=== PATIENT | female | born 1970 | race Caucasian/White ===

== ENCOUNTER 2016-10-11 11:00 | Inpatient (IN) | payer BC ==
[2016-10-11] MEDS ORDERED: PROTONIX 40 MG IV IV ONE ×2 (11:28→11:44)
[2016-10-11] MEDS ORDERED: Sodium Chloride 0.9% 1000 ML 1,000 ML IV STA (11:28)
--- NOTE | 2016-10-11 11:35 | ERPHSYRPT ---
- History of Present Illness Time Seen by Provider: 10/11/16 11:19 Historian: patient Exam Limitations: no limitations Patient Subjective Stated Complaint: HEARTBURN/BURNING IN THE ESOPHAGUS. WAS SEEN IN HOSPITAL LAST MONTH HAD AN EGD PERFORMED AND THEY SEEN SOMETHING ON THE ESOPHAGUS. ON October FOR FOLLOW UP. Triage Nursing Assessment: PT ALERT X 3. WALKED INTO ER. RESPIRATIONS EVEN AND UNLBAORED. SKIN PINK WARM AND DRY. MUSCOUS MEMEBRANES MOIST AND PINK NO REDNESS IN THROAT NOTED AT THIS TIME. ABDOMEN TENDER TO TOUCH, BOWEL SOUNDS PRESENT. Physician History: This is a 46-year-old white female with history of ulcers, anxiety, bipolar disorder, anemia She states she had an EGD approximately one half months ago which she states showed some significant changes she states that she is supposed to be seeing Dr. Kennedy but hasn't done so she states she has no physician [place] she states she is having burning pain in her esophagus and down into her epigastric region which has been going on for several weeks she is not vomiting she is requesting pain medications She states she is not taking any medications She has no fevers no melena no hematochezia Past medical history includes ulcers, anxiety, bipolar, anemia, left wrist fracture Past surgical history includes cholecystectomy, , hysterectomy, left knee surgery, tonsils, gastric bypass Timing/Duration: week(s) (ssymptoms for several weeks) Activities at Onset: none Quality: burning Abdominal Pain Onset Location: epigastric, other (epigastric and up into the substernal region) Pain Radiation: epigastric Severity of Pain-Max: moderate Severity of Pain-Current: moderate Modifying Factors: Improves With: nothing Associated Symptoms: nausea, vomiting, No back, No chest pain, No diaphoresis, No diarrhea, No fever/chills, No fatigue, No headache, No heartburn, No loss of appetite, No neck pain, No rash, No shortness of breath, No syncope Previous symptoms: same symptoms as today, other (patient with recent EGD 6 weeks ago) Allergies/Adverse Reactions: No Known Drug Allergies Allergy (Verified 03/31/16 12:13) Home Medications: Trazodone HCl 200 mg PO QHS 09/09/15 [History] Sertraline HCl [Zoloft] 100 mg PO DAILY 10/11/16 [History] Hx Tetanus, Diphtheria Vaccination/Date Given: Yes (2015) Hx Influenza Vaccination/Date Given: No Hx Pneumococcal Vaccination/Date Given: No Immunizations Up to Date: Yes - Review of Systems Constitutional: No Fever, No Chills Eyes: No Symptoms Ears, Nose, & Throat: No Symptoms Respiratory: No Cough, No Dyspnea Cardiac: No Chest Pain, No Edema, No Syncope Abdominal/Gastrointestinal: Abdominal Pain, Nausea, Vomiting, No Diarrhea, No Constipation, No Hematemesis, No Hematochezia, No Melena, No Dysphagia, No Appetite Changes Genitourinary Symptoms: No Dysuria Musculoskeletal: No Back Pain, No Neck Pain Skin: No Rash Neurological: No Dizziness, No Focal Weakness, No Sensory Changes Psychological: No Symptoms Endocrine: No Symptoms All Other Systems: Reviewed and Negative - Past Medical History Pertinent Past Medical History: Yes Neurological History: No Pertinent History ENT History: No Pertinent History Cardiac History: No Pertinent History Respiratory History: No Pertinent History Endocrine Medical History: No Pertinent History Musculoskeletal History: No Pertinent History GI Medical History: Ulcer History: No Pertinent History Psycho-Social History: Anxiety, Bipolar, Depression Female Reproductive Disorders: No Pertinent History Other Medical History: anemia,may left wrist fx - Past Surgical History Past Surgical History: Yes Neuro Surgical History: No Pertinent History Cardiac: No Pertinent History Respiratory: No Pertinent History Gastrointestinal: Cholecystectomy Genitourinary: No Pertinent History Musculoskeletal: Orthopedic Surgery Female Surgical History: Section, Hysterectomy Other Surgical History: left knee,tonsil,gastric bypass - Social History Smoking Status: Never smoker Exposure to second hand smoke: No Drug Use: none Patient Lives Alone: No - Nursing Vital Signs Nursing Vital Signs: Initial Vital Signs Temperature 98.2 F Temperature Source Oral Pulse Rate 56 Respiratory Rate 20 Blood Pressure [] 113/67 Pain Intensity 8 - Physical Exam General Appearance: no apparent distress, alert Eye Exam: PERRL/EOMI, eyes nml inspection Ears, Nose, Throat Exam: normal ENT inspection, pharynx normal, moist mucous membranes Neck Exam: normal inspection, non-tender, supple, full range of motion Respiratory Exam: normal breath sounds, lungs clear, No respiratory distress Cardiovascular Exam: regular rate/rhythm, normal heart sounds Gastrointestinal/Abdomen Exam: soft, tenderness (epigastric tenderness), No mass Back Exam: normal inspection, normal range of motion, No CVA tenderness, No vertebral tenderness Extremity Exam: normal inspection, normal range of motion, pelvis stable Neurologic Exam: alert, oriented x 3, cooperative, normal mood/affect, nml cerebellar function, sensation nml, No motor deficits Skin Exam: normal color, warm, dry SpO2 Interpretation: normal (98%) SpO2: 98 Oxygen Delivery: Room Air - Course Nursing assessment & vital signs reviewed: Yes EKG Interpreted by Me: RATE (EKG: Sinus bradycardia 49 bpm normal axis, no acute ST or T wave changes, normal EKG) - Radiology Exams Chest X-ray Interpretation: Discussed w/ radiologist, Other (chest x-ray: 1. Low lung volumes unchanged 2. No acute cardiopulmonary disease process. 3. Port- A-Cath on the left unchanged) - CT Exams Abdomen/Pelvis CT Interpretation: Discussed w/radiologist (CT abdomen and pelvis with contrast ; 1. There is a mild amount of scattered fluid within the small bowel and colon which may relate to entero-colitis or diarrrheal state. This is nonspecific. No definite bowel wall thickening or bowel obstruction is seen. 2. Minimal sigmoid colon diverticulosis without evidence of diverticulitis seen. 3. Suggestion of tiny amount of perihepatic ascites within the right upper quadrant laterally. Minimal amount of nonspecific free fluid within the lower pelvis reason for this is unclear no free air is seen. 4. Status post gastric bypass surgery, cholecystectomy, and hysterectomy. 5. No other acute process is seen within the abdomen or pelvis) Ordered Tests: Active Orders 24 hr Category Date Time Status EKG-ER Only STAT Care 10/11/16 11:28 Active IV Insertion STAT Care 10/11/16 11:28 Active ABDOMEN AND PELVIS W CONTRAST [CT] Stat Exams 10/11/16 12:37 Completed CHEST 1 VIEW (PORTABLE) Stat Exams 10/11/16 14:00 Completed AMYLASE Stat Lab 10/11/16 11:40 Completed CBC W DIFF Stat Lab 10/11/16 11:40 Completed CMP Stat Lab 10/11/16 11:40 Completed CULTURE,URINE Stat Lab 10/11/16 12:00 Received LIPASE Stat Lab 10/11/16 11:40 Completed TROPONIN Stat Lab 10/11/16 11:40 Completed UA W/ MICROSCOPIC Stat Lab 10/11/16 12:00 Completed Urine Triage Profile Stat Lab 10/11/16 11:28 Completed Transfer Order Routine Transfer 10/11/16 15:57 Ordered Medication Summary Discontinued Medications Generic Name Dose Route Start Last Admin Trade Name Freq PRN Reason Stop Dose Admin Sodium Chloride 1,000 mls @ 999 mls/hr 10/11/16 11:28 10/11/16 12:06 Sodium Chloride 0.9% 1000 Ml IV 10/11/16 12:28 999 mls/hr .Q1H1M STA Administration Sodium Chloride Confirm 10/11/16 11:44 Sodium Chloride 0.9% 1000 Ml Administered 10/11/16 11:45 Dose 1,000 mls @ ud .ROUTE .STK-MED ONE Morphine Sulfate 4 mg 10/11/16 12:31 10/11/16 13:17 Morphine Sulfate 4 Mg Inj IV 10/11/16 12:32 4 mg STAT ONE Administration Morphine Sulfate Confirm 10/11/16 13:01 Morphine Sulfate 4 Mg Inj Administered 10/11/16 13:02 Dose 4 mg .ROUTE .STK-MED ONE Morphine Sulfate 4 mg 10/11/16 14:24 10/11/16 14:43 Morphine Sulfate 4 Mg Inj IV 10/11/16 14:25 4 mg STAT ONE Administration Morphine Sulfate Confirm 10/11/16 14:41 Morphine Sulfate 4 Mg Inj Administered 10/11/16 14:42 Dose 4 mg .ROUTE .STK-MED ONE Ondansetron HCl 4 mg 10/11/16 12:31 10/11/16 13:18 Zofran 4 Mg/2 Ml Vial IV 10/11/16 12:32 4 mg STAT ONE Administration Ondansetron HCl Confirm 10/11/16 13:01 Zofran 4 Mg/2 Ml Vial Administered 10/11/16 13:02 Dose 4 mg .ROUTE .STK-MED ONE Pantoprazole Sodium 40 mg 10/11/16 11:28 10/11/16 12:06 Protonix 40 Mg Iv IV 10/11/16 11:29 40 mg STAT ONE Administration Pantoprazole Sodium Confirm 10/11/16 11:44 Protonix 40 Mg Iv Administered 10/11/16 11:45 Dose 40 mg IV .STK-MED ONE Lab/Rad Data: Laboratory Result Diagrams 10/11/16 11:40 10/11/16 11:40 Laboratory Results 10/11/16 10/11/16 10/11/16 Range/Units 12:00 11:40 11:40 WBC (4.0-10.5) K/mm3 RBC (4.1-5.4) M/mm3 Hgb (12.0-16.0) gm/dl Hct (35-47) % MCV (78-100) fl MCH (26-32) pg MCHC (32-36) g/dl RDW (11.5-14.0) % Plt Count (150-450) K/mm3 MPV (6-9.5) fl Gran % (36.0-66.0) % Lymphocytes % (24.0-44.0) % Monocytes % (0.0-12.0) % Eosinophils % (0.00-5.0) % Basophils % (0.0-0.4) % Basophils # (0-0.4) Sodium 145 (136-145) mEq/L Potassium 3.8 (3.5-5.1) mEq/L Chloride 111 H (98-107) mEq/L Carbon Dioxide 24.4 (21-32) mEq/L Anion Gap 13.5 (5-15) MEQ/L BUN 14 (9-20) mg/dL Creatinine 0.83 (0.55-1.30) mg/dl Estimated GFR > 60 ML/MIN Glucose 101 (70-110) MG/DL Calcium 9.4 (8.5-10.1) mg/dL Total Bilirubin 0.20 (0.2-1.0) mg/dL AST 28 (15-37) U/L ALT 25 (12-78) U/L Alkaline Phosphatase 70 (46-116) U/L Troponin I < 0.017 (0.000-0.056) ng/ml Serum Total Protein 6.4 (6.4-8.2) gm/dL Albumin 3.7 (3.4-5.0) g/dL Amylase 81 (25-115) U/L Lipase 603 H (73-393) U/L Ur Collection Type VOID Urine Color YELLOW (YELLOW) Urine Appearance CLEAR (CLEAR) Urine pH 7.0 (5-6) Ur Specific [place] 1.010 (1.005-1.025) Urine Protein NEGATIVE (Negative) Urine Ketones NEGATIVE (NEGATIVE) Urine Blood 5-10 (0-5) Micah/ul Urine Nitrite NEGATIVE (NEGATIVE) Urine Bilirubin NEGATIVE (NEGATIVE) Urine Urobilinogen NORMAL (0-1) mg/dL Ur Leukocyte Esterase TRACE (NEGATIVE) Urine Microscopic RBC 0-2 (0-2) /HPF Urine Microscopic WBC 2-5 (0-5) /HPF Ur Epithelial Cells FEW (FEW) /HPF Urine Bacteria FEW (NEGATIVE) /HPF Urine Glucose NEGATIVE (NEGATIVE) mg/dL Urine Opiates Level (NEGATIVE) Ur Methadone (NEGATIVE) Urine Barbiturates (NEGATIVE) Ur Phencyclidine (PCP) (NEGATIVE) Urine Amphetamine (NEGATIVE) U Benzodiazepine Level (NEGATIVE) Urine Cocaine (NEGATIVE) Urine Marijuana (THC) (NEGATIVE) Specimen Received 10/11/16 1200 10/11/16 10/11/16 Range/Units 11:40 11:28 WBC 5.2 (4.0-10.5) K/mm3 RBC 4.42 (4.1-5.4) M/mm3 Hgb 12.4 (12.0-16.0) gm/dl Hct 37.6 (35-47) % MCV 85.1 (78-100) fl MCH 28.1 (26-32) pg MCHC 33.0 (32-36) g/dl RDW 17.8 H (11.5-14.0) % Plt Count 298 (150-450) K/mm3 MPV 8.9 (6-9.5) fl Gran % 63.5 (36.0-66.0) % Lymphocytes % 20.8 L (24.0-44.0) % Monocytes % 8.3 (0.0-12.0) % Eosinophils % 6.0 H (0.00-5.0) % Basophils % 1.4 (0.0-0.4) % Basophils # 0.07 (0-0.4) Sodium (136-145) mEq/L Potassium (3.5-5.1) mEq/L Chloride (98-107) mEq/L Carbon Dioxide (21-32) mEq/L Anion Gap (5-15) MEQ/L BUN (9-20) mg/dL Creatinine (0.55-1.30) mg/dl Estimated GFR ML/MIN Glucose (70-110) MG/DL Calcium (8.5-10.1) mg/dL Total Bilirubin (0.2-1.0) mg/dL AST (15-37) U/L ALT (12-78) U/L Alkaline Phosphatase (46-116) U/L Troponin I (0.000-0.056) ng/ml Serum Total Protein (6.4-8.2) gm/dL Albumin (3.4-5.0) g/dL Amylase (25-115) U/L Lipase (73-393) U/L Ur Collection Type Urine Color (YELLOW) Urine Appearance (CLEAR) Urine pH (5-6) Ur Specific [place] (1.005-1.025) Urine Protein (Negative) Urine Ketones (NEGATIVE) Urine Blood (0-5) Micah/ul Urine Nitrite (NEGATIVE) Urine Bilirubin (NEGATIVE) Urine Urobilinogen (0-1) mg/dL Ur Leukocyte Esterase (NEGATIVE) Urine Microscopic RBC (0-2) /HPF Urine Microscopic WBC (0-5) /HPF Ur Epithelial Cells (FEW) /HPF Urine Bacteria (NEGATIVE) /HPF Urine Glucose (NEGATIVE) mg/dL Urine Opiates Level NEG. (NEGATIVE) Ur Methadone NEG. (NEGATIVE) Urine Barbiturates NEG. (NEGATIVE) Ur Phencyclidine (PCP) NEG. (NEGATIVE) Urine Amphetamine NEG. (NEGATIVE) U Benzodiazepine Level NEG. (NEGATIVE) Urine Cocaine NEG. (NEGATIVE) Urine Marijuana (THC) NEG. (NEGATIVE) Specimen Received - Progress Progress: improved Progress Note: 10/11/16 11:42 46-year-old white female who has a history of ulcers anxiety bipolar anemia, cholecystectomy who states she's had a gastric bypass She arrives with complaint of burning pain in the substernal up through the epigastric region symptoms going on for several weeks she apparently had any CT done approximately 6 weeks ago and Zahira Norris she states she was supposed to follow-up with Dr. Wang cannot see him for several weeks. She states that being out in the heat makes her more uncomfortable she states that she has had some vomiting and some nausea She is asking for some type of pain medication Night have a told her that I would go ahead and obtain labs and start with Protonix for this patient I've reviewed her inspect report which shows a rather long history of receiving narcotic analgesia from various prescribers the last most recent includes hydrocodone 325/5 #30 tablets on August 29, 2016 hydrocodone 5/325 #10 tablets on August 27, 2016 Hydrocodone 7.5 mg 325 #10 tablets on August 22, 2016 written by 3 different physicians. Patient is agreeable to releasing records from her scope at [facility] . 10/11/16 11:42 10/11/16 14:00 Patient did have a mild elevation of lipase at 603 (normal 73-393) amylase is within normal limits at 81 remainder patient's other labs are essentially normal troponin was normal CT of the abdomen is remarkable for a mild amount of scattered fluid within the small bowel and colon which may relate to entero-colitis or diarrheal state nonspecific there was no definite bowel wall thickening or bowel obstruction seen, there was a minimal sigmoid colon diverticulosis without diverticulitis, there was a suggestion of tiny amount of. Panic ascites within the right upper quadrant laterally also a minimal amount of nonspecific free fluid within the lower pelvis reason for this was unclear there was no free air seen patient was status post gastric bypass surgery cholecystectomy and hysterectomy no other acute processes were seen within the abdomen or pelvis. Patient was given IV normal saline given morphine 4 mg IV Zofran 4 mg IV normal saline 1 L I've talked to the patient she [facility] I have placed a call out to Dr. Kennedy through [place] [facility] call. Patient does state that she is feeling somewhat short of breath and has felt that way she has had normal saturations EKG is normal will go ahead and check a chest x-ray lungs are clear. 10/11/16 15:36 Still waiting for a call back through [facility]. 10/11/16 15:55 I went back to recheck patient she is requesting to be admitted to this hospital. I've discussed the case with Dr. Clark who is signal constructor for admissions. Will place patient on observation provide IV fluids, provide IV morphine for pain Zofran. Will plan to repeat CBC CMP amylase and lipase in the morning. 10/11/16 16:10 - Departure Time of Disposition: 15:56 Departure Disposition: Observation Clinical Impression: Epigastric pain, Elevated lipase Condition: Fair Critical Care Time: No Referrals: MARIMAR LEA, POLL CLERK [Primary Care Provider] -
[2016-10-11] MEDS ORDERED: Sodium Chloride 0.9% 1000 ML 1,000 ML ONE (11:44)
[2016-10-11 11:54] LABS: BASOPHIL % 1.4 % (0.0-0.4); Granulocytes % 63.5 % (36.0-66.0); Lymphocytes % 20.8 % (24.0-44.0); Mean Cell Volume 85.1 fl (78-100); Mean Corpuscular Hemoglobin 28.1 pg (26-32); Mean Platelet Volume 8.9 fl (6-9.5); Monocytes % 8.3 % (0.0-12.0); Platelet Count 298 K/mm3 (150-450); Red Blood Count 4.42 M/mm3 (4.1-5.4); Red Cell Distribution Width 17.8 % (11.5-14.0); White Blood Count 5.2 K/mm3 (4.0-10.5)
[2016-10-11 12:08] LABS: ALBUMIN 3.7 g/dL (3.4-5.0); ALKALINE PHOSPHATASE 70 U/L (46-116); ANION GAP 13.5 MEQ/L (5-15); BLOOD UREA NITROGEN 14 mg/dL (9-20); CHLORIDE 111 mEq/L (98-107); Carbon Dioxide 24.4 mEq/L (21-32); Glucose 101 MG/DL (70-110); LIPASE 603 U/L (73-393); Potassium 3.8 mEq/L (3.5-5.1); SGOT/AST 28 U/L (15-37); SGPT/ALT 25 U/L (12-78); SODIUM 145 mEq/L (136-145); Total Protein 6.4 gm/dL (6.4-8.2)
[2016-10-11 12:15] LABS: Bilirubin NEGATIVE (NEGATIVE); COMPLETE URINE MICROSCOPIC? YES; Collection Type VOID; Glucose NEGATIVE (NEGATIVE); Leukocyte Esterase TRACE (NEGATIVE)
[2016-10-11 12:22] LABS: Bacteria FEW /HPF (NEGATIVE); Epithelial Cells FEW /HPF (FEW)
[2016-10-11 12:26] LABS: ADD URINE CULTURE? YES (NO)
[2016-10-11] MEDS ORDERED: Zofran 4 MG/2 ML VIAL IV ONE (12:31)
[2016-10-11] MEDS ORDERED: MORPHINE SULFATE 4 MG INJ IV ONE ×2 (12:31→14:24)
[2016-10-11] MEDS ORDERED: MORPHINE SULFATE 4 MG INJ ONE ×2 (13:01→14:41)
[2016-10-11] MEDS ORDERED: Zofran 4 MG/2 ML VIAL ONE (13:01)
--- NOTE | 2016-10-11 13:56 | XRAY ---
Exam: CT of the abdomen and pelvis with IV contrast from 10/11/2016. CTDI: 23.57 Comparison: CT of the abdomen and pelvis with IV contrast from 03/27/2012. Indication: Epigastric abdominal pain, nausea, vomiting, diarrhea. Technique: Post-IV contrast axial images were obtained through the abdomen and pelvis during automated injection of 80 cc of Isovue-370 contrast material. Delayed axial images were obtained as well. Reconstructed coronal and sagittal images were created and reviewed. Findings: The lung bases appear clear. Minimal posterior dependent atelectatic changes are seen within the posterior lung sulci. Surgical suture material is seen overlying the medial aspect of the left upper quadrant, apparently due to prior gastric bypass surgery. I also see surgical clips consistent with prior cholecystectomy. Faint surgical suture material is seen within bowel in the left midabdomen as well, probably related to the patient's gastric bypass surgery. The liver is of unremarkable size. No suspicious mass or biliary duct distention is seen. There is a question of trace perihepatic ascites lateral to the liver on axial image #37 of series #2. No biliary duct distention is seen. The spleen is of normal size and reveals no focal mass. No abnormality of the pancreas or adrenal glands is seen. The kidneys appear of unremarkable size and contour. No definite renal calculi, hydronephrosis, or solid renal mass is seen. A moderate sized extrarenal pelvis is seen on the right representing no change. Both kidneys function. No ureteral distention or stone is seen. No urinary bladder stone is seen. The abdominal aorta appears of normal diameter, i.e. no aneurysm. No abnormal retroperitoneal lymphadenopathy is seen. Anterior abdominal wall appears intact. No free intraperitoneal air is seen. Scattered stool is seen within the colon. I also note some fluid within the small bowel and colon lumen which may relate to enterocolitis or a diarrheal state. No definite bowel wall thickening is seen. The appendix is not seen at the inferior margin of the cecum, but no pericecal inflammatory changes are seen to suggest appendicitis. The uterus is surgically absent. No worrisome pelvic mass or enlarged pelvic lymph nodes are seen. I believe there is some minimal free fluid within the lower posterior pelvis, a bit more prominent to the right than left. This is nonspecific. Some small calcified phleboliths are seen within the lower pelvis on each side of midline. Minimal sigmoid colon diverticulosis without evidence of diverticulitis is seen. The skeletal structures reveal no acute fracture or aggressive bone lesion. Mild diffuse degenerative changes are seen within the lower thoracic spine. Impression: 1. There is a mild amount of scattered fluid within the small bowel and colon which may relate to enterocolitis or diarrheal state. This is nonspecific. No definite bowel wall thickening or bowel obstruction is seen. 2. Minimal sigmoid colon diverticulosis without evidence of diverticulitis is seen. 3. There is a suggestion of a tiny amount of perihepatic ascites within the right upper quadrant laterally. I also believe there is a minimal amount of nonspecific free fluid within the lower pelvis. The reason for this is unclear. No free air is seen. 4. Status post gastric bypass surgery, cholecystectomy, and hysterectomy. 5. No other acute process is seen within the abdomen or pelvis.
--- NOTE | 2016-10-11 14:41 | XRAY ---
Exam: AP upright portable chest film from 1405 hrs. on 10/11/2016. Comparison: AP upright portable chest film from 02/18/2016. Indication: Shortness of breath. Findings: The lungs are mildly hypo-inflated, but unchanged. Left-sided ruth catheter is seen with the tip pointing inferiorly at the caval-atrial junction representing no change. The transverse heart size appears within normal limits for this AP portable technique. No pulmonary vascular congestion is seen. The remainder of the lindsay and mediastinal structures appears normal. The lungs reveal no air space infiltrates, pneumothorax, or pleural fluid. The visualized bones appear unremarkable. Impression: 1. Low lung volumes representing no change. 2. No acute cardiopulmonary disease is seen. 3. A left-sided ruth catheter is seen in unchanged position as compared to 02/18/2016.
[2016-10-11] MEDS: Sodium Chloride 0.9% 1000 ML 1,000 ML IV SCH (16:42)
[2016-10-11] MEDS ORDERED: GI COCKTAIL 60ML (Belladonn/Phenobarb/Lidoc PO ONE (16:59)
[2016-10-11] MEDS ORDERED: Donnatol Liquid PO ONE (17:22)
[2016-10-11] MEDS ORDERED: MAALOX ES 30 ML UNIT DOSE PO ONE (17:23)
[2016-10-11] MEDS ORDERED: XYLOCAINE HCl Viscous MM ONE (17:24)
[2016-10-11] MEDS: MORPHINE SULFATE 4 MG INJ IV PRN (18:55)
[2016-10-11] MEDS: TYLENOL 325 MG PO PRN (19:49)
[2016-10-11] MEDS ORDERED: DESYREL 50 MG ONE (19:57)
[2016-10-11] MEDS: DESYREL 50 MG PO SCH (21:57)
[2016-10-12] MEDS: Sodium Chloride 0.9% 1000 ML 1,000 ML IV SCH ×3 (02:22→23:12)
[2016-10-12] MEDS: MORPHINE SULFATE 4 MG INJ IV PRN ×2 (02:22→07:15)
[2016-10-12 05:44] LABS: BASOPHIL % 1.7 % (0.0-0.4); Eosinophil % 7.1 % (0.00-5.0); Granulocytes % 47.3 % (36.0-66.0); Lymphocytes % 34.6 % (24.0-44.0); Mean Cell Volume 87.8 fl (78-100); Mean Platelet Volume 8.7 fl (6-9.5); Monocytes % 9.3 % (0.0-12.0); Platelet Count 248 K/mm3 (150-450); Red Blood Count 3.95 M/mm3 (4.1-5.4); Red Cell Distribution Width 18.3 % (11.5-14.0); White Blood Count 3.5 K/mm3 (4.0-10.5)
[2016-10-12 05:53] LABS: Mean Corpuscular Hemoglobin 27.5 pg (26-32)
[2016-10-12] MEDS: TYLENOL 325 MG PO PRN ×3 (06:00→18:16)
[2016-10-12 06:15] LABS: ALBUMIN 3.1 g/dL (3.4-5.0); ALKALINE PHOSPHATASE 52 U/L (46-116); ANION GAP 10.7 MEQ/L (5-15); BLOOD UREA NITROGEN 12 mg/dL (9-20); CHLORIDE 115 mEq/L (98-107); Carbon Dioxide 25.8 mEq/L (21-32); Glucose 87 MG/DL (70-110); LIPASE 579 U/L (73-393); Potassium 4.1 mEq/L (3.5-5.1); SGOT/AST 38 U/L (15-37); SGPT/ALT 30 U/L (12-78); SODIUM 147 mEq/L (136-145); Total Protein 5.6 gm/dL (6.4-8.2)
[2016-10-12] MEDS: Zofran 4 MG/2 ML VIAL IV PRN ×2 (07:18→17:33)
[2016-10-12] MEDS: ZOLOFT 50 MG TABLET PO SCH (08:54)
--- NOTE | 2016-10-12 09:00 | PCM.HP ---
History of Present Illness - Chief Complaint Chief Complaint: epigastric pain, elevated lipase History of Present Illness: is a 46 year old female with no local MD who came to ER complaining of epigastric burning pain radiating up through the throat. She has a history of this over the past few months but it's been worse in the past 2-3 days. Also c/o vomiting for the past several days, no hematemesis, and diarrhea once daily for the past 5 days. She had an EGD at [facility] recently and she notes they saw "something" but we haven't received those records yet. She sees Dr. Kennedy regularly and has an appointemnt with him on October 24. She received a GI cocktail last night with great relief but would like another. She's been on morphine 4mg IV q4h and she notes it only lasts 2h and gives her a headache. She reports a hx bleeding ulcers with blood transfusions; last transfusion [address] abd/pelvis done in ER showed some mild free fluid and ascites, diverticulosis without diverticulitis, and no acute findings. Some fluid in small bowel and colon lumen which could be enterocolitis or diarrhea. Pt sees Dr. Sadler for aplastic anemia. She does have a port. 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 notes she does not hydrate enough. - Review of Systems Constitutional: Weakness Ears, Nose, & Throat: Throat Pain Respiratory: Cough (nonproductive x 5d), Short Of Breath Cardiac: Chest Pain, Syncope (2d ago) Abdominal/Gastrointestinal: Abdominal Pain, Nausea, Vomiting, Diarrhea Neurological: Headache Psychological: No Depression, No Suicidal Ideations Hematologic/Lymphatic: Anemia All Other Systems: Reviewed and Negative Medications & Allergies Home Medications: Home Medication List Trazodone HCl 200 mg PO QHS 09/09/15 [History Confirmed 10/11/16] Sertraline HCl [Zoloft] 100 mg PO DAILY 10/11/16 [History Confirmed 10/11/16] Allergies/Adverse Reactions: Allergies Allergy/AdvReac Type Severity Reaction Status Date / Time No Known Drug Allergies Allergy Verified 10/11/16 16:19 - Past Medical History Past Medical History: Yes Neurological History: Migraines ENT History: No Pertinent History Cardiac History: No Pertinent History Respiratory History: No Pertinent History Endocrine Medical History: No Pertinent History Musculoskelatal History: Fractures GI Medical History: Diverticulitis, GERD, Pancreatitis, Ulcer, Other History: No Pertinent History Pyscho-Social History: Anxiety, Bipolar, Depression Reproductive Disorders: No Pertinent History Comment: anemia ,area noted on esophagus (patient states she does not have diagnosis yet) - Female History Are you now?: No - Past Surgical History Past Surgical History: Yes Neuro Surgical History: No Pertinent History Cardiac History: No Pertinent History Respiratory Surgery: No Pertinent History GI Surgical History: Cholecystectomy, Other (Gastric bypass) Genitourinary Surgical Hx: No Pertinent History Musculskeletal Surgical Hx: Orthopedic Surgery Female Surgical History: Section, Hysterectomy Other Surgical History: left knee surgery, gastric bypass - Social History Smoking Status: Never smoker Exposure to second hand smoke: No Alcohol: None Drug Use: none - Physical Exam Vital Signs: Vital Signs - 24 hr Temp Pulse Resp BP Pulse Ox 10/12/16 07:47 97.6 F 47 L 20 95/56 96 10/12/16 07:45 94 L 10/12/16 04:00 97.6 F 61 17 111/56 98 10/12/16 00:00 97.6 F 48 L 17 99/56 95 10/11/16 20:00 98.2 F 65 19 104/57 96 10/11/16 19:20 95 10/11/16 16:25 98.0 F 60 16 124/58 100 10/11/16 16:11 98 10/11/16 15:04 20 113/67 97 10/11/16 14:00 56 L 16 112/78 99 10/11/16 13:25 64 18 119/85 100 10/11/16 11:50 54 L 20 129/78 97 10/11/16 11:00 98.2 F 75 20 111/84 98 Oxygen-Last 24 hours O2 Percentage 3 Liters = 32% O2 Percentage 3 Liters = 32% O2 Percentage 3 Liters = 32% O2 Percentage 3 Liters = 32% General Appearance: no apparent distress Neurologic Exam: alert, oriented x 3, cooperative Eye Exam: eyes nml inspection Results - Labs Lab/Micro Results: Lab Results-Last 24 Hours 10/12/16 10/12/16 Range/Units 05:35 05:35 WBC 3.5 L (4.0-10.5) K/mm3 RBC 3.95 L (4.1-5.4) M/mm3 Hgb 10.9 L (12.0-16.0) gm/dl Hct 34.7 L (35-47) % MCV 87.8 (78-100) fl MCH 27.5 (26-32) pg MCHC 31.4 L (32-36) g/dl RDW 18.3 H (11.5-14.0) % Plt Count 248 (150-450) K/mm3 MPV 8.7 (6-9.5) fl Gran % 47.3 (36.0-66.0) % Lymphocytes % 34.6 (24.0-44.0) % Monocytes % 9.3 (0.0-12.0) % Eosinophils % 7.1 H (0.00-5.0) % Basophils % 1.7 (0.0-0.4) % Basophils # 0.06 (0-0.4) Sodium 147 H (136-145) mEq/L Potassium 4.1 (3.5-5.1) mEq/L Chloride 115 H (98-107) mEq/L Carbon Dioxide 25.8 (21-32) mEq/L Anion Gap 10.7 (5-15) MEQ/L BUN 12 (9-20) mg/dL Creatinine 0.75 (0.55-1.30) mg/dl Estimated GFR > 60 ML/MIN Glucose 87 (70-110) MG/DL Calcium 8.4 L (8.5-10.1) mg/dL Total Bilirubin 0.10 L (0.2-1.0) mg/dL AST 38 H (15-37) U/L ALT 30 (12-78) U/L Alkaline Phosphatase 52 (46-116) U/L Serum Total Protein 5.6 L (6.4-8.2) gm/dL Albumin 3.1 L (3.4-5.0) g/dL Amylase 73 (25-115) U/L Lipase 579 H (73-393) U/L - Other Procedures and Tests Respiratory Therapy 10/11/16 19:20 Oxygen NASAL CANNULA 2 lpm Assessment/Plan (1) Pancreatitis Current Visit: Yes Status: Acute Qualifiers: Chronicity: chronic Pancreatitis type: unspecified pancreatitis type Qualified Code(s): K86.1 - Other chronic pancreatitis Assessment & Plan: Acute on chronic - she notes no specific workup or ERCP done for pancreatitis. Continue IV fluids, recheck labs in a.m., and plan to [facility] Dr. Kennedy outpatient. Code(s): K85.90 - ACUTE PANCREATITIS WITHOUT NECROSIS OR INFECTION, UNSP (2) Thrush Current Visit: Yes Status: Acute Assessment & Plan: Start nystatin po Code(s): B37.0 - CANDIDAL STOMATITIS (3) Epigastric pain Current Visit: Yes Status: Acute Assessment & Plan: likely due to the pancreatitis, but would consider if pt not improving that she could have colitis as suspected on CT. Code(s): R10.13 - EPIGASTRIC PAIN (4) Chronic pain syndrome Current Visit: No Status: Acute Assessment & Plan: Has gotten opiates from 3 different providers in the last 2 mo. Would keep this in mind when discharging the patient, however since in hospital now need to attempt to treat pain adequately. Code(s): G89.4 - CHRONIC PAIN SYNDROME (5) History of aplastic anemia Current Visit: No Status: Acute Assessment & Plan: WBC decreased. recheck tomorrow. Code(s): Z86.2 - PRSNL HISTORY OF DIS OF THE BLD/BLD-FORM ORG/IMMUN MECHNSM (6) Syncope Current Visit: No Status: Acute Qualifiers: Encounter type: initial encounter Assessment & Plan: Will place pt on telemetry, would do echo and carotid doppler if not done in the past 6 mo. Code(s): R55 - SYNCOPE AND COLLAPSE (7) History of Campbell-en-Y gastric bypass Current Visit: No Status: Chronic Code(s): Z98.84 - BARIATRIC SURGERY STATUS
[2016-10-12] MEDS ORDERED: DILAUDID 2 MG INJECTION IV PRN (09:07)
[2016-10-12] MEDS: Nystatin SUSPENSION 60 ML PO SCH ×4 (09:49→20:59)
[2016-10-12] MEDS: SUBLIMAZE 100 MCG/2 ML IV PRN ×3 (13:23→21:00)
--- NOTE | 2016-10-12 18:46 | XRAY ---
Exam: Duplex Doppler carotid ultrasound examination from 10/12/2016. Comparison: None. Indication: Syncope. Findings: On the right side, there is minimal fibrous plaque at the proximal right internal carotid artery. Color flow and Doppler images were obtained. Peak systolic flow velocities in centimeters per second measure 66.4 within the common carotid artery, 56.0 within the external carotid artery, and 57.3 and 58.6 within the proximal and distal internal carotid artery. The peak ICA to CCA systolic flow velocity ratio measures 0.9 which is not elevated. The right vertebral artery reveals antegrade flow and demonstrates a peak systolic flow velocity of 29.6 cm/s. On the left side, I see only minimal fibrous plaque at the posterior aspect of the left carotid bulb. Color flow images and Doppler images were obtained. Peak systolic flow velocities in centimeters per second measure 65.8 within the common carotid artery, 55.9 within the external carotid artery, and 65.8 and 57.0 within the proximal and distal internal carotid artery. The peak ICA to CCA flow velocity ratio on this side measures 1.0 which is not elevated. The left vertebral artery revealed antegrade flow with a peak systolic flow velocity of 44.2 cm/s. Impression: 1. No hemodynamically significant stenosis is seen within either carotid artery in the neck. 2. Both vertebral arteries reveal antegrade flow.
[2016-10-12] MEDS: DESYREL 50 MG PO SCH (21:00)
[2016-10-13] MEDS: SUBLIMAZE 100 MCG/2 ML IV PRN ×7 (02:22→21:20)
[2016-10-13] MEDS: Zofran 4 MG/2 ML VIAL IV PRN ×3 (02:32→16:20)
[2016-10-13 05:32] LABS: Eosinophil % 8.1 % (0.00-5.0); Granulocytes % 49.8 % (36.0-66.0); Lymphocytes % 30.1 % (24.0-44.0); Mean Cell Volume 88.2 fl (78-100); Mean Corpuscular Hemoglobin 27.9 pg (26-32); Mean Platelet Volume 8.8 fl (6-9.5); Platelet Count 249 K/mm3 (150-450); Red Cell Distribution Width 17.8 % (11.5-14.0); White Blood Count 4.1 K/mm3 (4.0-10.5)
[2016-10-13 05:56] LABS: ALKALINE PHOSPHATASE 58 U/L (46-116); ANION GAP 11.6 MEQ/L (5-15); BLOOD UREA NITROGEN 9 mg/dL (9-20); CHLORIDE 115 mEq/L (98-107); Carbon Dioxide 23.1 mEq/L (21-32); Glucose 93 MG/DL (70-110); LIPASE 370 U/L (73-393); Potassium 3.9 mEq/L (3.5-5.1); SGOT/AST 42 U/L (15-37); SGPT/ALT 36 U/L (12-78); SODIUM 146 mEq/L (136-145); Total Protein 5.5 gm/dL (6.4-8.2)
[2016-10-13] MEDS: TYLENOL 325 MG PO PRN ×3 (07:13→21:12)
[2016-10-13] MEDS: ZOLOFT 50 MG TABLET PO SCH (08:44)
[2016-10-13] MEDS: Nystatin SUSPENSION 60 ML PO SCH ×4 (08:44→21:14)
[2016-10-13] MEDS: Sodium Chloride 0.9% 1000 ML 1,000 ML IV SCH ×2 (08:53→19:32)
[2016-10-13] MEDS: IMODIUM 2 MG PO PRN ×2 (14:27→18:17)
[2016-10-13] MEDS: DESYREL 50 MG PO SCH (21:13)
[2016-10-14] MEDS: Zofran 4 MG/2 ML VIAL IV PRN (02:16)
[2016-10-14] MEDS: Sodium Chloride 0.9% 1000 ML 1,000 ML IV SCH (05:21)
[2016-10-14] MEDS: SUBLIMAZE 100 MCG/2 ML IV PRN (05:37)
[2016-10-14] MEDS: TYLENOL 325 MG PO PRN (05:40)
[2016-10-14 06:00] LABS: BASOPHIL % 1.2 % (0.0-0.4); Eosinophil % 6.2 % (0.00-5.0); Granulocytes % 58.2 % (36.0-66.0); Lymphocytes % 25.1 % (24.0-44.0); Mean Cell Volume 86.4 fl (78-100); Mean Platelet Volume 9.2 fl (6-9.5); Monocytes % 9.3 % (0.0-12.0); Platelet Count 234 K/mm3 (150-450); Red Blood Count 4.03 M/mm3 (4.1-5.4); Red Cell Distribution Width 16.8 % (11.5-14.0); White Blood Count 4.8 K/mm3 (4.0-10.5)
[2016-10-14 06:07] LABS: Mean Corpuscular Hemoglobin 27.7 pg (26-32)
[2016-10-14 06:22] LABS: ALKALINE PHOSPHATASE 63 U/L (46-116); ANION GAP 11.3 MEQ/L (5-15); BLOOD UREA NITROGEN 10 mg/dL (9-20); CHLORIDE 114 mEq/L (98-107); Carbon Dioxide 25.4 mEq/L (21-32); Glucose 87 MG/DL (70-110); LIPASE 334 U/L (73-393); Potassium 3.8 mEq/L (3.5-5.1); SGOT/AST 28 U/L (15-37); SGPT/ALT 34 U/L (12-78); SODIUM 147 mEq/L (136-145); Total Protein 5.7 gm/dL (6.4-8.2)
[2016-10-14 07:08] VITALS: BP 118/78; PULSE 58; O2SAT 98
--- NOTE | 2016-10-14 08:25 | PCM.DS ---
Discharge Summary Date of Admission: 10/12/16 16:00 Admitting Physician: FELIX WHITLEY Primary Care Provider: MARIMAR LEA NP Allergies Allergies No Known Drug Allergies Allergy (Verified 10/11/16 16:19) Hospital Summary - Hospital Course Hospital Course: patient doing well after starting regular diet yesterday. tolerating po, no pain , no vomiting. enzymes are normal today - Vitals & Intake/Output Vital Signs: Vital Signs Temperature 98.2 F 10/14/16 07:07 Pulse Rate 58 L 10/14/16 07:07 Respiratory Rate 20 10/14/16 07:07 Blood Pressure 118/78 10/14/16 07:07 O2 Sat by Pulse Oximetry 98 10/14/16 07:07 Oxygen-Last Documented O2 Percentage 3 Liters = 32% Intake & Output: Intake & Output 10/11/16 10/12/16 10/13/16 10/14/16 11:59 11:59 11:59 11:59 Intake Total 4076 3794 Output Total 2700 1250 Balance 1376 2544 - Lab Result Diagrams: 10/14/16 05:40 10/14/16 05:40 Lab Results-Last 24 Hrs: Lab Results-Last 24 Hours 10/13/16 10/14/16 10/14/16 Range/Units 10:00 05:40 05:40 WBC 4.8 (4.0-10.5) K/mm3 RBC 4.03 L (4.1-5.4) M/mm3 Hgb 11.2 L (12.0-16.0) gm/dl Hct 34.8 L (35-47) % MCV 86.4 (78-100) fl MCH 27.7 (26-32) pg MCHC 32.2 (32-36) g/dl RDW 16.8 H (11.5-14.0) % Plt Count 234 (150-450) K/mm3 MPV 9.2 (6-9.5) fl Gran % 58.2 (36.0-66.0) % Lymphocytes % 25.1 (24.0-44.0) % Monocytes % 9.3 (0.0-12.0) % Eosinophils % 6.2 H (0.00-5.0) % Basophils % 1.2 (0.0-0.4) % Basophils # 0.06 (0-0.4) Sodium 147 H (136-145) mEq/L Potassium 3.8 (3.5-5.1) mEq/L Chloride 114 H (98-107) mEq/L Carbon Dioxide 25.4 (21-32) mEq/L Anion Gap 11.3 (5-15) MEQ/L BUN 10 (9-20) mg/dL Creatinine 0.72 (0.55-1.30) mg/dl Estimated GFR > 60 ML/MIN Glucose 87 (70-110) MG/DL Calcium 8.5 (8.5-10.1) mg/dL Total Bilirubin 0.20 (0.2-1.0) mg/dL AST 28 (15-37) U/L ALT 34 (12-78) U/L Alkaline Phosphatase 63 (46-116) U/L Serum Total Protein 5.7 L (6.4-8.2) gm/dL Albumin 3.0 L (3.4-5.0) g/dL Amylase 56 (25-115) U/L Lipase 334 (73-393) U/L Stl C. diff Tox B Gene NEGATIVE (NEGATIVE) C.difficile [id number] PRESUMPTIVE NEGATIVE (NEGATIVE) Discharge Exam General Appearance: no apparent distress, alert Respiratory Exam: normal breath sounds, lungs clear, No respiratory distress Cardiovascular Exam: regular rate/rhythm, normal heart sounds Gastrointestinal/Abdomen Exam: soft, No tenderness, No mass Extremity Exam: normal inspection, normal range of motion Final Diagnosis/Problem List - Final Discharge Diagnosis/Problem (1) Acute pancreatitis Current Visit: Yes Status: Acute Assessment & Plan: resolved, d/c to home - Discharge Disposition: Home, Self-Care Condition: Good Prescriptions: Continue Trazodone HCl 200 mg PO QHS Sertraline HCl [Zoloft] 100 mg PO DAILY Follow up with: MARIMAR LEA NP [Primary Care Provider] -
--- NOTE | 2016-10-15 09:31 | ECHO ---
DATE OF TEST: 10/12/2016 INDICATION: Syncope. FINDINGS: 1) Normal left ventricle cavity size with upper limits of normal left ventricular wall thickness and normal left ventricular systolic function. Overall left ventricular ejection fraction is 60-65%. Left ventricle inflow Doppler examination is normal for patient's age. Right ventricle is mild to moderately dilated. Right ventricle systolic function appears to be normal. 2) Borderline left atrial enlargement and mild to moderately dilated right atrium. 3) Mitral valve structurally normal with trace mitral regurgitation. Tricuspid valve is grossly normal with mild 1+ tricuspid regurgitation and estimated PA systolic pressure of 41 mm of Mercury. Aortic valve not well visualized but valve excursion is normal. No aortic insufficiency was noted. Pulmonic valve is grossly normal with trace pulmonic insufficiency. 4) No pericardial effusion. IMPRESSION: 1) NORMAL LEFT VENTRICLE SIZE AND SYSTOLIC FUNCTION. OVERALL LEFT VENTRICULAR EJECTION FRACTION IS 60-65%. 2) MILD TO MODERATELY DILATED RIGHT VENTRICLE WITH MILD PULMONARY HYPERTENSION. 3) NO SIGNIFICANT VALVULAR DISEASE.
== END 2016-10-14 09:25 | disposition home or self-care (01) | DRG 440 ==
LOC: ED 11:00 → MED SURG 16:10 → OBSVTOIN 10-12 16:00
PROVIDERS: ADMIT Family Medicine; ATTEND Family Medicine
DX: K85.90 Acute pancreatitis without necrosis or infection, unspecified (principal); K21.9 Gastro-esophageal reflux disease without esophagitis; Z98.84 Bariatric surgery status
CPT/HCPCS: 36000; 36415; 71010; 74177; 80053; 80307; 81000; 82150; 83690; 84484; 85025; 87086; 87493; 93005; 93306; 93880; 94760; 96360; 96374; 96375; 99285; G0378; J1170; J1642; J2270; J2405; J3010; A9270-GY

== ENCOUNTER 2019-06-05 09:23 | Emergency (ER) | payer BC ==
--- NOTE | 2019-06-05 10:53 | ERPHSYRPT ---
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 Patient Subjective Stated Complaint: Nose began bleeding approx 3 hours ago after blowing her nose due to stuffiness Triage Nursing Assessment: Pt brought in by her , nose actively bleeding through both nares, pt admits to picking at her nose prior to bleeding, has had nasal sinus drainage all week, hypertensive, pt rates pain as a 9 in her nose and head, doesn't appear to be having any other issues Physician History: Patient began having a nosebleed 3 hours prior to coming into the emergency department after she stuck her finger into a congested nose bilaterally and began having bleeding shortly thereafter. Patient gets occasional nosebleeds. He denies any other trauma history, being on any anticoagulants, or have any history of nasal procedures. Timing/Duration: abrupt onset Severity: moderate ENT Location: ear (R), ear (L) Prearrival Treatment: no prearrival treatment Modifying Factors: Worsens With: other (Placing her fingers in her nose) Associated Symptoms: nasal congestion/drainage, epistaxis, sinus infection, No ear pain (R), No ear pain (L), No cough, No fever, No chills, No change in hearing, No dizziness, No drooling, No ear drainage, No facial pain/swelling, No headache, No hearing loss, No jaw pain, No malaise, No motion sickness, No nasal foreign body, No neck pain, No poor fluid intake, No poor solids intake, No ringing of ears, No swollen glands, No sore throat, No tooth pain, No difficulty swallowing, No voice change Allergies/Adverse Reactions: No Known Drug Allergies Allergy (Verified 06/05/19 09:39) Home Medications: Buspirone HCl [Buspar] 15 mg PO DAILY 06/05/19 [History] Cyanocobalamin 1000 Mcg/ml [Cyanocobalamin B-12 1000 MCG/ML] 1,000 mcg IJ UD 06/05/19 [History] Doxycycline Hyclate 50 mg PO BID 06/05/19 [History] Escitalopram Oxalate [Lexapro] 20 mg PO BID 06/05/19 [History] Methylphenidate HCl [Methylphenidate ER] 20 mg PO TID 06/05/19 [History] Ropinirole HCl 2 mg PO HS 06/05/19 [History] Trazodone HCl 100 mg PO TID 06/05/19 [History] Hx Tetanus, Diphtheria Vaccination/Date Given: Yes (2015) Hx Influenza Vaccination/Date Given: No Hx Pneumococcal Vaccination/Date Given: No - Review of Systems Constitutional: No Fever, No Chills Eyes: No Eye Pain, No Eye Redness, No Tearing Ears, Nose, & Throat: Nose Congestion, Nose Discharge, Sinus Drainage, Epistaxis , No Ear Pain, No Ear Discharge, No Mouth Swelling, No Throat Pain, No Throat Swelling, No Hoarse, No Painful Swallowing Respiratory: No Cough, No Dyspnea Cardiac: No Chest Pain, No Edema, No Syncope Abdominal/Gastrointestinal: No Abdominal Pain, No Nausea, No Vomiting, No Diarrhea Genitourinary Symptoms: No Dysuria, No Hematuria, No Flank Pain Musculoskeletal: No Back Pain, No Neck Pain Skin: No Rash Neurological: No Dizziness, No Focal Weakness, No Sensory Changes Psychological: No Symptoms, No Anxiety Endocrine: No Symptoms, No Excessive Sweating Hematologic/Lymphatic: No Easy Bleeding, No Easy Bruising All Other Systems: Reviewed and Negative - Past Medical History Pertinent Past Medical History: Yes Neurological History: Migraines ENT History: No Pertinent History Cardiac History: No Pertinent History Respiratory History: No Pertinent History Endocrine Medical History: No Pertinent History Musculoskeletal History: Fractures GI Medical History: Diverticulitis, GERD, Pancreatitis, Ulcer, Other History: No Pertinent History Psycho-Social History: Anxiety, Bipolar, Depression Female Reproductive Disorders: No Pertinent History Other Medical History: aplastic anemia ,area noted on esophagus, hep c carrier - Past Surgical History Past Surgical History: Yes Neuro Surgical History: No Pertinent History Cardiac: No Pertinent History Respiratory: No Pertinent History Gastrointestinal: Cholecystectomy, Other Genitourinary: No Pertinent History Musculoskeletal: Orthopedic Surgery Female Surgical History: Hysterectomy, Section, Tubal Ligation Other Surgical History: left knee surgery, gastric bypass - Social History Smoking Status: Never smoker Exposure to second hand smoke: No Drug Use: none Patient Lives Alone: No - Female History Hx Now: No (hysterectomy) - Nursing Vital Signs Nursing Vital Signs: Initial Vital Signs Temperature 97.8 F 06/05/19 09:30 Pulse Rate 105 H 06/05/19 09:30 Blood Pressure 150/103 06/05/19 09:30 O2 Sat by Pulse Oximetry 98 06/05/19 09:30 Pain Scale Pain Intensity 9 - Physical Exam General Appearance: no apparent distress, alert Eye Exam: bilateral eye: normal inspection, PERRL, EOMI Ear Exam: bilateral ear: auricle normal, canal normal, TM normal Nasal Exam: active bleeding (Bilateral nares), dried blood (Lateral), No discharge, No foreign body, No sinus tenderness Throat Exam: pharynx normal, moist mucus membranes, No mandibular swelling, No maxillary swelling, No pharynx swelling, No pharynx tenderness, No tongue swollen, No tonsillar exudate, No tonsillar swelling, No uvula swelling Neck Exam: normal inspection, non-tender, supple, full range of motion, trachea midline, No lymphadenopathy (R), No lymphadenopathy (L), No stiff neck Cardiovascular/Respiratory Exam: chest non-tender, normal breath sounds, regular rate/rhythm, heart sounds normal, no JVD, no respiratory distress Abdominal Exam: non-tender, soft, No tenderness Neurologic Exam: alert, oriented x 3, cooperative, make up worker II-XII nml as tested, normal mood/affect Skin Exam: normal color, warm, dry, No petechiae, No jaundice, No cyanosis SpO2 Interpretation: normal SpO2: 98 O2 Delivery: Room Air Procedures - Additional Procedures Progress: Epistaxis Treatment: Informed consent obtained, a Merocel sponge was lubricated and bacitracin ointment was placed into both nares. Bleeding stopped. Patient tolerated well with no complications. No posterior pharyngeal bleeding noted after Merocel sponges placed. - Course Nursing assessment & vital signs reviewed: Yes - Progress Progress: improved Progress Note: 06/05/19 10:50 Patient had no further bleeding after placing Merocel sponges and was tolerating them very well. Patient will follow-up in 3 days to remove the sponges with either a primary care provider or her ENT surgeon as she has an ENT in [place], [place]. I will place patient on an antibiotic for prophylaxis over the next 3 days, Augmentin, as ciprofloxacin has a potential interaction with her trazodone that can cause QTC prolongation. Counseled pt/family regarding: diagnosis, need for follow-up - Departure Departure Disposition: Home Clinical Impression: Epistaxis, Elevated blood pressure reading without diagnosis of hypertension Condition: Good Critical Care Time: No Referrals: MARIMAR LEA NP [Primary Care Provider] - Follow Up with PCP/3 days (To remove both Merocel sponges) Instructions: Nosebleeds (DC) Additional Instructions: Follow-up with your primary care provider in 3 days or call the office today to have referral to ENT in [place], [place] for follow-up in 3 days to remove the 2 Merocel sponges placed today. Finish the antibiotic given to you. Return immediately back to the emergency room if any worsening pain, fever, bleeding, drainage, or any other concerning signs or symptoms that were not present today's management visit for immediate reevaluation in the emergency department. Prescriptions: Amoxicillin/Potassium Clav [Augmentin 875-125 Tablet] 1 each PO BID 3 Days #6 tablet
[2019-06-05 11:08] VITALS: BP 126/74; PULSE 88; O2SAT 97
== END 2019-06-05 11:15 | disposition home or self-care (01) ==
LOC: ED 09:23
DX: R04.0 Epistaxis (principal); R03.0 Elevated blood-pressure reading, without diagnosis of hypertension; Z79.899 Other long term (current) drug therapy
CPT/HCPCS: 30901; 99283

== ENCOUNTER 2019-10-23 12:15 | Emergency (ER) | payer BC ==
[2019-10-23] MEDS ORDERED: Hydromorphone 1 mg/ml Ampule IM ONE (14:58)
--- NOTE | 2019-10-23 15:15 | XRAY ---
Indication: Right lower leg/calf pain. Two-dimensional targeted soft tissue ultrasound of the right calf is negative for focal solid/cystic mass or abnormal fluid collection. Impression: Negative targeted soft tissue ultrasound.
[2019-10-23] MEDS ORDERED: TORAdol 30 mg Injection IM ONE (15:25)
[2019-10-23 15:26] LABS: Hematocrit 38.7 % (35-47); Hemoglobin 12.7 gm/dl (12.0-16.0); Mean Cell Volume 87.2 fl (78-100); Mean Corpuscular Hemoglobin 28.6 pg (26-32); Mean Corpuscular Hgb Concent. 32.8 g/dl (32-36); Platelet Count 230 K/mm3 (150-450); Red Blood Count 4.44 M/mm3 (4.1-5.4); Red Cell Distribution Width 14.2 % (11.5-14.0); White Blood Count 5.9 K/mm3 (4.0-10.5)
[2019-10-23] MEDS ORDERED: TORAdol 30 mg Injection ONE (15:27)
[2019-10-23 15:41] LABS: ALBUMIN 3.7 g/dL (3.5-5.0); ALKALINE PHOSPHATASE 110 U/L (38-126); ANION GAP 6.9 MEQ/L (5-15); BLOOD UREA NITROGEN 18 mg/dL (7-17); CHLORIDE 116 mmol/L (98-107); Carbon Dioxide 24 mmol/L (22-30); Creatinine 1 0.57 mg/dL (0.52-1.04); Glucose 102 mg/dL (74-106); Potassium 3.3 mmol/L (3.5-5.1); SGOT/AST 58 U/L (14-36); SGPT/ALT 56 U/L (0-35); SODIUM 143 mmol/L (137-145); Total Protein 6.6 g/dL (6.3-8.2)
--- NOTE | 2019-10-23 15:49 | ERPHSYRPT ---
- History of Present Illness Time Seen by Provider: 10/23/19 14:00 Patient Subjective Stated Complaint: R leg pain Triage Nursing Assessment: pt to ED c/o R lower leg pain rates 10/10 that worsens with ambulation since Saturday. has been taking ibuprofen and laura wraps since injury with some relief. pt states she was getting out of a dump truck and heard a pop. pain is in R calf that occasionally radiates to R hip. Physician History: Sai is a 49-year-old female who twisted her right leg and felt a pop in the calf and since that time she has had pain and swelling. Method of Injury: twisted Occurred: yesterday Quality: sharpness Severity of Pain-Max: moderate Severity of Pain-Current: moderate Lower Extremities Pain: leg: right (Tenderness over the calf and the Achilles tendon.) Modifying Factors: Improves With: nothing Associated Symptoms: none Allergies/Adverse Reactions: No Known Drug Allergies Allergy (Verified 10/23/19 14:03) Home Medications: Buspirone HCl [Buspar] 15 mg PO DAILY 06/05/19 [History] Cyanocobalamin 1000 Mcg/ml [Cyanocobalamin B-12 1000 MCG/ML] 1,000 mcg IJ UD 06/05/19 [History] Doxycycline Hyclate 50 mg PO BID 06/05/19 [History] Escitalopram Oxalate [Lexapro] 20 mg PO BID 06/05/19 [History] Methylphenidate HCl [Methylphenidate ER] 20 mg PO TID 06/05/19 [History] Ropinirole HCl 2 mg PO HS 06/05/19 [History] Trazodone HCl 100 mg PO TID 06/05/19 [History] Hx Tetanus, Diphtheria Vaccination/Date Given: Yes (2015) Hx Influenza Vaccination/Date Given: Yes Hx Pneumococcal Vaccination/Date Given: No Travel Risk - International Travel Have you traveled outside of the country in past 3 weeks: No - Coronavirus Screening Are you exhibiting any of the following symptoms?: No Close contact with a COVID-19 positive Pt in past 14-21 Days: No - Review of Systems Constitutional: No Fever, No Chills Eyes: No Symptoms Ears, Nose, & Throat: No Symptoms Respiratory: No Cough, No Dyspnea Cardiac: No Chest Pain, No Edema, No Syncope Abdominal/Gastrointestinal: No Abdominal Pain, No Nausea, No Vomiting, No Diarrhea Genitourinary Symptoms: No Dysuria Musculoskeletal: Myalgias, No Back Pain, No Neck Pain Skin: No Rash Neurological: No Dizziness, No Focal Weakness, No Sensory Changes Psychological: No Symptoms Endocrine: No Symptoms All Other Systems: Reviewed and Negative - Past Medical History Pertinent Past Medical History: Yes Neurological History: Migraines ENT History: No Pertinent History Cardiac History: No Pertinent History Respiratory History: No Pertinent History Endocrine Medical History: No Pertinent History Musculoskeletal History: Fractures GI Medical History: Diverticulitis, GERD, Pancreatitis, Ulcer, Other History: No Pertinent History Psycho-Social History: Anxiety, Bipolar, Depression Female Reproductive Disorders: No Pertinent History Other Medical History: aplastic anemia ,area noted on esophagus, hep c carrier - Past Surgical History Past Surgical History: Yes Neuro Surgical History: No Pertinent History Cardiac: No Pertinent History Respiratory: No Pertinent History Gastrointestinal: Cholecystectomy, Other Genitourinary: No Pertinent History Musculoskeletal: Orthopedic Surgery Female Surgical History: Hysterectomy, Section, Tubal Ligation Other Surgical History: left knee surgery, gastric bypass - Social History Smoking Status: Never smoker Exposure to second hand smoke: No Drug Use: none Patient Lives Alone: No - Female History Hx Now: No - Nursing Vital Signs Nursing Vital Signs: Initial Vital Signs Temperature 98.5 F 10/23/19 13:56 Pulse Rate 76 10/23/19 13:56 Respiratory Rate 18 10/23/19 13:56 Blood Pressure 122/78 10/23/19 13:56 O2 Sat by Pulse Oximetry 100 10/23/19 13:56 Pain Scale Pain Intensity 10 - Physical Exam General Appearance: alert Eyes, Ears, Nose, Throat Exam: moist mucous membranes Neck Exam: non-tender, supple Cardiovascular/Respiratory Exam: chest non-tender, normal breath sounds, regular rate/rhythm, no respiratory distress Gastrointestinal/Abdominal Exam: non-tender, guarding Back Exam: normal inspection, No vertebral tenderness Hips Exam: bilateral: non-tender, normal inspection Legs Exam: right leg: limited range of motion, pain, soft tissue tenderness, swelling Neuro/Tendon Exam: normal sensation, normal motor functions Mental Status Exam: alert, oriented x 3, cooperative Skin Exam: normal color, warm, dry SpO2 Interpretation: normal SpO2: 99 O2 Delivery: Room Air - Course Nursing assessment & vital signs reviewed: Yes - Radiology Ultrasound Exam Other Ultrasound: negative Ordered Tests: Active Orders 24 hr Category Date Time Status EXTREMITY NON VASCULAR [US] Stat Exams 10/23/19 15:01 Completed CBC Stat Lab 10/23/19 15:15 Completed CMP Stat Lab 10/23/19 15:15 Completed D-DIMER QUANTITATIVE Stat Lab 10/23/19 15:15 Completed Medication Summary Discontinued Medications Generic Name Dose Route Start Last Admin Trade Name Vishnu PRN Reason Stop Dose Admin Hydromorphone HCl 1 mg 10/23/19 14:58 10/23/19 15:25 Hydromorphone 1 Mg/Ml Ampule IM 10/23/19 14:59 Not Given STAT ONE Ketorolac Tromethamine 30 mg 10/23/19 15:25 10/23/19 15:29 Toradol 30 Mg Injection IM 10/23/19 15:26 30 mg STAT ONE Administration Ketorolac Tromethamine Confirm 10/23/19 15:27 Toradol 30 Mg Injection Administered 10/23/19 15:28 Dose 30 mg .ROUTE .[facility] ONE Lab/Rad Data: Laboratory Result Diagrams 10/23/19 15:15 10/23/19 15:15 Laboratory Results 10/23/19 10/23/19 10/23/19 Range/Units 15:15 15:15 15:15 WBC 5.9 (4.0-10.5) K/mm3 RBC 4.44 (4.1-5.4) M/mm3 Hgb 12.7 (12.0-16.0) gm/dl Hct 38.7 (35-47) % MCV 87.2 (78-100) fl MCH 28.6 (26-32) pg MCHC 32.8 (32-36) g/dl RDW 14.2 H (11.5-14.0) % Plt Count 230 (150-450) K/mm3 MPV 9.0 (7.5-11.0) fl D-Dimer 366 (215-500) ng/mL Sodium 143 (137-145) mmol/L Potassium 3.3 L (3.5-5.1) mmol/L Chloride 116 H (98-107) mmol/L Carbon Dioxide 24 (22-30) mmol/L Anion Gap 6.9 (5-15) MEQ/L BUN 18 H (7-17) mg/dL Creatinine 0.57 (0.52-1.04) mg/dL Estimated GFR > 60.0 ML/MIN Glucose 102 (74-106) mg/dL Calcium 9.0 (8.4-10.2) mg/dL Total Bilirubin 0.30 (0.2-1.3) mg/dL AST 58 H (14-36) U/L ALT 56 H (0-35) U/L Alkaline Phosphatase 110 (38-126) U/L Serum Total Protein 6.6 (6.3-8.2) g/dL Albumin 3.7 (3.5-5.0) g/dL - Progress Progress: unchanged - Departure Departure Disposition: Home Clinical Impression: Achilles tendinitis of right lower extremity Condition: Stable Critical Care Time: No Referrals: MARIMAR LEA NP [Primary Care Provider] - Prescriptions: Hydrocodone/APAP 5-325 Tab^^^ [[place] 5-325 Tablet^^^] 1 tab PO Q6HPRN PRN #10 tablet MDD 6 PRN Reason: Pain Diclofenac Sodium 50 mg [Voltaren 50 mg] 50 mg PO TID 10 Days #30 tablet.ec
[2019-10-23 16:30] VITALS: BP 105/74; PULSE 74; O2SAT 98
== END 2019-10-23 16:28 | disposition home or self-care (01) ==
LOC: ED 12:15
DX: M76.61 Achilles tendinitis, right leg (principal)
CPT/HCPCS: 36415; 76881; 80053; 85027; 85379; 96372; 99284; J1885; L4386

== ENCOUNTER 2020-08-16 19:56 | Emergency (ER) | payer BC ==
[2020-08-16] MEDS ORDERED: Zofran 4 MG/2 ML VIAL ONE (21:30)
[2020-08-16] MEDS ORDERED: BENADRYL 50 MG/ML ONE (21:30)
[2020-08-16] MEDS ORDERED: BENADRYL 50 MG/ML IV ONE (21:33)
[2020-08-16] MEDS ORDERED: Zofran 4 MG/2 ML VIAL IV ONE (21:34)
[2020-08-16 21:58] LABS: Appearance CLEAR (CLEAR); Bilirubin NEGATIVE (NEGATIVE); Blood NEGATIVE Ery/ul (0-5); Glucose NEGATIVE (NEGATIVE); Ketones TRACE (NEGATIVE); Leukocyte Esterase LARGE (NEGATIVE); Mucus SLIGHT /HPF (NEGATIVE); Nitrite NEGATIVE (NEGATIVE); Protein,Urine Dip NEGATIVE (Negative); Specific Gravity 1.013 (1.005-1.025); Urobilinogen NEGATIVE mg/dL (0-1)
[2020-08-16 22:00] LABS: Bacteria RARE /HPF (NEGATIVE)
[2020-08-16 22:11] LABS: ALBUMIN 3.3 g/dL (3.5-5.0); ALKALINE PHOSPHATASE 89 U/L (38-126); ANION GAP 11.8 MEQ/L (5-15); BLOOD UREA NITROGEN 16 mg/dL (7-17); CHLORIDE 106 mmol/L (98-107); Calcium 8.5 mg/dL (8.4-10.2); Carbon Dioxide 21 mmol/L (22-30); Creatinine 1 0.85 mg/dL (0.52-1.04); EST GLOMERULAR FILTRATION RATE > 60.0 ML/MIN; Glucose 89 mg/dL (74-106); LIPASE 561 U/L (23-300); Potassium 3.6 mmol/L (3.5-5.1); SGOT/AST 47 U/L (14-36); SGPT/ALT 30 U/L (0-35); SODIUM 136 mmol/L (137-145); Total Protein 5.6 g/dL (6.3-8.2)
[2020-08-16] MEDS ORDERED: Inapsine 5 MG/2 ML IV ONE (22:19)
[2020-08-16 22:27] LABS: Absolute Neutrophil Ct (ANC) 4.08 (1.4-6.9); BASOPHIL % 0.8 % (0.0-0.4); Basophil (Absolute #) 0.05 (0-0.4); Eosinophil (Absolute #) 0.06 (0-0.5); Hematocrit 14.3 % (35-47); Lymphocyte (Absolute #) 1.59 (1.0-4.6); Lymphocytes % 25.5 % (24.0-44.0); Mean Cell Volume 89.9 fl (78-100); Mean Corpuscular Hgb Concent. 30.1 g/dl (32-36); Mean Platelet Volume 8.5 fl (7.5-11.0); Monocyte (Absolute #) 0.45 (0.0-1.3); Monocytes % 7.2 % (0.0-12.0); Neutrophil % 65.5 % (36.0-66.0); Platelet Count 365 K/mm3 (150-450); Red Cell Distribution Width 14.4 % (11.5-14.0); White Blood Count 6.2 K/mm3 (4.0-10.5)
[2020-08-16 22:29] LABS: Hemoglobin 4.3 gm/dl (12.0-16.0); Red Blood Count 1.59 M/mm3 (4.1-5.4)
[2020-08-16] MEDS ORDERED: Inapsine 5 MG/2 ML ONE (22:33)
[2020-08-16 23:13] VITALS: O2SAT 99
--- NOTE | 2020-08-16 23:40 | ERPHSYRPT ---
- History of Present Illness Time Seen by Provider: 08/16/20 20:20 Historian: patient Patient Subjective Stated Complaint: Patient states " I have been nauseated for several days and I have passed out times 2 and I started having severe pain down the middle of my chest down to my ABD and the pain has became unbearable". Triage Nursing Assessment: . Physician History: Patient is a 50-year-old female presents to our emergency department with com plaints of syncope x2. Patient states that she then developed severe chest pain that radiated down to her abdomen. Symptoms are mild to moderate in intensity. No specific worsening or improving factors. No head trauma. Patient denies neck pain. Cervical spine cleared clinically. Patient states she is normally active. 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 Timing/Duration: today Activities at Onset: none Quality: aching Location: substernal Chest Pain Radiation: abdomen Severity of Pain-Max: moderate Severity of Pain-Current: mild Modifying Factors: Improves With: nothing Associated Symptoms: nausea Prior Chest Pain/Cardiac Workup: no prior chest pain Nitro Today/Relief: no nitro taken today Aspirin Treatment Today: no aspirin today Allergies/Adverse Reactions: No Known Drug Allergies Allergy (Verified 08/17/20 00:25) Home Medications: Buspirone HCl [Buspar] 15 mg PO DAILY 06/05/19 [History] Cyanocobalamin 1000 Mcg/ml [Cyanocobalamin B-12 1000 MCG/ML] 1,000 mcg IJ UD 06/05/19 [History] Doxycycline Hyclate 50 mg PO BID 06/05/19 [History] Escitalopram Oxalate [Lexapro] 20 mg PO BID 06/05/19 [History] Methylphenidate HCl [Methylphenidate ER] 20 mg PO TID 06/05/19 [History] Ropinirole HCl 2 mg PO HS 06/05/19 [History] Trazodone HCl 100 mg PO TID 06/05/19 [History] Hx Tetanus, Diphtheria Vaccination/Date Given: Yes Hx Influenza Vaccination/Date Given: No Hx Pneumococcal Vaccination/Date Given: No Immunizations Up to Date: Yes Travel Risk - International Travel Have you traveled outside of the country in past 3 weeks: No - Coronavirus Screening Are you exhibiting any of the following symptoms?: No Close contact with a COVID-19 positive Pt in past 14-21 Days: No - Vaccine Status Have you recieved a Covid-19 vaccination: No - Review of Systems Constitutional: No Symptoms, No Fever, No Chills Eyes: No Symptoms Ears, Nose, & Throat: No Symptoms Respiratory: No Symptoms, No Cough, No Dyspnea Cardiac: No Symptoms, No Chest Pain, No Edema, No Syncope Abdominal/Gastrointestinal: No Symptoms, No Abdominal Pain, No Nausea, No Vomiting, No Diarrhea Genitourinary Symptoms: No Symptoms, No Dysuria Musculoskeletal: No Symptoms, No Back Pain, No Neck Pain Skin: No Symptoms, No Rash Neurological: No Symptoms, No Dizziness, No Focal Weakness, No Sensory Changes Psychological: No Symptoms Endocrine: No Symptoms Hematologic/Lymphatic: No Symptoms Immunological/Allergic: No Symptoms All Other Systems: Reviewed and Negative - Past Medical History Pertinent Past Medical History: Yes Neurological History: Migraines ENT History: No Pertinent History Cardiac History: No Pertinent History Respiratory History: No Pertinent History Endocrine Medical History: No Pertinent History Musculoskeletal History: Fractures GI Medical History: Diverticulitis, GERD, Pancreatitis, Ulcer, Other History: No Pertinent History Psycho-Social History: Anxiety, Bipolar, Depression Female Reproductive Disorders: No Pertinent History Other Medical History: aplastic anemia ,area noted on esophagus, hep c carrier - Past Surgical History Past Surgical History: Yes Neuro Surgical History: No Pertinent History Cardiac: No Pertinent History Respiratory: No Pertinent History Gastrointestinal: Cholecystectomy, Other Genitourinary: No Pertinent History Musculoskeletal: Orthopedic Surgery Female Surgical History: Hysterectomy, Section, Tubal Ligation Other Surgical History: left knee surgery, gastric bypass - Social History Smoking Status: Never smoker Exposure to second hand smoke: No Drug Use: none Patient Lives Alone: No - Female History Hx Last Menstrual Period: Hysterectomy Hx Now: No - Nursing Vital Signs Nursing Vital Signs: Initial Vital Signs Temperature 98.5 F 08/16/20 20:14 Pulse Rate 101 H 08/16/20 20:14 Respiratory Rate 24 08/16/20 20:14 Blood Pressure 120/78 08/16/20 20:14 O2 Sat by Pulse Oximetry 100 08/16/20 20:14 Pain Scale Pain Intensity 2 - Physical Exam General Appearance: no apparent distress, alert Eye Exam: PERRL/EOMI, eyes nml inspection Ears, Nose, Throat Exam: normal ENT inspection, moist mucous membranes Neck Exam: normal inspection, non-tender, supple, full range of motion Respiratory Exam: normal breath sounds, lungs clear, No respiratory distress Cardiovascular Exam: regular rate/rhythm, normal heart sounds Gastrointestinal/Abdomen Exam: soft, No tenderness, No mass Back Exam: normal inspection, No CVA tenderness, No vertebral tenderness Extremity Exam: normal inspection, normal range of motion Neurologic Exam: alert, oriented x 3, cooperative, normal mood/affect, sensation nml, No motor deficits Skin Exam: normal color, warm, dry SpO2 Interpretation: normal SpO2: 99 O2 Delivery: Room Air - Course Nursing assessment & vital signs reviewed: Yes EKG Interpreted by Me: RATE (103), Sinus Rhythm, NORMAL AXIS, NORMAL INTERVALS - CT Exams Chest CT Interpretation: Tele-radiologist Report (Thoracic aorta intact, negative for pulmonary embolism or airspace infiltrate.) Abdomen/Pelvis CT Interpretation: Tele-radiologist Report (Abdominal aorta intact, negative for acute inflammatory process in the abdomen or pelvis. Cholecystectomy. Gastric surgical sutures) Ordered Tests: Active Orders 24 hr Category Date Time Status Natural Resource Specialist STAT Care 08/16/20 20:48 Active EKG-ER Only STAT Care 08/16/20 20:46 Active IV Insertion STAT Care 08/16/20 20:46 Active Pulse Oximetry (ED) STAT Care 08/16/20 20:46 Active CTA ABD/PEL W AND/OR W/O CONTR [CT] Stat Exams 08/16/20 22:53 Taken CTA CHEST W AND/OR WO [CT] Stat Exams 08/16/20 20:49 Taken CBC W DIFF Stat Lab 08/16/20 20:46 Completed CMP Stat Lab 08/16/20 20:46 Completed CULTURE,URINE Stat Lab 08/16/20 21:29 Received LIPASE Stat Lab 08/16/20 20:46 Completed MAGNESIUM Stat Lab 08/16/20 20:46 Completed TROPONIN Q3H Lab 08/16/20 21:00 Completed TROPONIN Q3H Lab 08/17/20 00:26 Completed UA W/RFX UR CULTURE Stat Lab 08/16/20 21:29 Completed Transfer Order Routine Transfer 08/17/20 Ordered Medication Summary Discontinued Medications Generic Name Dose Route Start Last Admin Trade Name Freq PRN Reason Stop Dose Admin Diphenhydramine HCl Confirm 08/16/20 21:30 Benadryl 50 Mg/Ml Administered 08/16/20 21:31 Dose 50 mg .ROUTE .STK-MED ONE Diphenhydramine HCl 25 mg 08/16/20 21:33 08/16/20 21:37 Benadryl 50 Mg/Ml IV 08/16/20 21:34 25 mg STAT ONE Administration Droperidol 1.25 mg 08/16/20 22:19 08/16/20 22:35 Inapsine 5 Mg/2 Ml IV 08/16/20 22:20 1.25 mg STAT ONE Administration Droperidol Confirm 08/16/20 22:33 Inapsine 5 Mg/2 Ml Administered 08/16/20 22:34 Dose 5 mg .ROUTE .STK-MED ONE Ceftriaxone Sodium/Dextrose 1 g in 50 mls @ 100 mls/hr 08/17/20 00:40 08/17/20 03:26 Rocephin 1 Gm-D5w 50 Ml Bag IV 08/17/20 01:09 Infused STAT STA Infusion Ceftriaxone Sodium/Dextrose Confirm 08/17/20 00:53 Rocephin 1 Gm-D5w 50 Ml Bag Administered 08/17/20 00:54 Dose 1 g in 50 mls @ ud IV .STK-MED ONE Ondansetron HCl Confirm 08/16/20 21:30 Zofran 4 Mg/2 Ml Vial Administered 08/16/20 21:31 Dose 4 mg .ROUTE .STK-MED ONE Ondansetron HCl 4 mg 08/16/20 21:34 08/16/20 21:37 Zofran 4 Mg/2 Ml Vial IV 08/16/20 21:35 4 mg STAT ONE Administration Lab/Rad Data: Laboratory Result Diagrams 08/16/20 20:46 08/16/20 20:46 Laboratory Results 08/17/20 08/17/20 08/16/20 Range/Units 00:26 00:20 21:29 WBC (4.0-10.5) K/mm3 RBC (4.1-5.4) M/mm3 Hgb (12.0-16.0) gm/dl Hct (35-47) % MCV (78-100) fl MCH (26-32) pg MCHC (32-36) g/dl RDW (11.5-14.0) % Plt Count (150-450) K/mm3 MPV (7.5-11.0) fl Gran % (36.0-66.0) % Eos # (Auto) (0-0.5) Absolute Lymphs (auto) (1.0-4.6) Absolute Monos (auto) (0.0-1.3) Lymphocytes % (24.0-44.0) % Monocytes % (0.0-12.0) % Eosinophils % (0.00-5.0) % Basophils % (0.0-0.4) % Absolute Granulocytes (1.4-6.9) Basophils # (0-0.4) Sodium (137-145) mmol/L Potassium (3.5-5.1) mmol/L Chloride (98-107) mmol/L Carbon Dioxide (22-30) mmol/L Anion Gap (5-15) MEQ/L BUN (7-17) mg/dL Creatinine (0.52-1.04) mg/dL Estimated GFR ML/MIN Glucose (74-106) mg/dL Calcium (8.4-10.2) mg/dL Magnesium (1.6-2.3) mg/dL Total Bilirubin (0.2-1.3) mg/dL AST (14-36) U/L ALT (0-35) U/L Alkaline Phosphatase (38-126) U/L Troponin I 0.014 (0.000-0.034) ng/mL Serum Total Protein (6.3-8.2) g/dL Albumin (3.5-5.0) g/dL Lipase (23-300) U/L Urine Color STRAW (YELLOW) Urine Appearance CLEAR (CLEAR) Urine pH 8.0 (5-6) Ur Specific [place] 1.013 (1.005-1.025) Urine Protein NEGATIVE (Negative) Urine Ketones TRACE (NEGATIVE) Urine Blood NEGATIVE (0-5) Micah/ul Urine Nitrite NEGATIVE (NEGATIVE) Urine Bilirubin NEGATIVE (NEGATIVE) Urine Urobilinogen NEGATIVE (0-1) mg/dL Ur Leukocyte Esterase LARGE (NEGATIVE) Urine WBC (Auto) 6-10 (0-5) /HPF Urine RBC (Auto) NONE (0-2) /HPF U Epithel Cells (Auto) NONE (FEW) /HPF Urine Bacteria (Auto) RARE (NEGATIVE) /HPF Urine Mucus (Auto) SLIGHT (NEGATIVE) /HPF Urine Culture Reflexed YES (NO) Urine Glucose NEGATIVE (NEGATIVE) mg/dL ABO Group B Rh Factor POSITIVE Antibody Screen NEGATIVE (NEGATIVE) 08/16/20 08/16/20 08/16/20 Range/Units 21:00 20:46 20:46 WBC 6.2 (4.0-10.5) K/mm3 RBC 1.59 L* (4.1-5.4) M/mm3 Hgb 4.3 L* (12.0-16.0) gm/dl Hct 14.3 L (35-47) % MCV 89.9 (78-100) fl MCH 27.0 (26-32) pg MCHC 30.1 L (32-36) g/dl RDW 14.4 H (11.5-14.0) % Plt Count 365 (150-450) K/mm3 MPV 8.5 (7.5-11.0) fl Gran % 65.5 (36.0-66.0) % Eos # (Auto) 0.06 (0-0.5) Absolute Lymphs (auto) 1.59 (1.0-4.6) Absolute Monos (auto) 0.45 (0.0-1.3) Lymphocytes % 25.5 (24.0-44.0) % Monocytes % 7.2 (0.0-12.0) % Eosinophils % 1.0 (0.00-5.0) % Basophils % 0.8 (0.0-0.4) % Absolute Granulocytes 4.08 (1.4-6.9) Basophils # 0.05 (0-0.4) Sodium 136 L (137-145) mmol/L Potassium 3.6 (3.5-5.1) mmol/L Chloride 106 (98-107) mmol/L Carbon Dioxide 21 L (22-30) mmol/L Anion Gap 11.8 (5-15) MEQ/L BUN 16 (7-17) mg/dL Creatinine 0.85 (0.52-1.04) mg/dL Estimated GFR > 60.0 ML/MIN Glucose 89 (74-106) mg/dL Calcium 8.5 (8.4-10.2) mg/dL Magnesium 2.0 (1.6-2.3) mg/dL Total Bilirubin 0.20 (0.2-1.3) mg/dL AST 47 H (14-36) U/L ALT 30 (0-35) U/L Alkaline Phosphatase 89 (38-126) U/L Troponin I 0.021 (0.000-0.034) ng/mL Serum Total Protein 5.6 L (6.3-8.2) g/dL Albumin 3.3 L (3.5-5.0) g/dL Lipase 561 H (23-300) U/L Urine Color (YELLOW) Urine Appearance (CLEAR) Urine pH (5-6) Ur Specific [place] (1.005-1.025) Urine Protein (Negative) Urine Ketones (NEGATIVE) Urine Blood (0-5) Micah/ul Urine Nitrite (NEGATIVE) Urine Bilirubin (NEGATIVE) Urine Urobilinogen (0-1) mg/dL Ur Leukocyte Esterase (NEGATIVE) Urine WBC (Auto) (0-5) /HPF Urine RBC (Auto) (0-2) /HPF U Epithel Cells (Auto) (FEW) /HPF Urine Bacteria (Auto) (NEGATIVE) /HPF Urine Mucus (Auto) (NEGATIVE) /HPF Urine Culture Reflexed (NO) Urine Glucose (NEGATIVE) mg/dL ABO Group Rh Factor Antibody Screen (NEGATIVE) - Progress Progress: improved Air Movement: good Progress Note: Patient reassessed. Pain improved. Vitals stable. CTA negative for acute pathology. No dissection observed. In light of patient's syncope profound symptomatic anemia, patient will require admission. Troponin negative and downward trending. Patient has a urinary tract infection. IV antibiotics administered. Elevated lipase observed on work-up. No obvious pancreatitis on imaging study. We do not have beds immediately available to accommodate our patient. Patient will be transferred. Case discussed with Dr. MEDINA of [facility] who accepts transport. Plan of care discussed with patient. She agrees to transport to [facility] for further evaluation and treatment. 08/17/20 03:48 08/17/20 03:50 Blood Culture(s) Obtained: No Antibiotics given: No Counseled pt/family regarding: lab results, diagnosis, rad results - Departure Departure Disposition: Transfer Clinical Impression: Syncope, Chest pain, Pancreatitis, Normocytic anemia, UTI (urinary tract infection) Condition: Stable Critical Care Time: No Referrals: MARIMAR LEA NP [Primary Care Provider] -
[2020-08-17] MEDS ORDERED: ROCEPHIN 1 Gm-D5w 50 ml Bag** 1 G/50 ML IVPB IV STA (00:40)
[2020-08-17] MEDS ORDERED: ROCEPHIN 1 Gm-D5w 50 ml Bag** 1 G/50 ML IVPB IV ONE (00:53)
[2020-08-17 01:11] LABS: ABO TYPING B; RH TYPING POSITIVE
[2020-08-17 01:12] LABS: Antibody Screen NEGATIVE (NEGATIVE)
[2020-08-17 04:15] VITALS: BP 118/68; PULSE 78
--- NOTE | 2020-08-18 02:24 | XRAY ---
Exam: CTA of the chest with IV contrast from 08/16/2020. Total DLP: 428.72 mGy-cm Comparison: AP portable chest film from 10/11/2016. Indication: 50-year-old female with upper abdominal pain, clinical concern for aortic dissection; the patient has a history of prior cholecystectomy and gastric bypass surgery. She also has a past history of pancreatitis. Technique: Post-IV contrast axial images were obtained through the chest during automated injection of 80 cc of Isovue-370 contrast material. Axial MIP images were obtained as well. In addition, reconstructed coronal and sagittal images were created and reviewed. Findings: The CT wet process technician image reveals a left-sided ruth catheter with tip pointing distally near the caval-atrial junction. This is unchanged. There is slight convexity of the lumbar spine toward the right centered at L2-L3. The thoracic aorta and great arteries arising from the aortic arch are well opacified. I see no aneurysm or evidence of dissection. Furthermore, the pulmonary arteries are well seen and reveal no evidence of pulmonary emboli. The heart size is normal without pericardial effusion. No abnormal mediastinal or perihilar lymphadenopathy is seen. The axilla appear unremarkable. The thyroid gland appears grossly unremarkable. The lung chambers reveal no infiltrates, pleural fluid, or pneumothorax. No suspicious soft tissue lung nodules are seen. There is moderate degenerative disc disease at C5-C6. Mild generalized thoracic spondylosis is seen. Impression: 1. The thoracic aorta reveals no evidence of aneurysm or aortic dissection. 2. There is no evidence of pulmonary embolus. 3. No air space infiltrate or other acute lung disease is seen.
--- NOTE | 2020-08-18 02:41 | XRAY ---
Exam: CTA of the abdomen and pelvis with IV contrast from 08/16/2020. Total DLP: 428.72 mGy-cm Comparison: CT of the abdomen and pelvis with IV contrast from 10/11/2016. Indication: 50-year-old female with upper abdominal pain, clinical concern for aortic dissection; the patient has a history of prior gastric bypass surgery and cholecystectomy. She also has a past history of pancreatitis. Technique: Post-IV contrast axial images were obtained through the abdomen and pelvis during automated injection of 80 cc of Isovue-370 contrast material. 3-D reconstructed axial MIP images were obtained through the abdomen and pelvis. In addition, reconstructed coronal and sagittal images were created and reviewed. Findings: The abdominal aorta reveals no evidence of aortic aneurysm or aortic dissection. The celiac trunk, SMA, and KAELYN reveal no occlusion or significant stenosis. The renal arteries reveal no occlusion or significant stenosis. Both the right iliac arteries and left iliac arteries reveal no occlusion or significant stenosis. The visualized common femoral arteries are patent without occlusion or stenosis. The liver appears unremarkable. Surgical clips consistent with prior cholecystectomy are seen. The spleen parenchymal reveals a mottled appearance due to the timing of the intravenous injection. The spleen is not enlarged. The pancreas and adrenal glands appear unremarkable. There is excellent corticomedullary differentiation of the kidneys on this arterial study. No definite renal mass, renal calculi, or hydronephrosis is seen. There is a mild extrarenal pelvis bilaterally. Again, I see no evidence of abdominal aortic aneurysm or dissection. No abnormal retroperitoneal lymphadenopathy is seen. There is no free air or ventral abdominal wall hernia. The bowel is not distended. No bowel obstruction is seen. Scattered fecal residue is seen throughout the colon. There is no evidence of appendicitis within the right lower quadrant. The uterus is surgically absent. The urinary bladder is only minimally distended. No other pelvic mass, pathological pelvic lymphadenopathy, or free intraperitoneal fluid is seen. The skeleton reveals no fracture or other aggressive bone lesion. Spondylosis changes are again seen throughout the thoracic spine. Impression: 1. The abdominal aorta reveals no evidence of aneurysm or aortic dissection. 2. No acute inflammatory process or other significant abnormality is seen within the abdomen or pelvis. Specifically, the pancreas appears unremarkable. 3. Status post cholecystectomy, gastric bypass surgery, and hysterectomy.
== END 2020-08-17 04:10 ==
LOC: ED 19:56
DX: R55 Syncope and collapse (principal); R07.9 Chest pain, unspecified; K85.90 Acute pancreatitis without necrosis or infection, unspecified; D64.9 Anemia, unspecified; N39.0 Urinary tract infection, site not specified
CPT/HCPCS: 36000; 36415; 71275; 74174; 80053; 81001; 83690; 83735; 84484; 85025; 86850; 86900; 86901; 87086; 93005; 93041; 94760; 96365; 96374; 96375; 99285; J0696; J1200; J2405

== ENCOUNTER 2020-11-29 10:10 | Observation (INO) | payer BC ==
[2020-11-29] MEDS ORDERED: MORPHINE SULFATE 4 MG INJ IV ONE ×2 (10:21→12:16)
[2020-11-29] MEDS ORDERED: BABY ASPIRIN 81 MG CHEW PO ONE (10:21)
[2020-11-29] MEDS ORDERED: Zofran 4 MG/2 ML VIAL IV ONE (10:21)
[2020-11-29] MEDS ORDERED: Zofran 4 MG/2 ML VIAL ONE ×2 (10:28→17:16)
[2020-11-29] MEDS ORDERED: GI COCKTAIL 45 ML (Maalox/Lidocaine) PO ONE (10:28)
[2020-11-29] MEDS ORDERED: BABY ASPIRIN 81 MG CHEW ONE (10:28)
[2020-11-29] MEDS ORDERED: MORPHINE SULFATE 4 MG INJ ONE ×2 (10:28→12:20)
[2020-11-29] MEDS ORDERED: Pepcid 20 MG VIAL IV ONE ×2 (10:28→10:31)
[2020-11-29 10:29] LABS: Hematocrit 21.4 % (35-47); Mean Cell Volume 62.8 fl (78-100); Mean Corpuscular Hemoglobin 16.4 pg (26-32); Mean Corpuscular Hgb Concent. 26.2 g/dl (32-36); Mean Platelet Volume 8.7 fl (7.5-11.0); Platelet Count 462 K/mm3 (150-450); Red Blood Count 3.41 M/mm3 (4.1-5.4); Red Cell Distribution Width 19.3 % (11.5-14.0); White Blood Count 9.2 K/mm3 (4.0-10.5)
[2020-11-29] MEDS ORDERED: MAALOX ES 30 ML UNIT DOSE ONE (10:32)
[2020-11-29] MEDS ORDERED: XYLOCAINE HCl Viscous ONE (10:32)
--- NOTE | 2020-11-29 10:32 | ERPHSYRPT ---
- History of Present Illness Time Seen by Provider: 11/29/20 10:21 Historian: patient Exam Limitations: no limitations Patient Subjective Stated Complaint: Pt states that she has been having medial chest pain and got severe today, pain in neck Triage Nursing Assessment: Pt was brought to the ER by her aunt, pt was trying to locate the ER when she was found in the admin hallway having chest pain and dry heaving, hypertensive, tachycardic, rates chest head and neck pain as 10/10, sinus tach with pvc, no edema, pt states that her face is swollen since this AM Physician History: 50 years old female with multiple medical problems including aplastic anemia with recent transfusions, chronic pancreatitis, chronic pain syndrome presented to the ER with 3 days history of substernal/left-sided chest pain moderate to severe intensity, nonradiating without any significant aggravating or relieving factors. Denies any associated palpitations or shortness of breath. Patient reports having multiple episodes of nonprojectile, nonbilious vomiting with some epigastric pain. Denies hematemesis. Patient was in the hallway dry heaving with chest pain. Patient EKG on presentation is sinus tach with no acute ST elevations. Abdominal/epigastric pain is chronic and not any worse than usual. She reports some burning sensation retrosternal and in the throat after vomiting. Timing/Duration: day(s) (3), constant, gradual onset, worse Activities at Onset: rest Quality: sharpness Location: substernal, central Chest Pain Radiation: no radiation Severity of Pain-Max: moderate Severity of Pain-Current: severe Associated Symptoms: nausea, vomiting, heartburn, abdominal pain Prior Chest Pain/Cardiac Workup: no prior cardiac workup Nitro Today/Relief: no nitro taken today Aspirin Treatment Today: no aspirin today Allergies/Adverse Reactions: No Known Drug Allergies Allergy (Verified 11/29/20 10:22) Home Medications: No Reportable Medications [No Reported Medications] 11/29/20 [History] Hx Tetanus, Diphtheria Vaccination/Date Given: Yes Hx Influenza Vaccination/Date Given: No Hx Pneumococcal Vaccination/Date Given: No Travel Risk - International Travel Have you traveled outside of the country in past 3 weeks: No - Coronavirus Screening Are you exhibiting any of the following symptoms?: No Close contact with a COVID-19 positive Pt in past 14-21 Days: No - Vaccine Status Have you recieved a Covid-19 vaccination: No - Review of Systems Constitutional: No Symptoms Eyes: No Symptoms Ears, Nose, & Throat: Throat Pain Respiratory: No Symptoms Cardiac: Chest Pain Abdominal/Gastrointestinal: Abdominal Pain, Nausea, Vomiting Genitourinary Symptoms: No Symptoms Musculoskeletal: Back Pain Skin: No Symptoms Neurological: No Symptoms Psychological: Anxiety Endocrine: No Symptoms Hematologic/Lymphatic: No Symptoms Immunological/Allergic: No Symptoms - Past Medical History Pertinent Past Medical History: Yes Neurological History: Migraines ENT History: No Pertinent History Cardiac History: No Pertinent History Respiratory History: No Pertinent History Endocrine Medical History: No Pertinent History Musculoskeletal History: Fractures GI Medical History: Diverticulitis, GERD, Pancreatitis, Ulcer, Other History: No Pertinent History Psycho-Social History: Anxiety, Bipolar, Depression Female Reproductive Disorders: No Pertinent History Other Medical History: aplastic anemia ,area noted on esophagus, hep c carrier - Past Surgical History Past Surgical History: Yes Neuro Surgical History: No Pertinent History Cardiac: No Pertinent History Respiratory: No Pertinent History Gastrointestinal: Cholecystectomy, Other Genitourinary: No Pertinent History Musculoskeletal: Orthopedic Surgery Female Surgical History: Hysterectomy, Section, Tubal Ligation Other Surgical History: left knee surgery, gastric bypass - Social History Smoking Status: Never smoker Exposure to second hand smoke: No Drug Use: none Patient Lives Alone: Yes - Female History Hx Now: (UNKN) - Nursing Vital Signs Nursing Vital Signs: Initial Vital Signs Temperature 98.3 F 11/29/20 10:12 Pulse Rate 107 H 11/29/20 10:12 Blood Pressure 144/74 11/29/20 10:12 O2 Sat by Pulse Oximetry 100 11/29/20 10:12 Pain Scale Pain Intensity 8 - Physical Exam General Appearance: no apparent distress, alert, anxiety Eye Exam: PERRL/EOMI, eyes nml inspection Ears, Nose, Throat Exam: normal ENT inspection, TMs normal, pharynx normal, moist mucous membranes Neck Exam: normal inspection, non-tender, supple, full range of motion Respiratory Exam: normal breath sounds, lungs clear Cardiovascular Exam: normal heart sounds, tachycardia Gastrointestinal/Abdomen Exam: soft, normal bowel sounds, tenderness (Mild tenderness epigastrium) Extremity Exam: normal inspection, pelvis stable Neurologic Exam: alert, oriented x 3, cooperative, vacuum kettle cook II-XII nml as tested, nml cerebellar function, sensation nml, No normal mood/affect (Anxious) Skin Exam: normal color SpO2 Interpretation: normal SpO2: 100 O2 Delivery: Room Air - Course EKG Interpreted by Me: RATE (104), Sinus Tach, NORMAL AXIS, NORMAL INTERVALS, NORMAL QRS, Other (PACs) Ordered Tests: Active Orders 24 hr Category Date Time Status Watch Caser STAT Care 11/29/20 10:21 Active EKG-ER Only STAT Care 11/29/20 10:21 Active Oxygen-ED Only Nasal Cannula 2 lpm Care 11/29/20 10:21 Active CHEST 1 VIEW (PORTABLE) Stat Exams 11/29/20 10:21 Completed CBC W DIFF Stat Lab 11/29/20 10:27 Completed CMP Stat Lab 11/29/20 10:27 Completed FECAL OCCULT BLOOD -DIAGNOSTIC Stat Lab 11/29/20 11:59 Ordered LIPASE Stat Lab 11/29/20 10:27 Completed Manual Differential NC Stat Lab 11/29/20 10:27 Completed NT PRO BNP Stat Lab 11/29/20 10:27 Completed TROPONIN Q3H Lab 11/29/20 10:27 Completed TROPONIN Q3H Lab 11/29/20 13:30 Ordered TROPONIN Q3H Lab 11/29/20 16:30 Ordered TROPONIN Q3H Lab 11/29/20 19:30 Ordered TROPONIN Q3H Lab 11/29/20 22:30 Ordered Urine Triage Profile Stat Lab 11/29/20 11:30 Completed Transfer Order Routine Transfer 11/29/20 Ordered Medication Summary Generic Name Dose Route Start Last Admin Trade Name Freq PRN Reason Stop Dose Admin Pantoprazole Sodium 80 mg/ 500 mls @ 50 mls/hr 11/29/20 12:00 Sodium Chloride IV 12/29/20 11:59 .Q10H NEELIMA Discontinued Medications Generic Name Dose Route Start Last Admin Trade Name Freq PRN Reason Stop Dose Admin Al Hydrox/Mg Hydrox/Simethicone Confirm 11/29/20 10:32 Maalox Es 30 Ml Unit Dose Administered 11/29/20 10:33 Dose 30 ml .ROUTE .STK-MED ONE Aspirin 324 mg 11/29/20 10:21 11/29/20 10:29 Baby Aspirin 81 Mg Chew PO 11/29/20 10:22 324 mg STAT ONE Administration Aspirin Confirm 11/29/20 10:28 Baby Aspirin 81 Mg Chew Administered 11/29/20 10:29 Dose 324 mg .ROUTE .STK-MED ONE Famotidine 20 mg 11/29/20 10:28 11/29/20 10:33 Pepcid 20 Mg Vial IV 11/29/20 10:29 20 mg STAT ONE Administration Famotidine Confirm 11/29/20 10:31 Pepcid 20 Mg Vial Administered 11/29/20 10:32 Dose 20 mg IV .STK-MED ONE Sodium Chloride 1,000 mls @ 999 mls/hr 11/29/20 11:10 11/29/20 12:39 Sodium Chloride 0.9% 1000 Ml IV 11/29/20 12:10 Infused .Q1H1M STA Infusion Sodium Chloride Confirm 11/29/20 11:15 Sodium Chloride 0.9% 1000 Ml Administered 11/29/20 11:16 Dose 1,000 mls @ ud .ROUTE .STK-MED ONE Lidocaine HCl Confirm 11/29/20 10:32 Xylocaine Hcl Viscous * Administered 11/29/20 10:33 Dose 15 ml .ROUTE .STK-MED ONE Magnesium Hydroxide 45 ml 11/29/20 10:28 11/29/20 10:33 Gi Cocktail 45 Ml (Maalox/Lidocaine) PO 11/29/20 10:29 45 ml STAT ONE Administration Morphine Sulfate 4 mg 11/29/20 10:21 11/29/20 10:29 Morphine Sulfate 4 Mg Inj IV 11/29/20 10:22 4 mg STAT ONE Administration Morphine Sulfate Confirm 11/29/20 10:28 Morphine Sulfate 4 Mg Inj Administered 11/29/20 10:29 Dose 4 mg .ROUTE .STK-MED ONE Morphine Sulfate 4 mg 11/29/20 12:16 11/29/20 12:22 Morphine Sulfate 4 Mg Inj IV 11/29/20 12:17 4 mg STAT ONE Administration Morphine Sulfate Confirm 11/29/20 12:20 Morphine Sulfate 4 Mg Inj Administered 11/29/20 12:21 Dose 4 mg .ROUTE .STK-MED ONE Ondansetron HCl 4 mg 11/29/20 10:21 11/29/20 10:29 Zofran 4 Mg/2 Ml Vial IV 11/29/20 10:22 4 mg STAT ONE Administration Ondansetron HCl Confirm 11/29/20 10:28 Zofran 4 Mg/2 Ml Vial Administered 11/29/20 10:29 Dose 4 mg .ROUTE .STK-MED ONE Pantoprazole Sodium 40 mg 11/29/20 12:18 Protonix 40 Mg Iv IV 11/29/20 12:19 STAT ONE Lab/Rad Data: Laboratory Result Diagrams 11/29/20 10:27 11/29/20 10:27 Laboratory Results 11/29/20 11/29/20 11/29/20 Range/Units 11:33 11:30 10:27 WBC (4.0-10.5) K/mm3 RBC (4.1-5.4) M/mm3 Hgb (12.0-16.0) gm/dl Hct (35-47) % MCV (78-100) fl MCH (26-32) pg MCHC (32-36) g/dl RDW (11.5-14.0) % Plt Count (150-450) K/mm3 MPV (7.5-11.0) fl Sodium (137-145) mmol/L Potassium (3.5-5.1) mmol/L Chloride (98-107) mmol/L Carbon Dioxide (22-30) mmol/L Anion Gap (5-15) MEQ/L BUN (7-17) mg/dL Creatinine (0.52-1.04) mg/dL Estimated GFR ML/MIN Glucose (74-106) mg/dL Calcium (8.4-10.2) mg/dL Total Bilirubin (0.2-1.3) mg/dL AST (14-36) U/L ALT (0-35) U/L Alkaline Phosphatase (38-126) U/L Troponin I < 0.012 (0.000-0.034) ng/mL NT-Pro-B Natriuret Pep (0-450) pg/mL Serum Total Protein (6.3-8.2) g/dL Albumin (3.5-5.0) g/dL Lipase (23-300) U/L Urine Opiates Level NEGATIVE (NEGATIVE) Ur Methadone NEGATIVE (NEGATIVE) Urine Barbiturates NEGATIVE (NEGATIVE) Ur Phencyclidine (PCP) NEGATIVE (NEGATIVE) Urine Amphetamine NEGATIVE (NEGATIVE) U Benzodiazepine Level NEGATIVE (NEGATIVE) Urine Cocaine NEGATIVE (NEGATIVE) Urine Marijuana (THC) NEGATIVE (NEGATIVE) ABO Group B Rh Factor POSITIVE Antibody Screen NEGATIVE (NEGATIVE) Crossmatch COMPATIBLE (COMPATIBLE) 11/29/20 11/29/20 Range/Units 10:27 10:27 WBC 9.2 (4.0-10.5) K/mm3 RBC 3.41 L (4.1-5.4) M/mm3 Hgb 5.6 L* (12.0-16.0) gm/dl Hct 21.4 L (35-47) % MCV 62.8 L (78-100) fl MCH 16.4 L (26-32) pg MCHC 26.2 L (32-36) g/dl RDW 19.3 H (11.5-14.0) % Plt Count 462 H (150-450) K/mm3 MPV 8.7 (7.5-11.0) fl Sodium 136 L (137-145) mmol/L Potassium 3.7 (3.5-5.1) mmol/L Chloride 108 H (98-107) mmol/L Carbon Dioxide 16 L* (22-30) mmol/L Anion Gap 16.0 H (5-15) MEQ/L BUN 19 H (7-17) mg/dL Creatinine 0.63 (0.52-1.04) mg/dL Estimated GFR > 60.0 ML/MIN Glucose 244 H (74-106) mg/dL Calcium 8.3 L (8.4-10.2) mg/dL Total Bilirubin < 0.10 L (0.2-1.3) mg/dL AST 66 H (14-36) U/L ALT 58 H (0-35) U/L Alkaline Phosphatase 80 (38-126) U/L Troponin I (0.000-0.034) ng/mL NT-Pro-B Natriuret Pep 229 (0-450) pg/mL Serum Total Protein 6.0 L (6.3-8.2) g/dL Albumin 3.5 (3.5-5.0) g/dL Lipase 619 H (23-300) U/L Urine Opiates Level (NEGATIVE) Ur Methadone (NEGATIVE) Urine Barbiturates (NEGATIVE) Ur Phencyclidine (PCP) (NEGATIVE) Urine Amphetamine (NEGATIVE) U Benzodiazepine Level (NEGATIVE) Urine Cocaine (NEGATIVE) Urine Marijuana (THC) (NEGATIVE) ABO Group Rh Factor Antibody Screen (NEGATIVE) Crossmatch (COMPATIBLE) - Progress Progress: improved Air Movement: good Progress Note: 11/29/20 12:00 50 years old is evaluated for chest pain and vomiting. Patient was very anxious on presentation. EKG showed sinus tach with no acute ST elevation and negative initial troponins. Chest x-ray negative for any acute cardiopulmonary findings. She is given symptomatic treatment along with Protonix and feeling better on reevaluation and no episode of vomiting while in the ER. Her chest pain is also resolved. Work-up showed hemoglobin of 5.6, white count 9.2 and platelets 462 with RBC indicis consistent with iron deficiency anemia. I have also started her on Protonix drip as patient is complaining of some epigastric pain until stool occult is done and is negative. Type and crossmatch 2 units of blood after informed consent with detailed discussion of risks and benefits of transfusion and patient wants to go ahead with transfusions. Chemistries profile showed elevated gap of 19, low bicarb but patient was hyperventilating and lipase in 600. Review of records showed patient has always elevated lipase with chronic pancreatitis. She is given fluid bolus in here. Her low bicarb is probably secondary to hyperventilating and some element of dehydration. Discussed with , recommended transfer to facility with her primary hematology oncology is. Called [facility] but there is a wait list for transfer and possible tomorrow. Discussed with Dr. Urszula Hernandez, reviewed history, work-up and current plan. He has reviewed the chart and reported that patient has a recent upper GI scope done and does have history of bariatric elvia catalina and probably not aplastic anemia but anemia secondary to decreased iron absorption. Recommended transfusing 2 units of blood if we can keep patient in here and patient would be evaluated in the office in 2 days upon discharge. I have called back , discussed oncology recommendations, agreed with admission and here. Antibiotics given: No Discussed with : Danish Will see patient in: hospital (observation) Counseled pt/family regarding: lab results, diagnosis, rad results - Departure Departure Disposition: Observation Clinical Impression: Symptomatic anemia, Anxiety Chronic pancreatitis Qualifiers: Pancreatitis type: unspecified pancreatitis type Qualified Code(s): K86.1 - Other chronic pancreatitis Condition: Stable Critical Care Time: Yes Critical Care Time(excluding separately billable procedures): Critical 30-74 mins Referrals: MARIMAR LEA NP [Primary Care Provider] -
--- NOTE | 2020-11-29 10:45 | XRAY ---
Indication: Chest pain. Comparison: October 11, 2016. Portable chest again demonstrates normal heart and lungs with left Port-A-Cath. Bony thorax intact. No new/acute findings.
[2020-11-29 10:56] LABS: ALBUMIN 3.5 g/dL (3.5-5.0); ALKALINE PHOSPHATASE 80 U/L (38-126); BILIRUBIN,TOTAL < 0.10 mg/dL (0.2-1.3); BLOOD UREA NITROGEN 19 mg/dL (7-17); CHLORIDE 108 mmol/L (98-107); Calcium 8.3 mg/dL (8.4-10.2); Creatinine 1 0.63 mg/dL (0.52-1.04); EST GLOMERULAR FILTRATION RATE > 60.0 ML/MIN; Glucose 244 mg/dL (74-106); LIPASE 619 U/L (23-300); NT PRO BNP 229 pg/mL (0-450); Potassium 3.7 mmol/L (3.5-5.1); SGOT/AST 66 U/L (14-36); SGPT/ALT 58 U/L (0-35); SODIUM 136 mmol/L (137-145)
[2020-11-29 10:58] LABS: Carbon Dioxide 16 mmol/L (22-30); Hemoglobin 5.6 gm/dl (12.0-16.0)
[2020-11-29] MEDS ORDERED: Sodium Chloride 0.9% 1000 ML 1,000 ML IV STA (11:10)
[2020-11-29] MEDS ORDERED: Sodium Chloride 0.9% 1000 ML 0 ML ONE (11:15)
[2020-11-29] MEDS ORDERED: PROTONIX 40 MG IV*** 80 MG in Sodium Chloride 0.9% 500 ML 500 ML IV SCH (12:00)
[2020-11-29 12:02] LABS: Amphetamine,Urine NEGATIVE (NEGATIVE); Barbiturate,Urine NEGATIVE (NEGATIVE); Benzodiazepine,Urine NEGATIVE (NEGATIVE); Cocaine,Urine NEGATIVE (NEGATIVE); Methadone,Urine NEGATIVE (NEGATIVE); Opiate,Urine NEGATIVE (NEGATIVE); PCP,Urine NEGATIVE (NEGATIVE); THC,Urine NEGATIVE (NEGATIVE)
[2020-11-29] MEDS ORDERED: PROTONIX 40 MG IV IV ONE ×2 (12:18→13:35)
[2020-11-29 12:47] LABS: ABO TYPING B; Antibody Screen NEGATIVE (NEGATIVE); RH TYPING POSITIVE
[2020-11-29 12:48] LABS: CROSS MATCH (PRBC) COMPATIBLE (COMPATIBLE)
[2020-11-29] MEDS ORDERED: TYLENOL 325 MG PO PRN (13:55)
[2020-11-29] MEDS ORDERED: MORPHINE SULFATE 2 MG INJ IV PRN ×2 (13:55→14:15)
[2020-11-29] MEDS ORDERED: DUONEB 0.5-3 MG/3 ml Neb IH PRN (13:55)
[2020-11-29] MEDS: Sodium Chloride 0.9% W/ 20 mEq KCl/LITER 1,000 ML IV SCH ×2 (14:57→21:29)
[2020-11-29] MEDS ORDERED: Sodium Chloride 0.9% 500 ML 500 ML IV SCH (15:00)
[2020-11-29] MEDS: MORPHINE SULFATE 4 MG INJ IV PRN ×3 (16:08→21:52)
[2020-11-29 16:30] LABS: ANISOCYTOSIS 2+; Eosinophil 5 % (0.00-3.0); Hypochromia 2+; Lymphocytes 14 % (24-44); Monocyte 1 % (0.0-12.0); Neutrophils 80 % (36.0-66.0); Nucleated Red Blood Cell 1 %; Platelet Estimate NORMAL (NORMAL); Poikilocytosis 1+; Polychromasia 1+; Total Cells Counted 100
[2020-11-29] MEDS ORDERED: Sodium Chloride 0.9% 1000 ML 1,000 ML ONE (16:54)
[2020-11-29] MEDS ORDERED: DIPRIVAN 200 MG/20 ML IV ONE (16:58)
[2020-11-29] MEDS ORDERED: Ketamine HCl 50 MG/ML ONE (16:58)
[2020-11-29] MEDS ORDERED: Versed 2 MG/2 ML Injection ONE (16:58)
[2020-11-29] MEDS ORDERED: Xylocaine-Mpf 2% 5 Ml Vial ONE (17:10)
[2020-11-29] MEDS ORDERED: Sodium Chloride 0.9% 1000 ML 1,000 ML IV SCH (18:00)
--- NOTE | 2020-11-29 18:54 | PCM.HP ---
History of Present Illness - Chief Complaint Chief Complaint: chest pain for 1-2 days History of Present Illness: is a 50 year old female.with multiple medical problems including aplastic anemia with recent transfusions, chronic pancreatitis, chronic pain syndrome presented to the ER with 3 days history of substernal/left-sided chest pain moderate to severe intensity, nonradiating without any significant aggravating or relieving factors. Denies any associated palpitations or shor tness of breath. Patient reports having multiple episodes of nonprojectile, nonbilious vomiting with some epigastric pain. Denies hematemesis. Patient was in the hallway dry heaving with chest pain. Patient EKG on presentation is sinus tach with no acute ST elevations. Abdominal/epigastric pain is chronic and not any worse than usual. She reports some burning sensation retrosternal and in the throat after vomiting. Timing/Duration: day(s) (3), constant, gradual onset, worse Activities at Onset: rest Quality: sharpness Location: substernal, central Chest Pain Radiation: no radiation Severity of Pain-Max: moderate Severity of Pain-Current: severe Associated Symptoms: nausea, vomiting, heartburn, abdominal pain Prior Chest Pain/Cardiac Workup: no prior cardiac workup Nitro Today/Relief: no nitro taken today Aspirin Treatment Today: no aspirin today - Review of Systems Constitutional: No Fever, No Chills Eyes: No Symptoms Ears, Nose, & Throat: No Symptoms Respiratory: Short Of Breath, No Cough Cardiac: Chest Pain, No Edema, No Syncope Abdominal/Gastrointestinal: Abdominal Pain, No Nausea, No Vomiting, No Diarrhea Genitourinary Symptoms: No Dysuria Musculoskeletal: No Back Pain, No Neck Pain Skin: No Rash Neurological: No Dizziness, No Focal Weakness, No Sensory Changes Psychological: No Symptoms Endocrine: No Symptoms Hematologic/Lymphatic: No Symptoms Immunological/Allergic: No Symptoms Medications & Allergies Home Medications: Home Medication List No Reportable Medications [No Reported Medications] 11/29/20 [History Confirmed 11/29/20] Allergies/Adverse Reactions: Allergies Allergy/AdvReac Type Severity Reaction Status Date / Time No Known Drug Allergies Allergy Verified 11/29/20 10:22 - Past Medical History Past Medical History: Yes Neurological History: Migraines ENT History: No Pertinent History Cardiac History: No Pertinent History Respiratory History: No Pertinent History Endocrine Medical History: No Pertinent History Musculoskelatal History: Fractures GI Medical History: Diverticulitis, GERD, Pancreatitis, Ulcer, Other History: No Pertinent History Pyscho-Social History: Anxiety, Bipolar, Depression Reproductive Disorders: No Pertinent History Comment: aplastic anemia ,area noted on esophagus, hep c carrier - Female History Are you now?: No - Past Surgical History Past Surgical History: Yes Neuro Surgical History: No Pertinent History Cardiac History: No Pertinent History Respiratory Surgery: No Pertinent History GI Surgical History: Cholecystectomy, Other Genitourinary Surgical Hx: No Pertinent History Musculskeletal Surgical Hx: Orthopedic Surgery Female Surgical History: Hysterectomy, Section, Tubal Ligation Other Surgical History: left knee surgery, gastric bypass - Social History Smoking Status: Former smoker Exposure to second hand smoke: No Alcohol: None Drug Use: none - Physical Exam Vital Signs: Vital Signs - 24 hr Temp Pulse Pulse Resp BP Pulse Ox 11/29/20 16:29 99 F 71 18 101/56 98 11/29/20 15:43 99 F 71 18 101/56 98 11/29/20 14:00 98.3 F 77 16 138/78 100 11/29/20 13:55 98.3 F 77 16 138/78 100 11/29/20 13:54 98.3 F 77 16 138/78 100 11/29/20 13:37 98.3 F 74 20 118/75 98 11/29/20 12:49 100 11/29/20 12:18 87 20 136/86 100 11/29/20 11:12 77 111/75 99 11/29/20 10:12 98.3 F 104 H 107 H 144/74 100 General Appearance: no apparent distress, alert Neurologic Exam: alert, oriented x 3, cooperative, normal mood/affect, nml cerebellar function, nml station & gait, sensation nml, No motor deficits Eye Exam: PERRL/EOMI, eyes nml inspection Ears, Nose, Throat Exam: normal ENT inspection, TMs normal, pharynx normal, moist mucous membranes Neck Exam: normal inspection, non-tender, supple, full range of motion Respiratory Exam: diminished breath sounds, No respiratory distress Cardiovascular Exam: regular rate/rhythm, normal heart sounds, normal peripheral pulses Gastrointestinal/Abdomen Exam: soft, normal bowel sounds, No tenderness, No mass Back Exam: normal inspection, normal range of motion, No CVA tenderness, No vertebral tenderness Extremity Exam: normal inspection, normal range of motion, pelvis stable Skin Exam: normal color, warm, dry, No rash Lymphatic Exam: No adenopathy Results - Labs Lab/Micro Results: Lab Results-Last 24 Hours 11/29/20 11/29/20 11/29/20 Range/Units 10:27 10:27 10:27 WBC 9.2 (4.0-10.5) K/mm3 RBC 3.41 L (4.1-5.4) M/mm3 Hgb 5.6 L* (12.0-16.0) gm/dl Hct 21.4 L (35-47) % MCV 62.8 L (78-100) fl MCH 16.4 L (26-32) pg MCHC 26.2 L (32-36) g/dl RDW 19.3 H (11.5-14.0) % Plt Count 462 H (150-450) K/mm3 MPV 8.7 (7.5-11.0) fl Segmented Neutrophils 80 H (36.0-66.0) % Lymphocytes (Manual) 14 L (24-44) % Monocytes (Manual) 1 (0.0-12.0) % Eosinophils (Manual) 5 H (0.00-3.0) % Nucleated RBCs 1 % Hypochromia 2+ Platelet Estimate NORMAL (NORMAL) RBC Morphology ABNORMAL Polychromasia 1+ Poikilocytosis 1+ Anisocytosis 2+ Sodium 136 L (137-145) mmol/L Potassium 3.7 (3.5-5.1) mmol/L Chloride 108 H (98-107) mmol/L Carbon Dioxide 16 L* (22-30) mmol/L Anion Gap 16.0 H (5-15) MEQ/L BUN 19 H (7-17) mg/dL Creatinine 0.63 (0.52-1.04) mg/dL Estimated GFR > 60.0 ML/MIN Glucose 244 H (74-106) mg/dL Calcium 8.3 L (8.4-10.2) mg/dL Total Bilirubin < 0.10 L (0.2-1.3) mg/dL AST 66 H (14-36) U/L ALT 58 H (0-35) U/L Alkaline Phosphatase 80 (38-126) U/L Troponin I < 0.012 (0.000-0.034) ng/mL NT-Pro-B Natriuret Pep 229 (0-450) pg/mL Serum Total Protein 6.0 L (6.3-8.2) g/dL Albumin 3.5 (3.5-5.0) g/dL Lipase 619 H (23-300) U/L Urine Opiates Level (NEGATIVE) Ur Methadone (NEGATIVE) Urine Barbiturates (NEGATIVE) Ur Phencyclidine (PCP) (NEGATIVE) Urine Amphetamine (NEGATIVE) U Benzodiazepine Level (NEGATIVE) Urine Cocaine (NEGATIVE) Urine Marijuana (THC) (NEGATIVE) SARS-CoV-2 (PCR) (NEGATIVE) ABO Group Rh Factor Antibody Screen (NEGATIVE) Crossmatch (COMPATIBLE) 11/29/20 11/29/20 11/29/20 Range/Units 11:30 11:33 11:33 WBC (4.0-10.5) K/mm3 RBC (4.1-5.4) M/mm3 Hgb (12.0-16.0) gm/dl Hct (35-47) % MCV (78-100) fl MCH (26-32) pg MCHC (32-36) g/dl RDW (11.5-14.0) % Plt Count (150-450) K/mm3 MPV (7.5-11.0) fl Segmented Neutrophils (36.0-66.0) % Lymphocytes (Manual) (24-44) % Monocytes (Manual) (0.0-12.0) % Eosinophils (Manual) (0.00-3.0) % Nucleated RBCs % Hypochromia Platelet Estimate (NORMAL) RBC Morphology Polychromasia Poikilocytosis Anisocytosis Sodium (137-145) mmol/L Potassium (3.5-5.1) mmol/L Chloride (98-107) mmol/L Carbon Dioxide (22-30) mmol/L Anion Gap (5-15) MEQ/L BUN (7-17) mg/dL Creatinine (0.52-1.04) mg/dL Estimated GFR ML/MIN Glucose (74-106) mg/dL Calcium (8.4-10.2) mg/dL Total Bilirubin (0.2-1.3) mg/dL AST (14-36) U/L ALT (0-35) U/L Alkaline Phosphatase (38-126) U/L Troponin I (0.000-0.034) ng/mL NT-Pro-B Natriuret Pep (0-450) pg/mL Serum Total Protein (6.3-8.2) g/dL Albumin (3.5-5.0) g/dL Lipase (23-300) U/L Urine Opiates Level NEGATIVE (NEGATIVE) Ur Methadone NEGATIVE (NEGATIVE) Urine Barbiturates NEGATIVE (NEGATIVE) Ur Phencyclidine (PCP) NEGATIVE (NEGATIVE) Urine Amphetamine NEGATIVE (NEGATIVE) U Benzodiazepine Level NEGATIVE (NEGATIVE) Urine Cocaine NEGATIVE (NEGATIVE) Urine Marijuana (THC) NEGATIVE (NEGATIVE) SARS-CoV-2 (PCR) (NEGATIVE) ABO Group B Rh Factor POSITIVE Antibody Screen NEGATIVE (NEGATIVE) Crossmatch COMPATIBLE COMPATIBLE (COMPATIBLE) 11/29/20 11/29/20 Range/Units 12:05 13:05 WBC (4.0-10.5) K/mm3 RBC (4.1-5.4) M/mm3 Hgb (12.0-16.0) gm/dl Hct (35-47) % MCV (78-100) fl MCH (26-32) pg MCHC (32-36) g/dl RDW (11.5-14.0) % Plt Count (150-450) K/mm3 MPV (7.5-11.0) fl Segmented Neutrophils (36.0-66.0) % Lymphocytes (Manual) (24-44) % Monocytes (Manual) (0.0-12.0) % Eosinophils (Manual) (0.00-3.0) % Nucleated RBCs % Hypochromia Platelet Estimate (NORMAL) RBC Morphology Polychromasia Poikilocytosis Anisocytosis Sodium (137-145) mmol/L Potassium (3.5-5.1) mmol/L Chloride (98-107) mmol/L Carbon Dioxide (22-30) mmol/L Anion Gap (5-15) MEQ/L BUN (7-17) mg/dL Creatinine (0.52-1.04) mg/dL Estimated GFR ML/MIN Glucose (74-106) mg/dL Calcium (8.4-10.2) mg/dL Total Bilirubin (0.2-1.3) mg/dL AST (14-36) U/L ALT (0-35) U/L Alkaline Phosphatase (38-126) U/L Troponin I < 0.012 (0.000-0.034) ng/mL NT-Pro-B Natriuret Pep (0-450) pg/mL Serum Total Protein (6.3-8.2) g/dL Albumin (3.5-5.0) g/dL Lipase (23-300) U/L Urine Opiates Level (NEGATIVE) Ur Methadone (NEGATIVE) Urine Barbiturates (NEGATIVE) Ur Phencyclidine (PCP) (NEGATIVE) Urine Amphetamine (NEGATIVE) U Benzodiazepine Level (NEGATIVE) Urine Cocaine (NEGATIVE) Urine Marijuana (THC) (NEGATIVE) SARS-CoV-2 (PCR) NEGATIVE (NEGATIVE) ABO Group Rh Factor Antibody Screen (NEGATIVE) Crossmatch (COMPATIBLE) - Radiology Impressions Radiology Exams & Impressions: Radiology Procedures Category Date Time Status CHEST 1 VIEW (PORTABLE) Stat Exams 11/29/20 10:21 Completed Assessment/Plan (1) Chest pain Current Visit: Yes Status: Acute Qualifiers: Chest pain type: other chest pain Qualified Code(s): R07.89 - Other chest pain; R07.8 - Other chest pain Code(s): R07.9 - CHEST PAIN, UNSPECIFIED (2) Symptomatic anemia Current Visit: Yes Status: Acute Assessment & Plan: Chief Complaint Diagnosis CP R/O Allergies Allergy/AdvReac Type Severity Reaction Status Date / Time No Known Drug Allergies Allergy Verified 11/29/20 10:22 Vital Signs (Last 24 hours) Temp Pulse Pulse Resp BP Pulse Ox 11/29/20 16:29 99 F 71 18 101/56 98 11/29/20 15:43 99 F 71 18 101/56 98 11/29/20 14:00 98.3 F 77 16 138/78 100 11/29/20 13:55 98.3 F 77 16 138/78 100 11/29/20 13:54 98.3 F 77 16 138/78 100 11/29/20 13:37 98.3 F 74 20 118/75 98 11/29/20 12:49 100 11/29/20 12:18 87 20 136/86 100 11/29/20 11:12 77 111/75 99 11/29/20 10:12 98.3 F 104 H 107 H 144/74 100 Home Medications Medication Instructions Recorded Confirmed Last Taken Type No Reportable Medications [No 11/29/20 11/29/20 Unknown History Reported Medications] Current Medications Generic Name Dose Route Start Last Admin Trade Name Freq PRN Reason Stop Dose Admin Acetaminophen 650 mg 11/29/20 13:55 Tylenol 325 Mg PO 12/29/20 13:54 Q4H PRN PRN PAIN AND/OR FEVER Potassium Chloride/Sodium Chloride 1,000 mls @ 100 mls/hr 11/29/20 13:55 11/29/20 14:57 Sodium Chloride 0.9% W/ 20 Meq Kcl/Liter IV 12/29/20 13:54 Not Given .Q10H NEELIMA Pantoprazole Sodium 80 mg/ 500 mls @ 50 mls/hr 11/29/20 18:00 Sodium Chloride IV 12/29/20 17:59 .Q10H NEELIMA Morphine Sulfate 4 mg 11/29/20 14:17 11/29/20 18:10 Morphine Sulfate 4 Mg Inj IV 12/04/20 14:16 4 mg Q2H PRN PRN Administration PAIN Ondansetron HCl 4 mg 11/29/20 13:55 Zofran 4 Mg/2 Ml Vial IV 12/29/20 13:54 Q6H PRN PRN NAUSEA/VOMITING Discontinued Medications Generic Name Dose Route Start Last Admin Trade Name Martq PRN Reason Stop Dose Admin Al Hydrox/Mg Hydrox/Simethicone Confirm 11/29/20 10:32 Maalox Es 30 Ml Unit Dose Administered 11/29/20 10:33 Dose 30 ml .ROUTE .STK-MED ONE Albuterol/Ipratropium 3 ml 11/29/20 13:55 Duoneb 0.5-3 Mg/3 Ml Neb IH 12/29/20 13:54 Q4HPRN PRN SHORTNESS OF BREATH/WHEEZING Aspirin 324 mg 11/29/20 10:21 11/29/20 10:29 Baby Aspirin 81 Mg Chew PO 11/29/20 10:22 324 mg STAT ONE Administration Aspirin Confirm 11/29/20 10:28 Baby Aspirin 81 Mg Chew Administered 11/29/20 10:29 Dose 324 mg .ROUTE .STK-MED ONE Famotidine 20 mg 11/29/20 10:28 11/29/20 10:33 Pepcid 20 Mg Vial IV 11/29/20 10:29 20 mg STAT ONE Administration Famotidine Confirm 11/29/20 10:31 Pepcid 20 Mg Vial Administered 11/29/20 10:32 Dose 20 mg IV .STK-MED ONE Sodium Chloride 1,000 mls @ 999 mls/hr 11/29/20 11:10 11/29/20 12:39 Sodium Chloride 0.9% 1000 Ml IV 11/29/20 12:10 Infused .Q1H1M STA Infusion Sodium Chloride Confirm 11/29/20 11:15 Sodium Chloride 0.9% 1000 Ml Administered 11/29/20 11:16 Dose 1,000 mls @ ud .ROUTE .STK-MED ONE Pantoprazole Sodium 80 mg/ 500 mls @ 50 mls/hr 11/29/20 12:00 11/29/20 13:56 Sodium Chloride IV 12/29/20 11:59 Not Given .Q10H NEELIMA Sodium Chloride 500 mls @ 50 mls/hr 11/29/20 15:00 11/29/20 15:31 Sodium Chloride 0.9% 500 Ml IV 12/29/20 14:59 50 mls/hr .Q10H NEELIMA Administration Sodium Chloride Confirm 11/29/20 16:54 Sodium Chloride 0.9% 1000 Ml Administered 11/29/20 16:55 Dose 1,000 mls @ ud .ROUTE .STK-MED ONE Sodium Chloride 1,000 mls @ 100 mls/hr 11/29/20 18:00 11/29/20 17:30 Sodium Chloride 0.9% 1000 Ml IV 12/29/20 17:59 100 mls/hr .Q10H NEELIMA Administration Ketamine HCl Confirm 11/29/20 16:58 Ketamine Hcl 50 Mg/Ml Administered 11/29/20 16:59 Dose 20 mg .ROUTE .STK-MED ONE Lidocaine HCl Confirm 11/29/20 10:32 Xylocaine Hcl Viscous * Administered 11/29/20 10:33 Dose 15 ml .ROUTE .STK-MED ONE Lidocaine HCl Confirm 11/29/20 17:10 Xylocaine-Mpf 2% 5 Ml Vial Administered 11/29/20 17:11 Dose 5 ml .ROUTE .STK-MED ONE Magnesium Hydroxide 45 ml 11/29/20 10:28 11/29/20 10:33 Gi Cocktail 45 Ml (Maalox/Lidocaine) PO 11/29/20 10:29 45 ml STAT ONE Administration Midazolam HCl Confirm 11/29/20 16:58 Versed 2 Mg/2 Ml Injection Administered 11/29/20 16:59 Dose 2 mg .ROUTE .STK-MED ONE Morphine Sulfate 4 mg 11/29/20 10:21 11/29/20 10:29 Morphine Sulfate 4 Mg Inj IV 11/29/20 10:22 4 mg STAT ONE Administration Morphine Sulfate Confirm 11/29/20 10:28 Morphine Sulfate 4 Mg Inj Administered 11/29/20 10:29 Dose 4 mg .ROUTE .STK-MED ONE Morphine Sulfate 4 mg 11/29/20 12:16 11/29/20 12:22 Morphine Sulfate 4 Mg Inj IV 11/29/20 12:17 4 mg STAT ONE Administration Morphine Sulfate Confirm 11/29/20 12:20 Morphine Sulfate 4 Mg Inj Administered 11/29/20 12:21 Dose 4 mg .ROUTE .STK-MED ONE Morphine Sulfate 2 mg 11/29/20 13:55 11/29/20 14:10 Morphine Sulfate 2 Mg Inj IV 12/04/20 13:54 2 mg Q4H PRN PRN Administration PAIN Morphine Sulfate 4 mg 11/29/20 14:15 Morphine Sulfate 2 Mg Inj IV 12/04/20 14:14 Q2H PRN PRN PAIN Ondansetron HCl 4 mg 11/29/20 10:21 11/29/20 10:29 Zofran 4 Mg/2 Ml Vial IV 11/29/20 10:22 4 mg STAT ONE Administration Ondansetron HCl Confirm 11/29/20 10:28 Zofran 4 Mg/2 Ml Vial Administered 11/29/20 10:29 Dose 4 mg .ROUTE .STK-MED ONE Ondansetron HCl Confirm 11/29/20 17:16 Zofran 4 Mg/2 Ml Vial Administered 11/29/20 17:17 Dose 4 mg .ROUTE .STK-MED ONE Pantoprazole Sodium 40 mg 11/29/20 12:18 11/29/20 13:37 Protonix 40 Mg Iv IV 11/29/20 12:19 40 mg STAT ONE Administration Pantoprazole Sodium Confirm 11/29/20 13:35 Protonix 40 Mg Iv Administered 11/29/20 13:36 Dose 40 mg IV .STK-MED ONE Propofol Confirm 11/29/20 16:58 Diprivan 200 Mg/20 Ml Administered 11/29/20 16:59 Dose 200 mg IV .STK-MED ONE Intake & Output (Last 24 hours) 11/27/20 11/28/20 11/29/20 11/30/20 11:59 11:59 11:59 11:59 Intake Total 720 Balance 720 Weight 54.431 kg 55 kg Laboratory Results (Last 24 hours) 11/29/20 11/29/20 11/29/20 13:05 12:05 11:33 WBC RBC Hgb Hct MCV MCH MCHC RDW Plt Count MPV Segmented Neutrophils Lymphocytes (Manual) Monocytes (Manual) Eosinophils (Manual) Nucleated RBCs Hypochromia Platelet Estimate RBC Morphology Polychromasia Poikilocytosis Anisocytosis Sodium Potassium Chloride Carbon Dioxide Anion Gap BUN Creatinine Estimated GFR Glucose Calcium Total Bilirubin AST ALT Alkaline Phosphatase Troponin I < 0.012 NT-Pro-B Natriuret Pep Serum Total Protein Albumin Lipase Urine Opiates Level Ur Methadone Urine Barbiturates Ur Phencyclidine (PCP) Urine Amphetamine U Benzodiazepine Level Urine Cocaine Urine Marijuana (THC) SARS-CoV-2 (PCR) NEGATIVE ABO Group Rh Factor Antibody Screen Crossmatch COMPATIBLE 11/29/20 11/29/20 11/29/20 11:33 11:30 10:27 WBC RBC Hgb Hct MCV MCH MCHC RDW Plt Count MPV Segmented Neutrophils Lymphocytes (Manual) Monocytes (Manual) Eosinophils (Manual) Nucleated RBCs Hypochromia Platelet Estimate RBC Morphology Polychromasia Poikilocytosis Anisocytosis Sodium Potassium Chloride Carbon Dioxide Anion Gap BUN Creatinine Estimated GFR Glucose Calcium Total Bilirubin AST ALT Alkaline Phosphatase Troponin I < 0.012 NT-Pro-B Natriuret Pep Serum Total Protein Albumin Lipase Urine Opiates Level NEGATIVE Ur Methadone NEGATIVE Urine Barbiturates NEGATIVE Ur Phencyclidine (PCP) NEGATIVE Urine Amphetamine NEGATIVE U Benzodiazepine Level NEGATIVE Urine Cocaine NEGATIVE Urine Marijuana (THC) NEGATIVE SARS-CoV-2 (PCR) ABO Group B Rh Factor POSITIVE Antibody Screen NEGATIVE Crossmatch COMPATIBLE 11/29/20 11/29/20 10:27 10:27 WBC 9.2 RBC 3.41 L Hgb 5.6 L* Hct 21.4 L MCV 62.8 L MCH 16.4 L MCHC 26.2 L RDW 19.3 H Plt Count 462 H MPV 8.7 Segmented Neutrophils 80 H Lymphocytes (Manual) 14 L Monocytes (Manual) 1 Eosinophils (Manual) 5 H Nucleated RBCs 1 Hypochromia 2+ Platelet Estimate NORMAL RBC Morphology ABNORMAL Polychromasia 1+ Poikilocytosis 1+ Anisocytosis 2+ Sodium 136 L Potassium 3.7 Chloride 108 H Carbon Dioxide 16 L* Anion Gap 16.0 H BUN 19 H Creatinine 0.63 Estimated GFR > 60.0 Glucose 244 H Calcium 8.3 L Total Bilirubin < 0.10 L AST 66 H ALT 58 H Alkaline Phosphatase 80 Troponin I NT-Pro-B Natriuret Pep 229 Serum Total Protein 6.0 L Albumin 3.5 Lipase 619 H Urine Opiates Level Ur Methadone Urine Barbiturates Ur Phencyclidine (PCP) Urine Amphetamine U Benzodiazepine Level Urine Cocaine Urine Marijuana (THC) SARS-CoV-2 (PCR) ABO Group Rh Factor Antibody Screen Crossmatch Orders (Last 24 hours) Category Date Time Status Bedrest with BRP/BSC ROUTINE Activity 11/29/20 13:55 Active Up With Assistance ROUTINE Activity 11/29/20 13:55 Active Cable Coverer STAT Care 11/29/20 10:21 Completed Code Status Order ROUTINE Care 11/29/20 13:55 Active Consent,Obtain ROUTINE Care 11/29/20 16:18 Active EKG-ER Only STAT Care 11/29/20 10:21 Completed Fall Protocol ROUTINE Care 11/29/20 13:55 Active IV Care Q6H Care 11/29/20 13:55 Active Nursing [Miscellaneous Nursing Order] ROUTINE Care 11/29/20 17:43 Active Oxygen-ED Only Nasal Cannula 2 lpm Care 11/29/20 10:[address] in Observation ROUTINE Care 11/29/20 13:55 Active Yasir Lopez, Apply ROUTINE Care 11/29/20 13:55 Active Telemetry q6h Care 11/29/20 14:15 Active Weight,Daily 0600 Care 11/29/20 13:55 Active Consult Surgery ROUTINE Cons 11/29/20 14:16 Completed Clear Liquid Diet 11/29/20 Dinner Active CHEST 1 VIEW (PORTABLE) Stat Exams 11/29/20 10:21 Completed BLOOD COMPONENT REQUEST Stat Lab 11/29/20 11:33 Completed CBC W DIFF AM.LAB Lab 11/30/20 04:00 Ordered CBC W DIFF Stat Lab 11/29/20 10:27 Completed CMP AM.LAB Lab 11/30/20 04:00 Ordered CMP Stat Lab 11/29/20 10:27 Completed FECAL OCCULT BLOOD -DIAGNOSTIC Stat Lab 11/29/20 11:59 Ordered LIPASE Stat Lab 11/29/20 10:27 Completed Manual Differential NC Stat Lab 11/29/20 10:27 Completed NT PRO BNP Stat Lab 11/29/20 10:27 Completed SARS-CoV-2 Xpert Express Routine Lab 11/29/20 12:05 Completed Surgical Pathology Routine Lab 11/29/20 17:09 Received TROPONIN AM.LAB Lab 11/30/20 04:00 Ordered TROPONIN Q3H Lab 11/29/20 10:27 Completed TROPONIN Q3H Lab 11/29/20 13:05 Completed TYPE AND SCREEN Stat Lab 11/29/20 11:33 Completed Urine Triage Profile Stat Lab 11/29/20 11:30 Completed Acetaminophen 325 mg [Tylenol 325 mg] Med 11/29/20 13:55 Active 650 mg PO Q4H PRN PRN Albuterol/Ipratropium 3ml Neb* [DUONEB 0.5-3 MG/3 ml Med 11/29/20 13:55 Disco ntinued Neb] 3 ml IH Q4HPRN PRN Aspirin 81 gm Chew [Baby Aspirin 81 mg Chew] Med 11/29/20 10:28 Discontinued 324 mg .ROUTE .STK-MED ONE Aspirin 81 gm Chew [Baby Aspirin 81 mg Chew] Med 11/29/20 10:21 Discontinued 324 mg PO STAT ONE Famotidine 20 mg Vial [Pepcid 20 MG VIAL] Med 11/29/20 10:31 Discontinued 20 mg IV .STK-MED ONE Famotidine 20 mg Vial [Pepcid 20 MG VIAL] Med 11/29/20 10:28 Discontinued 20 mg IV STAT ONE Ketamine HCl 50 mg/ml [Ketamine HCl 50 MG/ML] Med 11/29/20 16:58 Discontinued 20 mg .ROUTE .STK-MED ONE Lidocaine HCl 2% Mpf 5 ml [Xylocaine-Mpf 2% 5 Ml Med 11/29/20 17:10 Discontinued Vial] 5 ml .ROUTE .STK-MED ONE Lidocaine HCl Viscous [XYLOCAINE HCl Viscous *] Med 11/29/20 10:32 Discontinued 15 ml .ROUTE .STK-MED ONE Mag Hydrox/Al Hydrox/Simeth [Maalox Es 30 ml Unit Med 11/29/20 10:32 Discontinued Dose] 30 ml .ROUTE .STK-MED ONE Mag Hydrx/Alum Hyd/Simeth/Lido [GI COCKTAIL 45 ML ( Med 11/29/20 10:28 Discontinued Maalox/Lidocaine)] 45 ml PO STAT ONE Midazolam HCl 2 mg/2 ml [Versed 2 MG/2 ML Injection* Med 11/29/20 16:58 Discontinued ] 2 mg .ROUTE .STK-MED ONE Morphine Sulfate 2 mg Inj Med 11/29/20 13:55 Discontinued 2 mg IV Q4H PRN PRN Morphine Sulfate 2 mg Inj Med 11/29/20 14:15 Discontinued 4 mg IV Q2H PRN PRN Morphine Sulfate 4 mg Inj Med 11/29/20 10:28 Discontinued 4 mg .ROUTE .STK-MED ONE Morphine Sulfate 4 mg Inj Med 11/29/20 12:20 Discontinued 4 mg .ROUTE .STK-MED ONE Morphine Sulfate 4 mg Inj Med 11/29/20 14:17 Active 4 mg IV Q2H PRN PRN Morphine Sulfate 4 mg Inj Med 11/29/20 10:21 Discontinued 4 mg IV STAT ONE Morphine Sulfate 4 mg Inj Med 11/29/20 12:16 Discontinued 4 mg IV STAT ONE NaCl 0.9% 1000 ml + KCl 20 Meq [Sodium Chloride 0.9% W/ Med 11/29/20 13:55 Active 20 mEq KCl/LITER] 1,000 ml IV 100 mls/hr NaCl 0.9% 1000 ml [Sodium Chloride 0.9% 1000 ML] 1,000 Med 11/29/20 11:15 Discontinued ml .ROUTE UD NaCl 0.9% 1000 ml [Sodium Chloride 0.9% 1000 ML] 1,000 Med 11/29/20 16:54 Discontinued ml .ROUTE UD NaCl 0.9% 1000 ml [Sodium Chloride 0.9% 1000 ML] 1,000 Med 11/29/20 18:00 Discontinued ml IV 100 mls/hr NaCl 0.9% 1000 ml [Sodium Chloride 0.9% 1000 ML] 1,000 Med 11/29/20 11:10 Discontinued ml IV 999 mls/hr NaCl 0.9% 500 ml [Sodium Chloride 0.9% 500 ML] 500 ml Med 11/29/20 12:00 Discontinued Pantoprazole 40 mg [Protonix 40 mg IV] 80 mg IV 50 mls/hr NaCl 0.9% 500 ml [Sodium Chloride 0.9% 500 ML] 500 ml Med 11/29/20 18:00 Active Pantoprazole 40 mg [Protonix 40 mg IV] 80 mg IV 50 mls/hr NaCl 0.9% 500 ml [Sodium Chloride 0.9% 500 ML] 500 ml Med 11/29/20 15:00 Discontinued IV 50 mls/hr Ondansetron HCl 4 mg/2 ml [Zofran 4 MG/2 ML VIAL] Med 11/29/20 10:28 Dis continued 4 mg .ROUTE .STK-MED ONE Ondansetron HCl 4 mg/2 ml [Zofran 4 MG/2 ML VIAL] Med 11/29/20 17:16 Discontinued 4 mg .ROUTE .STK-MED ONE Ondansetron HCl 4 mg/2 ml [Zofran 4 MG/2 ML VIAL] Med 11/29/20 13:55 Active 4 mg IV Q6H PRN PRN Ondansetron HCl 4 mg/2 ml [Zofran 4 MG/2 ML VIAL] Med 11/29/20 10:21 Discontinued 4 mg IV STAT ONE Pantoprazole 40 mg [Protonix 40 mg IV] Med 11/29/20 13:35 Discontinued 40 mg IV .STK-MED ONE Pantoprazole 40 mg [Protonix 40 mg IV] Med 11/29/20 12:18 Discontinued 40 mg IV STAT ONE Propofol 200 mg/20 ml [Diprivan 200 mg/20 ml] Med 11/29/20 16:58 Discontinued 200 mg IV .STK-MED ONE Transfer Order Routine Transfer 11/29/20 Completed Patient Care Notes (Last 24 hours) 11/29/20 18:25 Nursing Note by Harper Rivers TO START PROTONIX DRIP 2ND UNIT OF BLOOD IS TRANSFUSING AND PT HAS [address] DENNY AWARE AND OK WITH PROTONIX DRIP STARTING AFTER BLOOD TRANSFUSIONS ARE COMPLETE. Initialized on 11/29/20 18:25 - END OF NOTE 11/29/20 17:34 (created 11/29/20 17:38) Nursing Note by Harper Rivers back from ENDO Initialized on 11/29/20 17:38 - END OF NOTE 11/29/20 17:00 (created 11/29/20 17:09) Nursing Note by Harper Rivers to OR for EGD Initialized on 11/29/20 17:09 - END OF NOTE 11/29/20 14:16 Nursing Note by Harper Rivers dr updated by phone of pt's pain rating of "8" by balwinder law rn. new orders to increase morphine to 4mg q2h iv prn, get a surgery consult, transfuse 2 units of prbcs, hole protonix drip until blood transfusion is complete as pt only has 1 IV access. pt updated and ok with plan. Initialized on 11/29/20 14:16 - END OF NOTE Code(s): D64.9 - ANEMIA, UNSPECIFIED (3) Chronic pancreatitis Current Visit: Yes Status: Chronic Qualifiers: Pancreatitis type: unspecified pancreatitis type Qualified Code(s): K86.1 - Other chronic pancreatitis Code(s): K86.1 - OTHER CHRONIC PANCREATITIS (4) Peptic ulcer disease Current Visit: No Status: Chronic Code(s): K27.9 - PEPTIC ULC, SITE UNSP, UNSP AC OR CHR, W/O HEMOR OR PERF (5) History of Campbell-en-Y gastric bypass Current Visit: No Status: Chronic Code(s): Z98.84 - BARIATRIC SURGERY STATUS
[2020-11-29] MEDS: PROTONIX 40 MG IV*** 80 MG in Sodium Chloride 0.9% 500 ML 500 ML IV SCH (21:31)
[2020-11-29 23:52] LABS: Hematocrit 26.2 % (35-47)
[2020-11-29 23:55] LABS: Hemoglobin 7.3 gm/dl (12.0-16.0)
[2020-11-30] MEDS: Zofran 4 MG/2 ML VIAL IV PRN ×2 (00:52→08:25)
[2020-11-30] MEDS: MORPHINE SULFATE 4 MG INJ IV PRN ×5 (02:17→16:39)
[2020-11-30 05:01] LABS: BASOPHIL % 0.9 % (0.0-0.4); Basophil (Absolute #) 0.09 (0-0.4); Eosinophil % 4.7 % (0.00-5.0); Eosinophil (Absolute #) 0.47 (0-0.5); Hematocrit 25.1 % (35-47); Lymphocyte (Absolute #) 1.37 (1.0-4.6); Lymphocytes % 13.8 % (24.0-44.0); Mean Cell Volume 68.4 fl (78-100); Mean Corpuscular Hemoglobin 19.1 pg (26-32); Mean Corpuscular Hgb Concent. 27.9 g/dl (32-36); Mean Platelet Volume 8.8 fl (7.5-11.0); Monocyte (Absolute #) 0.73 (0.0-1.3); Monocytes % 7.3 % (0.0-12.0); Neutrophil % 73.3 % (36.0-66.0); Platelet Count 347 K/mm3 (150-450); Red Blood Count 3.67 M/mm3 (4.1-5.4); Red Cell Distribution Width 24.4 % (11.5-14.0)
[2020-11-30 05:21] LABS: ALBUMIN 2.9 g/dL (3.5-5.0); ALKALINE PHOSPHATASE 64 U/L (38-126); ANION GAP 10.3 MEQ/L (5-15); BLOOD UREA NITROGEN 15 mg/dL (7-17); CHLORIDE 109 mmol/L (98-107); Calcium 8.5 mg/dL (8.4-10.2); Carbon Dioxide 22 mmol/L (22-30); Creatinine 1 0.62 mg/dL (0.52-1.04); EST GLOMERULAR FILTRATION RATE > 60.0 ML/MIN; Glucose 81 mg/dL (74-106); Potassium 4.7 mmol/L (3.5-5.1); SGOT/AST 41 U/L (14-36); SGPT/ALT 53 U/L (0-35); SODIUM 136 mmol/L (137-145); Total Protein 5.5 g/dL (6.3-8.2)
[2020-11-30] MEDS: PROTONIX 40 MG IV*** 80 MG in Sodium Chloride 0.9% 500 ML 500 ML IV SCH ×2 (06:03→16:43)
[2020-11-30 07:50] LABS: Slide Review 1 YES
--- NOTE | 2020-11-30 08:05 | CONS ---
CONSULT DATE: 11/29/2020 HISTORY: I tried to get the history from the patient. She is a rather poor historian. She apparently had been in [facility] a couple of months ago and got several units of blood but did not end up having an upper endoscopy for some reason. She does have history of aplastic anemia followed by Dr. Bishop in the past. She said she had multiple ulcerations down in her esophagus sounds like GI was seeing her in the past. She denies any current hematochezia or melena currently. She did have anemia at 5.9. She said she was told that she had ulcers but yet she is only taking some little bit of [id number] acid jesus. She is not taking significant proton pump inhibitors on a regular basis, according to the patient. She also said she has history of pancreatitis in the past. She had some epigastric pain. She had some vomiting in the past, denied any hematemesis. She had some chest pain. She initially said she was not taking any medications. She now tells me she is taking some tyer-wqx-ghvqtat acid blockers for the past month or so. She is a little inconsistent with her stories. PAST MEDICAL HISTORY: Bipolar depression. Anxiety. Pancreatitis whether this is chronic pancreatitis versus aplastic anemia, follows with Dr. Bishop in the past. PAST SURGICAL HISTORY: Hysterectomy. section. Tubal. Cholecystectomy. Left knee surgery. She had some sort of gastric bypass in the past. Port-A-Cath placed in the past. HOME MEDICATIONS: Ubgw-nqf-tjtetum acid blockers. ALLERGIES: NKDA. FAMILY HISTORY: Negative in regards to this specific problem. SOCIAL HISTORY: No smoking or alcohol abuse currently. REVIEW OF SYSTEMS: Fourteen systems reviewed per admission assessment. No chest pain or palpitations other systems negative or noncontributory as above and per preadmission questionnaire. PHYSICAL EXAMINATION: GENERAL: No acute distress. Hemodynamically stable. HEENT: Sclera nonicteric. NECK: No JVD. CHEST: Equal excursion, nonlabored breathing. CVS: Regular rate and rhythm. ABDOMEN: Soft. EXTREMITIES: No edema. No cyanosis. NEURO: Alert, moving extremities grossly symmetrically. No gross motor deficits. PSYCH: Appropriate mood and affect. LAB DATA AND TESTS: She reportedly had a hemoglobin of 5.6, white count 9.3 and was given some blood. She was COVID negative. Her drug screen is supposedly negative. Her lipase is elevated at 619. Alkaline phosphatase is normal. Bilirubin is okay. IMPRESSION: A 50 year-old with what sounds like she is not a real compliant patient with history of aplastic anemia with epigastric pain and anemia but denies any melena or hematochezia to me currently. She has what sounds like chronic pancreatitis and she does have elevation of pancreatic enzymes, lipase here. She has had bariatric surgery in the past. She said she has had diffuse multiple ulcers in her esophagus in the past apparently that is followed by GI whether at [facility] or not is unclear. She apparently had 4 units of blood a month or two ago but for some reason did not have any endoscopy at that time. Otherwise unclear etiology of her symptoms, may all be related to chronic pancreatitis. She could have anemia of chronic disease. She denies any bloody stools now but she could have marginal ulcers given her bariatric surgery. She understands we can do an upper endoscopy for a little bit more information. General risk of bleeding or infection, risk of bowel injury or perforation, risk of inability to diagnose the etiology of her symptoms, risk of aspiration, risk of sedation but not limited to. She understands but she also understands if she has diffuse esophageal ulceration we do not manage that here. She will need to be transferred to a different facility. She also understands if she has ulceration at her bariatric surgery they could try to treat her with some acid blockade but any complications related to that she will need to follow up with her bariatric specialist. All of this pain may be just related to her acute on chronic pancreatitis. Either way, she sounds like a very noncompliant patient. Will proceed with upper endoscopy if we get the OR team in here at this time.
--- NOTE | 2020-11-30 08:30 | OP ---
SURGERY DATE/TIME: 11/29/2020 1700 PREOPERATIVE DIAGNOSES: 1) History of anemia, history of transfusions in the past. 2) History of aplastic anemia. 3) History of epigastric pain. 4) History of pancreatitis. 5) History of bariatric surgery. POSTOPERATIVE DIAGNOSIS: No active bleeding of esophagus or stomach pouch or jejunum visible endoscopically. No fresh or old blood. PROCEDURES: Esophagogastroenteroscopy. Cold biopsy of stomach. Again the patient has had bariatric surgery distal stomach and proximal duodenum not visible. SURGEON: Dr. Juno Galeas. ANESTHESIA: MAC. ESTIMATED BLOOD LOSS: Minimal. INDICATIONS: As noted above. Risks and benefits explained in detail and not limited to including of missed or nondiagnosis, consent obtained. DESCRIPTION OF PROCEDURE AND FINDINGS: The patient is taken to the endoscopy room. MAC anesthesia introduced. After official time out and no disagreement with planned procedure, a bite block positioned. Video gastroscope easily passed down the esophagus to the gastroesophageal junction. Z-line looked fairly crisp. There were no signs of any obvious ulcers or erosions in the esophagus, stomach pouch. There was some food debris in it. It took some time irrigating this out but when irrigated out there was no current visible ulcer at this time. No fresh or old blood. The scope was passed down and looped in the jejunum which was grossly unremarkable several centimeters down the jejunum. No visible fresh or old blood site. The scope pulled back just for completeness. She was checked for Helicobacter pylori. She had some bleeding in the past. Cold biopsy of the stomach. No significant bleeding from the biopsy site. Good hemostasis noted. The scope was withdrawn. The patient tolerated the procedure well. There were no immediate complications. I spoke with an aunt over the phone. Should the patient have recurrent bleeding, she could follow up with outpatient colonoscopy. Otherwise if there is any concern or if she has any issues in her distal stomach, more proximal duodenal area, she would need to be transferred to a tertiary center for consideration of some sort of push enteroscopy to evaluate the distal stomach and proximal duodenum that could not be visualized with the scope today. Continue medical management. Her epigastric pain may simply be related to her pancreatitis, acute on chronic pancreatitis, acute exacerbation of chronic pancreatitis.
[2020-11-30 08:48] VITALS: BP 128/66; PULSE 76; O2SAT 96
[2020-11-30] MEDS: Sodium Chloride 0.9% W/ 20 mEq KCl/LITER 1,000 ML IV SCH (12:31)
--- NOTE | 2020-11-30 20:12 | PCM.DS ---
Discharge Summary Date of Admission: 11/29/20 13:48 Admitting Physician: DOMINICK DENNY Consults: Consults on Case 11/29/20 14:16 Consult Surgery ROUTINE Primary Care Provider: MARIMAR LEA NP Allergies Allergies No Known Drug Allergies Allergy (Verified 11/29/20 10:22) Hospital Summary - Hospital Course Hospital Course: Chief Complaint Diagnosis chest pain for 1-2 days Allergies Allergy/AdvReac Type Severity Reaction Status Date / Time No Known Drug Allergies Allergy Verified 11/29/20 10:22 Vital Signs (Last 24 hours) Temp Pulse Resp BP Pulse Ox 11/30/20 08:00 97.6 F 76 20 128/66 96 11/30/20 04:00 98.8 F 74 16 127/83 97 11/30/20 00:00 97.0 F 56 L 18 115/50 95 11/29/20 20:28 61 18 105/59 98 Home Medications Medication Instructions Recorded Confirmed Last Taken Type Dicyclomine HCl 10 mg PO Q6H PRN 7 Days #20 11/30/20 Unknown Rx Ondansetron ODT 4 MG [Zofran 4 mg PO Q6H PRN PRN #10 11/30/20 Unknown Rx Odt 4 mg] Current Medications Discontinued Medications Generic Name Dose Route Start Last Admin Trade Name Freq PRN Reason Stop Dose Admin Acetaminophen 650 mg 11/29/20 13:55 Tylenol 325 Mg PO 12/29/20 13:54 Q4H PRN PRN PAIN AND/OR FEVER Al Hydrox/Mg Hydrox/Simethicone Confirm 11/29/20 10:32 Maalox Es 30 Ml Unit Dose Administered 11/29/20 10:33 Dose 30 ml .ROUTE .STK-MED ONE Albuterol/Ipratropium 3 ml 11/29/20 13:55 Duoneb 0.5-3 Mg/3 Ml Neb IH 12/29/20 13:54 Q4HPRN PRN SHORTNESS OF BREATH/WHEEZING Aspirin 324 mg 11/29/20 10:21 11/29/20 10:29 Baby Aspirin 81 Mg Chew PO 11/29/20 10:22 324 mg STAT ONE Administration Aspirin Confirm 11/29/20 10:28 Baby Aspirin 81 Mg Chew Administered 11/29/20 10:29 Dose 324 mg .ROUTE .STK-MED ONE Famotidine 20 mg 11/29/20 10:28 11/29/20 10:33 Pepcid 20 Mg Vial IV 11/29/20 10:29 20 mg STAT ONE Administration Famotidine Confirm 11/29/20 10:31 Pepcid 20 Mg Vial Administered 11/29/20 10:32 Dose 20 mg IV .STK-MED ONE Heparin Sodium (Beef Lung) 500 units 11/30/20 11:15 11/30/20 16:39 Heparin Lock Flush 100 Units/Ml 5ml Syringe PORT FLUSH 12/30/20 11:14 500 units PRN PRN Administration IV PORT FLUSH Sodium Chloride 1,000 mls @ 999 mls/hr 11/29/20 11:10 11/29/20 12:39 Sodium Chloride 0.9% 1000 Ml IV 11/29/20 12:10 Infused .Q1H1M STA Infusion Sodium Chloride Confirm 11/29/20 11:15 Sodium Chloride 0.9% 1000 Ml Administered 11/29/20 11:16 Dose 1,000 mls @ ud .ROUTE .STK-MED ONE Pantoprazole Sodium 80 mg/ 500 mls @ 50 mls/hr 11/29/20 12:00 11/29/20 13:56 Sodium Chloride IV 12/29/20 11:59 Not Given .Q10H NEELIMA Potassium Chloride/Sodium Chloride 1,000 mls @ 100 mls/hr 11/29/20 13:55 11/30/20 12:31 Sodium Chloride 0.9% W/ 20 Meq Kcl/Liter IV 12/29/20 13:54 Not Given .Q10H NEELIMA Pantoprazole Sodium 80 mg/ 500 mls @ 50 mls/hr 11/29/20 18:00 11/30/20 16:43 Sodium Chloride IV 12/29/20 17:59 Not Given .Q10H NEELIMA Sodium Chloride 500 mls @ 50 mls/hr 11/29/20 15:00 11/29/20 15:31 Sodium Chloride 0.9% 500 Ml IV 12/29/20 14:59 50 mls/hr .Q10H NEELIMA Administration Sodium Chloride Confirm 11/29/20 16:54 Sodium Chloride 0.9% 1000 Ml Administered 11/29/20 16:55 Dose 1,000 mls @ ud .ROUTE .STK-MED ONE Sodium Chloride 1,000 mls @ 100 mls/hr 11/29/20 18:00 11/29/20 17:30 Sodium Chloride 0.9% 1000 Ml IV 12/29/20 17:59 100 mls/hr .Q10H NEELIMA Administration Ketamine HCl Confirm 11/29/20 16:58 Ketamine Hcl 50 Mg/Ml Administered 11/29/20 16:59 Dose 20 mg .ROUTE .STK-MED ONE Lidocaine HCl Confirm 11/29/20 10:32 Xylocaine Hcl Viscous * Administered 11/29/20 10:33 Dose 15 ml .ROUTE .STK-MED ONE Lidocaine HCl Confirm 11/29/20 17:10 Xylocaine-Mpf 2% 5 Ml Vial Administered 11/29/20 17:11 Dose 5 ml .ROUTE .STK-MED ONE Magnesium Hydroxide 45 ml 11/29/20 10:28 11/29/20 10:33 Gi Cocktail 45 Ml (Maalox/Lidocaine) PO 11/29/20 10:29 45 ml STAT ONE Administration Midazolam HCl Confirm 11/29/20 16:58 Versed 2 Mg/2 Ml Injection Administered 11/29/20 16:59 Dose 2 mg .ROUTE .STK-MED ONE Morphine Sulfate 4 mg 11/29/20 10:21 11/29/20 10:29 Morphine Sulfate 4 Mg Inj IV 11/29/20 10:22 4 mg STAT ONE Administration Morphine Sulfate Confirm 11/29/20 10:28 Morphine Sulfate 4 Mg Inj Administered 11/29/20 10:29 Dose 4 mg .ROUTE .STK-MED ONE Morphine Sulfate 4 mg 11/29/20 12:16 11/29/20 12:22 Morphine Sulfate 4 Mg Inj IV 11/29/20 12:17 4 mg STAT ONE Administration Morphine Sulfate Confirm 11/29/20 12:20 Morphine Sulfate 4 Mg Inj Administered 11/29/20 12:21 Dose 4 mg .ROUTE .STK-MED ONE Morphine Sulfate 2 mg 11/29/20 13:55 11/29/20 14:10 Morphine Sulfate 2 Mg Inj IV 12/04/20 13:54 2 mg Q4H PRN PRN Administration PAIN Morphine Sulfate 4 mg 11/29/20 14:15 Morphine Sulfate 2 Mg Inj IV 12/04/20 14:14 Q2H PRN PRN PAIN Morphine Sulfate 4 mg 11/29/20 14:17 11/30/20 16:39 Morphine Sulfate 4 Mg Inj IV 12/04/20 14:16 4 mg Q2H PRN PRN Administration PAIN Ondansetron HCl 4 mg 11/29/20 10:21 11/29/20 10:29 Zofran 4 Mg/2 Ml Vial IV 11/29/20 10:22 4 mg STAT ONE Administration Ondansetron HCl Confirm 11/29/20 10:28 Zofran 4 Mg/2 Ml Vial Administered 11/29/20 10:29 Dose 4 mg .ROUTE .STK-MED ONE Ondansetron HCl 4 mg 11/29/20 13:55 11/30/20 08:25 Zofran 4 Mg/2 Ml Vial IV 12/29/20 13:54 4 mg Q6H PRN PRN Administration NAUSEA/VOMITING Ondansetron HCl Confirm 11/29/20 17:16 Zofran 4 Mg/2 Ml Vial Administered 11/29/20 17:17 Dose 4 mg .ROUTE .STK-MED ONE Pantoprazole Sodium 40 mg 11/29/20 12:18 11/29/20 13:37 Protonix 40 Mg Iv IV 11/29/20 12:19 40 mg STAT ONE Administration Pantoprazole Sodium Confirm 11/29/20 13:35 Protonix 40 Mg Iv Administered 11/29/20 13:36 Dose 40 mg IV .STK-MED ONE Propofol Confirm 11/29/20 16:58 Diprivan 200 Mg/20 Ml Administered 11/29/20 16:59 Dose 200 mg IV .STK-MED ONE Intake & Output (Last 24 hours) 11/28/20 11/29/20 11/30/20 12/01/20 11:59 11:59 11:59 11:59 Intake Total 3920 960 Output Total 1000 Balance 2920 960 Weight 54.431 kg 69.5 kg Laboratory Results (Last 24 hours) 11/30/20 11/30/20 11/30/20 04:45 04:45 04:45 WBC 10.0 RBC 3.67 L Hgb 7.0 L Hct 25.1 L MCV 68.4 L D MCH 19.1 L MCHC 27.9 L RDW 24.4 H Plt Count 347 MPV 8.8 Gran % 73.3 H Eos # (Auto) 0.47 Absolute Lymphs (auto) 1.37 Absolute Monos (auto) 0.73 Lymphocytes % 13.8 L Monocytes % 7.3 Eosinophils % 4.7 Basophils % 0.9 Absolute Granulocytes 7.30 H Basophils # 0.09 Sodium 136 L Potassium 4.7 D Chloride 109 H Carbon Dioxide 22 Anion Gap 10.3 BUN 15 Creatinine 0.62 Estimated GFR > 60.0 Glucose 81 Calcium 8.5 Total Bilirubin 0.20 AST 41 H ALT 53 H Alkaline Phosphatase 64 Troponin I < 0.012 Serum Total Protein 5.5 L Albumin 2.9 L Slides for Path Review YES 11/29/20 23:40 WBC RBC Hgb 7.3 L D Hct 26.2 L MCV MCH MCHC RDW Plt Count MPV Gran % Eos # (Auto) Absolute Lymphs (auto) Absolute Monos (auto) Lymphocytes % Monocytes % Eosinophils % Basophils % Absolute Granulocytes Basophils # Sodium Potassium Chloride Carbon Dioxide Anion Gap BUN Creatinine Estimated GFR Glucose Calcium Total Bilirubin AST ALT Alkaline Phosphatase Troponin I Serum Total Protein Albumin Slides for Path Review Orders (Last 24 hours) Category Date Time Status House Regular Diet Diet 11/30/20 Lunch Completed Discharge Routine Discharge 11/30/20 Ordered Discharge/Telephone Order Routine Discharge 11/30/20 Active CBC W DIFF AM.LAB Lab 11/30/20 04:45 Completed CMP AM.LAB Lab 11/30/20 04:45 Completed HEMOGLOBIN AND HEMATOCRIT Routine Lab 11/29/20 23:40 Completed TROPONIN AM.LAB Lab 11/30/20 04:45 Completed Heparin Flush 500 units/5 ml [Heparin Lock Flush 100 Med 11/30/20 11:15 Discontinued Units/ml 5ml Syringe] 500 units PORT FLUSH PRN PRN - Vitals & Intake/Output Vital Signs: Vital Signs Temperature 97.6 F 11/30/20 08:00 Pulse Rate 76 11/30/20 08:00 Respiratory Rate 20 11/30/20 08:00 Blood Pressure 128/66 11/30/20 08:00 O2 Sat by Pulse Oximetry 96 11/30/20 08:00 Intake & Output: Intake & Output 11/28/20 11/29/20 11/30/20/12/21 11:59 11:59 11:59 11:59 Intake Total 3920 960 Output Total 1000 Balance 2920 960 Weight 54.431 kg 69.5 kg - Lab Result Diagrams: 11/30/20 04:45 11/30/20 04:45 Lab Results-Last 24 Hrs: Lab Results-Last 24 Hours 11/29/20 11/30/20 11/30/20 Range/Units 23:40 04:45 04:45 WBC 10.0 (4.0-10.5) K/mm3 RBC 3.67 L (4.1-5.4) M/mm3 Hgb 7.3 L D 7.0 L (12.0-16.0) gm/dl Hct 26.2 L 25.1 L (35-47) % MCV 68.4 L D (78-100) fl MCH 19.1 L (26-32) pg MCHC 27.9 L (32-36) g/dl RDW 24.4 H (11.5-14.0) % Plt Count 347 (150-450) K/mm3 MPV 8.8 (7.5-11.0) fl Gran % 73.3 H (36.0-66.0) % Eos # (Auto) 0.47 (0-0.5) Absolute Lymphs (auto) 1.37 (1.0-4.6) Absolute Monos (auto) 0.73 (0.0-1.3) Lymphocytes % 13.8 L (24.0-44.0) % Monocytes % 7.3 (0.0-12.0) % Eosinophils % 4.7 (0.00-5.0) % Basophils % 0.9 (0.0-0.4) % Absolute Granulocytes 7.30 H (1.4-6.9) Basophils # 0.09 (0-0.4) Sodium 136 L (137-145) mmol/L Potassium 4.7 D (3.5-5.1) mmol/L Chloride 109 H (98-107) mmol/L Carbon Dioxide 22 (22-30) mmol/L Anion Gap 10.3 (5-15) MEQ/L BUN 15 (7-17) mg/dL Creatinine 0.62 (0.52-1.04) mg/dL Estimated GFR > 60.0 ML/MIN Glucose 81 (74-106) mg/dL Calcium 8.5 (8.4-10.2) mg/dL Total Bilirubin 0.20 (0.2-1.3) mg/dL AST 41 H (14-36) U/L ALT 53 H (0-35) U/L Alkaline Phosphatase 64 (38-126) U/L Troponin I (0.000-0.034) ng/mL Serum Total Protein 5.5 L (6.3-8.2) g/dL Albumin 2.9 L (3.5-5.0) g/dL Slides for Path Review YES 11/30/20 Range/Units 04:45 WBC (4.0-10.5) K/mm3 RBC (4.1-5.4) M/mm3 Hgb (12.0-16.0) gm/dl Hct (35-47) % MCV (78-100) fl MCH (26-32) pg MCHC (32-36) g/dl RDW (11.5-14.0) % Plt Count (150-450) K/mm3 MPV (7.5-11.0) fl Gran % (36.0-66.0) % Eos # (Auto) (0-0.5) Absolute Lymphs (auto) (1.0-4.6) Absolute Monos (auto) (0.0-1.3) Lymphocytes % (24.0-44.0) % Monocytes % (0.0-12.0) % Eosinophils % (0.00-5.0) % Basophils % (0.0-0.4) % Absolute Granulocytes (1.4-6.9) Basophils # (0-0.4) Sodium (137-145) mmol/L Potassium (3.5-5.1) mmol/L Chloride (98-107) mmol/L Carbon Dioxide (22-30) mmol/L Anion Gap (5-15) MEQ/L BUN (7-17) mg/dL Creatinine (0.52-1.04) mg/dL Estimated GFR ML/MIN Glucose (74-106) mg/dL Calcium (8.4-10.2) mg/dL Total Bilirubin (0.2-1.3) mg/dL AST (14-36) U/L ALT (0-35) U/L Alkaline Phosphatase (38-126) U/L Troponin I < 0.012 (0.000-0.034) ng/mL Serum Total Protein (6.3-8.2) g/dL Albumin (3.5-5.0) g/dL Slides for Path Review - Radiology Exams Ordered Rad Exams-Entire Visit: Radiology Procedures Category Date Time Status CHEST 1 VIEW (PORTABLE) Stat Exams 11/29/20 10:21 Completed Discharge Exam General Appearance: no apparent distress, alert Neurologic Exam: alert, oriented x 3, cooperative, normal mood/affect, nml cerebellar function, sensation nml, No motor deficits Eye Exam: PERRL, EOMI, eyes nml inspection Ears, Nose, Throat Exam: normal ENT inspection, pharynx normal, moist mucous membranes Neck Exam: normal inspection, non-tender, supple, full range of motion Respiratory Exam: normal breath sounds, lungs clear, No respiratory distress Cardiovascular Exam: regular rate/rhythm, normal heart sounds Gastrointestinal/Abdomen Exam: soft, No tenderness, No mass Pelvic Exam: deferred Rectal Exam: deferred Back Exam: normal inspection, normal range of motion, No CVA tenderness, No vertebral tenderness Extremity Exam: normal inspection, normal range of motion Skin Exam: normal color, warm, dry Final Diagnosis/Problem List - Final Discharge Diagnosis/Problem (1) Chest pain Status: Resolved Code(s): R07.9 - CHEST PAIN, UNSPECIFIED (2) Symptomatic anemia Status: Acute Code(s): D64.9 - ANEMIA, UNSPECIFIED (3) Chronic pancreatitis Status: Chronic Code(s): K86.1 - OTHER CHRONIC PANCREATITIS (4) Peptic ulcer disease Status: Chronic Code(s): K27.9 - PEPTIC ULC, SITE UNSP, UNSP AC OR CHR, W/O HEMOR OR PERF (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
== END 2020-11-30 18:45 | disposition home or self-care (01) ==
LOC: ED 10:10 → MED SURG 13:48
PROVIDERS: ADMIT General Practice; ATTEND General Practice
DX: R07.9 Chest pain, unspecified (principal); R11.2 Nausea with vomiting, unspecified; R10.9 Unspecified abdominal pain; R12 Heartburn; K86.1 Other chronic pancreatitis; G89.4 Chronic pain syndrome; K27.9 Peptic ulcer, site unspecified, unspecified as acute or chronic, without hemorrhage or perforation; Z98.84 Bariatric surgery status; Z20.822 Contact with and (suspected) exposure to COVID-19; D64.9 Anemia, unspecified
CPT/HCPCS: 36415; 36430; 43235; 71045; 80053; 80307; 83690; 83880; 84484; 85014; 85018; 85025; 86850; 86900; 86901; 86922; 93005; 93041; 93268; 96360; 96374; 96375; 96376; 99285; 99291; G0378; P9016; U0003; 88305; J1642; J2250; J2270; J2405; J2704; A9270-GY

== ENCOUNTER 2021-10-12 08:49 | Emergency (ER) | payer BC ==
[2021-10-12] MEDS ORDERED: Sodium Chloride 0.9% 500 ML 500 ML IV ONE ×2 (09:07→09:16)
[2021-10-12] MEDS ORDERED: Zofran 4 MG/2 ML VIAL IV ONE (09:07)
[2021-10-12] MEDS ORDERED: Zofran 4 MG/2 ML VIAL ONE (09:16)
[2021-10-12] MEDS ORDERED: MORPHINE SULFATE 4 MG INJ ONE ×2 (09:26→11:25)
[2021-10-12] MEDS ORDERED: MORPHINE SULFATE 4 MG INJ IV ONE ×2 (09:31→11:19)
[2021-10-12] MEDS ORDERED: Sodium Chloride 0.9% 1000 ML 1,000 ML IV STA (09:32)
[2021-10-12 09:39] LABS: ALBUMIN 4.4 g/dL (3.5-5.0); ALKALINE PHOSPHATASE 100 U/L (38-126); ANION GAP 13.7 MEQ/L (5-15); BLOOD UREA NITROGEN 16 mg/dL (7-17); CHLORIDE 108 mmol/L (98-107); Calcium 9.6 mg/dL (8.4-10.2); Carbon Dioxide 21 mmol/L (22-30); Creatinine 1 0.76 mg/dL (0.52-1.04); EST GLOMERULAR FILTRATION RATE > 60.0 ML/MIN; LIPASE 468 U/L (23-300); Potassium 3.4 mmol/L (3.5-5.1); SGOT/AST 191 U/L (14-36); SGPT/ALT 62 U/L (0-35); SODIUM 139 mmol/L (137-145); Total Protein 7.6 g/dL (6.3-8.2)
[2021-10-12 09:40] LABS: Absolute Neutrophil Ct (ANC) 4.78 x10^3/uL (1.4-6.9); Basophil (Absolute #) 0.11 x10^3/uL (0-0.4); Eosinophil % 6.2 % (0.00-5.0); Eosinophil (Absolute #) 0.54 x10^3/uL (0-0.5); Hematocrit 43.9 % (35-47); Hemoglobin 14.1 g/dL (12.0-16.0); Lymphocyte (Absolute #) 2.25 x10^3/uL (1.0-4.6); Lymphocytes % 25.7 % (24.0-44.0); Mean Cell Volume 87.3 fL (78-100); Mean Corpuscular Hgb Concent. 32.1 g/dL (32-36); Mean Platelet Volume 8.6 fL (7.5-11.0); Monocyte (Absolute #) 1.07 x10^3/uL (0.0-1.3); Monocytes % 12.2 % (0.0-12.0); Neutrophil % 54.4 % (36.0-66.0); Platelet Count 308 x10^3/uL (150-450); Red Blood Count 5.03 x10^6/uL (4.1-5.4); Red Cell Distribution Width 13.2 % (11.5-14.0); White Blood Count 8.8 x10^3/uL (4.0-10.5)
[2021-10-12 10:01] LABS: Glucose 49 mg/dL (74-106)
[2021-10-12] MEDS ORDERED: D50W 50 ml Abboject IV ONE (10:02)
[2021-10-12 10:04] LABS: Epithelial Cells RARE /HPF (FEW); Mucus SLIGHT /HPF (NEGATIVE); WBC 0-2 /HPF (0-5)
[2021-10-12 10:08] LABS: Appearance CLEAR (CLEAR); Bilirubin NEGATIVE (NEGATIVE); Dipstick done @ ? MAIN LAB; Glucose 250 mg/dL (NEGATIVE); Ketones NEGATIVE (NEGATIVE); Nitrite NEGATIVE (NEGATIVE); Ph 5.5 (5-6); Protein,Urine Dip NEGATIVE (Negative); RBC TRACE-INTACT Ery/ul (0-5); Urobilinogen 0.2 mg/dL (0-1)
[2021-10-12 10:19] LABS: INFLUENZA A NEGATIVE (NEGATIVE); INFLUENZA B NEGATIVE (NEGATIVE); RESPIRATORY SYNCTIAL VIRUS NEGATIVE (Negative); SARS-CoV-2 Xpert Express NEGATIVE (NEGATIVE)
[2021-10-12] MEDS ORDERED: Sodium Chloride 0.9% 1000 ML 1,000 ML ONE (10:23)
[2021-10-12 10:38] LABS: Bacteria NONE SEEN /HPF (NEGATIVE); Urine Cultured Indicated? NO
--- NOTE | 2021-10-12 11:01 | XRAY ---
Indication: Right upper quadrant pain 4 days. Nausea, diarrhea, and bloating. Multiple contiguous axial images obtained through the abdomen and pelvis without contrast. Comparison: August 16, 2020. Lung bases clear. Heart not enlarged. Again gastric bypass surgery. Noncontrasted stomach and bowel loops appear nonobstructed. Again cholecystectomy and hysterectomy. No free fluid/air. New 2 mm proximal right ureter calculus, approximately L4 level. Proximal right ureter prominence along with mild hydronephrosis consistent with partial obstructive uropathy. Remaining liver, pancreas, spleen, adrenal glands, kidneys, ureters, bladder, and aorta are unremarkable for noncontrast exam. Osseous structures intact again with minimal/mild degenerative changes throughout the thoracolumbar spine. Impression: 1. New 2 mm proximal right ureteral calculus producing partial obstruction. 2. Remaining CT abdomen/pelvis without contrast exam is negative.
--- NOTE | 2021-10-12 11:10 | ERPHSYRPT ---
- History of Present Illness Time Seen by Provider: 10/12/21 09:17 Historian: patient Exam Limitations: no limitations Patient Subjective Stated Complaint: pt here for pain to epigastric area for 3-4 days with nausea and vomiting, she also states she has been having burning and dribbling with urination, headache and loose stools Triage Nursing Assessment: pt alert, walked in, anxious , skin w/d/p, face mask in place, no edema noted, has port a cath to chest Physician History: 51 years old female with history of anemia, sleeve gastrectomy, chronic pancreatitis presented in the ER with 3 days of nausea vomiting diarrhea with epigastric pain moderate to severe intensity with radiation to the back, unable to hold anything down, feeling weak fatigued tired and dehydrated. Reports this pain is different than her routine chronic pancreatitis pain. Timing/Duration: day(s) (3), intermittent, gradual onset, worse Activities at Onset: rest Quality: sharpness Abdominal Pain Onset Location: epigastric Pain Radiation: epigastric, back Severity of Pain-Max: severe Severity of Pain-Current: moderate Modifying Factors: Worsens With: movement, palpation, vomiting Associated Symptoms: diarrhea, nausea, vomiting Previous symptoms: same symptoms as today Allergies/Adverse Reactions: No Known Drug Allergies Allergy (Verified 10/12/21 09:04) Home Medications: Escitalopram Oxalate [Lexapro] 1 ea TID 10/12/21 [History] Hx Tetanus, Diphtheria Vaccination/Date Given: Yes Hx Influenza Vaccination/Date Given: No Hx Pneumococcal Vaccination/Date Given: No Immunizations Up to Date: Yes Travel Risk - International Travel Have you traveled outside of the country in past 3 weeks: No - Coronavirus Screening Are you exhibiting any of the following symptoms?: Yes Symptoms: Vomiting/Diarrhea, Headaches/Body Aches/Fatigue - Vaccine Status Have you recieved a Covid-19 vaccination: No - Review of Systems Constitutional: Fatigue, Weakness Eyes: No Symptoms Ears, Nose, & Throat: No Symptoms Respiratory: No Symptoms Cardiac: No Symptoms Abdominal/Gastrointestinal: Abdominal Pain, Nausea, Vomiting, Diarrhea Genitourinary Symptoms: No Symptoms Musculoskeletal: No Symptoms Skin: No Symptoms Neurological: No Symptoms Endocrine: No Symptoms Hematologic/Lymphatic: No Symptoms Immunological/Allergic: No Symptoms - Past Medical History Pertinent Past Medical History: Yes Neurological History: Migraines ENT History: No Pertinent History Cardiac History: No Pertinent History Respiratory History: No Pertinent History Endocrine Medical History: No Pertinent History Musculoskeletal History: Fractures GI Medical History: Diverticulitis, GERD, Pancreatitis, Ulcer, Other History: No Pertinent History Psycho-Social History: Anxiety, Bipolar, Depression Female Reproductive Disorders: No Pertinent History Other Medical History: aplastic anemia ,area noted on esophagus, hep c carrier - Past Surgical History Past Surgical History: Yes Neuro Surgical History: No Pertinent History Cardiac: No Pertinent History Respiratory: No Pertinent History Gastrointestinal: Cholecystectomy, Other Genitourinary: No Pertinent History Musculoskeletal: Orthopedic Surgery Female Surgical History: Hysterectomy, Section, Tubal Ligation Other Surgical History: left knee surgery, gastric bypass - Social History Smoking Status: Never smoker Exposure to second hand smoke: No Drug Use: none Patient Lives Alone: No - Nursing Vital Signs Nursing Vital Signs: Initial Vital Signs Temperature 98.1 F 10/12/21 08:57 Pulse Rate 93 H 10/12/21 08:57 Respiratory Rate 18 10/12/21 08:57 Blood Pressure 130/108 10/12/21 08:57 O2 Sat by Pulse Oximetry 99 10/12/21 08:57 Pain Scale Pain Intensity 6 - Physical Exam General Appearance: no apparent distress, alert Eye Exam: PERRL/EOMI Ears, Nose, Throat Exam: normal ENT inspection Neck Exam: normal inspection, supple, full range of motion Respiratory Exam: normal breath sounds, lungs clear Cardiovascular Exam: regular rate/rhythm, normal heart sounds Gastrointestinal/Abdomen Exam: soft, normal bowel sounds, tenderness (Epigastric area/right upper quadrant) Back Exam: normal inspection, normal range of motion Extremity Exam: normal inspection, normal range of motion Neurologic Exam: alert, oriented x 3, cooperative Skin Exam: normal color SpO2 Interpretation: normal SpO2: 99 O2 Delivery: Room Air Ordered Tests: Active Orders 24 hr Category Date Time Status IV Insertion STAT Care 10/12/21 09:32 Active NPO (ED) STAT Care 10/12/21 09:32 Active ABDOMEN AND PELVIS W/0 CONTRAS [CT] Stat Exams 10/12/21 10:11 Completed AMYLASE Stat Lab 10/12/21 09:22 Completed CBC W DIFF Stat Lab 10/12/21 09:14 Completed CMP Stat Lab 10/12/21 09:14 Completed LIPASE Stat Lab 10/12/21 09:14 Completed POCT GLUCOSE Stat Lab 10/12/21 10:05 Completed TROPONIN Q3H Lab 10/12/21 09:22 Completed TROPONIN Q3H Lab 10/12/21 12:45 Ordered TROPONIN Q3H Lab 10/12/21 15:45 Ordered TROPONIN Q3H Lab 10/12/21 18:45 Ordered TROPONIN Q3H Lab 10/12/21 21:45 Ordered UA W/RFX CULTURE Stat Lab 10/12/21 Completed Medication Summary Generic Name Dose Route Start Last Admin Trade Name Freq PRN Reason Stop Dose Admin Magnesium Hydroxide 45 ml 10/12/21 12:25 Mag Hydrx/Alum Hyd/Simeth/Lido 45 Ml Bottle PO 10/12/21 12:26 STAT ONE Pantoprazole Sodium 40 mg 10/12/21 12:25 Pantoprazole 40 Mg Vial IV 10/12/21 12:26 STAT ONE Discontinued Medications Generic Name Dose Route Start Last Admin Trade Name Freq PRN Reason Stop Dose Admin Dextrose Confirm 10/12/21 10:02 Dextrose 50%-Water 50 Ml Abboject Administered 10/12/21 10:03 Dose 50 ml IV .STK-MED ONE Sodium Chloride 500 mls @ 500 mls/hr 10/12/21 09:07 10/12/21 10:21 Sodium Chloride 0.9% 500 Ml IV 10/12/21 10:06 Infused .Q1H ONE Infusion Sodium Chloride Confirm 10/12/21 09:16 Sodium Chloride 0.9% 500 Ml Administered 10/12/21 09:17 Dose 500 mls @ ud IV .STK-MED ONE Sodium Chloride 1,000 mls @ 999 mls/hr 10/12/21 09:32 10/12/21 12:25 Sodium Chloride 0.9% 1000 Ml IV 10/12/21 10:32 Infused .Q1H1M STA Infusion Sodium Chloride Confirm 10/12/21 10:23 Sodium Chloride 0.9% 1000 Ml Administered 10/12/21 10:24 Dose 1,000 mls @ ud .ROUTE .STK-MED ONE Morphine Sulfate Confirm 10/12/21 09:26 Morphine Sulfate 4 Mg/Ml Injection Administered 10/12/21 09:27 Dose 4 mg .ROUTE .STK-MED ONE Morphine Sulfate 4 mg 10/12/21 09:31 10/12/21 09:41 Morphine Sulfate 4 Mg/Ml Injection IV 10/12/21 09:32 4 mg STAT ONE Administration Morphine Sulfate 4 mg 10/12/21 11:19 10/12/21 11:26 Morphine Sulfate 4 Mg/Ml Injection IV 10/12/21 11:20 4 mg STAT ONE Administration Morphine Sulfate Confirm 10/12/21 11:25 Morphine Sulfate 4 Mg/Ml Injection Administered 10/12/21 11:26 Dose 4 mg .ROUTE .STK-MED ONE Ondansetron HCl 4 mg 10/12/21 09:07 10/12/21 09:18 Ondansetron Hcl 4 Mg/2 Ml Vial IV 10/12/21 09:08 4 mg STAT ONE Administration Ondansetron HCl Confirm 10/12/21 09:16 Ondansetron Hcl 4 Mg/2 Ml Vial Administered 10/12/21 09:17 Dose 4 mg .ROUTE .STK-MED ONE Lab/Rad Data: Laboratory Result Diagrams 10/12/21 09:14 10/12/21 09:14 Laboratory Results 10/12/21 10/12/21 10/12/21 Range/Units Unknown 10:05 09:41 WBC (4.0-10.5) x10^3/uL RBC (4.1-5.4) x10^6/uL Hgb (12.0-16.0) g/dL Hct (35-47) % MCV (78-100) fL MCH (26-32) pg MCHC (32-36) g/dL RDW (11.5-14.0) % Plt Count (150-450) x10^3/uL MPV (7.5-11.0) fL Gran % (36.0-66.0) % Immature Gran % (Auto) (0.00-0.4) % Nucleat RBC Rel Count (0.00-0.1) % Eos # (Auto) (0-0.5) x10^3/uL Immature Gran # (Auto) (0.00-0.03) x10^3u/L Absolute Lymphs (auto) (1.0-4.6) x10^3/uL Absolute Monos (auto) (0.0-1.3) x10^3/uL Absolute Nucleated RBC (0.00-0.01) x10^3u/L Lymphocytes % (24.0-44.0) % Monocytes % (0.0-12.0) % Eosinophils % (0.00-5.0) % Basophils % (0.0-0.4) % Absolute Granulocytes (1.4-6.9) x10^3/uL Basophils # (0-0.4) x10^3/uL Sodium (137-145) mmol/L Potassium (3.5-5.1) mmol/L Chloride (98-107) mmol/L Carbon Dioxide (22-30) mmol/L Anion Gap (5-15) MEQ/L BUN (7-17) mg/dL Creatinine (0.52-1.04) mg/dL Estimated GFR ML/MIN Glucose (74-106) mg/dL POC Glucometer 84 (74 to 106) mg/dL Calcium (8.4-10.2) mg/dL Total Bilirubin (0.2-1.3) mg/dL AST (14-36) U/L ALT (0-35) U/L Alkaline Phosphatase (38-126) U/L Troponin I (0.000-0.034) ng/mL Serum Total Protein (6.3-8.2) g/dL Albumin (3.5-5.0) g/dL Amylase (30-110) U/L Lipase (23-300) U/L Urinalys Dipstick Clnc MAIN LAB Urine Color YELLOW (YELLOW) Urine Appearance CLEAR (CLEAR) Urine pH 5.5 (5-6) Ur Specific [place] 1.020 (1.005-1.025) POC Urine Protein Conf NEGATIVE (Negative) Urine Ketones NEGATIVE (NEGATIVE) Urine Nitrite NEGATIVE (NEGATIVE) Urine Bilirubin NEGATIVE (NEGATIVE) Urine Urobilinogen 0.2 (0-1) mg/dL Urine Leukocytes NEGATIVE (NEGATIVE) Urine WBC (Auto) 0-2 (0-5) /HPF Urine RBC (Auto) 6-10 (0-2) /HPF U Epithel Cells (Auto) RARE (FEW) /HPF Urine Bacteria (Auto) NONE SEEN (NEGATIVE) /HPF Urine RBC TRACE-INTACT (0-5) Micah/ul Urine Mucus (Auto) SLIGHT (NEGATIVE) /HPF Ur Culture Indicated? NO Urine Glucose 250 (NEGATIVE) mg/dL Influenza Type A Ag NEGATIVE (NEGATIVE) Influenza Type B Ag NEGATIVE (NEGATIVE) RSV (PCR) NEGATIVE (Negative) SARS-CoV-2 (PCR) NEGATIVE (NEGATIVE) 10/12/21 10/12/2122 Range/Units 09:22 09:22 09:14 WBC (4.0-10.5) x10^3/uL RBC (4.1-5.4) x10^6/uL Hgb (12.0-16.0) g/dL Hct (35-47) % MCV (78-100) fL MCH (26-32) pg MCHC (32-36) g/dL RDW (11.5-14.0) % Plt Count (150-450) x10^3/uL MPV (7.5-11.0) fL Gran % (36.0-66.0) % Immature Gran % (Auto) (0.00-0.4) % Nucleat RBC Rel Count (0.00-0.1) % Eos # (Auto) (0-0.5) x10^3/uL Immature Gran # (Auto) (0.00-0.03) x10^3u/L Absolute Lymphs (auto) (1.0-4.6) x10^3/uL Absolute Monos (auto) (0.0-1.3) x10^3/uL Absolute Nucleated RBC (0.00-0.01) x10^3u/L Lymphocytes % (24.0-44.0) % Monocytes % (0.0-12.0) % Eosinophils % (0.00-5.0) % Basophils % (0.0-0.4) % Absolute Granulocytes (1.4-6.9) x10^3/uL Basophils # (0-0.4) x10^3/uL Sodium 139 (137-145) mmol/L Potassium 3.4 L (3.5-5.1) mmol/L Chloride 108 H (98-107) mmol/L Carbon Dioxide 21 L (22-30) mmol/L Anion Gap 13.7 (5-15) MEQ/L BUN 16 (7-17) mg/dL Creatinine 0.76 (0.52-1.04) mg/dL Estimated GFR > 60.0 ML/MIN Glucose 49 L* (74-106) mg/dL POC Glucometer (74 to 106) mg/dL Calcium 9.6 (8.4-10.2) mg/dL Total Bilirubin 0.50 (0.2-1.3) mg/dL AST 191 H (14-36) U/L ALT 62 H (0-35) U/L Alkaline Phosphatase 100 (38-126) U/L Troponin I < 0.012 (0.000-0.034) ng/mL Serum Total Protein 7.6 (6.3-8.2) g/dL Albumin 4.4 (3.5-5.0) g/dL Amylase 111 H (30-110) U/L Lipase 468 H (23-300) U/L Urinalys Dipstick Clnc Urine Color (YELLOW) Urine Appearance (CLEAR) Urine pH (5-6) Ur Specific [place] (1.005-1.025) POC Urine Protein Conf (Negative) Urine Ketones (NEGATIVE) Urine Nitrite (NEGATIVE) Urine Bilirubin (NEGATIVE) Urine Urobilinogen (0-1) mg/dL Urine Leukocytes (NEGATIVE) Urine WBC (Auto) (0-5) /HPF Urine RBC (Auto) (0-2) /HPF U Epithel Cells (Auto) (FEW) /HPF Urine Bacteria (Auto) (NEGATIVE) /HPF Urine RBC (0-5) Micah/ul Urine Mucus (Auto) (NEGATIVE) /HPF Ur Culture Indicated? Urine Glucose (NEGATIVE) mg/dL Influenza Type A Ag (NEGATIVE) Influenza Type B Ag (NEGATIVE) RSV (PCR) (Negative) SARS-CoV-2 (PCR) (NEGATIVE) 10/12/21 Range/Units 09:14 WBC 8.8 (4.0-10.5) x10^3/uL RBC 5.03 (4.1-5.4) x10^6/uL Hgb 14.1 (12.0-16.0) g/dL Hct 43.9 (35-47) % MCV 87.3 (78-100) fL MCH 28.0 (26-32) pg MCHC 32.1 (32-36) g/dL RDW 13.2 (11.5-14.0) % Plt Count 308 (150-450) x10^3/uL MPV 8.6 (7.5-11.0) fL Gran % 54.4 (36.0-66.0) % Immature Gran % (Auto) 0.2 (0.00-0.4) % Nucleat RBC Rel Count 0.0 (0.00-0.1) % Eos # (Auto) 0.54 H (0-0.5) x10^3/uL Immature Gran # (Auto) 0.02 (0.00-0.03) x10^3u/L Absolute Lymphs (auto) 2.25 (1.0-4.6) x10^3/uL Absolute Monos (auto) 1.07 (0.0-1.3) x10^3/uL Absolute Nucleated RBC 0.00 (0.00-0.01) x10^3u/L Lymphocytes % 25.7 (24.0-44.0) % Monocytes % 12.2 H (0.0-12.0) % Eosinophils % 6.2 H (0.00-5.0) % Basophils % 1.3 (0.0-0.4) % Absolute Granulocytes 4.78 (1.4-6.9) x10^3/uL Basophils # 0.11 (0-0.4) x10^3/uL Sodium (137-145) mmol/L Potassium (3.5-5.1) mmol/L Chloride (98-107) mmol/L Carbon Dioxide (22-30) mmol/L Anion Gap (5-15) MEQ/L BUN (7-17) mg/dL Creatinine (0.52-1.04) mg/dL Estimated GFR ML/MIN Glucose (74-106) mg/dL POC Glucometer (74 to 106) mg/dL Calcium (8.4-10.2) mg/dL Total Bilirubin (0.2-1.3) mg/dL AST (14-36) U/L ALT (0-35) U/L Alkaline Phosphatase (38-126) U/L Troponin I (0.000-0.034) ng/mL Serum Total Protein (6.3-8.2) g/dL Albumin (3.5-5.0) g/dL Amylase (30-110) U/L Lipase (23-300) U/L Urinalys Dipstick Clnc Urine Color (YELLOW) Urine Appearance (CLEAR) Urine pH (5-6) Ur Specific [place] (1.005-1.025) POC Urine Protein Conf (Negative) Urine Ketones (NEGATIVE) Urine Nitrite (NEGATIVE) Urine Bilirubin (NEGATIVE) Urine Urobilinogen (0-1) mg/dL Urine Leukocytes (NEGATIVE) Urine WBC (Auto) (0-5) /HPF Urine RBC (Auto) (0-2) /HPF U Epithel Cells (Auto) (FEW) /HPF Urine Bacteria (Auto) (NEGATIVE) /HPF Urine RBC (0-5) Micah/ul Urine Mucus (Auto) (NEGATIVE) /HPF Ur Culture Indicated? Urine Glucose (NEGATIVE) mg/dL Influenza Type A Ag (NEGATIVE) Influenza Type B Ag (NEGATIVE) RSV (PCR) (Negative) SARS-CoV-2 (PCR) (NEGATIVE) - Progress Progress: improved, pain not gone completely, re-examined Progress Note: 10/12/21 12:30 She is given symptomatic treatment for pain along with Protonix and GI cocktail, on reevaluation feeling better Has normal white count, chemistries consistent with gastroenteritis. Given flu ids. Has elevated lipase/amylase but does have chronic elevation and CT negative for any finding consistent with acute on chronic pancreatitis. CT did show 2 mm right proximal ureteral stone but patient does not have any flank or lower abdomen tenderness. No UTI. Will refer her outpatient urology for further evaluation. I believe her symptoms are secondary to acid reflux with gastroenteritis and recommended supportive care with Zofran as needed and outpatient follow-up. Do not think she needs any further work-up and is stable for discharge. Discussed signs symptoms of worsening needing return to ER which she seems understanding. Counseled pt/family regarding: lab results, diagnosis, need for follow-up, rad results - Departure Departure Disposition: Home Clinical Impression: Gastroenteritis Pancreatitis Qualifiers: Chronicity: chronic Pancreatitis type: unspecified pancreatitis type Qualified Code(s): K86.1 - Other chronic pancreatitis Condition: Stable Critical Care Time: No Referrals: MARIMAR LEA NP [Primary Care Provider] - Follow up/PCP as directed (1-2 days for reevaluation) EDWIN BOSCH [COURTESY STAFF] - Follow up/PCP as directed Instructions: Severe Abdominal Pain, Adult (DC) Additional Instructions: Drink plenty of fluids to keep yourself well-hydrated. Take pain medication and Zofran as needed. Follow-up with primary care for reevaluation. Return to ER for any worsening abdominal pain, intractable nausea vomiting Follow-up with urology for further evaluation of kidney stone Prescriptions: Ondansetron ODT 4 MG [Zofran Odt 4 mg] 1 ea PO QIDPRN PRN #7 tablet PRN Reason: n/v
[2021-10-12] MEDS ORDERED: PROTONIX 40 MG IV IV ONE ×2 (12:25→12:27)
[2021-10-12] MEDS ORDERED: GI COCKTAIL 45 ML (Maalox/Lidocaine) PO ONE (12:25)
[2021-10-12] MEDS ORDERED: MAALOX ES 30 ML UNIT DOSE ONE (12:28)
[2021-10-12] MEDS ORDERED: XYLOCAINE VISCOUS 2% 15 ML CUP ONE (12:28)
[2021-10-12 13:08] VITALS: BP 110/75; PULSE 70; O2SAT 97
== END 2021-10-12 13:08 | disposition home or self-care (01) ==
LOC: ED 08:49
DX: K52.9 Noninfective gastroenteritis and colitis, unspecified (principal); K86.1 Other chronic pancreatitis; R11.2 Nausea with vomiting, unspecified; R10.13 Epigastric pain; R53.1 Weakness; Z79.899 Other long term (current) drug therapy; Z28.310 Unvaccinated for COVID-19
CPT/HCPCS: 0241U; 36000; 36415; 74176; 80053; 81015; 82150; 82947; 83690; 84484; 85025; 96374; 96375; 96376; 99284; J1642; J2270; J2405; A9270-GY

== ENCOUNTER 2021-12-31 13:39 | Emergency (ER) | payer BC, OTHER ==
[2021-12-31] MEDS ORDERED: MORPHINE SULFATE 4 MG INJ IV ONE (14:09)
[2021-12-31] MEDS ORDERED: Sodium Chloride 0.9% 1000 ML 1,000 ML IV STA (14:09)
[2021-12-31] MEDS ORDERED: Zofran 4 MG/2 ML VIAL IV ONE (14:09)
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
[2021-12-31] MEDS ORDERED: Sodium Chloride 0.9% 1000 ML 1,000 ML ONE (14:22)
[2021-12-31] MEDS ORDERED: MORPHINE SULFATE 4 MG INJ ONE (14:22)
[2021-12-31] MEDS ORDERED: Zofran 4 MG/2 ML VIAL ONE (14:22)
[2021-12-31 14:26] LABS: Absolute Neutrophil Ct (ANC) 3.66 x10^3/uL (1.4-6.9); Eosinophil % 6.7 % (0.00-5.0); Eosinophil (Absolute #) 0.38 x10^3/uL (0-0.5); Hematocrit 38.4 % (35-47); Hemoglobin 12.4 g/dL (12.0-16.0); Lymphocyte (Absolute #) 1.03 x10^3/uL (1.0-4.6); Lymphocytes % 18.1 % (24.0-44.0); Mean Cell Volume 85.1 fL (78-100); Mean Corpuscular Hemoglobin 27.5 pg (26-32); Mean Corpuscular Hgb Concent. 32.3 g/dL (32-36); Mean Platelet Volume 8.6 fL (7.5-11.0); Monocyte (Absolute #) 0.51 x10^3/uL (0.0-1.3); Neutrophil % 64.2 % (36.0-66.0); Platelet Count 262 x10^3/uL (150-450); Red Blood Count 4.51 x10^6/uL (4.1-5.4); Red Cell Distribution Width 13.9 % (11.5-14.0); White Blood Count 5.7 x10^3/uL (4.0-10.5)
[2021-12-31 14:49] LABS: ALBUMIN 4.1 g/dL (3.5-5.0); ALKALINE PHOSPHATASE 80 U/L (38-126); ANION GAP 9.3 MEQ/L (5-15); BLOOD UREA NITROGEN 18 mg/dL (7-17); CHLORIDE 110 mmol/L (98-107); Calcium 8.9 mg/dL (8.4-10.2); Carbon Dioxide 25 mmol/L (22-30); Creatinine 1 0.69 mg/dL (0.52-1.04); EST GLOMERULAR FILTRATION RATE > 60.0 ML/MIN; Glucose 103 mg/dL (74-106); Potassium 4.2 mmol/L (3.5-5.1); SGOT/AST 41 U/L (14-36); SGPT/ALT 27 U/L (0-35); SODIUM 139 mmol/L (137-145); Total Protein 6.9 g/dL (6.3-8.2)
[2021-12-31 15:15] LABS: Appearance CLEAR (CLEAR); Bilirubin NEGATIVE (NEGATIVE); Glucose NEGATIVE (NEGATIVE); Ketones NEGATIVE (NEGATIVE); RBC TRACE-INTACT Ery/ul (0-5); Specific Gravity >=1.030 (1.005-1.025)
[2021-12-31 15:16] LABS: Dipstick done @ ? MAIN LAB; Nitrite NEGATIVE (NEGATIVE); Protein,Urine Dip 30 (Negative); Urobilinogen 0.2 mg/dL (0-1)
[2021-12-31] MEDS ORDERED: TORAdol 30 mg Injection IV ONE (15:42)
[2021-12-31] MEDS ORDERED: TORAdol 30 mg Injection ONE (15:43)
[2021-12-31 15:57] LABS: Epithelial Cells RARE /HPF (FEW); Mucus SLIGHT /HPF (NEGATIVE)
[2021-12-31 16:00] LABS: Urine Cultured Indicated? YES
[2021-12-31 16:05] VITALS: BP 122/85; PULSE 72
[2021-12-31 16:09] VITALS: O2SAT 100
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
== END 2021-12-31 16:06 | disposition home or self-care (01) ==
LOC: ED 13:39
DX: S16.1XXA Strain of muscle, fascia and tendon at neck level, initial encounter (principal); S20.211A Contusion of right front wall of thorax, initial encounter; S00.12XA Contusion of left eyelid and periocular area, initial encounter; S00.11XA Contusion of right eyelid and periocular area, initial encounter; Y04.8XXA Assault by other bodily force, initial encounter; Y07.01 Husband, perpetrator of maltreatment and neglect; R07.9 Chest pain, unspecified; R51.9 Headache, unspecified; Z79.899 Other long term (current) drug therapy; Z28.310 Unvaccinated for COVID-19
CPT/HCPCS: 36415; 70450; 70486; 71250; 72125; 74176; 80053; 81015; 85025; 87086; 96374; 96375; 99284; J1885; J2270; J2405

== ENCOUNTER 2022-05-22 10:07 | Observation (INO) | payer BC, OTHER ==
--- NOTE | 2022-05-22 10:33 | ERPHSYRPT ---
- History of Present Illness Time Seen by Provider: 05/22/22 10:32 Historian: patient Exam Limitations: no limitations Physician History: This is a 52-year-old overweight white female patient who presents to the emergency department with 10-day history of worsening abdominal pain that is generalized in location that radiates into her back. It is described as a burning and sharp pain. There is associated loose stools, nausea and vomiting. The patient has multiple medical problems. Patient denies consumption of alcohol but does state that she used to drink heavily in the past. Patient has a history of chronic anemia, she has had a gastric bypass (sleeve gastrectomy) in the past. She does have a history of chronic pancreatitis. She has a history of bipolar disorder, anxiety, migraine headaches and gastroesophageal reflux disease. Prior to arrival, patient took Tylenol, Protonix and Carafate. She was seen at [facility] for the same complaint on 04/17/2022. Patient has had a cholecystectomy and a hysterectomy in the past. She denies chest pain. She denies shortness of breath. Timing/Duration: day(s) (10) Activities at Onset: none Quality: sharpness, stabbing Abdominal Pain Onset Location: generalized abdomen Pain Radiation: back Severity of Pain-Max: moderate Severity of Pain-Current: moderate Modifying Factors: Improves With: vomiting, other (Loose stool) Associated Symptoms: diarrhea, loss of appetite, nausea, vomiting, No chest pain, No shortness of breath Previous symptoms: same symptoms as today, recently seen, recently treated Allergies/Adverse Reactions: No Known Drug Allergies Allergy (Verified 05/22/22 10:41) Home Medications: Citalopram Hydrobromide [Citalopram HBr] 10 mg PO DAILY 05/22/22 [History] PANTOPRAZOLE 40 mg Tablet [Protonix 40MG Tablet] 40 mg PO BID 05/22/22 [History] Sucralfate 1000 mg/10 ml [Carafate SUSPENSION 1000 MG/10 ML] 10 ml PO ACHS 05/22/22 [History] Hx Tetanus, Diphtheria Vaccination/Date Given: Yes Hx Influenza Vaccination/Date Given: No Hx Pneumococcal Vaccination/Date Given: Yes Travel Risk - International Travel Have you traveled outside of the country in past 3 weeks: No - Coronavirus Screening Are you exhibiting any of the following symptoms?: Yes Symptoms: Vomiting/Diarrhea Close contact with a COVID-19 positive Pt in past 14-21 Days: No - Vaccine Status Have you recieved a Covid-19 vaccination: No - Review of Systems Constitutional: Fatigue Eyes: No Symptoms Ears, Nose, & Throat: No Symptoms Respiratory: No Symptoms Cardiac: No Symptoms Abdominal/Gastrointestinal: Abdominal Pain, Nausea, Vomiting, Diarrhea, Appetite Changes, No Constipation Genitourinary Symptoms: No Symptoms Musculoskeletal: No Symptoms Skin: No Symptoms Neurological: No Symptoms Psychological: No Symptoms Endocrine: No Symptoms Hematologic/Lymphatic: No Symptoms Immunological/Allergic: No Symptoms All Other Systems: Reviewed and Negative - Past Medical History Pertinent Past Medical History: Yes Neurological History: Migraines ENT History: No Pertinent History Cardiac History: No Pertinent History Respiratory History: No Pertinent History Endocrine Medical History: No Pertinent History Musculoskeletal History: Fractures GI Medical History: Diverticulitis, GERD, Pancreatitis, Ulcer, Other History: No Pertinent History Psycho-Social History: Anxiety, Bipolar, Depression Female Reproductive Disorders: No Pertinent History Other Medical History: aplastic anemia ,area noted on esophagus, hep c carrier - Past Surgical History Past Surgical History: Yes Neuro Surgical History: No Pertinent History Cardiac: No Pertinent History Respiratory: No Pertinent History Gastrointestinal: Cholecystectomy, Other Genitourinary: No Pertinent History Musculoskeletal: Orthopedic Surgery Female Surgical History: Hysterectomy, Section, Tubal Ligation Other Surgical History: left knee surgery, gastric bypass - Social History Smoking Status: Never smoker Exposure to second hand smoke: No Drug Use: none Patient Lives Alone: Yes - Nursing Vital Signs Nursing Vital Signs: Initial Vital Signs Temperature 98.5 F 05/22/22 10:26 Pulse Rate 87 05/22/22 10:26 Respiratory Rate 20 05/22/22 10:26 Blood Pressure 150/99 05/22/22 10:26 O2 Sat by Pulse Oximetry 100 05/22/22 10:26 Pain Scale Pain Intensity 4 - Course Nursing assessment & vital signs reviewed: Yes Ordered Tests: Active Orders 24 hr Category Date Time Status IV Insertion STAT Care 05/22/22 11:09 Active ABDOMEN AND PELVIS W/0 CONTRAS [CT] Routine Exams 05/22/22 12:33 Completed AMYLASE Stat Lab 05/22/22 10:30 Completed CBC W DIFF Stat Lab 05/22/22 10:30 Completed CMP Stat Lab 05/22/22 10:30 Completed LIPASE Stat Lab 05/22/22 10:30 Completed Lactic Acid Stat Lab 05/22/22 11:30 Completed UA W/RFX UR CULTURE Stat Lab 05/22/22 11:20 Completed Transfer Order Routine Transfer 05/22/22 Ordered Medication Summary Discontinued Medications Generic Name Dose Route Start Last Admin Trade Name Vishnu PRN Reason Stop Dose Admin Hydromorphone HCl 1 mg 05/22/22 11:09 05/22/22 11:14 Hydromorphone 1 Mg/1ml Inj 1 Mg/Ml Syringe IV 05/22/22 11:10 1 mg STAT ONE Administration Hydromorphone HCl Confirm 05/22/22 11:12 Hydromorphone 1 Mg/1ml Inj 1 Mg/Ml Syringe Administered 05/22/22 11:13 Dose 1 mg .ROUTE .STK-MED ONE Hydromorphone HCl 1 mg 05/22/22 14:13 05/22/22 14:16 Hydromorphone 1 Mg/1ml Inj 1 Mg/Ml Syringe IV 05/22/22 14:14 1 mg STAT ONE Administration Hydromorphone HCl Confirm 05/22/22 14:15 Hydromorphone 1 Mg/1ml Inj 1 Mg/Ml Syringe Administered 05/22/22 14:16 Dose 1 mg .ROUTE .STK-MED ONE Sodium Chloride 1,000 mls @ 999 mls/hr 05/22/22 11:09 05/22/22 12:14 Sodium Chloride 0.9% 1000 Ml IV 05/22/22 12:09 Infused .Q1H1M STA Infusion Sodium Chloride Confirm 05/22/22 11:13 Sodium Chloride 0.9% 1000 Ml Administered 05/22/22 11:14 Dose 1,000 mls @ ud .ROUTE .STK-MED ONE Ondansetron HCl 4 mg 05/22/22 11:09 05/22/22 11:14 Ondansetron Hcl 4 Mg/2 Ml Vial IV 05/22/22 11:10 4 mg STAT ONE Administration Ondansetron HCl Confirm 05/22/22 11:12 Ondansetron Hcl 4 Mg/2 Ml Vial Administered 05/22/22 11:13 Dose 4 mg .ROUTE .STK-MED ONE Ondansetron HCl 4 mg 05/22/22 14:13 05/22/22 14:16 Ondansetron Hcl 4 Mg/2 Ml Vial IV 05/22/22 14:14 4 mg STAT ONE Administration Ondansetron HCl Confirm 05/22/22 14:15 Ondansetron Hcl 4 Mg/2 Ml Vial Administered 05/22/22 14:16 Dose 4 mg .ROUTE .[facility]-MED ONE Lab/Rad Data: Laboratory Result Diagrams 05/22/22 10:30 05/22/22 10:30 Laboratory Results 05/22/22 05/22/22 05/22/22 Range/Units 12:11 11:30 11:20 WBC (4.0-10.5) x10^3/uL RBC (4.1-5.4) x10^6/uL Hgb (12.0-16.0) g/dL Hct (35-47) % MCV (78-100) fL MCH (26-32) pg MCHC (32-36) g/dL RDW (11.5-14.0) % Plt Count (150-450) x10^3/uL MPV (7.5-11.0) fL Gran % (36.0-66.0) % Immature Gran % (Auto) (0.00-0.4) % Nucleat RBC Rel Count (0.00-0.1) % Eos # (Auto) (0-0.5) x10^3/uL Immature Gran # (Auto) (0.00-0.03) x10^3u/L Absolute Lymphs (auto) (1.0-4.6) x10^3/uL Absolute Monos (auto) (0.0-1.3) x10^3/uL Absolute Nucleated RBC (0.00-0.01) x10^3u/L Lymphocytes % (24.0-44.0) % Monocytes % (0.0-12.0) % Eosinophils % (0.00-5.0) % Basophils % (0.0-0.4) % Absolute Granulocytes (1.4-6.9) x10^3/uL Basophils # (0-0.4) x10^3/uL Sodium (137-145) mmol/L Potassium (3.5-5.1) mmol/L Chloride (98-107) mmol/L Carbon Dioxide (22-30) mmol/L Anion Gap (5-15) MEQ/L BUN (7-17) mg/dL Creatinine (0.52-1.04) mg/dL Estimated GFR ML/MIN Glucose (74-106) mg/dL Lactic Acid 1.5 (0.4-2.0) Calcium (8.4-10.2) mg/dL Total Bilirubin (0.2-1.3) mg/dL AST (14-36) U/L ALT (0-35) U/L Alkaline Phosphatase (38-126) U/L Serum Total Protein (6.3-8.2) g/dL Albumin (3.5-5.0) g/dL Amylase (30-110) U/L Lipase (23-300) U/L Urine Color Yellow (Yellow) Urine Appearance Clear (Clear) Urine pH 5.5 (4.6-8.0) Ur Specific [place] 1.015 (1.005-1.030) Urine Protein Negative (Negative) Urine Glucose (UA) Negative (Negative) mg/dL Urine Ketones Negative (Negative) Urine Blood Negative (Negative) Urine Nitrite Negative (Negative) Urine Bilirubin Negative (Negative) Urine Urobilinogen 0.2 (0.2) mg/dL Ur Leukocyte Esterase Negative (Negative) U Hyaline Cast (Auto) NONE SEEN (0-2) /LPF Urine Microscopic RBC 0-2 (0-5) /HPF Urine Microscopic WBC 0-2 (0-5) /HPF Ur Epithelial Cells None Seen (None Seen) /HPF Urine Bacteria None Seen (None Seen) /HPF Urine Culture Reflexed NO (NO) Influenza Type A Ag NEGATIVE (NEGATIVE) Influenza Type B Ag NEGATIVE (NEGATIVE) RSV (PCR) NEGATIVE (Negative) SARS-CoV-2 (PCR) NEGATIVE (NEGATIVE) 05/22/22 05/22/22 Range/Units 10:30 10:30 WBC 6.3 (4.0-10.5) x10^3/uL RBC 3.60 L (4.1-5.4) x10^6/uL Hgb 8.3 L (12.0-16.0) g/dL Hct 27.7 L (35-47) % MCV 76.9 L (78-100) fL MCH 23.1 L (26-32) pg MCHC 30.0 L (32-36) g/dL RDW 20.3 H (11.5-14.0) % Plt Count 415 (150-450) x10^3/uL MPV 8.8 (7.5-11.0) fL Gran % 64.8 (36.0-66.0) % Immature Gran % (Auto) 0.8 H (0.00-0.4) % Nucleat RBC Rel Count 0.0 (0.00-0.1) % Eos # (Auto) 0.41 (0-0.5) x10^3/uL Immature Gran # (Auto) 0.05 H (0.00-0.03) x10^3u/L Absolute Lymphs (auto) 1.04 (1.0-4.6) x10^3/uL Absolute Monos (auto) 0.62 (0.0-1.3) x10^3/uL Absolute Nucleated RBC 0.00 (0.00-0.01) x10^3u/L Lymphocytes % 16.6 L (24.0-44.0) % Monocytes % 9.9 (0.0-12.0) % Eosinophils % 6.5 H (0.00-5.0) % Basophils % 1.4 (0.0-0.4) % Absolute Granulocytes 4.06 (1.4-6.9) x10^3/uL Basophils # 0.09 (0-0.4) x10^3/uL Sodium 135 L (137-145) mmol/L Potassium 4.7 (3.5-5.1) mmol/L Chloride 106 (98-107) mmol/L Carbon Dioxide 22 (22-30) mmol/L Anion Gap 11.2 (5-15) MEQ/L BUN 11 (7-17) mg/dL Creatinine 0.48 L (0.52-1.04) mg/dL Estimated GFR > 60.0 ML/MIN Glucose 99 (74-106) mg/dL Lactic Acid (0.4-2.0) Calcium 8.7 (8.4-10.2) mg/dL Total Bilirubin 0.40 (0.2-1.3) mg/dL AST 81 H (14-36) U/L ALT 29 (0-35) U/L Alkaline Phosphatase 75 (38-126) U/L Serum Total Protein 7.4 (6.3-8.2) g/dL Albumin 4.3 (3.5-5.0) g/dL Amylase 127 H (30-110) U/L Lipase 541 H (23-300) U/L Urine Color (Yellow) Urine Appearance (Clear) Urine pH (4.6-8.0) Ur Specific [place] (1.005-1.030) Urine Protein (Negative) Urine Glucose (UA) (Negative) mg/dL Urine Ketones (Negative) Urine Blood (Negative) Urine Nitrite (Negative) Urine Bilirubin (Negative) Urine Urobilinogen (0.2) mg/dL Ur Leukocyte Esterase (Negative) U Hyaline Cast (Auto) (0-2) /LPF Urine Microscopic RBC (0-5) /HPF Urine Microscopic WBC (0-5) /HPF Ur Epithelial Cells (None Seen) /HPF Urine Bacteria (None Seen) /HPF Urine Culture Reflexed (NO) Influenza Type A Ag (NEGATIVE) Influenza Type B Ag (NEGATIVE) RSV (PCR) (Negative) SARS-CoV-2 (PCR) (NEGATIVE) - Progress Progress: improved, pain not gone completely, re-examined Progress Note: 05/22/22 13:33 CAT scan of the abdomen pelvis without contrast shows mild enteritis. Pancreas, liver, kidneys and remainder of abdominal and pelvic CT without acute abnormalities. 05/22/22 14:17 Medical decision making: This patient has a medical condition of moderate complexity. Obtaining the history from the patient as well as obtaining a physical examination from the patient, obtaining additional history from old records and reviewing old and new lab and radiographic studies led me to this level of complexity. The above also dictated my treatment here in the emergency department. This treatment in the emergency department improved her symptoms. However her symptoms are persistent and she does have evidence of enteritis on a radiographic study as well as pancreatitis clinically and by laboratory data. She did see her primary care physician 10 days ago and there was evidence on labs that she had pancreatitis and this has persisted despite outpatient therapy. Therefore, taking all this into account, I contacted our hospitalist Dr. Nilay Archibald and reviewed the above information. Together, we formulated plan which includes placing the patient in observation and provide her with intravenous fluid resuscitation, bowel rest with clear liquids only, antiemetics, intravenous pain control and repeat laboratory data. Patient is agreeable to this plan. Discussed with Dr.: Shannan Counseled pt/family regarding: lab results, diagnosis, rad results - Departure Departure Disposition: Home Clinical Impression: Chronic anemia, Chronic pancreatitis, Acute pancreatitis Condition: Stable Critical Care Time: No Referrals: MARIMAR LEA, [employer]DER [Primary Care Provider] - Follow up/PCP as directed
[2022-05-22] MEDS ORDERED: Zofran 4 MG/2 ML VIAL IV ONE ×2 (11:09→14:13)
[2022-05-22] MEDS ORDERED: Hydromorphone 1 mg/ml Injection IV ONE ×2 (11:09→14:13)
[2022-05-22] MEDS ORDERED: Sodium Chloride 0.9% 1000 ML 1,000 ML IV STA (11:09)
[2022-05-22] MEDS ORDERED: Zofran 4 MG/2 ML VIAL ONE ×2 (11:12→14:15)
[2022-05-22] MEDS ORDERED: Hydromorphone 1 mg/ml Injection ONE ×2 (11:12→14:15)
[2022-05-22] MEDS ORDERED: Sodium Chloride 0.9% 1000 ML 1,000 ML ONE (11:13)
[2022-05-22 11:17] LABS: Absolute Neutrophil Ct (ANC) 4.06 x10^3/uL (1.4-6.9); BASOPHIL % 1.4 % (0.0-0.4); Basophil (Absolute #) 0.09 x10^3/uL (0-0.4); Eosinophil % 6.5 % (0.00-5.0); Eosinophil (Absolute #) 0.41 x10^3/uL (0-0.5); Hematocrit 27.7 % (35-47); Hemoglobin 8.3 g/dL (12.0-16.0); IMMATURE GRAN # 0.05 x10^3u/L (0.00-0.03); IMMATURE GRAN % 0.8 % (0.00-0.4); Lymphocyte (Absolute #) 1.04 x10^3/uL (1.0-4.6); Lymphocytes % 16.6 % (24.0-44.0); Mean Cell Volume 76.9 fL (78-100); Mean Corpuscular Hemoglobin 23.1 pg (26-32); Mean Platelet Volume 8.8 fL (7.5-11.0); Monocyte (Absolute #) 0.62 x10^3/uL (0.0-1.3); Monocytes % 9.9 % (0.0-12.0); Neutrophil % 64.8 % (36.0-66.0); Platelet Count 415 x10^3/uL (150-450); Red Cell Distribution Width 20.3 % (11.5-14.0); White Blood Count 6.3 x10^3/uL (4.0-10.5)
[2022-05-22 11:23] LABS: ALBUMIN 4.3 g/dL (3.5-5.0); ALKALINE PHOSPHATASE 75 U/L (38-126); AMYLASE 127 U/L (30-110); ANION GAP 11.2 MEQ/L (5-15); BLOOD UREA NITROGEN 11 mg/dL (7-17); CHLORIDE 106 mmol/L (98-107); Calcium 8.7 mg/dL (8.4-10.2); Carbon Dioxide 22 mmol/L (22-30); Creatinine 1 0.48 mg/dL (0.52-1.04); EST GLOMERULAR FILTRATION RATE > 60.0 ML/MIN; Glucose 99 mg/dL (74-106); LIPASE 541 U/L (23-300); Potassium 4.7 mmol/L (3.5-5.1); SGOT/AST 81 U/L (14-36); SGPT/ALT 29 U/L (0-35); SODIUM 135 mmol/L (137-145); Total Protein 7.4 g/dL (6.3-8.2)
[2022-05-22 11:51] LABS: Appearance Clear (Clear); Bacteria None Seen /HPF (None Seen); Bilirubin Negative (Negative); Blood Negative (Negative); Epithelial Cells None Seen /HPF (None Seen); Glucose, Urine Negative (Negative); Hyaline Casts NONE SEEN /LPF (0-2); Ketones Negative (Negative); Leukocyte Esterase Negative (Negative); Nitrite Negative (Negative); Ph 5.5 (4.6-8.0); Protein,Urine Dip Negative (Negative); RBC 0-2 /HPF (0-5); Specific Gravity 1.015 (1.005-1.030); Urobilinogen 0.2 mg/dL (0.2); WBC 0-2 /HPF (0-5)
[2022-05-22 11:54] LABS: ADD URINE CULTURE? NO (NO)
[2022-05-22 12:46] LABS: INFLUENZA A NEGATIVE (NEGATIVE); INFLUENZA B NEGATIVE (NEGATIVE); RESPIRATORY SYNCTIAL VIRUS NEGATIVE (Negative); SARS-CoV-2 Xpert Express NEGATIVE (NEGATIVE)
--- NOTE | 2022-05-22 13:25 | XRAY ---
Indication: Abdomen pain, nausea, vomiting, and diarrhea. Recurrent pancreatitis. Multiple contiguous axial images obtained through the abdomen and pelvis without contrast. Comparison: December 31, 2021 Lung bases are clear. Heart not enlarged. Again gastric bypass surgery, cholecystectomy, and hysterectomy. Noncontrasted stomach and bowel loops nonobstructed. Jejunal bowel loops are now mildly fluid distended with fluid leveling and bowel wall thickening favoring enteritis. Appendix not visualized. No free fluid/air. Remaining liver, pancreas, spleen, adrenal glands, kidneys, ureters, bladder, and aorta are unremarkable for noncontrast exam. Osseous structures intact again with minimal degenerative changes throughout the spine. Impression: New findings favoring mild enteritis.
[2022-05-22] MEDS ORDERED: TYLENOL 325 MG PO PRN (15:49)
[2022-05-22] MEDS ORDERED: Hydromorphone 1 mg/ml Injection IV PRN (15:49)
[2022-05-22] MEDS ORDERED: PROTONIX 40 MG IV IV SCH (15:49)
[2022-05-22] MEDS ORDERED: Zofran 4 MG/2 ML VIAL IV PRN (15:49)
[2022-05-22] MEDS: Sodium Chloride 0.9% 1000 ML 1,000 ML IV SCH ×2 (16:12→21:50)
[2022-05-22] MEDS ORDERED: HYDROMORPHONE 30 MG/30 ML-NS PCA IV PRN (16:42)
[2022-05-22] MEDS: PROTONIX 40 MG IV IV SCH (17:40)
[2022-05-22] MEDS: Carafate SUSPENSION 1000 MG/10 ML PO SCH ×2 (17:58→21:29)
[2022-05-22] MEDS: Zofran 4 MG/2 ML VIAL IV PRN ×2 (18:33→22:48)
[2022-05-22] MEDS: BENADRYL 25 MG CAPSULE PO PRN (22:48)
[2022-05-23] MEDS: Zofran 4 MG/2 ML VIAL IV PRN ×4 (03:49→20:24)
[2022-05-23] MEDS: Sodium Chloride 0.9% 1000 ML 1,000 ML IV SCH ×3 (04:35→17:32)
[2022-05-23 05:33] LABS: Absolute Neutrophil Ct (ANC) 2.95 x10^3/uL (1.4-6.9); Eosinophil % 10.2 % (0.00-5.0); Eosinophil (Absolute #) 0.52 x10^3/uL (0-0.5); Hematocrit 27.5 % (35-47); Hemoglobin 7.8 g/dL (12.0-16.0); IMMATURE GRAN # 0.02 x10^3u/L (0.00-0.03); IMMATURE GRAN % 0.4 % (0.00-0.4); Lymphocyte (Absolute #) 1.02 x10^3/uL (1.0-4.6); Lymphocytes % 19.9 % (24.0-44.0); Mean Cell Volume 78.3 fL (78-100); Mean Corpuscular Hemoglobin 22.2 pg (26-32); Mean Corpuscular Hgb Concent. 28.4 g/dL (32-36); Mean Platelet Volume 8.6 fL (7.5-11.0); Monocyte (Absolute #) 0.51 x10^3/uL (0.0-1.3); Neutrophil % 57.5 % (36.0-66.0); Platelet Count 366 x10^3/uL (150-450); Red Blood Count 3.51 x10^6/uL (4.1-5.4); Red Cell Distribution Width 20.3 % (11.5-14.0); White Blood Count 5.1 x10^3/uL (4.0-10.5)
[2022-05-23 05:45] LABS: ALBUMIN 4.2 g/dL (3.5-5.0); ALKALINE PHOSPHATASE 71 U/L (38-126); ANION GAP 8.6 MEQ/L (5-15); BLOOD UREA NITROGEN 7 mg/dL (7-17); CHLORIDE 107 mmol/L (98-107); Calcium 7.8 mg/dL (8.4-10.2); Carbon Dioxide 23 mmol/L (22-30); Creatinine 1 0.52 mg/dL (0.52-1.04); EST GLOMERULAR FILTRATION RATE > 60.0 ML/MIN; Glucose 102 mg/dL (74-106); Potassium 3.5 mmol/L (3.5-5.1); SGOT/AST 43 U/L (14-36); SGPT/ALT 27 U/L (0-35); SODIUM 136 mmol/L (137-145); Total Protein 7.2 g/dL (6.3-8.2)
[2022-05-23 07:14] LABS: Slide Review 1 YES
[2022-05-23] MEDS: Carafate SUSPENSION 1000 MG/10 ML PO SCH ×4 (08:26→20:24)
[2022-05-23] MEDS: ceLEXa 20 MG PO SCH (09:57)
[2022-05-23] MEDS: PROTONIX 40 MG IV IV SCH (09:58)
[2022-05-23] MEDS ORDERED: CITALOPRAM HYDROBROMIDE 30 MG PO SCH (10:00)
[2022-05-23] MEDS: BENADRYL 25 MG CAPSULE PO PRN ×2 (11:31→20:24)
--- NOTE | 2022-05-23 11:51 | PCM.HP ---
History of Present Illness - Chief Complaint Chief Complaint: Acute on chronic pancreatitis History of Present Illness: is a 52 year old female pt of Dr. Elaine Poole, [employer] in [facility] with hx pancreatitis, gastric sleeve surgery, anemia (usual Hgb 7-11), bipolar, anxiety, and migraine with hx cholecystectomy who came into ER with abdomina pain, vomiting, and diarrhea. Found to have pancreatitis. CT also showed mild ileus v enteritis. Pain is 7/10 now, but was 10/10 on admission. Pain is LUQ rad to L flank. She was vomiting on admission but has since stopped with anti-emetics, but still having nausea. Can't tolerate jello. Pt says she had last EGD on 04/17/[address] Mora. Was told she has a "small hole in my stomach" and that Dr. Poole was supposed to help her get in to her bariatric surgeon. Per Elaine Poole's office, pt is supposed to return to [facility], and most likely needs a revision of her bypass. Dr. Poole's office will be calling me back with more information. - Review of Systems Abdominal/Gastrointestinal: Abdominal Pain, Nausea, Vomiting, Diarrhea Psychological: Anxiety (chronic) All Other Systems: Reviewed and Negative Medications & Allergies Home Medications: Home Medication List Citalopram Hydrobromide [Citalopram HBr] 10 mg PO DAILY 05/22/22 [History Confirmed 05/22/22] PANTOPRAZOLE 40 mg Tablet [Protonix 40MG Tablet] 40 mg PO BID 05/22/22 [History Confirmed 05/22/22] Sucralfate 1000 mg/10 ml [Carafate SUSPENSION 1000 MG/10 ML] 10 ml PO ACHS 05/22/22 [History Confirmed 05/22/22] Allergies/Adverse Reactions: Allergies Allergy/AdvReac Type Severity Reaction Status Date / Time No Known Drug Allergies Allergy Verified 05/22/22 10:41 - Past Medical History Past Medical History: Yes Neurological History: Migraines ENT History: No Pertinent History Cardiac History: No Pertinent History Respiratory History: No Pertinent History Endocrine Medical History: No Pertinent History Musculoskelatal History: Fractures GI Medical History: Diverticulitis, GERD, Pancreatitis, Ulcer, Other History: No Pertinent History Pyscho-Social History: Anxiety, Bipolar, Depression, Other Reproductive Disorders: No Pertinent History Comment: aplastic anemia ,area noted on esophagus, hep c carrier; ETOH abuse and drug abuse - Female History Are you now?: No - Past Surgical History Past Surgical History: Yes Neuro Surgical History: No Pertinent History Cardiac History: No Pertinent History Respiratory Surgery: No Pertinent History GI Surgical History: Cholecystectomy, Other Genitourinary Surgical Hx: No Pertinent History Musculskeletal Surgical Hx: Orthopedic Surgery, Other Female Surgical History: Hysterectomy, Section, Tubal Ligation Other Surgical History: left knee surgery, gastric bypass, carpal tunnel surgery - Social History Smoking Status: Never smoker Exposure to second hand smoke: No Alcohol: None Drug Use: none - Physical Exam Vital Signs: Vital Signs - 24 hr Temp Pulse Resp BP Pulse Ox 05/23/22 11:24 97.6 F 76 16 151/82 96 05/23/22 07:47 98.0 F 92 H 16 156/88 95 05/23/22 07:05 18 95 05/23/22 04:05 98.2 F 67 18 120/79 93 L 05/23/22 03:05 18 96 05/22/22 23:59 97.1 F 74 18 148/74 96 05/22/22 23:05 18 92 L 05/22/22 19:56 97.0 F 71 18 146/84 96 05/22/22 19:05 16 99 05/22/22 17:32 16 99 05/22/22 16:49 98.5 F 79 16 167/82 99 05/22/22 16:00 98.5 F 79 16 167/82 99 05/22/22 15:49 98.5 F 79 16 167/82 99 05/22/22 15:00 72 148/90 99 05/22/22 14:20 75 20 137/94 98 05/22/22 13:06 98.2 F 80 20 125/69 97 05/22/22 12:00 84 24 118/72 98 General Appearance: no apparent distress, obese Neurologic Exam: oriented x 3, cooperative Eye Exam: eyes nml inspection Ears, Nose, Throat Exam: moist mucous membranes Neck Exam: normal inspection, non-tender, No lymphadenopathy, No subcutaneous emphysema, No thyromegaly Respiratory Exam: normal breath sounds, lungs clear, No crackles/rales, No rhonchi, No wheezing Cardiovascular Exam: regular rate/rhythm, normal heart sounds, No murmur Gastrointestinal/Abdomen Exam: soft, normal bowel sounds, tenderness (LUQ, LLQ), No distention, No mass, No guarding, No rebound Extremity Exam: normal inspection, No pedal edema, No swelling Skin Exam: normal color, warm, dry, No rash Results - Labs Lab/Micro Results: Lab Results-Last 24 Hours 05/22/22 05/22/22 05/22/22 Range/Units 10:30 11:20 11:30 WBC 6.3 (4.0-10.5) x10^3/uL RBC 3.60 L (4.1-5.4) x10^6/uL Hgb 8.3 L (12.0-16.0) g/dL Hct 27.7 L (35-47) % MCV 76.9 L (78-100) fL MCH 23.1 L (26-32) pg MCHC 30.0 L (32-36) g/dL RDW 20.3 H (11.5-14.0) % Plt Count 415 (150-450) x10^3/uL MPV 8.8 (7.5-11.0) fL Gran % 64.8 (36.0-66.0) % Immature Gran % (Auto) 0.8 H (0.00-0.4) % Nucleat RBC Rel Count 0.0 (0.00-0.1) % Eos # (Auto) 0.41 (0-0.5) x10^3/uL Immature Gran # (Auto) 0.05 H (0.00-0.03) x10^3u/L Absolute Lymphs (auto) 1.04 (1.0-4.6) x10^3/uL Absolute Monos (auto) 0.62 (0.0-1.3) x10^3/uL Absolute Nucleated RBC 0.00 (0.00-0.01) x10^3u/L Lymphocytes % 16.6 L (24.0-44.0) % Monocytes % 9.9 (0.0-12.0) % Eosinophils % 6.5 H (0.00-5.0) % Basophils % 1.4 (0.0-0.4) % Absolute Granulocytes 4.06 (1.4-6.9) x10^3/uL Basophils # 0.09 (0-0.4) x10^3/uL Sodium (137-145) mmol/L Potassium (3.5-5.1) mmol/L Chloride (98-107) mmol/L Carbon Dioxide (22-30) mmol/L Anion Gap (5-15) MEQ/L BUN (7-17) mg/dL Creatinine (0.52-1.04) mg/dL Estimated GFR ML/MIN Glucose (74-106) mg/dL Lactic Acid 1.5 (0.4-2.0) Calcium (8.4-10.2) mg/dL Total Bilirubin (0.2-1.3) mg/dL AST (14-36) U/L ALT (0-35) U/L Alkaline Phosphatase (38-126) U/L Serum Total Protein (6.3-8.2) g/dL Albumin (3.5-5.0) g/dL Urine Color Yellow (Yellow) Urine Appearance Clear (Clear) Urine pH 5.5 (4.6-8.0) Ur Specific [place] 1.015 (1.005-1.030) Urine Protein Negative (Negative) Urine Glucose (UA) Negative (Negative) mg/dL Urine Ketones Negative (Negative) Urine Blood Negative (Negative) Urine Nitrite Negative (Negative) Urine Bilirubin Negative (Negative) Urine Urobilinogen 0.2 (0.2) mg/dL Ur Leukocyte Esterase Negative (Negative) U Hyaline Cast (Auto) NONE SEEN (0-2) /LPF Urine Microscopic RBC 0-2 (0-5) /HPF Urine Microscopic WBC 0-2 (0-5) /HPF Ur Epithelial Cells None Seen (None Seen) /HPF Urine Bacteria None Seen (None Seen) /HPF Urine Culture Reflexed NO (NO) Influenza Type A Ag (NEGATIVE) Influenza Type B Ag (NEGATIVE) RSV (PCR) (Negative) SARS-CoV-2 (PCR) (NEGATIVE) Slides for Path Review 05/22/22 05/23/22 05/23/22 Range/Units 12:11 04:59 04:59 WBC 5.1 (4.0-10.5) x10^3/uL RBC 3.51 L (4.1-5.4) x10^6/uL Hgb 7.8 L (12.0-16.0) g/dL Hct 27.5 L (35-47) % MCV 78.3 (78-100) fL MCH 22.2 L (26-32) pg MCHC 28.4 L (32-36) g/dL RDW 20.3 H (11.5-14.0) % Plt Count 366 (150-450) x10^3/uL MPV 8.6 (7.5-11.0) fL Gran % 57.5 (36.0-66.0) % Immature Gran % (Auto) 0.4 (0.00-0.4) % Nucleat RBC Rel Count 0.0 (0.00-0.1) % Eos # (Auto) 0.52 H (0-0.5) x10^3/uL Immature Gran # (Auto) 0.02 (0.00-0.03) x10^3u/L Absolute Lymphs (auto) 1.02 (1.0-4.6) x10^3/uL Absolute Monos (auto) 0.51 (0.0-1.3) x10^3/uL Absolute Nucleated RBC 0.00 (0.00-0.01) x10^3u/L Lymphocytes % 19.9 L (24.0-44.0) % Monocytes % 10.0 (0.0-12.0) % Eosinophils % 10.2 H (0.00-5.0) % Basophils % 2.0 (0.0-0.4) % Absolute Granulocytes 2.95 (1.4-6.9) x10^3/uL Basophils # 0.10 (0-0.4) x10^3/uL Sodium 136 L (137-145) mmol/L Potassium 3.5 D (3.5-5.1) mmol/L Chloride 107 (98-107) mmol/L Carbon Dioxide 23 (22-30) mmol/L Anion Gap 8.6 (5-15) MEQ/L BUN 7 (7-17) mg/dL Creatinine 0.52 (0.52-1.04) mg/dL Estimated GFR > 60.0 ML/MIN Glucose 102 (74-106) mg/dL Lactic Acid (0.4-2.0) Calcium 7.8 L (8.4-10.2) mg/dL Total Bilirubin 0.40 (0.2-1.3) mg/dL AST 43 H (14-36) U/L ALT 27 (0-35) U/L Alkaline Phosphatase 71 (38-126) U/L Serum Total Protein 7.2 (6.3-8.2) g/dL Albumin 4.2 (3.5-5.0) g/dL Urine Color (Yellow) Urine Appearance (Clear) Urine pH (4.6-8.0) Ur Specific [place] (1.005-1.030) Urine Protein (Negative) Urine Glucose (UA) (Negative) mg/dL Urine Ketones (Negative) Urine Blood (Negative) Urine Nitrite (Negative) Urine Bilirubin (Negative) Urine Urobilinogen (0.2) mg/dL Ur Leukocyte Esterase (Negative) U Hyaline Cast (Auto) (0-2) /LPF Urine Microscopic RBC (0-5) /HPF Urine Microscopic WBC (0-5) /HPF Ur Epithelial Cells (None Seen) /HPF Urine Bacteria (None Seen) /HPF Urine Culture Reflexed (NO) Influenza Type A Ag NEGATIVE (NEGATIVE) Influenza Type B Ag NEGATIVE (NEGATIVE) RSV (PCR) NEGATIVE (Negative) SARS-CoV-2 (PCR) NEGATIVE (NEGATIVE) Slides for Path Review YES - Radiology Impressions Radiology Exams & Impressions: Radiology Procedures Category Date Time Status ABDOMEN AND PELVIS W/0 CONTRAS [CT] Routine Exams 05/22/22 12:33 Completed Assessment/Plan (1) Acute pancreatitis Current Visit: Yes Status: Acute Assessment & Plan: IV fluids and currently on dilaudid REPRODUCER. It is helping the pain. When able to advance diet, will change to po pain meds. Called lab, machine doing lipase is down, but will make sure it is ordered/drawn. Was 541 on admission. Would like a copy of her EGD from 04/17/22, done in by Dr. Mora, on her chart pls. Code(s): K85.90 - ACUTE PANCREATITIS WITHOUT NECROSIS OR INFECTION, UNSP (2) Chronic anemia Current Visit: Yes Status: Chronic Assessment & Plan: was 8.3 (hgb) on admission and 7.8 this morning, likely largely dilutional. Code(s): D64.9 - ANEMIA, UNSPECIFIED (3) Anxiety Current Visit: No Status: Chronic Code(s): F41.9 - ANXIETY DISORDER, UNSPECIFIED (4) History of Campbell-en-Y gastric bypass Current Visit: No Status: Chronic Assessment & Plan: Campbell-en-Y is in LiB but ER hx said gastric sleeve. Code(s): Z98.84 - BARIATRIC SURGERY STATUS (5) Hyponatremia Current Visit: Yes Status: Acute Assessment & Plan: likely acute. Code(s): E87.1 - HYPO-OSMOLALITY AND HYPONATREMIA
[2022-05-24] MEDS: Sodium Chloride 0.9% 1000 ML 1,000 ML IV SCH ×3 (00:38→14:06)
[2022-05-24] MEDS: Zofran 4 MG/2 ML VIAL IV PRN ×4 (01:34→17:26)
[2022-05-24] MEDS: BENADRYL 25 MG CAPSULE PO PRN ×3 (02:28→19:50)
[2022-05-24 05:59] LABS: AMYLASE 87 U/L (30-110); LIPASE 218 U/L (23-300)
[2022-05-24 07:16] LABS: Absolute Neutrophil Ct (ANC) 4.99 x10^3/uL (1.4-6.9); BASOPHIL % 1.4 % (0.0-0.4); Basophil (Absolute #) 0.11 x10^3/uL (0-0.4); Eosinophil % 8.7 % (0.00-5.0); Eosinophil (Absolute #) 0.69 x10^3/uL (0-0.5); Hematocrit 26.1 % (35-47); Hemoglobin 7.2 g/dL (12.0-16.0); IMMATURE GRAN # 0.02 x10^3u/L (0.00-0.03); IMMATURE GRAN % 0.3 % (0.00-0.4); Lymphocyte (Absolute #) 1.24 x10^3/uL (1.0-4.6); Lymphocytes % 15.7 % (24.0-44.0); Mean Cell Volume 80.6 fL (78-100); Mean Corpuscular Hemoglobin 22.2 pg (26-32); Mean Corpuscular Hgb Concent. 27.6 g/dL (32-36); Monocyte (Absolute #) 0.87 x10^3/uL (0.0-1.3); Neutrophil % 62.9 % (36.0-66.0); Platelet Count 358 x10^3/uL (150-450); Red Blood Count 3.24 x10^6/uL (4.1-5.4); Red Cell Distribution Width 20.2 % (11.5-14.0); White Blood Count 7.9 x10^3/uL (4.0-10.5)
[2022-05-24] MEDS: Carafate SUSPENSION 1000 MG/10 ML PO SCH ×4 (07:21→22:04)
[2022-05-24 08:29] LABS: Slide Review 1 YES
[2022-05-24 08:45] LABS: ALBUMIN 3.8 g/dL (3.5-5.0); ALKALINE PHOSPHATASE 62 U/L (38-126); ANION GAP 8.2 MEQ/L (5-15); BLOOD UREA NITROGEN 4 mg/dL (7-17); CHLORIDE 113 mmol/L (98-107); Carbon Dioxide 21 mmol/L (22-30); EST GLOMERULAR FILTRATION RATE > 60.0 ML/MIN; Glucose 105 mg/dL (74-106); Potassium 4.2 mmol/L (3.5-5.1); SGOT/AST 33 U/L (14-36); SGPT/ALT 25 U/L (0-35); SODIUM 138 mmol/L (137-145); Total Protein 6.7 g/dL (6.3-8.2)
[2022-05-24] MEDS: PROTONIX 40 MG IV IV SCH (09:28)
[2022-05-24] MEDS: ceLEXa 20 MG PO SCH (09:29)
--- NOTE | 2022-05-24 10:47 | PCM.NOTE ---
Date and Time: 05/24/22 1044 Subjective Assessment: Pt is still having 4-5/10 abd pain, epigastric/LUQ. Would like to eat more, says she can't tolerate the sugary jello (RN did bring her some sugar free jello). - Review of Systems Constitutional: No Fever Abdominal/Gastrointestinal: Abdominal Pain, Vomiting (x1 yesterday, none today) Objective Exam General Appearance: no apparent distress, alert Neurologic Exam: oriented x 3, cooperative Skin Exam: normal color, warm, dry, No rash Ears, Nose, Throat Exam: moist mucous membranes Neck Exam: normal inspection Respiratory Exam: normal breath sounds, lungs clear, No crackles/rales, No rhonchi, No wheezing Cardiovascular Exam: regular rate/rhythm, normal heart sounds, No murmur Gastrointestinal/Abdomen Exam: soft, normal bowel sounds, tenderness (epigastrum, LUQ), No distention, No mass, No guarding, No rebound Extremity Exam: normal inspection, No pedal edema, No swelling OBJECTIVE DATA Vital Signs: Vital Signs - 24 hr Temp Pulse Resp BP Pulse Ox 05/24/22 08:00 20 92 L 05/24/22 07:12 98.4 F 92 H 16 149/67 94 L 05/24/22 07:00 18 92 L 05/24/22 04:00 97.7 F 92 H 18 127/63 93 L 05/24/22 03:00 16 97 05/24/22 00:00 98.2 F 99 H 17 125/67 95 05/23/22 23:00 18 96 05/23/22 20:00 97.4 F 84 18 129/65 96 05/23/22 15:41 97.9 F 79 16 150/83 95 05/23/22 11:24 97.6 F 76 16 151/82 96 Pain Assessment - Last Documented Pain Intensity 4 Pain Scale Used 0-10 Pain Scale Intake and Output: Intake & Output 05/21/22 05/22/22 05/23/22 05/24/22 11:59 11:59 11:59 11:59 Intake Total 1432 2960 Balance 1432 2960 Weight 68.039 kg 70 kg 70.1 kg Lab Results: Lab Results-Last 24 Hours 05/24/22 05/24/22 05/24/22 Range/Units 05:16 05:29 05:29 WBC 7.9 (4.0-10.5) x10^3/uL RBC 3.24 L (4.1-5.4) x10^6/uL Hgb 7.2 L (12.0-16.0) g/dL Hct 26.1 L (35-47) % MCV 80.6 (78-100) fL MCH 22.2 L (26-32) pg MCHC 27.6 L (32-36) g/dL RDW 20.2 H (11.5-14.0) % Plt Count 358 (150-450) x10^3/uL MPV 9.0 (7.5-11.0) fL Gran % 62.9 (36.0-66.0) % Immature Gran % (Auto) 0.3 (0.00-0.4) % Nucleat RBC Rel Count 0.0 (0.00-0.1) % Eos # (Auto) 0.69 H (0-0.5) x10^3/uL Immature Gran # (Auto) 0.02 (0.00-0.03) x10^3u/L Absolute Lymphs (auto) 1.24 (1.0-4.6) x10^3/uL Absolute Monos (auto) 0.87 (0.0-1.3) x10^3/uL Absolute Nucleated RBC 0.00 (0.00-0.01) x10^3u/L Lymphocytes % 15.7 L (24.0-44.0) % Monocytes % 11.0 (0.0-12.0) % Eosinophils % 8.7 H (0.00-5.0) % Basophils % 1.4 (0.0-0.4) % Absolute Granulocytes 4.99 (1.4-6.9) x10^3/uL Basophils # 0.11 (0-0.4) x10^3/uL Sodium 138 (137-145) mmol/L Potassium 4.2 (3.5-5.1) mmol/L Chloride 113 H (98-107) mmol/L Carbon Dioxide 21 L (22-30) mmol/L Anion Gap 8.2 (5-15) MEQ/L BUN 4 L (7-17) mg/dL Creatinine 0.60 (0.52-1.04) mg/dL Estimated GFR > 60.0 ML/MIN Glucose 105 (74-106) mg/dL Calcium 8.0 L (8.4-10.2) mg/dL Total Bilirubin 0.30 (0.2-1.3) mg/dL AST 33 (14-36) U/L ALT 25 (0-35) U/L Alkaline Phosphatase 62 (38-126) U/L Serum Total Protein 6.7 (6.3-8.2) g/dL Albumin 3.8 (3.5-5.0) g/dL Amylase 87 (30-110) U/L Lipase 218 (23-300) U/L Slides for Path Review YES Radiology Exams: Radiology Procedures Category Date Time Status ABDOMEN AND PELVIS W/0 CONTRAS [CT] Routine Exams 05/22/22 12:33 Completed Multi-Disciplinary Progress Notes: Multi-Disciplinary Progress Notes 05/24/22 10:18 Case Management Note by Alva Gong S/W PATIENT- NO CHANGE IN DC PLANS AT THIS TIME. SE PLANS TO RETURN HOME TO HER PLF AT TIME OF DC Initialized on 05/24/22 10:18 - END OF NOTE Assessment/Plan (1) Acute pancreatitis Current Visit: Yes Status: Acute Assessment & Plan: Numbers have normalized. Still on IV fluids. Will increase diet, if tolerated will change her to po pain meds. If she was tolerating po and po meds she may be able to discharge to home tonight or tomorrow. Code(s): K85.90 - ACUTE PANCREATITIS WITHOUT NECROSIS OR INFECTION, UNSP (2) Chronic anemia Current Visit: Yes Status: Chronic Code(s): D64.9 - ANEMIA, UNSPECIFIED (3) Anxiety Current Visit: No Status: Chronic Code(s): F41.9 - ANXIETY DISORDER, UNSPECIFIED (4) History of Campbell-en-Y gastric bypass Current Visit: No Status: Chronic Assessment & Plan: Tells me she now has an appt with bariatric surgery next month. Code(s): Z98.84 - BARIATRIC SURGERY STATUS (5) Hyponatremia Current Visit: Yes Status: Acute Code(s): E87.1 - HYPO-OSMOLALITY AND HYPONATREMIA
[2022-05-24] MEDS: OXYCODONE-ACETAMINOPHEN 10-325 PO PRN ×3 (14:06→22:04)
[2022-05-25] MEDS: Zofran 4 MG/2 ML VIAL IV PRN ×3 (00:03→09:58)
[2022-05-25] MEDS: Sodium Chloride 0.9% 1000 ML 1,000 ML IV SCH (00:39)
[2022-05-25] MEDS: OXYCODONE-ACETAMINOPHEN 10-325 PO PRN ×4 (02:03→14:10)
[2022-05-25 05:49] LABS: Absolute Neutrophil Ct (ANC) 2.86 x10^3/uL (1.4-6.9); BASOPHIL % 1.1 % (0.0-0.4); Basophil (Absolute #) 0.05 x10^3/uL (0-0.4); Eosinophil (Absolute #) 0.37 x10^3/uL (0-0.5); Hematocrit 26.4 % (35-47); Hemoglobin 7.3 g/dL (12.0-16.0); IMMATURE GRAN # 0.01 x10^3u/L (0.00-0.03); IMMATURE GRAN % 0.2 % (0.00-0.4); Lymphocyte (Absolute #) 0.87 x10^3/uL (1.0-4.6); Lymphocytes % 18.9 % (24.0-44.0); Mean Cell Volume 78.6 fL (78-100); Mean Corpuscular Hemoglobin 21.7 pg (26-32); Mean Corpuscular Hgb Concent. 27.7 g/dL (32-36); Mean Platelet Volume 8.7 fL (7.5-11.0); Monocyte (Absolute #) 0.45 x10^3/uL (0.0-1.3); Monocytes % 9.8 % (0.0-12.0); Platelet Count 297 x10^3/uL (150-450); Red Blood Count 3.36 x10^6/uL (4.1-5.4); Red Cell Distribution Width 20.4 % (11.5-14.0); White Blood Count 4.6 x10^3/uL (4.0-10.5)
[2022-05-25 06:08] LABS: ALBUMIN 3.5 g/dL (3.5-5.0); ALKALINE PHOSPHATASE 90 U/L (38-126); ANION GAP 6.5 MEQ/L (5-15); BLOOD UREA NITROGEN 5 mg/dL (7-17); CHLORIDE 111 mmol/L (98-107); Carbon Dioxide 23 mmol/L (22-30); Creatinine 1 0.54 mg/dL (0.52-1.04); EST GLOMERULAR FILTRATION RATE > 60.0 ML/MIN; Glucose 102 mg/dL (74-106); Potassium 3.8 mmol/L (3.5-5.1); SGOT/AST 44 U/L (14-36); SGPT/ALT 31 U/L (0-35); SODIUM 136 mmol/L (137-145); Total Protein 6.1 g/dL (6.3-8.2)
[2022-05-25] MEDS: Carafate SUSPENSION 1000 MG/10 ML PO SCH ×2 (06:51→11:40)
[2022-05-25 07:19] LABS: Slide Review 1 YES
[2022-05-25 08:17] VITALS: BP 137/63; PULSE 82; O2SAT 97
[2022-05-25] MEDS: PROTONIX 40 MG IV IV SCH (09:57)
[2022-05-25] MEDS: ceLEXa 20 MG PO SCH (09:57)
[2022-05-25] MEDS: BENADRYL 25 MG CAPSULE PO PRN (09:58)
--- NOTE | 2022-05-25 13:07 | PCM.DS ---
Discharge Summary Date of Admission: 05/22/22 15:47 Admitting Physician: FELIX PHILLIPS Primary Care Provider: MARIMRA LEA NP Allergies Allergies No Known Drug Allergies Allergy (Verified 05/22/22 10:41) Hospital Summary - Hospital Course Hospital Course: is a 52 year old female pt of Dr. Elaine Lea NP in [facility] with hx pancreatitis, gastric sleeve surgery, anemia (usual Hgb 7-11), bipolar, anxiety, and migraine with hx cholecystectomy who came into ER with abdomina pain, vomiting, and diarrhea. Found to have pancreatitis. CT also showed mild ileus v enteritis. She was treated with IV fluids. Started on IV pain medication (dilaudid; was on CLAY TEMPERER for some time). Has been on po pain meds since yesterday, and tolerating low fat diet (would like more to eat). Tells me she is still not feeling well, but when we discuss it, she would like to go home. Will send her on 3d of pain meds and she will need to f/u with her PCP in 3d. We are calling to make an appt with PCP next Mon or . Pt is following up soon with her bariatric surgeon as well. - Vitals & Intake/Output Vital Signs: Vital Signs Temperature 98.2 F 05/25/22 11:38 Pulse Rate 82 05/25/22 11:38 Respiratory Rate 16 05/25/22 11:38 Blood Pressure 137/63 05/25/22 11:38 O2 Sat by Pulse Oximetry 97 05/25/22 11:38 Intake & Output: Intake & Output 05/23/22 05/24/22 05/25/22 05/26/22 11:59 11:59 11:59 11:59 Intake Total 1432 2960 53398 Balance 1432 2960 00319 Weight 70 kg 70.1 kg 70.1 kg - Lab Result Diagrams: 05/25/22 05:29 05/25/22 05:29 Lab Results-Last 24 Hrs: Lab Results-Last 24 Hours 05/25/22 05/25/22 Range/Units 05:29 05:29 WBC 4.6 (4.0-10.5) x10^3/uL RBC 3.36 L (4.1-5.4) x10^6/uL Hgb 7.3 L (12.0-16.0) g/dL Hct 26.4 L (35-47) % MCV 78.6 (78-100) fL MCH 21.7 L (26-32) pg MCHC 27.7 L (32-36) g/dL RDW 20.4 H (11.5-14.0) % Plt Count 297 (150-450) x10^3/uL MPV 8.7 (7.5-11.0) fL Gran % 62.0 (36.0-66.0) % Immature Gran % (Auto) 0.2 (0.00-0.4) % Nucleat RBC Rel Count 0.0 (0.00-0.1) % Eos # (Auto) 0.37 (0-0.5) x10^3/uL Immature Gran # (Auto) 0.01 (0.00-0.03) x10^3u/L Absolute Lymphs (auto) 0.87 L (1.0-4.6) x10^3/uL Absolute Monos (auto) 0.45 (0.0-1.3) x10^3/uL Absolute Nucleated RBC 0.00 (0.00-0.01) x10^3u/L Lymphocytes % 18.9 L (24.0-44.0) % Monocytes % 9.8 (0.0-12.0) % Eosinophils % 8.0 H (0.00-5.0) % Basophils % 1.1 (0.0-0.4) % Absolute Granulocytes 2.86 (1.4-6.9) x10^3/uL Basophils # 0.05 (0-0.4) x10^3/uL Sodium 136 L (137-145) mmol/L Potassium 3.8 (3.5-5.1) mmol/L Chloride 111 H (98-107) mmol/L Carbon Dioxide 23 (22-30) mmol/L Anion Gap 6.5 (5-15) MEQ/L BUN 5 L (7-17) mg/dL Creatinine 0.54 (0.52-1.04) mg/dL Estimated GFR > 60.0 ML/MIN Glucose 102 (74-106) mg/dL Calcium 8.0 L (8.4-10.2) mg/dL Total Bilirubin 0.30 (0.2-1.3) mg/dL AST 44 H (14-36) U/L ALT 31 (0-35) U/L Alkaline Phosphatase 90 (38-126) U/L Serum Total Protein 6.1 L (6.3-8.2) g/dL Albumin 3.5 (3.5-5.0) g/dL Slides for Path Review YES Discharge Exam General Appearance: no apparent distress (standing at the sink initially, then walks to and gets in her bed without difficulty.), obese Neurologic Exam: alert, oriented x 3, cooperative, normal mood/affect Eye Exam: eyes nml inspection Ears, Nose, Throat Exam: moist mucous membranes Neck Exam: normal inspection Respiratory Exam: normal breath sounds, lungs clear, No crackles/rales, No rhonchi, No wheezing Cardiovascular Exam: regular rate/rhythm, normal heart sounds, No murmur Gastrointestinal/Abdomen Exam: soft, normal bowel sounds, No tenderness, No distention, No mass, No guarding, No rebound Extremity Exam: normal inspection, No pedal edema, No swelling Skin Exam: normal color, warm, dry, No rash Final Diagnosis/Problem List - Final Discharge Diagnosis/Problem (1) Acute pancreatitis Current Visit: Yes Status: Resolved Code(s): K85.90 - ACUTE PANCREATITIS WITHOUT NECROSIS OR INFECTION, UNSP (2) Abdominal pain Current Visit: Yes Status: Acute Assessment & Plan: Ileus seems unlikely as she has been passing stools and tolerating po. May have some viral enteritis but has been improving. Home on small amount of percocet. Code(s): R10.9 - UNSPECIFIED ABDOMINAL PAIN (3) Chronic anemia Current Visit: Yes Status: Chronic Code(s): D64.9 - ANEMIA, UNSPECIFIED (4) Anxiety Current Visit: No Status: Chronic Code(s): F41.9 - ANXIETY DISORDER, UNSPECIFIED (5) History of Campbell-en-Y gastric bypass Current Visit: No Status: Chronic Code(s): Z98.84 - BARIATRIC SURGERY STATUS (6) Hyponatremia Current Visit: Yes Status: Chronic Assessment & Plan: Likely chronic. Was 135 on admission, then 136, 138, and 136 again today. Very mild. Asx. Code(s): E87.1 - HYPO-OSMOLALITY AND HYPONATREMIA - Discharge Disposition: Home, Self-Care Condition: Stable Prescriptions: New Hydrocodone/Acetaminophen [Hydrocodone-Acetamin 10-325 mg] 1 each PO QID PRN 3 Days #12 tablet MDD 4 PRN Reason: Severe Pain Ondansetron ODT 4 MG [Zofran Odt 4 mg] 4 mg PO Q6H PRN PRN 3 Days #12 tablet PRN Reason: Nausea Continue Citalopram Hydrobromide [Citalopram HBr] 10 mg PO DAILY PANTOPRAZOLE 40 mg Tablet [Protonix 40MG Tablet] 40 mg PO BID Sucralfate 1000 mg/10 ml [Carafate SUSPENSION 1000 MG/10 ML] 10 ml PO ACHS Instructions: Pancreatitis (DC) Follow up with: MARIMAR LEA NP [Primary Care Provider] - 05/30/22 10:00 am Forms: Discharge Instructions
== END 2022-05-25 15:35 | disposition home or self-care (01) ==
LOC: ED 10:07 → UNDOADMOB 15:44 → MED SURG 15:44
PROVIDERS: ADMIT Family Medicine; ATTEND Family Medicine
DX: K85.90 Acute pancreatitis without necrosis or infection, unspecified (principal); R10.9 Unspecified abdominal pain; D64.9 Anemia, unspecified; F41.9 Anxiety disorder, unspecified; Z98.84 Bariatric surgery status; E87.1 Hypo-osmolality and hyponatremia; Z79.899 Other long term (current) drug therapy; Z20.828 Contact with and (suspected) exposure to other viral communicable diseases
CPT/HCPCS: 0241U; 36000; 36415; 74176; 80053; 81001; 82150; 83605; 83690; 85025; 96360; 96374; 96375; 96376; 99285; 93268; J1170; J2405; A9270-GY; G0378

== ENCOUNTER 2022-06-28 11:47 | Emergency (ER) | payer BC, OTHER ==
--- NOTE | 2022-06-28 12:02 | ERPHSYRPT ---
- History of Present Illness Time Seen by Provider: 06/28/22 12:02 Historian: patient Exam Limitations: no limitations Physician History: This is a 52-year-old white female who presents with vomiting that was sudden onset approximately 330 this morning. In addition, she has significant left upper quadrant abdominal pain which radiates around to her left back. She was seen here on 05/22/2022 with similar symptoms. Patient has a history of chronic anemia and underwent a gastric bypass (described as a sleeve gastrectomy). Patient has history of chronic recurring pancreatitis. She is status postcholecystectomy and hysterectomy. Patient also has a history of bipolar disorder, anxiety disorder, migraine headaches and gastroesophageal reflux disease. She denies chest pain. She denies shortness of breath. Her primary care provider is in [facility]. Her GI specialist is in [facility]. Patient is concerned that she has recurrent acute pancreatitis. Quality: aching, burning Abdominal Pain Onset Location: LUQ Pain Radiation: flank (Left), back (Left) Severity of Pain-Max: moderate Severity of Pain-Current: moderate Modifying Factors: Improves With: vomiting Associated Symptoms: loss of appetite, vomiting, No chest pain, No fever/chills, No shortness of breath Previous symptoms: same symptoms as today, no recent treatment Allergies/Adverse Reactions: No Known Drug Allergies Allergy (Verified 06/28/22 12:08) Home Medications: Citalopram Hydrobromide [Citalopram HBr] 10 mg PO DAILY 05/22/22 [History] PANTOPRAZOLE 40 mg Tablet [Protonix 40MG Tablet] 40 mg PO BID 05/22/22 [History] Sucralfate 1000 mg/10 ml [Carafate SUSPENSION 1000 MG/10 ML] 10 ml PO ACHS 05/22/22 [History] Hx Tetanus, Diphtheria Vaccination/Date Given: Yes Hx Influenza Vaccination/Date Given: No Hx Pneumococcal Vaccination/Date Given: Yes Travel Risk - International Travel Have you traveled outside of the country in past 3 weeks: No - Coronavirus Screening Are you exhibiting any of the following symptoms?: No Close contact with a COVID-19 positive Pt in past 14-21 Days: No - Vaccine Status Have you recieved a Covid-19 vaccination: No - Review of Systems Constitutional: No Symptoms Eyes: No Symptoms Ears, Nose, & Throat: No Symptoms Respiratory: No Symptoms Cardiac: No Symptoms Abdominal/Gastrointestinal: Abdominal Pain, Nausea, Vomiting, Appetite Changes, No Diarrhea, No Constipation Genitourinary Symptoms: Flank Pain (Left) Musculoskeletal: No Symptoms Skin: No Symptoms Neurological: No Symptoms Psychological: No Symptoms Endocrine: No Symptoms Hematologic/Lymphatic: No Symptoms Immunological/Allergic: No Symptoms All Other Systems: Reviewed and Negative - Past Medical History Pertinent Past Medical History: Yes Neurological History: Migraines ENT History: No Pertinent History Cardiac History: No Pertinent History Respiratory History: No Pertinent History Endocrine Medical History: No Pertinent History Musculoskeletal History: Fractures GI Medical History: Diverticulitis, GERD, Pancreatitis, Ulcer, Other History: No Pertinent History Psycho-Social History: Anxiety, Bipolar, Depression, Other Female Reproductive Disorders: No Pertinent History Other Medical History: aplastic anemia ,area noted on esophagus, hep c carrier; ETOH abuse and drug abuse - Past Surgical History Past Surgical History: Yes Neuro Surgical History: No Pertinent History Cardiac: No Pertinent History Respiratory: No Pertinent History Gastrointestinal: Cholecystectomy, Other Genitourinary: No Pertinent History Musculoskeletal: Orthopedic Surgery, Other Female Surgical History: Hysterectomy, Section, Tubal Ligation Other Surgical History: left knee surgery, gastric bypass, carpal tunnel surgery - Social History Smoking Status: Never smoker Exposure to second hand smoke: No Drug Use: none Patient Lives Alone: Yes - Nursing Vital Signs Nursing Vital Signs: Initial Vital Signs Temperature 98.4 F 06/28/22 11:54 Pulse Rate 90 06/28/22 11:54 Blood Pressure 157/85 06/28/22 11:54 O2 Sat by Pulse Oximetry 100 06/28/22 11:54 Pain Scale Pain Intensity 8 - Physical Exam General Appearance: no apparent distress, alert, anxiety Eye Exam: PERRL/EOMI, eyes nml inspection Ears, Nose, Throat Exam: normal ENT inspection, moist mucous membranes Neck Exam: normal inspection, non-tender, supple, full range of motion Respiratory Exam: normal breath sounds, lungs clear, airway intact, No chest tenderness, No respiratory distress, No diminished breath sounds Cardiovascular Exam: regular rate/rhythm, normal heart sounds, normal peripheral pulses Gastrointestinal/Abdomen Exam: soft, normal bowel sounds, tenderness (Mild diffuse to palpation), guarding, No rebound (Mild diffuse to palpation) Pelvic Exam: not done Rectal Exam: not done Back Exam: normal inspection, normal range of motion, No CVA tenderness, No vertebral tenderness Extremity Exam: normal inspection, normal range of motion, pelvis stable Neurologic Exam: alert, oriented x 3, cooperative, bee tender II-XII nml as tested, normal mood/affect, nml cerebellar function, nml station & gait, sensation nml Skin Exam: normal color, warm, dry Lymphatic Exam: No adenopathy O2 Delivery: Room Air Ordered Tests: Active Orders 24 hr Category Date Time Status IV Insertion STAT Care 06/28/22 12:32 Active ABDOMEN AND PELVIS W/0 CONTRAS [CT] Stat Exams 06/28/22 12:32 Completed AMYLASE Stat Lab 06/28/22 12:50 Completed CBC W DIFF Stat Lab 06/28/22 12:50 Completed CMP Stat Lab 06/28/22 12:50 Completed LIPASE Stat Lab 06/28/22 12:50 Completed Lactic Acid Stat Lab 06/28/22 12:55 Completed UA W/RFX UR CULTURE Stat Lab 06/28/22 12:37 Completed Medication Summary Discontinued Medications Generic Name Dose Route Start Last Admin Trade Name Martq PRN Reason Stop Dose Admin Hydromorphone HCl 1 mg 06/28/22 12:32 06/28/22 12:53 Hydromorphone 1 Mg/1ml Inj 1 Mg/Ml Syringe IV 06/28/22 12:33 1 mg STAT ONE Administration Hydromorphone HCl Confirm 06/28/22 12:52 Hydromorphone 1 Mg/1ml Inj 1 Mg/Ml Syringe Administered 06/28/22 12:53 Dose 1 mg .ROUTE .STK-MED ONE Hydromorphone HCl 1 mg 06/28/22 14:03 Hydromorphone 1 Mg/1ml Inj 1 Mg/Ml Syringe IV 06/28/22 14:04 STAT ONE Sodium Chloride 1,000 mls @ 999 mls/hr 06/28/22 12:32 06/28/22 12:53 Sodium Chloride 0.9% 1000 Ml IV 06/28/22 13:32 999 mls/hr .Q1H1M STA Administration Sodium Chloride Confirm 06/28/22 12:52 Sodium Chloride 0.9% 1000 Ml Administered 06/28/22 12:53 Dose 1,000 mls @ ud .ROUTE .STK-MED ONE Ondansetron HCl 4 mg 06/28/22 12:32 06/28/22 12:53 Ondansetron Hcl 4 Mg/2 Ml Vial IV 06/28/22 12:33 4 mg STAT ONE Administration Ondansetron HCl Confirm 06/28/22 12:51 Ondansetron Hcl 4 Mg/2 Ml Vial Administered 06/28/22 12:52 Dose 4 mg .ROUTE .STK-MED ONE Pantoprazole Sodium 40 mg 06/28/22 12:42 06/28/22 12:53 Pantoprazole 40 Mg Vial IV 06/28/22 12:43 40 mg STAT ONE Administration Pantoprazole Sodium Confirm 06/28/22 12:51 Pantoprazole 40 Mg Vial Administered 06/28/22 12:52 Dose 40 mg IV .STK-MED ONE Lab/Rad Data: Laboratory Result Diagrams 06/28/22 12:50 06/28/22 12:50 Laboratory Results 06/28/22 06/28/22 06/28/22 Range/Units 12:55 12:50 12:50 WBC 5.7 (4.0-10.5) x10^3/uL RBC 4.76 (4.1-5.4) x10^6/uL Hgb 8.9 L (12.0-16.0) g/dL Hct 32.3 L (35-47) % MCV 67.9 L (78-100) fL MCH 18.7 L (26-32) pg MCHC 27.6 L (32-36) g/dL RDW 22.8 H (11.5-14.0) % Plt Count 259 (150-450) x10^3/uL MPV 8.2 (7.5-11.0) fL Gran % 66.0 (36.0-66.0) % Immature Gran % (Auto) 0.2 (0.00-0.4) % Nucleat RBC Rel Count 0.0 (0.00-0.1) % Eos # (Auto) 0.19 (0-0.5) x10^3/uL Immature Gran # (Auto) 0.01 (0.00-0.03) x10^3u/L Absolute Lymphs (auto) 1.06 (1.0-4.6) x10^3/uL Absolute Monos (auto) 0.52 (0.0-1.3) x10^3/uL Absolute Nucleated RBC 0.00 (0.00-0.01) x10^3u/L Lymphocytes % 18.7 L (24.0-44.0) % Monocytes % 9.2 (0.0-12.0) % Eosinophils % 3.4 (0.00-5.0) % Basophils % 2.5 (0.0-0.4) % Absolute Granulocytes 3.75 (1.4-6.9) x10^3/uL Basophils # 0.14 (0-0.4) x10^3/uL Sodium 138 (137-145) mmol/L Potassium 4.1 (3.5-5.1) mmol/L Chloride 108 H (98-107) mmol/L Carbon Dioxide 18 L (22-30) mmol/L Anion Gap 15.6 H (5-15) MEQ/L BUN 13 (7-17) mg/dL Creatinine 0.56 (0.52-1.04) mg/dL Estimated GFR > 60.0 ML/MIN Glucose 98 (74-106) mg/dL Lactic Acid 1.3 (0.4-2.0) Calcium 9.4 (8.4-10.2) mg/dL Total Bilirubin 0.40 (0.2-1.3) mg/dL AST 42 H (14-36) U/L ALT 25 (0-35) U/L Alkaline Phosphatase 83 (38-126) U/L Serum Total Protein 8.2 (6.3-8.2) g/dL Albumin 4.8 (3.5-5.0) g/dL Amylase 156 H (30-110) U/L Lipase 737 H (23-300) U/L Urine Color (Yellow) Urine Appearance (Clear) Urine pH (4.6-8.0) Ur Specific [place] (1.005-1.030) Urine Protein (Negative) Urine Glucose (UA) (Negative) mg/dL Urine Ketones (Negative) Urine Blood (Negative) Urine Nitrite (Negative) Urine Bilirubin (Negative) Urine Urobilinogen (0.2) mg/dL Ur Leukocyte Esterase (Negative) U Hyaline Cast (Auto) (0-2) /LPF Urine Microscopic RBC (0-5) /HPF Urine Microscopic WBC (0-5) /HPF Ur Epithelial Cells (None Seen) /HPF Urine Bacteria (None Seen) /HPF Urine Culture Reflexed (NO) Slides for Path Review YES 06/28/22 Range/Units 12:37 WBC (4.0-10.5) x10^3/uL RBC (4.1-5.4) x10^6/uL Hgb (12.0-16.0) g/dL Hct (35-47) % MCV (78-100) fL MCH (26-32) pg MCHC (32-36) g/dL RDW (11.5-14.0) % Plt Count (150-450) x10^3/uL MPV (7.5-11.0) fL Gran % (36.0-66.0) % Immature Gran % (Auto) (0.00-0.4) % Nucleat RBC Rel Count (0.00-0.1) % Eos # (Auto) (0-0.5) x10^3/uL Immature Gran # (Auto) (0.00-0.03) x10^3u/L Absolute Lymphs (auto) (1.0-4.6) x10^3/uL Absolute Monos (auto) (0.0-1.3) x10^3/uL Absolute Nucleated RBC (0.00-0.01) x10^3u/L Lymphocytes % (24.0-44.0) % Monocytes % (0.0-12.0) % Eosinophils % (0.00-5.0) % Basophils % (0.0-0.4) % Absolute Granulocytes (1.4-6.9) x10^3/uL Basophils # (0-0.4) x10^3/uL Sodium (137-145) mmol/L Potassium (3.5-5.1) mmol/L Chloride (98-107) mmol/L Carbon Dioxide (22-30) mmol/L Anion Gap (5-15) MEQ/L BUN (7-17) mg/dL Creatinine (0.52-1.04) mg/dL Estimated GFR ML/MIN Glucose (74-106) mg/dL Lactic Acid (0.4-2.0) Calcium (8.4-10.2) mg/dL Total Bilirubin (0.2-1.3) mg/dL AST (14-36) U/L ALT (0-35) U/L Alkaline Phosphatase (38-126) U/L Serum Total Protein (6.3-8.2) g/dL Albumin (3.5-5.0) g/dL Amylase (30-110) U/L Lipase (23-300) U/L Urine Color Yellow (Yellow) Urine Appearance Clear (Clear) Urine pH 5.5 (4.6-8.0) Ur Specific [place] 1.015 (1.005-1.030) Urine Protein Negative (Negative) Urine Glucose (UA) Negative (Negative) mg/dL Urine Ketones Negative (Negative) Urine Blood Negative (Negative) Urine Nitrite Negative (Negative) Urine Bilirubin Negative (Negative) Urine Urobilinogen 0.2 (0.2) mg/dL Ur Leukocyte Esterase Negative (Negative) U Hyaline Cast (Auto) NONE SEEN (0-2) /LPF Urine Microscopic RBC 0-2 (0-5) /HPF Urine Microscopic WBC 0-2 (0-5) /HPF Ur Epithelial Cells None Seen (None Seen) /HPF Urine Bacteria None Seen (None Seen) /HPF Urine Culture Reflexed NO (NO) Slides for Path Review - Progress Progress Note: 06/28/22 14:06 CT scan of the abdomen pelvis shows no acute intra-abdominal or intrapelvic abnormality. This patient's medical issue is 1 of moderate complexity. The level of complexity is well as the work-up performed is based on the patient's past medical history, review of the patient's medications, review of the patient's drug allergies, history of present illness and physical findings on examination. The work-up includes intravenous line and normal saline solution, antiemetics, Dilaudid intravenously, CBC, CMP, amylase, lipase, urinalysis, CT scan of the abdomen and pelvis. I reviewed the results of the work-up. The patient does not have an acute surgical abdomen on examination. Her amylase and lipase are elevated. CT scan does not show any evidence of any acute pancreatitis. She likely does have some inflammation of her pancreas. This is chronic and recurrent. Patient states that hydrocodone 10/325 and Zofran worked well for her as an outpatient and she wants to try this treatment. She will drop her diet back to clear liquid diet. She will also follow-up with her prescribing provider as well as her head of music for further evaluation management. Counseled pt/family regarding: lab results, diagnosis, need for follow-up, rad results Medical Desision Making - Discussion of managment Reviewed:: Test results Agreed on:: Treatment plan, need for follow-up - Diagnostic Testing Diagnostic test were ordered, analyzed, and reviewed by me: Yes Radiological Interpretation: Reviewed by me, Teleradiologist Report - Risk of complications The pt has a mod risk of morbidity or mortality based on: Need for prescription drug management - Departure Departure Disposition: Home Clinical Impression: Chronic pancreatitis Condition: Stable Critical Care Time: No Referrals: MARIMAR LEA NP [Primary Care Provider] - Follow up/PCP as directed Additional Instructions: Clear liquid diet. Take your medication as prescribed. Call your providers today including primary care provider and head of music. Avoid fatty greasy spicy foods. Avoid alcohol. Prescriptions: Ondansetron ODT 4 MG [Zofran Odt 4 mg] 4 mg PO Q6H PRN PRN #10 tablet PRN Reason: Vomiting Hydrocodone/Acetaminophen [Hydrocodone-Acetamin 10-325 mg] 1 each PO Q8H PRN #9 tablet MDD 3 PRN Reason: Moderate To Severe Pain
[2022-06-28] MEDS ORDERED: Zofran 4 MG/2 ML VIAL IV ONE (12:32)
[2022-06-28] MEDS ORDERED: Sodium Chloride 0.9% 1000 ML 1,000 ML IV STA (12:32)
[2022-06-28] MEDS ORDERED: Hydromorphone 1 mg/ml Injection IV ONE ×2 (12:32→14:03)
[2022-06-28] MEDS ORDERED: PROTONIX 40 MG IV IV ONE ×2 (12:42→12:51)
[2022-06-28 12:46] LABS: Appearance Clear (Clear); Bacteria None Seen /HPF (None Seen); Bilirubin Negative (Negative); Blood Negative (Negative); Epithelial Cells None Seen /HPF (None Seen); Glucose, Urine Negative (Negative); Hyaline Casts NONE SEEN /LPF (0-2); Ketones Negative (Negative); Leukocyte Esterase Negative (Negative); Nitrite Negative (Negative); Ph 5.5 (4.6-8.0); Protein,Urine Dip Negative (Negative); RBC 0-2 /HPF (0-5); Specific Gravity 1.015 (1.005-1.030); Urobilinogen 0.2 mg/dL (0.2); WBC 0-2 /HPF (0-5)
[2022-06-28 12:47] LABS: ADD URINE CULTURE? NO (NO)
[2022-06-28] MEDS ORDERED: Zofran 4 MG/2 ML VIAL ONE (12:51)
[2022-06-28] MEDS ORDERED: Hydromorphone 1 mg/ml Injection ONE ×2 (12:52→14:12)
[2022-06-28] MEDS ORDERED: Sodium Chloride 0.9% 1000 ML 1,000 ML ONE (12:52)
[2022-06-28 12:59] LABS: Absolute Neutrophil Ct (ANC) 3.75 x10^3/uL (1.4-6.9); BASOPHIL % 2.5 % (0.0-0.4); Basophil (Absolute #) 0.14 x10^3/uL (0-0.4); Eosinophil % 3.4 % (0.00-5.0); Eosinophil (Absolute #) 0.19 x10^3/uL (0-0.5); Hematocrit 32.3 % (35-47); Hemoglobin 8.9 g/dL (12.0-16.0); IMMATURE GRAN # 0.01 x10^3u/L (0.00-0.03); IMMATURE GRAN % 0.2 % (0.00-0.4); Lymphocyte (Absolute #) 1.06 x10^3/uL (1.0-4.6); Lymphocytes % 18.7 % (24.0-44.0); Mean Cell Volume 67.9 fL (78-100); Mean Corpuscular Hemoglobin 18.7 pg (26-32); Mean Corpuscular Hgb Concent. 27.6 g/dL (32-36); Mean Platelet Volume 8.2 fL (7.5-11.0); Monocyte (Absolute #) 0.52 x10^3/uL (0.0-1.3); Monocytes % 9.2 % (0.0-12.0); Platelet Count 259 x10^3/uL (150-450); Red Blood Count 4.76 x10^6/uL (4.1-5.4); Red Cell Distribution Width 22.8 % (11.5-14.0); White Blood Count 5.7 x10^3/uL (4.0-10.5)
[2022-06-28 13:14] LABS: ALBUMIN 4.8 g/dL (3.5-5.0); ALKALINE PHOSPHATASE 83 U/L (38-126); AMYLASE 156 U/L (30-110); ANION GAP 15.6 MEQ/L (5-15); BLOOD UREA NITROGEN 13 mg/dL (7-17); CHLORIDE 108 mmol/L (98-107); Calcium 9.4 mg/dL (8.4-10.2); Carbon Dioxide 18 mmol/L (22-30); Creatinine 1 0.56 mg/dL (0.52-1.04); EST GLOMERULAR FILTRATION RATE > 60.0 ML/MIN; Glucose 98 mg/dL (74-106); LIPASE 737 U/L (23-300); Potassium 4.1 mmol/L (3.5-5.1); SGOT/AST 42 U/L (14-36); SGPT/ALT 25 U/L (0-35); SODIUM 138 mmol/L (137-145); Total Protein 8.2 g/dL (6.3-8.2)
[2022-06-28 13:26] LABS: Slide Review 1 YES
--- NOTE | 2022-06-28 13:28 | XRAY ---
Indication: Abdomen pain. Multiple contiguous axial images obtained through the abdomen and pelvis without contrast. Comparison: May 22, 2022 Lung bases remain clear. Heart is not enlarged. Again gastric bypass surgery, cholecystectomy, and hysterectomy. Noncontrasted stomach and bowel loops remain nonobstructed. Left abdomen and pelvic small bowel loops again mildly fluid distended with mild wall thickening favoring enteritis. Appendix not visualized. No free fluid/air. Remaining liver, pancreas, spleen, adrenal glands, kidneys, ureters, bladder, and aorta are unremarkable for noncontrast exam. Impression: Again CT findings favoring mild enteritis.
[2022-06-28 14:09] VITALS: BP 148/89; PULSE 77; O2SAT 97
== END 2022-06-28 14:30 | disposition home or self-care (01) ==
LOC: ED 11:47
DX: K86.1 Other chronic pancreatitis (principal); R11.10 Vomiting, unspecified; R10.12 Left upper quadrant pain; Z79.891 Long term (current) use of opiate analgesic; Z79.899 Other long term (current) drug therapy; Z28.310 Unvaccinated for COVID-19
CPT/HCPCS: 36000; 36415; 74176; 80053; 81001; 82150; 83605; 83690; 85025; 96360; 96374; 96375; 96376; 99284; J1170; J2405

== ENCOUNTER 2022-07-08 18:36 | Emergency (ER) | payer BC, OTHER ==
[2022-07-08 18:45] VITALS: BP 146/96; PULSE 101; O2SAT 99
--- NOTE | 2022-07-08 19:10 | ERPHSYRPT ---
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 Exam Limitations: other (Poor historian) Patient Subjective Stated Complaint: pt here for a laceration to left hand on can lid. about 2 hours ago Triage Nursing Assessment: pt alert, resp easy, skin w/d/p. has to palm of had 4 cm in length Physician History: 3cm laceration to palmar aspect of L hand. Pt cut hand on an aluminium can top. She is R handed and is UTD on her Tdap. Pt denies other injuries at this time. Occurred: just prior to arrival Method of Injury: incised Quality: constant Severity of Pain-Max: severe Severity of Pain-Current: severe Extremities Pain Location: hand: left Modifying Factors: Improves With: nothing Associated Symptoms: none Allergies/Adverse Reactions: No Known Drug Allergies Allergy (Verified 07/08/22 18:47) Home Medications: Citalopram Hydrobromide [Citalopram HBr] 10 mg PO DAILY 05/22/22 [History] PANTOPRAZOLE 40 mg Tablet [Protonix 40MG Tablet] 40 mg PO BID 05/22/22 [History] Sucralfate 1000 mg/10 ml [Carafate SUSPENSION 1000 MG/10 ML] 10 ml PO ACHS 05/22/22 [History] Hx Tetanus, Diphtheria Vaccination/Date Given: Yes (3 years ago) Hx Influenza Vaccination/Date Given: No Hx Pneumococcal Vaccination/Date Given: Yes Immunizations Up to Date: Yes Travel Risk - International Travel Have you traveled outside of the country in past 3 weeks: No - Coronavirus Screening Are you exhibiting any of the following symptoms?: No - Vaccine Status Have you recieved a Covid-19 vaccination: No - Review of Systems Constitutional: No Symptoms Eyes: No Symptoms Ears, Nose, & Throat: No Symptoms Respiratory: No Symptoms Cardiac: No Symptoms Abdominal/Gastrointestinal: No Symptoms Genitourinary Symptoms: No Symptoms Skin: No Symptoms Neurological: No Symptoms Psychological: No Symptoms Endocrine: No Symptoms Hematologic/Lymphatic: No Symptoms Immunological/Allergic: No Symptoms All Other Systems: Reviewed and Negative - Past Medical History Pertinent Past Medical History: Yes Neurological History: Migraines ENT History: No Pertinent History Cardiac History: No Pertinent History Respiratory History: No Pertinent History Endocrine Medical History: No Pertinent History Musculoskeletal History: Fractures GI Medical History: Diverticulitis, GERD, Pancreatitis, Ulcer, Other History: No Pertinent History Psycho-Social History: Anxiety, Bipolar, Depression, Other Female Reproductive Disorders: No Pertinent History Other Medical History: aplastic anemia ,area noted on esophagus, hep c carrier; ETOH abuse and drug abuse - Past Surgical History Past Surgical History: Yes Neuro Surgical History: No Pertinent History Cardiac: No Pertinent History Respiratory: No Pertinent History Gastrointestinal: Cholecystectomy, Other Genitourinary: No Pertinent History Musculoskeletal: Orthopedic Surgery, Other Female Surgical History: Hysterectomy, Section, Tubal Ligation Other Surgical History: left knee surgery, gastric bypass, carpal tunnel surgery - Social History Smoking Status: Never smoker Exposure to second hand smoke: No Drug Use: none Patient Lives Alone: Yes - Nursing Vital Signs Nursing Vital Signs: Initial Vital Signs Temperature 98.2 F 07/08/22 18:44 Pulse Rate 101 H 07/08/22 18:44 Respiratory Rate 18 07/08/22 18:44 Blood Pressure 146/96 07/08/22 18:44 O2 Sat by Pulse Oximetry 99 07/08/22 18:44 Pain Scale Pain Intensity 8 Hypertensive - Physical Exam General Appearance: no apparent distress, anxiety Eyes, Ears, Nose, Throat Exam: normal ENT inspection Neck Exam: normal inspection, non-tender, supple, full range of motion, No Brudzinski, No Kernig's, No meningismus, No carotid bruit Cardiovascular/Respiratory Exam: normal breath sounds, regular rate/rhythm, heart sounds normal Abdominal Exam: non-tender, soft Back Exam: normal inspection Shoulder Exam: normal inspection Elbow/Forearm Exam: normal inspection Wrist Exam: normal inspection Hand Exam: laceration (3cm laceration ventral aspect of L hand proximal to base of her 1st digit/FROM of 1st digit/Good distal capillary return and sensation) Mental Status Exam: alert, oriented x 3, cooperative Skin Exam: normal color, warm, dry SpO2 Interpretation: normal SpO2: 99 O2 Delivery: Room Air Procedures - Laceration/Wound Repair Left Volar Hand Wound Location: Left, hand Wound Length (cm): 3 Wound's Depth, Shape: linear Wound Explored: clean Irrigated: Yes Hibiclens Prep: Yes Anesthesia: local, 1% Lidocaine Volume Anesthetic (ccs): 5 Wound Repaired With: sutures Suture Size/Type: 3-0 (3.0 Ethilon x7) Number of Sutures: 7 Sterile Dressing Applied?: Yes - Course Nursing assessment & vital signs reviewed: Yes - Progress Progress: improved Progress Note: 07/08/22 19:21 Nursing note and vital signs reviewed No food or housing insecurities noted Pt consented to L hand laceration repair Laceration cleansed and irrigated per nursing w Hibiclens/sterile water Laceration explored wo evidence of tendon injury or foreign body Pt had good distal capillary return and sensation of all digits Counseled pt/family regarding: diagnosis, need for follow-up - Departure Departure Disposition: Home Clinical Impression: Hand laceration Condition: Stable Critical Care Time: No Referrals: MARIMAR LEA NP [Primary Care Provider] - Follow up/PCP as directed Instructions: Laceration Repair With Stitches (DC) Additional Instructions: Keep laceration dry for 2 days, then gently wash with soap and water 1-2 times a day Sutures out in 10 days Watch for signs of infection-increasing redness, increasing pain, any pus, or temperature greater than 100.5 Prescriptions: Amox Tr/Potass Clav. 875 mg [Augmentin 875-125 Tablet] 875 mg PO BID #14 tablet
== END 2022-07-08 19:26 | disposition home or self-care (01) ==
LOC: ED 18:36
DX: S61.412A Laceration without foreign body of left hand, initial encounter (principal); W26.8XXA Contact with other sharp object(s), not elsewhere classified, initial encounter; Z79.899 Other long term (current) drug therapy; Z28.310 Unvaccinated for COVID-19
CPT/HCPCS: 12002; 99282

== ENCOUNTER 2022-08-08 23:11 | Inpatient (IN) | payer BC, OTHER ==
[2022-08-08] MEDS ORDERED: Zofran 4 MG/2 ML VIAL IV ONE (23:45)
[2022-08-08] MEDS ORDERED: MORPHINE SULFATE 4 MG INJ IV ONE (23:45)
[2022-08-08] MEDS ORDERED: Zofran 4 MG/2 ML VIAL ONE (23:56)
[2022-08-08] MEDS ORDERED: MORPHINE SULFATE 4 MG INJ ONE (23:56)
[2022-08-08] MEDS: Sodium Chloride 0.9% 1000 ML 1,000 ML IV SCH (23:58)
[2022-08-09 00:11] LABS: Absolute Neutrophil Ct (ANC) 3.47 x10^3/uL (1.4-6.9); BASOPHIL % 2.3 % (0.0-0.4); Basophil (Absolute #) 0.12 x10^3/uL (0-0.4); Eosinophil % 3.1 % (0.00-5.0); Eosinophil (Absolute #) 0.16 x10^3/uL (0-0.5); Hematocrit 28.6 % (35-47); Hemoglobin 7.7 g/dL (12.0-16.0); IMMATURE GRAN # 0.02 x10^3u/L (0.00-0.03); IMMATURE GRAN % 0.4 % (0.00-0.4); Lymphocyte (Absolute #) 0.88 x10^3/uL (1.0-4.6); Lymphocytes % 16.8 % (24.0-44.0); Mean Cell Volume 65.7 fL (78-100); Mean Corpuscular Hemoglobin 17.7 pg (26-32); Mean Corpuscular Hgb Concent. 26.9 g/dL (32-36); Mean Platelet Volume 8.3 fL (7.5-11.0); Monocyte (Absolute #) 0.58 x10^3/uL (0.0-1.3); Monocytes % 11.1 % (0.0-12.0); Neutrophil % 66.3 % (36.0-66.0); Platelet Count 297 x10^3/uL (150-450); Red Blood Count 4.35 x10^6/uL (4.1-5.4); Red Cell Distribution Width 22.4 % (11.5-14.0); White Blood Count 5.2 x10^3/uL (4.0-10.5)
[2022-08-09] MEDS ORDERED: Hydromorphone 1 mg/ml Injection IV ONE ×2 (00:34→01:55)
--- NOTE | 2022-08-09 00:34 | ERPHSYRPT ---
- History of Present Illness Time Seen by Provider: 08/08/22 23:45 Historian: patient Exam Limitations: no limitations Patient Subjective Stated Complaint: pt states "I have a hiatel hernia and have been going to [place] and over last 2 wks symptoms have gotten worse and worse. last weekend I would throw up then be ok intermittently. on saturday started having continuous nausea and yesterd I started throwing up." pain is constant to epigastric area and radiates upward and through to the back. pt and family member report that her face is swollen from her normal. pt states that her stools have been soft recently and a little watery and coffee ground colored. Triage Nursing Assessment: pt brought to room 8 via wheelchair after standing on scale for weight and urinating for urine sample. pt is alert and oriented times three, able to speak in complete sentences, resp even and unlabored, abd soft, non distended and tender to touch. pt is moaning intermittently and grunting occasionally. she is restless in bed and constantly moving all extremities and sitting up in bed then laying down and rotating from side to side. Physician History: Patient is a 52-year-old female presents to our emergency department for evaluation of epigastric pain. Patient states she has been experiencing symptoms for approximately 2 weeks. Symptoms have been progressively worsening. Patient admits to history of hiatal hernia which is being managed by a physician in [place]. Patient complains of nausea and vomiting. Patient's pain is primarily epigastric and has gotten worse. Patient describes a coffee ground emesis. Symptoms are moderate in intensity. No specific worsening or improving factors. Patient denies chest pain. No fever. No trauma. Patient voices no other complaints or concerns at this time. Portions of this note were created with voice recognition technology. There may be grammatical, spelling, punctuation or sound alike errors Timing/Duration: week(s) (2 weeks) Activities at Onset: none Quality: aching Abdominal Pain Onset Location: epigastric Pain Radiation: no radiation Severity of Pain-Max: moderate Severity of Pain-Current: mild Modifying Factors: Improves With: nothing Associated Symptoms: nausea, vomiting, other (Coffee-ground emesis) Previous symptoms: no prior history Allergies/Adverse Reactions: No Known Drug Allergies Allergy (Verified 07/08/22 18:47) Home Medications: Citalopram Hydrobromide [Citalopram HBr] 10 mg PO DAILY 05/22/22 [History] Sucralfate 1000 mg/10 ml [Carafate SUSPENSION 1000 MG/10 ML] 10 ml PO ACHS 05/22/22 [History] Hx Tetanus, Diphtheria Vaccination/Date Given: Yes (3 years ago) Hx Influenza Vaccination/Date Given: No Hx Pneumococcal Vaccination/Date Given: Yes Immunizations Up to Date: Yes Travel Risk - International Travel Have you traveled outside of the country in past 3 weeks: No - Coronavirus Screening Are you exhibiting any of the following symptoms?: No Close contact with a COVID-19 positive Pt in past 14-21 Days: No - Vaccine Status Have you recieved a Covid-19 vaccination: No - Review of Systems Constitutional: No Symptoms, No Fever, No Chills Eyes: No Symptoms Ears, Nose, & Throat: No Symptoms Respiratory: No Symptoms, No Cough, No Dyspnea Cardiac: No Symptoms, No Chest Pain, No Edema, No Syncope Abdominal/Gastrointestinal: No Symptoms, No Abdominal Pain, No Nausea, No V omiting, No Diarrhea Genitourinary Symptoms: No Symptoms, No Dysuria Musculoskeletal: No Symptoms, No Back Pain, No Neck Pain Skin: No Symptoms, No Rash Neurological: No Symptoms, No Dizziness, No Focal Weakness, No Sensory Changes Psychological: No Symptoms Endocrine: No Symptoms Hematologic/Lymphatic: No Symptoms Immunological/Allergic: No Symptoms All Other Systems: Reviewed and Negative - Past Medical History Pertinent Past Medical History: Yes Neurological History: No Pertinent History ENT History: No Pertinent History Cardiac History: No Pertinent History Respiratory History: No Pertinent History Endocrine Medical History: No Pertinent History Musculoskeletal History: Fractures GI Medical History: Diverticulitis, GERD, Pancreatitis, Ulcer, Other History: No Pertinent History Psycho-Social History: Anxiety, Bipolar, Depression, Other Female Reproductive Disorders: No Pertinent History Other Medical History: aplastic anemia ,area noted on esophagus, hep c carrier; ETOH abuse and drug abuse - Past Surgical History Past Surgical History: Yes Neuro Surgical History: No Pertinent History Cardiac: No Pertinent History Respiratory: No Pertinent History Gastrointestinal: Cholecystectomy, Other Genitourinary: No Pertinent History Musculoskeletal: Orthopedic Surgery, Other Female Surgical History: Hysterectomy, Section, Tubal Ligation Other Surgical History: left knee surgery, gastric bypass silvia en y in 2009, carpal tunnel surgery - Social History Smoking Status: Current every day smoker How long have you smoked: 6mos Exposure to second hand smoke: No Drug Use: none Patient Lives Alone: Yes - Nursing Vital Signs Nursing Vital Signs: Initial Vital Signs Temperature 97.8 F 08/08/22 23:34 Pulse Rate 98 H 08/08/22 23:34 Respiratory Rate 20 08/08/22 23:34 Blood Pressure 173/125 08/08/22 23:34 O2 Sat by Pulse Oximetry 100 08/08/22 23:34 Pain Scale Pain Intensity 8 - Physical Exam General Appearance: no apparent distress, alert Eye Exam: PERRL/EOMI, eyes nml inspection Ears, Nose, Throat Exam: normal ENT inspection, TMs normal, pharynx normal, moist mucous membranes Neck Exam: normal inspection, non-tender, supple, full range of motion Respiratory Exam: normal breath sounds, lungs clear, airway intact, No chest tenderness, No respiratory distress Cardiovascular Exam: regular rate/rhythm, normal heart sounds, normal peripheral pulses Gastrointestinal/Abdomen Exam: soft, normal bowel sounds, No tenderness, No mass Back Exam: normal inspection, normal range of motion, No CVA tenderness, No vertebral tenderness Extremity Exam: normal inspection, normal range of motion, pelvis stable Neurologic Exam: alert, oriented x 3, cooperative, normal mood/affect, nml cerebellar function, sensation nml, No motor deficits Skin Exam: normal color, warm, dry Lymphatic Exam: No adenopathy SpO2 Interpretation: normal SpO2: 100 O2 Delivery: Room Air - Course Nursing assessment & vital signs reviewed: Yes - CT Exams Abdomen/Pelvis CT Interpretation: Tele-radiologist Report (Changes consistent with history of gastric bypass. Hepatomegaly. No acute intra-abdominal pathology observed) Ordered Tests: Active Orders 24 hr Category Date Time Status Bedrest ROUTINE Activity 08/09/22 04:54 Active Code Status Order ROUTINE Care 08/09/22 04:54 Ordered IV Care Q6H Care 08/09/22 04:54 Ordered IV Insertion STAT Care 08/08/22 23:45 Active Neuro Checks Q4H Care 08/09/22 04:[address] in Observation ROUTINE Care 08/09/22 04:54 Ordered Telemetry q6h Care 08/09/22 04:54 Ordered NPO Diet 08/09/22 04:54 Active ABDOMEN AND PELVIS W/0 CONTRAS [CT] Stat Exams 08/08/22 23:46 Completed CBC W DIFF AM.LAB Lab 08/10/22 04:00 Ordered CMP AM.LAB Lab 08/10/22 04:00 Ordered CULTURE,URINE Stat Lab 08/08/22 23:49 Received Pulse Oximetry CONTINUOUS RT 08/09/22 04:54 Ordered Transfer Order Routine Transfer 08/09/22 Ordered Medication Summary Generic Name Dose Route Start Last Admin Trade Name Vishnu PRN Reason Stop Dose Admin Sodium Chloride 1,000 mls @ 100 mls/hr 08/08/22 23:45 08/08/22 23:58 Sodium Chloride 0.9% 1000 Ml IV 09/07/22 23:44 100 mls/hr .Q10H NEELIMA Administration Discontinued Medications Generic Name Dose Route Start Last Admin Trade Name Vishnu PRN Reason Stop Dose Admin Hydromorphone HCl 0.5 mg 08/09/22 00:34 08/09/22 00:39 Hydromorphone 1 Mg/1ml Inj 1 Mg/Ml Syringe IV 08/09/22 00:35 0.5 mg STAT ONE Administration Hydromorphone HCl Confirm 08/09/22 00:38 Hydromorphone 1 Mg/1ml Inj 1 Mg/Ml Syringe Administered 08/09/22 00:39 Dose 1 mg .ROUTE .STK-MED ONE Hydromorphone HCl 1 mg 08/09/22 01:55 08/09/22 02:04 Hydromorphone 1 Mg/1ml Inj 1 Mg/Ml Syringe IV 08/09/22 01:56 1 mg STAT ONE Administration Hydromorphone HCl Confirm 08/09/22 02:04 Hydromorphone 1 Mg/1ml Inj 1 Mg/Ml Syringe Administered 08/09/22 02:05 Dose 1 mg .ROUTE .STK-MED ONE Ceftriaxone Sodium/Dextrose 1 g in 50 mls @ 100 mls/hr 08/09/22 04:46 Rocephin 1 Gm-D5w 50 Ml Bag IV 08/09/22 05:15 STAT STA Morphine Sulfate 4 mg 08/08/22 23:45 08/08/22 23:57 Morphine Sulfate 4 Mg/Ml Injection IV 08/08/22 23:46 4 mg STAT ONE Administration Morphine Sulfate Confirm 08/08/22 23:56 Morphine Sulfate 4 Mg/Ml Injection Administered 08/08/22 23:57 Dose 4 mg .ROUTE .STK-MED ONE Ondansetron HCl 4 mg 08/08/22 23:45 08/08/22 23:57 Ondansetron Hcl 4 Mg/2 Ml Vial IV 08/08/22 23:46 4 mg STAT ONE Administration Ondansetron HCl Confirm 08/08/22 23:56 Ondansetron Hcl 4 Mg/2 Ml Vial Administered 08/08/22 23:57 Dose 4 mg .ROUTE .STK-MED ONE Lab/Rad Data: Laboratory Result Diagrams 08/08/22 00:08 08/08/22 00:08 Laboratory Results 08/09/22 08/09/22 08/08/22 Range/Units 02:07 00:00 23:49 WBC (4.0-10.5) x10^3/uL RBC (4.1-5.4) x10^6/uL Hgb (12.0-16.0) g/dL Hct (35-47) % MCV (78-100) fL MCH (26-32) pg MCHC (32-36) g/dL RDW (11.5-14.0) % Plt Count (150-450) x10^3/uL MPV (7.5-11.0) fL Gran % (36.0-66.0) % Immature Gran % (Auto) (0.00-0.4) % Nucleat RBC Rel Count (0.00-0.1) % Eos # (Auto) (0-0.5) x10^3/uL Immature Gran # (Auto) (0.00-0.03) x10^3u/L Absolute Lymphs (auto) (1.0-4.6) x10^3/uL Absolute Monos (auto) (0.0-1.3) x10^3/uL Absolute Nucleated RBC (0.00-0.01) x10^3u/L Lymphocytes % (24.0-44.0) % Monocytes % (0.0-12.0) % Eosinophils % (0.00-5.0) % Basophils % (0.0-0.4) % Absolute Granulocytes (1.4-6.9) x10^3/uL Basophils # (0-0.4) x10^3/uL Sodium (137-145) mmol/L Potassium (3.5-5.1) mmol/L Chloride (98-107) mmol/L Carbon Dioxide (22-30) mmol/L Anion Gap (5-15) MEQ/L BUN (7-17) mg/dL Creatinine (0.52-1.04) mg/dL Estimated GFR ML/MIN Glucose (74-106) mg/dL Calcium (8.4-10.2) mg/dL Total Bilirubin (0.2-1.3) mg/dL AST (14-36) U/L ALT (0-35) U/L Alkaline Phosphatase (38-126) U/L Troponin I (0.000-0.034) ng/mL Serum Total Protein (6.3-8.2) g/dL Albumin (3.5-5.0) g/dL Lipase (23-300) U/L Urine Color YELLOW (YELLOW) Urine Appearance SLIGHTLY CLOUDY A (CLEAR) Urine pH 5.5 (5-6) Ur Specific [place] 1.025 (1.005-1.025) Urine Protein Cancelled POC Urine Protein Conf 30 A (Negative) Urine Glucose (UA) Cancelled Urine Ketones NEGATIVE (NEGATIVE) Urine Blood Cancelled Urine Nitrite NEGATIVE (NEGATIVE) Urine Bilirubin NEGATIVE (NEGATIVE) Urine Urobilinogen 0.2 (0-1) mg/dL Ur Leukocyte Esterase Cancelled Urine Leukocytes MODERATE A (NEGATIVE) U Hyaline Cast (Auto) 3-5 A (0-2) /LPF Urine RBC TRACE-INTACT A (0-5) Micah/ul Urine Microscopic RBC 0-2 (0-5) /HPF Urine Microscopic WBC 51-100 A (0-5) /HPF Ur Epithelial Cells None Seen (None Seen) /HPF Urine Bacteria None Seen (None Seen) /HPF Urine Culture Reflexed YES (NO) Urine Glucose NEGATIVE (NEGATIVE) mg/dL Influenza Type A Ag NEGATIVE (NEGATIVE) Influenza Type B Ag NEGATIVE (NEGATIVE) RSV (PCR) NEGATIVE (NEGATIVE) SARS-CoV-2 (PCR) NEGATIVE (NEGATIVE) ABO Group B Rh Factor POSITIVE Antibody Screen NEGATIVE (NEGATIVE) 08/08/22 08/08/22 Range/Units 00:08 00:08 WBC 5.2 (4.0-10.5) x10^3/uL RBC 4.35 (4.1-5.4) x10^6/uL Hgb 7.7 L (12.0-16.0) g/dL Hct 28.6 L (35-47) % MCV 65.7 L (78-100) fL MCH 17.7 L (26-32) pg MCHC 26.9 L (32-36) g/dL RDW 22.4 H (11.5-14.0) % Plt Count 297 (150-450) x10^3/uL MPV 8.3 (7.5-11.0) fL Gran % 66.3 H (36.0-66.0) % Immature Gran % (Auto) 0.4 (0.00-0.4) % Nucleat RBC Rel Count 0.0 (0.00-0.1) % Eos # (Auto) 0.16 (0-0.5) x10^3/uL Immature Gran # (Auto) 0.02 (0.00-0.03) x10^3u/L Absolute Lymphs (auto) 0.88 L (1.0-4.6) x10^3/uL Absolute Monos (auto) 0.58 (0.0-1.3) x10^3/uL Absolute Nucleated RBC 0.00 (0.00-0.01) x10^3u/L Lymphocytes % 16.8 L (24.0-44.0) % Monocytes % 11.1 (0.0-12.0) % Eosinophils % 3.1 (0.00-5.0) % Basophils % 2.3 (0.0-0.4) % Absolute Granulocytes 3.47 (1.4-6.9) x10^3/uL Basophils # 0.12 (0-0.4) x10^3/uL Sodium 139 (137-145) mmol/L Potassium 4.3 (3.5-5.1) mmol/L Chloride 105 (98-107) mmol/L Carbon Dioxide 19 L (22-30) mmol/L Anion Gap 18.3 H (5-15) MEQ/L BUN 7 (7-17) mg/dL Creatinine 0.50 L (0.52-1.04) mg/dL Estimated GFR > 60.0 ML/MIN Glucose 110 H (74-106) mg/dL Calcium 9.2 (8.4-10.2) mg/dL Total Bilirubin 0.40 (0.2-1.3) mg/dL AST 44 H (14-36) U/L ALT 21 (0-35) U/L Alkaline Phosphatase 69 (38-126) U/L Troponin I < 0.012 (0.000-0.034) ng/mL Serum Total Protein 8.0 (6.3-8.2) g/dL Albumin 4.6 (3.5-5.0) g/dL Lipase 505 H (23-300) U/L Urine Color (YELLOW) Urine Appearance (CLEAR) Urine pH (5-6) Ur Specific [place] (1.005-1.025) Urine Protein POC Urine Protein Conf (Negative) Urine Glucose (UA) Urine Ketones (NEGATIVE) Urine Blood Urine Nitrite (NEGATIVE) Urine Bilirubin (NEGATIVE) Urine Urobilinogen (0-1) mg/dL Ur Leukocyte Esterase Urine Leukocytes (NEGATIVE) U Hyaline Cast (Auto) (0-2) /LPF Urine RBC (0-5) Micah/ul Urine Microscopic RBC (0-5) /HPF Urine Microscopic WBC (0-5) /HPF Ur Epithelial Cells (None Seen) /HPF Urine Bacteria (None Seen) /HPF Urine Culture Reflexed (NO) Urine Glucose (NEGATIVE) mg/dL Influenza Type A Ag (NEGATIVE) Influenza Type B Ag (NEGATIVE) RSV (PCR) (NEGATIVE) SARS-CoV-2 (PCR) (NEGATIVE) ABO Group Rh Factor Antibody Screen (NEGATIVE) - Progress Progress: improved Progress Note: Case discussed with who accepts admission to observation. Plan of care discussed with patient. She agrees to admission to [facility] for further evaluation and treatment of her pancreatitis. 08/09/22 04:44 Patient 52-year-old female presents to our ED with epigastric pain. CT abdomen pelvis shows changes consistent with history of gastric bypass. Hepatomegaly observed otherwise no acute findings. CBC reveals a hemoglobin of 707. Patient has a history of aplastic anemia. Patient is chronically anemic. CMP reveals an anion gap acidosis. COVID-negative. Lipase 505. Type and screen completed in the event patient needs to be transfused. Urinalysis reveals a urinary tract infection. Patient received a dose of Rocephin in our ED. Patient received morphine for pain control. Pain continue to recur patient received 2 additional doses of narcotics however instead of morphine patient received Dilaudid. Zofran administered for nausea. Pain controlled at this time. Patient's presenting complaint was acute in nature. Vital stable. Complexity of problems addressed is moderate. Chronic illness with exacerbation. Patient additionally has a urinary tract infection. No critical care time. Complexity of data reviewed and analyzed is moderate. Test ordered. Test analyzed and reviewed by Dr. Wu. Patient served as independent historian. Management discussed with who excepts admission to observation. Risk of management and or risk of morbidity/mortality patient management is high. Patient received IV controlled medications. Patient received morphine an d 2 doses of Dilaudid. IV antibiotics as well as Zofran nausea medication administered. Patient required admission for further evaluation and treatment of pancreatitis and pain control. Plan of care established via shared decision making. Vital stable. Patient reassessed prior to admission to floor. She voices no other complaints or concerns at this time. Bridging orders entered. Portions of this note were created with voice recognition technology. There may be grammatical, spelling, punctuation or sound alike errors 08/09/22 04:[address] Other (Derrek) Will see patient in: hospital (observation) Counseled pt/family regarding: lab results, diagnosis, rad results - Departure Departure Disposition: Observation Clinical Impression: Pancreatitis, High anion gap metabolic acidosis, Elevated lipase, Hepatomegaly, Epigastric pain, Normocytic anemia, History of aplastic anemia, UTI (urinary tract infection) Condition: Stable Critical Care Time: No
[2022-08-09 00:38] LABS: ALBUMIN 4.6 g/dL (3.5-5.0); ALKALINE PHOSPHATASE 69 U/L (38-126); ANION GAP 18.3 MEQ/L (5-15); BLOOD UREA NITROGEN 7 mg/dL (7-17); CHLORIDE 105 mmol/L (98-107); Calcium 9.2 mg/dL (8.4-10.2); Carbon Dioxide 19 mmol/L (22-30); EST GLOMERULAR FILTRATION RATE > 60.0 ML/MIN; Glucose 110 mg/dL (74-106); LIPASE 505 U/L (23-300); Potassium 4.3 mmol/L (3.5-5.1); SGOT/AST 44 U/L (14-36); SGPT/ALT 21 U/L (0-35); SODIUM 139 mmol/L (137-145); TROPONIN < 0.012 ng/mL (0.000-0.034)
[2022-08-09] MEDS ORDERED: Hydromorphone 1 mg/ml Injection ONE ×2 (00:38→02:04)
--- NOTE | 2022-08-09 01:19 | XRAY ---
CLINICAL HISTORY:Pain; COMPARISON:None; TECHNIQUES:CT of the abdomen and pelvis was performed in axial plane without contrast and sagittal and coronal reconstruction images were also obtained; FINDINGS: The visualized lung bases appear unremarkable. Liver is enlarged measuring 17.7 cm at craniocaudal diameter, with no focal lesion, and no dilated intrahepatic billiary radicles. Surgical remove the gallbladder. Metallic clips are seen at the stomach and jejunum secondary to gastric bypass surgery. Unremarkable appearing pancreas. No pancreatic mass or ductal dilatation is seen. Unremarkable appearing spleen. The adrenal glands are normal. The kidneys appear unremarkable with no stones, cysts masses, or hydronephrosis. The ureters are normal with no stones. Unremarkable abdominal aorta without specific evidence of aneurysm or dissection. IVC is normal. The visualized distal esophagus appears unremarkable. The stomach appears unremarkable. Unremarkable colon. No free air and no ascites. No free intraperitoneal air is seen. Bladder is unremarkable with no stones. No abdominal wall pathology is seen. IMPRESSION: 1. Mild hepatomegaly. 2. Changes of gastric bypass surgery. 3. Otherwise unremarkable study. Electronically Signed by: Alena Ro MD. (08/09/2022 00:13:46 TENT FINISHER)
[2022-08-09 01:39] LABS: Appearance SLIGHTLY CLOUDY (CLEAR); Bilirubin NEGATIVE (NEGATIVE); Glucose NEGATIVE (NEGATIVE)
[2022-08-09 01:40] LABS: Ketones NEGATIVE (NEGATIVE); Nitrite NEGATIVE (NEGATIVE); Ph 5.5 (5-6); Protein,Urine Dip 30 (Negative); RBC TRACE-INTACT Ery/ul (0-5); Specific Gravity 1.025 (1.005-1.025); Urobilinogen 0.2 mg/dL (0-1)
[2022-08-09 02:00] LABS: Bacteria None Seen /HPF (None Seen); Epithelial Cells None Seen /HPF (None Seen); RBC 0-2 /HPF (0-5); WBC 51-100 /HPF (0-5)
[2022-08-09 02:01] LABS: ADD URINE CULTURE? YES (NO)
[2022-08-09 02:46] LABS: INFLUENZA A NEGATIVE (NEGATIVE); INFLUENZA B NEGATIVE (NEGATIVE); RESPIRATORY SYNCTIAL VIRUS NEGATIVE (NEGATIVE); SARS-CoV-2 Xpert Express NEGATIVE (NEGATIVE)
[2022-08-09 04:43] LABS: ABO TYPING B; Antibody Screen NEGATIVE (NEGATIVE); RH TYPING POSITIVE
[2022-08-09] MEDS ORDERED: ROCEPHIN 1 Gm-D5w 50 ml Bag** 1 G/50 ML IVPB IV STA (04:46)
[2022-08-09] MEDS ORDERED: MORPHINE SULFATE 4 MG INJ IV PRN (04:54)
[2022-08-09] MEDS ORDERED: Zofran 4 MG/2 ML VIAL IV PRN (04:54)
[2022-08-09] MEDS ORDERED: Sodium Chloride 0.9% 1000 ML 1,000 ML IV SCH (05:00)
[2022-08-09] MEDS: Sodium Chloride 0.9% 1000 ML 1,000 ML IV SCH ×3 (05:21→21:30)
[2022-08-09] MEDS ORDERED: MORPHINE SULFATE 2 MG INJ IV ONE (06:51)
--- NOTE | 2022-08-09 06:52 | PCM.HP ---
History of Present Illness - Chief Complaint Chief Complaint: Pancreatitis; abdominal pain Date: 08/09/22 History of Present Illness: is a 52 year old female. She has a history of alcoholism and gallstones. She is admitted with progressive abdominal pain. Pain is identical to prior pancreatitis episodes. This is her fifth admission for abdominal pain, and presumably pancreatitis, since March. Pain is typicaly an 8/10. She received 4 mg of morphine an hour ago. 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 She find less relief with hydromorphone than with morphine. She has some nausea, but feels like she wants to try liquid diet this morning. No diarrhoea. - Review of Systems Constitutional: Fever, Chills Eyes: No Symptoms Ears, Nose, & Throat: No Symptoms Respiratory: No Symptoms Cardiac: No Symptoms Abdominal/Gastrointestinal: Abdominal Pain, Nausea, Appetite Changes Genitourinary Symptoms: No Symptoms Musculoskeletal: No Symptoms Medications & Allergies Home Medications: Home Medication List Citalopram Hydrobromide [Citalopram HBr] 10 mg PO DAILY 05/22/22 [History Confirmed 08/08/22] Sucralfate 1000 mg/10 ml [Carafate SUSPENSION 1000 MG/10 ML] 10 ml PO ACHS 05/22/22 [History Confirmed 08/08/22] Allergies/Adverse Reactions: Allergies Allergy/AdvReac Type Severity Reaction Status Date / Time No Known Drug Allergies Allergy Verified 07/08/22 18:47 - Past Medical History Past Medical History: Yes Neurological History: No Pertinent History ENT History: No Pertinent History Cardiac History: No Pertinent History Respiratory History: No Pertinent History Endocrine Medical History: No Pertinent History Musculoskelatal History: Fractures GI Medical History: Diverticulitis, GERD, Hernia, Pancreatitis, Ulcer, Other History: No Pertinent History Pyscho-Social History: Anxiety, Bipolar, Depression, Other Reproductive Disorders: No Pertinent History Comment: aplastic anemia ,area noted on esophagus, hep c carrier; ETOH abuse and drug abuse - Past Surgical History Past Surgical History: Yes Neuro Surgical History: No Pertinent History Cardiac History: No Pertinent History Respiratory Surgery: No Pertinent History GI Surgical History: Cholecystectomy, Other Genitourinary Surgical Hx: No Pertinent History Musculskeletal Surgical Hx: Orthopedic Surgery, Other Female Surgical History: Hysterectomy, Section, Tubal Ligation Other Surgical History: left knee surgery, gastric bypass silvia en y in 2010, carpal tunnel surgery - Social History Smoking Status: Current every day smoker How long have you smoked: 6mos Exposure to second hand smoke: No Alcohol: None Drug Use: none - Physical Exam Vital Signs: Vital Signs - 24 hr Temp Pulse Resp BP Pulse Ox 08/09/22 05:03 97.6 F 95 H 18 163/80 95 08/09/22 05:01 100 08/09/22 04:49 88 18 131/98 98 08/09/22 03:06 104 H 20 140/88 98 08/09/22 02:00 89 18 155/90 97 08/09/22 01:00 85 22 115/95 98 08/09/22 00:13 89 24 181/100 100 08/08/22 23:34 97.8 F 98 H 20 173/125 100 General Appearance: mild distress Neurologic Exam: alert, oriented x 3, cooperative Neck Exam: normal inspection Respiratory Exam: normal breath sounds Cardiovascular Exam: regular rate/rhythm, normal heart sounds Gastrointestinal/Abdomen Exam: soft, tenderness Skin Exam: normal color Results - Labs Lab/Micro Results: Lab Results-Last 24 Hours 08/08/22 08/08/22 08/08/22 Range/Units 00:08 00:08 23:49 WBC 5.2 (4.0-10.5) x10^3/uL RBC 4.35 (4.1-5.4) x10^6/uL Hgb 7.7 L (12.0-16.0) g/dL Hct 28.6 L (35-47) % MCV 65.7 L (78-100) fL MCH 17.7 L (26-32) pg MCHC 26.9 L (32-36) g/dL RDW 22.4 H (11.5-14.0) % Plt Count 297 (150-450) x10^3/uL MPV 8.3 (7.5-11.0) fL Gran % 66.3 H (36.0-66.0) % Immature Gran % (Auto) 0.4 (0.00-0.4) % Nucleat RBC Rel Count 0.0 (0.00-0.1) % Eos # (Auto) 0.16 (0-0.5) x10^3/uL Immature Gran # (Auto) 0.02 (0.00-0.03) x10^3u/L Absolute Lymphs (auto) 0.88 L (1.0-4.6) x10^3/uL Absolute Monos (auto) 0.58 (0.0-1.3) x10^3/uL Absolute Nucleated RBC 0.00 (0.00-0.01) x10^3u/L Lymphocytes % 16.8 L (24.0-44.0) % Monocytes % 11.1 (0.0-12.0) % Eosinophils % 3.1 (0.00-5.0) % Basophils % 2.3 (0.0-0.4) % Absolute Granulocytes 3.47 (1.4-6.9) x10^3/uL Basophils # 0.12 (0-0.4) x10^3/uL Sodium 139 (137-145) mmol/L Potassium 4.3 (3.5-5.1) mmol/L Chloride 105 (98-107) mmol/L Carbon Dioxide 19 L (22-30) mmol/L Anion Gap 18.3 H (5-15) MEQ/L BUN 7 (7-17) mg/dL Creatinine 0.50 L (0.52-1.04) mg/dL Estimated GFR > 60.0 ML/MIN Glucose 110 H (74-106) mg/dL Calcium 9.2 (8.4-10.2) mg/dL Total Bilirubin 0.40 (0.2-1.3) mg/dL AST 44 H (14-36) U/L ALT 21 (0-35) U/L Alkaline Phosphatase 69 (38-126) U/L Troponin I < 0.012 (0.000-0.034) ng/mL Serum Total Protein 8.0 (6.3-8.2) g/dL Albumin 4.6 (3.5-5.0) g/dL Lipase 505 H (23-300) U/L Urine Color YELLOW (YELLOW) Urine Appearance SLIGHTLY CLOUDY A (CLEAR) Urine pH 5.5 (5-6) Ur Specific [place] 1.025 (1.005-1.025) Urine Protein Cancelled POC Urine Protein Conf 30 A (Negative) Urine Glucose (UA) Cancelled Urine Ketones NEGATIVE (NEGATIVE) Urine Blood Cancelled Urine Nitrite NEGATIVE (NEGATIVE) Urine Bilirubin NEGATIVE (NEGATIVE) Urine Urobilinogen 0.2 (0-1) mg/dL Ur Leukocyte Esterase Cancelled Urine Leukocytes MODERATE A (NEGATIVE) U Hyaline Cast (Auto) 3-5 A (0-2) /LPF Urine RBC TRACE-INTACT A (0-5) Micah/ul Urine Microscopic RBC 0-2 (0-5) /HPF Urine Microscopic WBC 51-100 A (0-5) /HPF Ur Epithelial Cells None Seen (None Seen) /HPF Urine Bacteria None Seen (None Seen) /HPF Urine Culture Reflexed YES (NO) Urine Glucose NEGATIVE (NEGATIVE) mg/dL Influenza Type A Ag (NEGATIVE) Influenza Type B Ag (NEGATIVE) RSV (PCR) (NEGATIVE) SARS-CoV-2 (PCR) (NEGATIVE) ABO Group Rh Factor Antibody Screen (NEGATIVE) 08/09/22 08/09/22 Range/Units 00:00 02:07 WBC (4.0-10.5) x10^3/uL RBC (4.1-5.4) x10^6/uL Hgb (12.0-16.0) g/dL Hct (35-47) % MCV (78-100) fL MCH (26-32) pg MCHC (32-36) g/dL RDW (11.5-14.0) % Plt Count (150-450) x10^3/uL MPV (7.5-11.0) fL Gran % (36.0-66.0) % Immature Gran % (Auto) (0.00-0.4) % Nucleat RBC Rel Count (0.00-0.1) % Eos # (Auto) (0-0.5) x10^3/uL Immature Gran # (Auto) (0.00-0.03) x10^3u/L Absolute Lymphs (auto) (1.0-4.6) x10^3/uL Absolute Monos (auto) (0.0-1.3) x10^3/uL Absolute Nucleated RBC (0.00-0.01) x10^3u/L Lymphocytes % (24.0-44.0) % Monocytes % (0.0-12.0) % Eosinophils % (0.00-5.0) % Basophils % (0.0-0.4) % Absolute Granulocytes (1.4-6.9) x10^3/uL Basophils # (0-0.4) x10^3/uL Sodium (137-145) mmol/L Potassium (3.5-5.1) mmol/L Chloride (98-107) mmol/L Carbon Dioxide (22-30) mmol/L Anion Gap (5-15) MEQ/L BUN (7-17) mg/dL Creatinine (0.52-1.04) mg/dL Estimated GFR ML/MIN Glucose (74-106) mg/dL Calcium (8.4-10.2) mg/dL Total Bilirubin (0.2-1.3) mg/dL AST (14-36) U/L ALT (0-35) U/L Alkaline Phosphatase (38-126) U/L Troponin I (0.000-0.034) ng/mL Serum Total Protein (6.3-8.2) g/dL Albumin (3.5-5.0) g/dL Lipase (23-300) U/L Urine Color (YELLOW) Urine Appearance (CLEAR) Urine pH (5-6) Ur Specific [place] (1.005-1.025) Urine Protein POC Urine Protein Conf (Negative) Urine Glucose (UA) Urine Ketones (NEGATIVE) Urine Blood Urine Nitrite (NEGATIVE) Urine Bilirubin (NEGATIVE) Urine Urobilinogen (0-1) mg/dL Ur Leukocyte Esterase Urine Leukocytes (NEGATIVE) U Hyaline Cast (Auto) (0-2) /LPF Urine RBC (0-5) Micah/ul Urine Microscopic RBC (0-5) /HPF Urine Microscopic WBC (0-5) /HPF Ur Epithelial Cells (None Seen) /HPF Urine Bacteria (None Seen) /HPF Urine Culture Reflexed (NO) Urine Glucose (NEGATIVE) mg/dL Influenza Type A Ag NEGATIVE (NEGATIVE) Influenza Type B Ag NEGATIVE (NEGATIVE) RSV (PCR) NEGATIVE (NEGATIVE) SARS-CoV-2 (PCR) NEGATIVE (NEGATIVE) ABO Group B Rh Factor POSITIVE Antibody Screen NEGATIVE (NEGATIVE) - Radiology Impressions Radiology Exams & Impressions: Radiology Procedures Category Date Time Status ABDOMEN AND PELVIS W/0 CONTRAS [CT] Stat Exams 08/08/22 23:46 Completed Assessment/Plan (1) Anemia Current Visit: No Status: Acute Qualifiers: Anemia type: bone marrow failure Bone marrow failure anemia type: aplastic anemia, idiopathic Qualified Code(s): D61.3 - Idiopathic aplastic anemia Assessment & Plan: Hgb 7.7, without signs of clinical anemia, will observe, no transfusion at this time Code(s): D64.9 - ANEMIA, UNSPECIFIED (2) Peptic ulcer disease Current Visit: No Status: Chronic Assessment & Plan: Continue sucralafate Code(s): K27.9 - PEPTIC ULC, SITE UNSP, UNSP AC OR CHR, W/O HEMOR OR PERF (3) History of aplastic anemia Current Visit: Yes Status: Acute Assessment & Plan: As above for anemia - will observie Code(s): Z86.2 - PRSNL HISTORY OF DIS OF THE BLD/BLD-FORM ORG/IMMUN MECHNSM (4) Epigastric pain Current Visit: Yes Status: Acute Assessment & Plan: 2/2 to chronic pancreatitis, likely, currently 11/29, will treat as below for pancreatitis Code(s): R10.13 - EPIGASTRIC PAIN (5) Pancreatitis Current Visit: Yes Status: Acute Qualifiers: Chronicity: chronic Pancreatitis type: alcohol induced Qualified Code(s): K86.0 - Alcohol-induced chronic pancreatitis Assessment & Plan: Likely secondary to alcoholism, possibel also with gallstone history, will treat with pain control, escalate to 6 mg morphine q4h with 2 mg q4h PRN staggered for breakthrough, encourage PO hydration, receiving IV fluids, will advance to liquid diet. No fevers or chills. No leukocytosis. Mild pancreatitis - labs no significant deranged. Code(s): K85.90 - ACUTE PANCREATITIS WITHOUT NECROSIS OR INFECTION, UNSP (6) Chronic anemia Current Visit: No Status: Chronic Assessment & Plan: observation as above. Code(s): D64.9 - ANEMIA, UNSPECIFIED Telemedicine Encounter - Telemedicine Encounter Telemedicine Encounter: The entirety of this encounter was performed via Telemedicine"
[2022-08-09] MEDS: ROCEPHIN 1 Gm-D5w 50 ml Bag** 1 G/50 ML IVPB IV SCH (06:59)
[2022-08-09] MEDS ORDERED: MORPHINE SULFATE 2 MG INJ IV PRN (07:28)
[2022-08-09] MEDS ORDERED: MORPHINE SULFATE 10 MG/ML IV PRN (07:30)
--- NOTE | 2022-08-09 09:09 | PCM.NOTE ---
Date and Time: 08/09/22907 Subjective Assessment: patient with epigastric pain radiating to the back, hx known pancreatitis and hiatal hernia. sees GI in [facility] and PCP in [facility] Objective Exam General Appearance: no apparent distress Neurologic Exam: alert, oriented x 3 Respiratory Exam: normal breath sounds, lungs clear, No respiratory distress Cardiovascular Exam: regular rate/rhythm, normal heart sounds Gastrointestinal/Abdomen Exam: tenderness (epigastric) Extremity Exam: normal inspection, normal range of motion OBJECTIVE DATA Vital Signs: Vital Signs - 24 hr Temp Pulse Resp BP Pulse Ox 08/09/22 08:00 97.5 F 82 17 137/90 82 L 08/09/22 05:03 97.6 F 95 H 18 163/80 95 08/09/22 05:01 100 08/09/22 04:49 88 18 131/98 98 08/09/22 03:06 104 H 20 140/88 98 08/09/22 02:00 89 18 155/90 97 08/09/22 01:00 85 22 115/95 98 08/09/22 00:13 89 24 181/100 100 08/08/22 23:34 97.8 F 98 H 20 173/125 100 Pain Assessment - Last Documented Pain Intensity 8 Pain Scale Used 0-10 Pain Scale Intake and Output: Intake & Output 08/06/22 08/07/22 08/08/22 08/09/22 11:59 11:59 11:59 11:59 Intake Total 120 Balance 120 Weight 69.8 kg Lab Results: Lab Results-Last 24 Hours 08/08/22 08/08/22 08/08/22 Range/Units 00:08 00:08 23:49 WBC 5.2 (4.0-10.5) x10^3/uL RBC 4.35 (4.1-5.4) x10^6/uL Hgb 7.7 L (12.0-16.0) g/dL Hct 28.6 L (35-47) % MCV 65.7 L (78-100) fL MCH 17.7 L (26-32) pg MCHC 26.9 L (32-36) g/dL RDW 22.4 H (11.5-14.0) % Plt Count 297 (150-450) x10^3/uL MPV 8.3 (7.5-11.0) fL Gran % 66.3 H (36.0-66.0) % Immature Gran % (Auto) 0.4 (0.00-0.4) % Nucleat RBC Rel Count 0.0 (0.00-0.1) % Eos # (Auto) 0.16 (0-0.5) x10^3/uL Immature Gran # (Auto) 0.02 (0.00-0.03) x10^3u/L Absolute Lymphs (auto) 0.88 L (1.0-4.6) x10^3/uL Absolute Monos (auto) 0.58 (0.0-1.3) x10^3/uL Absolute Nucleated RBC 0.00 (0.00-0.01) x10^3u/L Lymphocytes % 16.8 L (24.0-44.0) % Monocytes % 11.1 (0.0-12.0) % Eosinophils % 3.1 (0.00-5.0) % Basophils % 2.3 (0.0-0.4) % Absolute Granulocytes 3.47 (1.4-6.9) x10^3/uL Basophils # 0.12 (0-0.4) x10^3/uL Sodium 139 (137-145) mmol/L Potassium 4.3 (3.5-5.1) mmol/L Chloride 105 (98-107) mmol/L Carbon Dioxide 19 L (22-30) mmol/L Anion Gap 18.3 H (5-15) MEQ/L BUN 7 (7-17) mg/dL Creatinine 0.50 L (0.52-1.04) mg/dL Estimated GFR > 60.0 ML/MIN Glucose 110 H (74-106) mg/dL Calcium 9.2 (8.4-10.2) mg/dL Total Bilirubin 0.40 (0.2-1.3) mg/dL AST 44 H (14-36) U/L ALT 21 (0-35) U/L Alkaline Phosphatase 69 (38-126) U/L Troponin I < 0.012 (0.000-0.034) ng/mL Serum Total Protein 8.0 (6.3-8.2) g/dL Albumin 4.6 (3.5-5.0) g/dL Lipase 505 H (23-300) U/L Urine Color YELLOW (YELLOW) Urine Appearance SLIGHTLY CLOUDY A (CLEAR) Urine pH 5.5 (5-6) Ur Specific [place] 1.025 (1.005-1.025) Urine Protein Cancelled POC Urine Protein Conf 30 A (Negative) Urine Glucose (UA) Cancelled Urine Ketones NEGATIVE (NEGATIVE) Urine Blood Cancelled Urine Nitrite NEGATIVE (NEGATIVE) Urine Bilirubin NEGATIVE (NEGATIVE) Urine Urobilinogen 0.2 (0-1) mg/dL Ur Leukocyte Esterase Cancelled Urine Leukocytes MODERATE A (NEGATIVE) U Hyaline Cast (Auto) 3-5 A (0-2) /LPF Urine RBC TRACE-INTACT A (0-5) Micah/ul Urine Microscopic RBC 0-2 (0-5) /HPF Urine Microscopic WBC 51-100 A (0-5) /HPF Ur Epithelial Cells None Seen (None Seen) /HPF Urine Bacteria None Seen (None Seen) /HPF Urine Culture Reflexed YES (NO) Urine Glucose NEGATIVE (NEGATIVE) mg/dL Influenza Type A Ag (NEGATIVE) Influenza Type B Ag (NEGATIVE) RSV (PCR) (NEGATIVE) SARS-CoV-2 (PCR) (NEGATIVE) ABO Group Rh Factor Antibody Screen (NEGATIVE) 08/09/22 08/09/22 Range/Units 00:00 02:07 WBC (4.0-10.5) x10^3/uL RBC (4.1-5.4) x10^6/uL Hgb (12.0-16.0) g/dL Hct (35-47) % MCV (78-100) fL MCH (26-32) pg MCHC (32-36) g/dL RDW (11.5-14.0) % Plt Count (150-450) x10^3/uL MPV (7.5-11.0) fL Gran % (36.0-66.0) % Immature Gran % (Auto) (0.00-0.4) % Nucleat RBC Rel Count (0.00-0.1) % Eos # (Auto) (0-0.5) x10^3/uL Immature Gran # (Auto) (0.00-0.03) x10^3u/L Absolute Lymphs (auto) (1.0-4.6) x10^3/uL Absolute Monos (auto) (0.0-1.3) x10^3/uL Absolute Nucleated RBC (0.00-0.01) x10^3u/L Lymphocytes % (24.0-44.0) % Monocytes % (0.0-12.0) % Eosinophils % (0.00-5.0) % Basophils % (0.0-0.4) % Absolute Granulocytes (1.4-6.9) x10^3/uL Basophils # (0-0.4) x10^3/uL Sodium (137-145) mmol/L Potassium (3.5-5.1) mmol/L Chloride (98-107) mmol/L Carbon Dioxide (22-30) mmol/L Anion Gap (5-15) MEQ/L BUN (7-17) mg/dL Creatinine (0.52-1.04) mg/dL Estimated GFR ML/MIN Glucose (74-106) mg/dL Calcium (8.4-10.2) mg/dL Total Bilirubin (0.2-1.3) mg/dL AST (14-36) U/L ALT (0-35) U/L Alkaline Phosphatase (38-126) U/L Troponin I (0.000-0.034) ng/mL Serum Total Protein (6.3-8.2) g/dL Albumin (3.5-5.0) g/dL Lipase (23-300) U/L Urine Color (YELLOW) Urine Appearance (CLEAR) Urine pH (5-6) Ur Specific [place] (1.005-1.025) Urine Protein POC Urine Protein Conf (Negative) Urine Glucose (UA) Urine Ketones (NEGATIVE) Urine Blood Urine Nitrite (NEGATIVE) Urine Bilirubin (NEGATIVE) Urine Urobilinogen (0-1) mg/dL Ur Leukocyte Esterase Urine Leukocytes (NEGATIVE) U Hyaline Cast (Auto) (0-2) /LPF Urine RBC (0-5) Micah/ul Urine Microscopic RBC (0-5) /HPF Urine Microscopic WBC (0-5) /HPF Ur Epithelial Cells (None Seen) /HPF Urine Bacteria (None Seen) /HPF Urine Culture Reflexed (NO) Urine Glucose (NEGATIVE) mg/dL Influenza Type A Ag NEGATIVE (NEGATIVE) Influenza Type B Ag NEGATIVE (NEGATIVE) RSV (PCR) NEGATIVE (NEGATIVE) SARS-CoV-2 (PCR) NEGATIVE (NEGATIVE) ABO Group B Rh Factor POSITIVE Antibody Screen NEGATIVE (NEGATIVE) Radiology Exams: Radiology Procedures Category Date Time Status ABDOMEN AND PELVIS W/0 CONTRAS [CT] Stat Exams 08/08/22 23:46 Completed Assessment/Plan (1) Pancreatitis Current Visit: Yes Status: Acute Qualifiers: Chronicity: chronic Pancreatitis type: alcohol induced Qualified Code(s): K86.0 - Alcohol-induced chronic pancreatitis Assessment & Plan: keep on clears, repeat enzymes tomorrow. pain not well controlled, order morphine COATER Code(s): K85.90 - ACUTE PANCREATITIS WITHOUT NECROSIS OR INFECTION, UNSP (2) UTI (urinary tract infection) Current Visit: Yes Status: Acute Assessment & Plan: rocephin, culture pending. Code(s): N39.0 - URINARY TRACT INFECTION, SITE NOT SPECIFIED
[2022-08-09] MEDS: Zofran 4 MG/2 ML VIAL IV PRN ×4 (09:28→21:35)
[2022-08-09] MEDS: PROTONIX 40 MG IV IV SCH (09:28)
[2022-08-09] MEDS: Morphine PCA 1 MG/ML IV PRN ×2 (09:32→17:24)
[2022-08-09] MEDS ORDERED: CITALOPRAM HYDROBROMIDE 30 MG PO SCH (10:00)
[2022-08-09] MEDS: Carafate SUSPENSION 1000 MG/10 ML PO SCH ×3 (11:00→21:28)
[2022-08-09] MEDS: ceLEXa 20 MG PO SCH (11:00)
[2022-08-10] MEDS: Zofran 4 MG/2 ML VIAL IV PRN ×4 (01:50→17:31)
[2022-08-10] MEDS: Morphine PCA 1 MG/ML IV PRN ×2 (03:37→12:32)
[2022-08-10 05:19] LABS: Absolute Neutrophil Ct (ANC) 1.76 x10^3/uL (1.4-6.9); BASOPHIL % 1.6 % (0.0-0.4); Basophil (Absolute #) 0.06 x10^3/uL (0-0.4); Eosinophil % 12.7 % (0.00-5.0); Eosinophil (Absolute #) 0.48 x10^3/uL (0-0.5); Hematocrit 26.6 % (35-47); IMMATURE GRAN # 0.01 x10^3u/L (0.00-0.03); IMMATURE GRAN % 0.3 % (0.00-0.4); Lymphocyte (Absolute #) 0.98 x10^3/uL (1.0-4.6); Lymphocytes % 25.9 % (24.0-44.0); Mean Cell Volume 69.1 fL (78-100); Mean Corpuscular Hemoglobin 18.2 pg (26-32); Mean Corpuscular Hgb Concent. 26.3 g/dL (32-36); Monocytes % 13.2 % (0.0-12.0); Neutrophil % 46.3 % (36.0-66.0); Platelet Count 211 x10^3/uL (150-450); Red Blood Count 3.85 x10^6/uL (4.1-5.4); Red Cell Distribution Width 22.3 % (11.5-14.0); White Blood Count 3.8 x10^3/uL (4.0-10.5)
[2022-08-10 05:42] LABS: ALKALINE PHOSPHATASE 62 U/L (38-126); ANION GAP 13.4 MEQ/L (5-15); BLOOD UREA NITROGEN 6 mg/dL (7-17); CHLORIDE 106 mmol/L (98-107); Calcium 8.4 mg/dL (8.4-10.2); Carbon Dioxide 24 mmol/L (22-30); Creatinine 1 0.57 mg/dL (0.52-1.04); EST GLOMERULAR FILTRATION RATE > 60.0 ML/MIN; Glucose 100 mg/dL (74-106); Potassium 3.8 mmol/L (3.5-5.1); SGOT/AST 35 U/L (14-36); SGPT/ALT 18 U/L (0-35); SODIUM 140 mmol/L (137-145)
[2022-08-10 06:33] LABS: Slide Review 1 YES
[2022-08-10] MEDS: Carafate SUSPENSION 1000 MG/10 ML PO SCH ×4 (08:00→20:59)
[2022-08-10] MEDS: PROTONIX 40 MG IV IV SCH (08:11)
[2022-08-10] MEDS: ceLEXa 20 MG PO SCH (08:11)
[2022-08-10] MEDS: ROCEPHIN 1 Gm-D5w 50 ml Bag** 1 G/50 ML IVPB IV SCH (08:11)
--- NOTE | 2022-08-10 09:15 | PCM.NOTE ---
Date and Time: 08/10/22913 Subjective Assessment: patient reports no improvement in pain, not tolerating much clears. repeat lipase pending, otherwise clinically stable Objective Exam General Appearance: no apparent distress Neurologic Exam: alert, oriented x 3 Respiratory Exam: normal breath sounds, lungs clear, No respiratory distress Cardiovascular Exam: regular rate/rhythm, normal heart sounds Gastrointestinal/Abdomen Exam: tenderness (epigastric), No distention, No rebound OBJECTIVE DATA Vital Signs: Vital Signs - 24 hr Temp Pulse Resp BP Pulse Ox 08/10/22 08:00 17 08/10/22 06:50 97.1 F 80 17 133/64 90 L 08/10/22 06:42 100 08/10/22 04:00 97.7 F 80 20 138/73 96 08/10/22 03:37 18 100 08/09/22 23:48 19 08/09/22 23:42 97.6 F 63 19 124/68 100 08/09/22 22:26 98 08/09/22 19:45 97.8 F 65 18 158/67 97 08/09/22 19:14 17 08/09/22 17:32 22 97 08/09/22 17:24 24 97 08/09/22 16:00 97.1 F 75 16 163/80 99 08/09/22 13:32 16 95 08/09/22 12:00 97.1 F 86 17 140/95 99 08/09/22 09:32 15 97 Pain Assessment - Last Documented Pain Intensity 8 Pain Scale Used 0-10 Pain Scale Intake and Output: Intake & Output 08/07/22 08/08/22 08/09/22 08/10/22 11:59 11:59 11:59 11:59 Intake Total 120 1400 Balance 120 1400 Weight 69.8 kg Lab Results: Lab Results-Last 24 Hours 08/10/22 08/10/22 Range/Units 04:20 04:20 WBC 3.8 L (4.0-10.5) x10^3/uL RBC 3.85 L (4.1-5.4) x10^6/uL Hgb 7.0 L* (12.0-16.0) g/dL Hct 26.6 L (35-47) % MCV 69.1 L (78-100) fL MCH 18.2 L (26-32) pg MCHC 26.3 L (32-36) g/dL RDW 22.3 H (11.5-14.0) % Plt Count 211 (150-450) x10^3/uL MPV 8.0 (7.5-11.0) fL Gran % 46.3 (36.0-66.0) % Immature Gran % (Auto) 0.3 (0.00-0.4) % Nucleat RBC Rel Count 0.0 (0.00-0.1) % Eos # (Auto) 0.48 (0-0.5) x10^3/uL Immature Gran # (Auto) 0.01 (0.00-0.03) x10^3u/L Absolute Lymphs (auto) 0.98 L (1.0-4.6) x10^3/uL Absolute Monos (auto) 0.50 (0.0-1.3) x10^3/uL Absolute Nucleated RBC 0.00 (0.00-0.01) x10^3u/L Lymphocytes % 25.9 (24.0-44.0) % Monocytes % 13.2 H (0.0-12.0) % Eosinophils % 12.7 H (0.00-5.0) % Basophils % 1.6 (0.0-0.4) % Absolute Granulocytes 1.76 (1.4-6.9) x10^3/uL Basophils # 0.06 (0-0.4) x10^3/uL Sodium 140 (137-145) mmol/L Potassium 3.8 (3.5-5.1) mmol/L Chloride 106 (98-107) mmol/L Carbon Dioxide 24 (22-30) mmol/L Anion Gap 13.4 (5-15) MEQ/L BUN 6 L (7-17) mg/dL Creatinine 0.57 (0.52-1.04) mg/dL Estimated GFR > 60.0 ML/MIN Glucose 100 (74-106) mg/dL Calcium 8.4 (8.4-10.2) mg/dL Total Bilirubin 0.30 (0.2-1.3) mg/dL AST 35 (14-36) U/L ALT 18 (0-35) U/L Alkaline Phosphatase 62 (38-126) U/L Serum Total Protein 7.0 (6.3-8.2) g/dL Albumin 4.0 (3.5-5.0) g/dL Slides for Path Review YES Radiology Exams: Radiology Procedures Category Date Time Status ABDOMEN AND PELVIS W/0 CONTRAS [CT] Stat Exams 08/08/22 23:46 Completed Assessment/Plan (1) Pancreatitis Current Visit: Yes Status: Acute Qualifiers: Chronicity: chronic Pancreatitis type: alcohol induced Qualified Code(s): K86.0 - Alcohol-induced chronic pancreatitis Assessment & Plan: less tender on exam, await repeat lipase. if trending down no change, if not improved will make NPO Code(s): K85.90 - ACUTE PANCREATITIS WITHOUT NECROSIS OR INFECTION, UNSP (2) UTI (urinary tract infection) Current Visit: Yes Status: Acute Code(s): N39.0 - URINARY TRACT INFECTION, SITE NOT SPECIFIED
[2022-08-10] MEDS: Sodium Chloride 0.9% 1000 ML 1,000 ML IV SCH ×2 (09:33→17:06)
[2022-08-10 12:38] LABS: Hematocrit 25.3 % (35-47)
[2022-08-10 12:40] LABS: Hemoglobin 6.8 g/dL (12.0-16.0)
[2022-08-10 14:29] LABS: CROSS MATCH (PRBC) COMPATIBLE (COMPATIBLE)
[2022-08-10] MEDS: MORPHINE SULFATE 10 MG/ML IV PRN ×2 (17:49→22:00)
[2022-08-11] MEDS: Zofran 4 MG/2 ML VIAL IV PRN ×5 (01:45→20:23)
[2022-08-11] MEDS: Morphine PCA 1 MG/ML IV PRN ×3 (04:48→20:46)
[2022-08-11 06:15] LABS: Absolute Neutrophil Ct (ANC) 3.01 x10^3/uL (1.4-6.9); BASOPHIL % 2.1 % (0.0-0.4); Basophil (Absolute #) 0.11 x10^3/uL (0-0.4); Eosinophil (Absolute #) 0.63 x10^3/uL (0-0.5); Hematocrit 33.8 % (35-47); Hemoglobin 9.1 g/dL (12.0-16.0); IMMATURE GRAN # 0.01 x10^3u/L (0.00-0.03); IMMATURE GRAN % 0.2 % (0.00-0.4); Lymphocyte (Absolute #) 0.96 x10^3/uL (1.0-4.6); Lymphocytes % 18.3 % (24.0-44.0); Mean Cell Volume 72.5 fL (78-100); Mean Corpuscular Hemoglobin 19.5 pg (26-32); Mean Corpuscular Hgb Concent. 26.9 g/dL (32-36); Mean Platelet Volume 8.2 fL (7.5-11.0); Monocyte (Absolute #) 0.54 x10^3/uL (0.0-1.3); Monocytes % 10.3 % (0.0-12.0); Neutrophil % 57.1 % (36.0-66.0); Platelet Count 191 x10^3/uL (150-450); Red Blood Count 4.66 x10^6/uL (4.1-5.4); White Blood Count 5.3 x10^3/uL (4.0-10.5)
[2022-08-11 06:46] LABS: ALBUMIN 4.2 g/dL (3.5-5.0); ALKALINE PHOSPHATASE 62 U/L (38-126); AMYLASE 90 U/L (30-110); ANION GAP 14.4 MEQ/L (5-15); BLOOD UREA NITROGEN 5 mg/dL (7-17); CHLORIDE 110 mmol/L (98-107); Calcium 8.9 mg/dL (8.4-10.2); Carbon Dioxide 23 mmol/L (22-30); Creatinine 1 0.58 mg/dL (0.52-1.04); EST GLOMERULAR FILTRATION RATE > 60.0 ML/MIN; Glucose 97 mg/dL (74-106); LIPASE 196 U/L (23-300); Potassium 4.7 mmol/L (3.5-5.1); SGOT/AST 41 U/L (14-36); SGPT/ALT 20 U/L (0-35); SODIUM 143 mmol/L (137-145); Total Protein 7.3 g/dL (6.3-8.2)
[2022-08-11 07:08] LABS: Slide Review 1 YES
[2022-08-11] MEDS: Carafate SUSPENSION 1000 MG/10 ML PO SCH ×4 (07:50→20:46)
[2022-08-11] MEDS: PROTONIX 40 MG IV IV SCH (10:08)
[2022-08-11] MEDS: ceLEXa 20 MG PO SCH (10:09)
[2022-08-11] MEDS: Sodium Chloride 0.9% 1000 ML 1,000 ML IV SCH ×2 (10:10→19:48)
[2022-08-12] MEDS: Sodium Chloride 0.9% 1000 ML 1,000 ML IV SCH ×2 (05:41→14:19)
[2022-08-12 05:46] LABS: Hematocrit 31.9 % (35-47); Hemoglobin 8.8 g/dL (12.0-16.0); Mean Corpuscular Hemoglobin 19.9 pg (26-32); Mean Corpuscular Hgb Concent. 27.6 g/dL (32-36); Mean Platelet Volume 8.4 fL (7.5-11.0); Platelet Count 160 x10^3/uL (150-450); Red Blood Count 4.43 x10^6/uL (4.1-5.4); Red Cell Distribution Width 22.6 % (11.5-14.0); White Blood Count 6.4 x10^3/uL (4.0-10.5)
[2022-08-12 06:13] LABS: ALKALINE PHOSPHATASE 49 U/L (38-126); ANION GAP 11.8 MEQ/L (5-15); BLOOD UREA NITROGEN 8 mg/dL (7-17); CHLORIDE 106 mmol/L (98-107); Calcium 8.9 mg/dL (8.4-10.2); Carbon Dioxide 28 mmol/L (22-30); Creatinine 1 0.63 mg/dL (0.52-1.04); EST GLOMERULAR FILTRATION RATE > 60.0 ML/MIN; Glucose 97 mg/dL (74-106); LIPASE 303 U/L (23-300); Potassium 4.2 mmol/L (3.5-5.1); SGOT/AST 33 U/L (14-36); SGPT/ALT 19 U/L (0-35); SODIUM 141 mmol/L (137-145); Total Protein 6.8 g/dL (6.3-8.2)
[2022-08-12] MEDS: Carafate SUSPENSION 1000 MG/10 ML PO SCH ×4 (07:25→21:53)
[2022-08-12] MEDS: Morphine PCA 1 MG/ML IV PRN ×2 (07:34→16:36)
[2022-08-12 08:26] LABS: Slide Review YES
[2022-08-12] MEDS: Zofran 4 MG/2 ML VIAL IV PRN ×3 (08:36→22:47)
[2022-08-12] MEDS ORDERED: Bactroban OINTMENT TP PRN (09:55)
[2022-08-12] MEDS: ceLEXa 20 MG PO SCH (10:10)
[2022-08-12] MEDS: PROTONIX 40 MG IV IV SCH (10:10)
[2022-08-13] MEDS: Sodium Chloride 0.9% 1000 ML 1,000 ML IV SCH ×3 (00:39→19:26)
[2022-08-13] MEDS: Zofran 4 MG/2 ML VIAL IV PRN ×5 (03:03→21:22)
[2022-08-13] MEDS: Morphine PCA 1 MG/ML IV PRN ×2 (04:51→17:00)
[2022-08-13 05:05] LABS: Hematocrit 30.5 % (35-47); Hemoglobin 8.6 g/dL (12.0-16.0); Mean Cell Volume 70.8 fL (78-100); Mean Corpuscular Hgb Concent. 28.2 g/dL (32-36); Mean Platelet Volume 8.3 fL (7.5-11.0); Platelet Count 151 x10^3/uL (150-450); Red Blood Count 4.31 x10^6/uL (4.1-5.4); Red Cell Distribution Width 22.7 % (11.5-14.0); White Blood Count 5.2 x10^3/uL (4.0-10.5)
[2022-08-13 05:14] LABS: ALBUMIN 3.7 g/dL (3.5-5.0); ALKALINE PHOSPHATASE 56 U/L (38-126); AMYLASE 95 U/L (30-110); ANION GAP 10.4 MEQ/L (5-15); BLOOD UREA NITROGEN 5 mg/dL (7-17); CHLORIDE 106 mmol/L (98-107); Carbon Dioxide 29 mmol/L (22-30); Creatinine 1 0.55 mg/dL (0.52-1.04); EST GLOMERULAR FILTRATION RATE > 60.0 ML/MIN; Glucose 107 mg/dL (74-106); LIPASE 513 U/L (23-300); Potassium 4.3 mmol/L (3.5-5.1); SGOT/AST 33 U/L (14-36); SGPT/ALT 19 U/L (0-35); SODIUM 141 mmol/L (137-145); Total Protein 6.6 g/dL (6.3-8.2)
[2022-08-13 05:40] LABS: Slide Review YES
[2022-08-13] MEDS: Carafate SUSPENSION 1000 MG/10 ML PO SCH ×4 (09:02→21:18)
[2022-08-13] MEDS: Tums EX 750 MG PO PRN ×2 (09:27→19:21)
[2022-08-13] MEDS: PROTONIX 40 MG IV IV SCH (09:27)
[2022-08-13] MEDS: ceLEXa 20 MG PO SCH (09:27)
--- NOTE | 2022-08-13 13:23 | PCM.NOTE ---
Date and Time: 08/13/22 1322 Subjective Assessment: patient still having pain, no changes. she is tolerating diet ok but pain is still requiring treatment Objective Exam General Appearance: no apparent distress Neurologic Exam: alert, oriented x 3 Respiratory Exam: normal breath sounds, lungs clear, No respiratory distress Cardiovascular Exam: regular rate/rhythm, normal heart sounds Gastrointestinal/Abdomen Exam: soft, tenderness (epigastric) Extremity Exam: normal inspection, normal range of motion OBJECTIVE DATA Vital Signs: Vital Signs - 24 hr Temp Pulse Resp BP Pulse Ox 08/13/22 12:00 97.1 F 57 L 18 156/69 96 08/13/22 08:46 18 100 08/13/22 07:50 19 08/13/22 07:09 97.1 F 77 17 148/91 95 08/13/22 07:06 95 08/13/22 07:01 16 08/13/22 04:51 20 08/13/22 04:00 97.1 F 75 18 164/99 95 08/13/22 00:36 16 97 08/13/22 00:00 16 97 08/12/22 23:40 97.6 F 82 18 137/90 96 08/12/22 20:36 16 97 08/12/22 20:00 20 08/12/22 19:45 95 08/12/22 19:00 97.7 F 72 20 180/86 95 08/12/22 17:13 98 08/12/22 16:36 16 99 08/12/22 16:00 16 08/12/22 15:45 97.7 F 61 16 143/71 97 Pain Assessment - Last Documented Pain Intensity 4 Pain Scale Used 0-10 Pain Scale Intake and Output: Intake & Output 08/11/22 08/12/22 08/13/22 08/14/22 11:59 11:59 11:59 11:59 Intake Total 8743 [id number] 5422 0 Balance 8743 4352 5422 0 Lab Results: Lab Results-Last 24 Hours 08/13/22 08/13/22 Range/Units 04:33 04:33 WBC 5.2 (4.0-10.5) x10^3/uL RBC 4.31 (4.1-5.4) x10^6/uL Hgb 8.6 L (12.0-16.0) g/dL Hct 30.5 L (35-47) % MCV 70.8 L (78-100) fL MCH 20.0 L (26-32) pg MCHC 28.2 L (32-36) g/dL RDW 22.7 H (11.5-14.0) % Plt Count 151 (150-450) x10^3/uL MPV 8.3 (7.5-11.0) fL Sodium 141 (137-145) mmol/L Potassium 4.3 (3.5-5.1) mmol/L Chloride 106 (98-107) mmol/L Carbon Dioxide 29 (22-30) mmol/L Anion Gap 10.4 (5-15) MEQ/L BUN 5 L (7-17) mg/dL Creatinine 0.55 (0.52-1.04) mg/dL Estimated GFR > 60.0 ML/MIN Glucose 107 H (74-106) mg/dL Calcium 9.0 (8.4-10.2) mg/dL Total Bilirubin 0.40 (0.2-1.3) mg/dL AST 33 (14-36) U/L ALT 19 (0-35) U/L Alkaline Phosphatase 56 (38-126) U/L Serum Total Protein 6.6 (6.3-8.2) g/dL Albumin 3.7 (3.5-5.0) g/dL Amylase 95 (30-110) U/L Lipase 513 H (23-300) U/L Slides for Path Review YES Multi-Disciplinary Progress Notes: Multi-Disciplinary Progress Notes 08/13/22 09:47 Case Management Note by Margi Stephenson S/W PATIENT AND SHE CONTINUES TO DENY ANY NEW NEEDS AT TIME OF DC. SHE PLANS TO RETURN HOME ALONE TO HER PLOF AT TIME OF DC. Initialized on 08/13/22 09:47 - END OF NOTE Assessment/Plan (1) Pancreatitis Current Visit: Yes Status: Acute Qualifiers: Chronicity: chronic Pancreatitis type: alcohol induced Qualified Code(s): K86.0 - Alcohol-induced chronic pancreatitis Assessment & Plan: lipase level increased, will make NPO today and repeat labs tomorrow. Code(s): K85.90 - ACUTE PANCREATITIS WITHOUT NECROSIS OR INFECTION, UNSP
[2022-08-14] MEDS: Zofran 4 MG/2 ML VIAL IV PRN ×5 (01:38→21:07)
[2022-08-14] MEDS: Tums EX 750 MG PO PRN ×3 (03:18→14:23)
[2022-08-14 05:34] LABS: Absolute Neutrophil Ct (ANC) 2.72 x10^3/uL (1.4-6.9); BASOPHIL % 1.7 % (0.0-0.4); Basophil (Absolute #) 0.08 x10^3/uL (0-0.4); Eosinophil % 9.6 % (0.00-5.0); Eosinophil (Absolute #) 0.46 x10^3/uL (0-0.5); Hematocrit 30.2 % (35-47); Hemoglobin 8.2 g/dL (12.0-16.0); IMMATURE GRAN # 0.01 x10^3u/L (0.00-0.03); IMMATURE GRAN % 0.2 % (0.00-0.4); Lymphocyte (Absolute #) 0.81 x10^3/uL (1.0-4.6); Lymphocytes % 16.9 % (24.0-44.0); Mean Cell Volume 70.9 fL (78-100); Mean Corpuscular Hemoglobin 19.2 pg (26-32); Mean Corpuscular Hgb Concent. 27.2 g/dL (32-36); Mean Platelet Volume 8.8 fL (7.5-11.0); Monocyte (Absolute #) 0.71 x10^3/uL (0.0-1.3); Monocytes % 14.8 % (0.0-12.0); Neutrophil % 56.8 % (36.0-66.0); Platelet Count 150 x10^3/uL (150-450); Red Blood Count 4.26 x10^6/uL (4.1-5.4); Red Cell Distribution Width 22.6 % (11.5-14.0); White Blood Count 4.8 x10^3/uL (4.0-10.5)
[2022-08-14 05:47] LABS: ALBUMIN 3.6 g/dL (3.5-5.0); ALKALINE PHOSPHATASE 50 U/L (38-126); ANION GAP 8.8 MEQ/L (5-15); BLOOD UREA NITROGEN 4 mg/dL (7-17); CHLORIDE 104 mmol/L (98-107); Calcium 8.8 mg/dL (8.4-10.2); Carbon Dioxide 30 mmol/L (22-30); Creatinine 1 0.56 mg/dL (0.52-1.04); EST GLOMERULAR FILTRATION RATE > 60.0 ML/MIN; Glucose 105 mg/dL (74-106); LIPASE 827 U/L (23-300); Potassium 3.2 mmol/L (3.5-5.1); SGOT/AST 27 U/L (14-36); SGPT/ALT 17 U/L (0-35); SODIUM 139 mmol/L (137-145); Total Protein 6.3 g/dL (6.3-8.2)
[2022-08-14] MEDS: Morphine PCA 1 MG/ML IV PRN ×2 (06:06→17:49)
[2022-08-14 06:13] LABS: Slide Review 1 YES
[2022-08-14] MEDS: Carafate SUSPENSION 1000 MG/10 ML PO SCH ×3 (08:10→16:30)
--- NOTE | 2022-08-14 08:56 | PCM.NOTE ---
Date and Time: 08/14/22 0855 Subjective Assessment: patient continues to have pain in her epigastrium, radiates to her back. no vomiting. she is frustrated that her lipase is higher today in spite of making her NPO yesterday Objective Exam General Appearance: no apparent distress Respiratory Exam: normal breath sounds, lungs clear, No respiratory distress Cardiovascular Exam: regular rate/rhythm, normal heart sounds Gastrointestinal/Abdomen Exam: soft, tenderness (epigastric), No distention, No mass Extremity Exam: normal inspection, normal range of motion OBJECTIVE DATA Vital Signs: Vital Signs - 24 hr Temp Pulse Resp BP Pulse Ox 08/14/22 07:40 96.9 F 68 16 167/81 97 08/14/22 06:06 16 08/14/22 04:00 20 08/14/22 03:51 97.2 F 78 20 172/78 95 08/14/22 00:00 16 08/13/22 23:31 96.9 F 60 16 150/72 97 08/13/22 20:00 97.1 F 63 18 170/92 96 08/13/22 19:30 98 08/13/22 18:43 18 98 08/13/22 16:00 97.0 F 67 18 169/98 95 08/13/22 12:00 97.1 F 57 L 18 156/69 96 Pain Assessment - Last Documented Pain Intensity 8 Pain Scale Used 0-10 Pain Scale Intake and Output: Intake & Output 08/11/22 08/12/22 08/13/22 08/14/22 11:59 11:59 11:59 11:59 Intake Total 8743 4352 5422 2506 Balance 8743 4352 5422 2505 Lab Results: Lab Results-Last 24 Hours 08/14/22 08/14/22 Range/Units 04:59 04:59 WBC 4.8 (4.0-10.5) x10^3/uL RBC 4.26 (4.1-5.4) x10^6/uL Hgb 8.2 L (12.0-16.0) g/dL Hct 30.2 L (35-47) % MCV 70.9 L (78-100) fL MCH 19.2 L (26-32) pg MCHC 27.2 L (32-36) g/dL RDW 22.6 H (11.5-14.0) % Plt Count 150 (150-450) x10^3/uL MPV 8.8 (7.5-11.0) fL Gran % 56.8 (36.0-66.0) % Immature Gran % (Auto) 0.2 (0.00-0.4) % Nucleat RBC Rel Count 0.0 (0.00-0.1) % Eos # (Auto) 0.46 (0-0.5) x10^3/uL Immature Gran # (Auto) 0.01 (0.00-0.03) x10^3u/L Absolute Lymphs (auto) 0.81 L (1.0-4.6) x10^3/uL Absolute Monos (auto) 0.71 (0.0-1.3) x10^3/uL Absolute Nucleated RBC 0.00 (0.00-0.01) x10^3u/L Lymphocytes % 16.9 L (24.0-44.0) % Monocytes % 14.8 H (0.0-12.0) % Eosinophils % 9.6 H (0.00-5.0) % Basophils % 1.7 (0.0-0.4) % Absolute Granulocytes 2.72 (1.4-6.9) x10^3/uL Basophils # 0.08 (0-0.4) x10^3/uL Sodium 139 (137-145) mmol/L Potassium 3.2 L D (3.5-5.1) mmol/L Chloride 104 (98-107) mmol/L Carbon Dioxide 30 (22-30) mmol/L Anion Gap 8.8 (5-15) MEQ/L BUN 4 L (7-17) mg/dL Creatinine 0.56 (0.52-1.04) mg/dL Estimated GFR > 60.0 ML/MIN Glucose 105 (74-106) mg/dL Calcium 8.8 (8.4-10.2) mg/dL Total Bilirubin 0.50 (0.2-1.3) mg/dL AST 27 (14-36) U/L ALT 17 (0-35) U/L Alkaline Phosphatase 50 (38-126) U/L Serum Total Protein 6.3 (6.3-8.2) g/dL Albumin 3.6 (3.5-5.0) g/dL Lipase 827 H (23-300) U/L Slides for Path Review YES Radiology Exams: Radiology Procedures Category Date Time Status ABDOMEN AND PELVIS W/0 CONTRAS [CT] Urgent Exams 08/14/22 08:54 Ordered Multi-Disciplinary Progress Notes: Multi-Disciplinary Progress Notes 08/13/22 09:47 Case Management Note by Margi Stephenson S/W PATIENT AND SHE CONTINUES TO DENY ANY NEW NEEDS AT TIME OF DC. SHE PLANS TO RETURN HOME ALONE TO HER PLOF AT TIME OF DC. Initialized on 08/13/22 09:47 - END OF NOTE Assessment/Plan (1) Pancreatitis Current Visit: Yes Status: Acute Qualifiers: Chronicity: chronic Pancreatitis type: alcohol induced Qualified Code(s): K86.0 - Alcohol-induced chronic pancreatitis Assessment & Plan: change to dextrose containing fluids today. will repeat ct scan to r/o necrotizing pancreatitis or cyst/pseudocyst formation as a complication of her pancreatitis. keep NPO and repeat enzymes tomorrow Code(s): K85.90 - ACUTE PANCREATITIS WITHOUT NECROSIS OR INFECTION, UNSP
[2022-08-14] MEDS: Klor Con PO SCH ×4 (10:10→16:30)
[2022-08-14] MEDS: PROTONIX 40 MG IV IV SCH (10:10)
[2022-08-14] MEDS: ceLEXa 20 MG PO SCH (10:10)
[2022-08-14] MEDS: Dextrose 5%-Lr IV Solution 1000 ML 1,000 ML IV SCH ×2 (10:10→19:32)
--- NOTE | 2022-08-14 11:10 | XRAY ---
Indication: Abdomen pain and nausea. Necrotizing pancreatitis/cyst. Multiple contiguous axial images obtained through the abdomen and pelvis without contrast. Comparison: Numerous priors, most recent August 09, 2022. Lung bases demonstrates new tiny right effusion and minimal bibasilar dependent atelectasis. Heart is not enlarged. Again gastric bypass surgery, cholecystectomy, and hysterectomy. Noncontrasted stomach and bowel loops remain nonobstructed. Several pelvic small bowel loops are now mildly fluid distended up to 3 cm with fluid leveling, ileus versus enteritis. Pelvis demonstrates new small free fluid presumed reactive. No free air. Remaining liver, pancreas, spleen, adrenal glands, kidneys, ureters, bladder, and aorta are unremarkable for noncontrast exam. Impression: 1. Mild fluid distended small bowel loops with fluid leveling. Rule out ileus versus enteritis. Small pelvic free fluid presumed reactive. 2. Tiny nonspecific right pleural effusion. 3. Remaining CT abdomen/pelvis without contrast exam is grossly negative.
[2022-08-14] MEDS: TYLENOL 325 MG PO PRN ×2 (11:23→17:49)
[2022-08-14] MEDS: Miralax Powder 17GM PACKET PO PRN (16:30)
[2022-08-14] MEDS: MAG-OX 400 PO SCH ×2 (16:30→21:02)
[2022-08-15] MEDS: Carafate SUSPENSION 1000 MG/10 ML PO SCH ×5 (00:12→21:13)
[2022-08-15] MEDS: TYLENOL 325 MG PO PRN ×2 (03:11→08:51)
[2022-08-15] MEDS: Zofran 4 MG/2 ML VIAL IV PRN ×4 (03:11→18:52)
[2022-08-15] MEDS: Dextrose 5%-Lr IV Solution 1000 ML 1,000 ML IV SCH ×2 (03:16→14:32)
[2022-08-15 05:35] LABS: Absolute Neutrophil Ct (ANC) 2.15 x10^3/uL (1.4-6.9); BASOPHIL % 1.7 % (0.0-0.4); Basophil (Absolute #) 0.07 x10^3/uL (0-0.4); Eosinophil % 11.2 % (0.00-5.0); Eosinophil (Absolute #) 0.46 x10^3/uL (0-0.5); Hematocrit 28.8 % (35-47); Hemoglobin 7.9 g/dL (12.0-16.0); IMMATURE GRAN # 0.01 x10^3u/L (0.00-0.03); IMMATURE GRAN % 0.2 % (0.00-0.4); Lymphocyte (Absolute #) 0.64 x10^3/uL (1.0-4.6); Lymphocytes % 15.6 % (24.0-44.0); Mean Cell Volume 70.6 fL (78-100); Mean Corpuscular Hemoglobin 19.4 pg (26-32); Mean Corpuscular Hgb Concent. 27.4 g/dL (32-36); Monocyte (Absolute #) 0.77 x10^3/uL (0.0-1.3); Monocytes % 18.8 % (0.0-12.0); Neutrophil % 52.5 % (36.0-66.0); Platelet Count 118 x10^3/uL (150-450); Red Blood Count 4.08 x10^6/uL (4.1-5.4); Red Cell Distribution Width 22.5 % (11.5-14.0); White Blood Count 4.1 x10^3/uL (4.0-10.5)
[2022-08-15] MEDS: Morphine PCA 1 MG/ML IV PRN ×2 (05:56→07:29)
[2022-08-15 06:54] LABS: ALBUMIN 3.3 g/dL (3.5-5.0); ALKALINE PHOSPHATASE 51 U/L (38-126); AMYLASE 99 U/L (30-110); ANION GAP 8.6 MEQ/L (5-15); BLOOD UREA NITROGEN 3 mg/dL (7-17); CHLORIDE 105 mmol/L (98-107); Calcium 8.5 mg/dL (8.4-10.2); Carbon Dioxide 31 mmol/L (22-30); EST GLOMERULAR FILTRATION RATE > 60.0 ML/MIN; Glucose 110 mg/dL (74-106); LIPASE 889 U/L (23-300); MAGNESIUM 1.5 mg/dL (1.6-2.3); Potassium 3.6 mmol/L (3.5-5.1); SGOT/AST 26 U/L (14-36); SGPT/ALT 16 U/L (0-35); SODIUM 140 mmol/L (137-145); Total Protein 6.1 g/dL (6.3-8.2)
[2022-08-15 07:52] LABS: Slide Review 1 YES
[2022-08-15] MEDS: ceLEXa 20 MG PO SCH (08:51)
[2022-08-15] MEDS: PROTONIX 40 MG IV IV SCH (08:52)
[2022-08-15] MEDS: MAG-OX 400 PO SCH ×3 (08:52→21:12)
--- NOTE | 2022-08-15 09:56 | PCM.NOTE ---
Date and Time: 08/15/22954 Subjective Assessment: patient is clinically improved, does not appear to be in much pain and her abdomen is nontender. she is very hungry and would like to eat. Objective Exam General Appearance: no apparent distress Respiratory Exam: normal breath sounds, lungs clear, No respiratory distress Cardiovascular Exam: regular rate/rhythm, normal heart sounds Gastrointestinal/Abdomen Exam: soft, No tenderness, No mass Extremity Exam: normal inspection, normal range of motion OBJECTIVE DATA Vital Signs: Vital Signs - 24 hr Temp Pulse Resp BP Pulse Ox 08/15/22 07:51 96.4 F 57 L 18 132/75 97 08/15/22 07:29 16 96 08/15/22 06:40 96 08/15/22 05:56 18 100 08/15/22 04:00 98.2 F 78 18 180/90 95 08/15/22 02:32 20 97 08/15/22 00:00 97.1 F 61 18 146/76 100 08/14/22 21:49 18 96 08/14/22 20:15 91 L 08/14/22 20:00 97.6 F 60 20 176/74 97 08/14/22 17:49 18 97 08/14/22 16:00 96.4 F 60 18 155/80 08/14/22 15:15 98 08/14/22 15:11 18 99 08/14/22 12:00 19 08/14/22 11:43 93.1 F 60 16 149/70 99 08/14/22 11:11 19 98 Pain Assessment - Last Documented Pain Intensity 7 Pain Scale Used 0-10 Pain Scale Intake and Output: Intake & Output 08/12/22 08/13/22 08/14/22 08/15/22 11:59 11:59 11:59 11:59 Intake Total 4352 5422 2503 2262 Balance 4352 5422 2503 2262 Weight 69.8 kg Lab Results: Lab Results-Last 24 Hours 08/14/22 08/14/22 08/14/22 Range/Units 13:01 13:15 18:25 WBC (4.0-10.5) x10^3/uL RBC (4.1-5.4) x10^6/uL Hgb (12.0-16.0) g/dL Hct (35-47) % MCV (78-100) fL MCH (26-32) pg MCHC (32-36) g/dL RDW (11.5-14.0) % Plt Count (150-450) x10^3/uL MPV (7.5-11.0) fL Gran % (36.0-66.0) % Immature Gran % (Auto) (0.00-0.4) % Nucleat RBC Rel Count (0.00-0.1) % Eos # (Auto) (0-0.5) x10^3/uL Immature Gran # (Auto) (0.00-0.03) x10^3u/L Absolute Lymphs (auto) (1.0-4.6) x10^3/uL Absolute Monos (auto) (0.0-1.3) x10^3/uL Absolute Nucleated RBC (0.00-0.01) x10^3u/L Lymphocytes % (24.0-44.0) % Monocytes % (0.0-12.0) % Eosinophils % (0.00-5.0) % Basophils % (0.0-0.4) % Absolute Granulocytes (1.4-6.9) x10^3/uL Basophils # (0-0.4) x10^3/uL Sodium (137-145) mmol/L Potassium 3.4 L 3.9 (3.5-5.1) mmol/L Chloride (98-107) mmol/L Carbon Dioxide (22-30) mmol/L Anion Gap (5-15) MEQ/L BUN (7-17) mg/dL Creatinine (0.52-1.04) mg/dL Estimated GFR ML/MIN Glucose (74-106) mg/dL Calcium (8.4-10.2) mg/dL Magnesium 1.3 L (1.6-2.3) mg/dL Total Bilirubin (0.2-1.3) mg/dL AST (14-36) U/L ALT (0-35) U/L Alkaline Phosphatase (38-126) U/L Serum Total Protein (6.3-8.2) g/dL Albumin (3.5-5.0) g/dL Amylase (30-110) U/L Lipase (23-300) U/L Slides for Path Review 08/15/22 08/15/22 Range/Units 04:49 04:49 WBC 4.1 (4.0-10.5) x10^3/uL RBC 4.08 L (4.1-5.4) x10^6/uL Hgb 7.9 L (12.0-16.0) g/dL Hct 28.8 L (35-47) % MCV 70.6 L (78-100) fL MCH 19.4 L (26-32) pg MCHC 27.4 L (32-36) g/dL RDW 22.5 H (11.5-14.0) % Plt Count 118 L (150-450) x10^3/uL MPV 9.0 (7.5-11.0) fL Gran % 52.5 (36.0-66.0) % Immature Gran % (Auto) 0.2 (0.00-0.4) % Nucleat RBC Rel Count 0.0 (0.00-0.1) % Eos # (Auto) 0.46 (0-0.5) x10^3/uL Immature Gran # (Auto) 0.01 (0.00-0.03) x10^3u/L Absolute Lymphs (auto) 0.64 L (1.0-4.6) x10^3/uL Absolute Monos (auto) 0.77 (0.0-1.3) x10^3/uL Absolute Nucleated RBC 0.00 (0.00-0.01) x10^3u/L Lymphocytes % 15.6 L (24.0-44.0) % Monocytes % 18.8 H (0.0-12.0) % Eosinophils % 11.2 H (0.00-5.0) % Basophils % 1.7 (0.0-0.4) % Absolute Granulocytes 2.15 (1.4-6.9) x10^3/uL Basophils # 0.07 (0-0.4) x10^3/uL Sodium 140 (137-145) mmol/L Potassium 3.6 (3.5-5.1) mmol/L Chloride 105 (98-107) mmol/L Carbon Dioxide 31 H (22-30) mmol/L Anion Gap 8.6 (5-15) MEQ/L BUN 3 L (7-17) mg/dL Creatinine 0.50 L (0.52-1.04) mg/dL Estimated GFR > 60.0 ML/MIN Glucose 110 H (74-106) mg/dL Calcium 8.5 (8.4-10.2) mg/dL Magnesium 1.5 L (1.6-2.3) mg/dL Total Bilirubin 0.40 (0.2-1.3) mg/dL AST 26 (14-36) U/L ALT 16 (0-35) U/L Alkaline Phosphatase 51 (38-126) U/L Serum Total Protein 6.1 L (6.3-8.2) g/dL Albumin 3.3 L (3.5-5.0) g/dL Amylase 99 (30-110) U/L Lipase 889 H (23-300) U/L Slides for Path Review YES Radiology Exams: Radiology Procedures Category Date Time Status ABDOMEN AND PELVIS W/0 CONTRAS [CT] Urgent Exams 08/14/22 08:54 Completed Assessment/Plan (1) Pancreatitis Current Visit: Yes Status: Acute Qualifiers: Chronicity: chronic Pancreatitis type: alcohol induced Qualified Code(s): K86.0 - Alcohol-induced chronic pancreatitis Assessment & Plan: lipase remains elevated but likely lagging as she is clinically improved and no complications were on her ct scan. will advance to a bland diet, if able to tolerate could likely discharge tomorrow to f/u with her GI in [place] Code(s): K85.90 - ACUTE PANCREATITIS WITHOUT NECROSIS OR INFECTION, UNSP
[2022-08-15] MEDS: Tums EX 750 MG PO PRN (14:33)
[2022-08-15] MEDS: NORCO 7.5/325 MG TAB PO PRN ×2 (17:18→21:11)
[2022-08-15] MEDS: Miralax Powder 17GM PACKET PO PRN (21:12)
[2022-08-16] MEDS: NORCO 7.5/325 MG TAB PO PRN ×3 (01:10→13:15)
[2022-08-16] MEDS: Zofran 4 MG/2 ML VIAL IV PRN ×3 (01:10→13:16)
[2022-08-16 05:40] LABS: Absolute Neutrophil Ct (ANC) 2.54 x10^3/uL (1.4-6.9); BASOPHIL % 1.3 % (0.0-0.4); Basophil (Absolute #) 0.06 x10^3/uL (0-0.4); Eosinophil % 9.9 % (0.00-5.0); Eosinophil (Absolute #) 0.45 x10^3/uL (0-0.5); Hemoglobin 8.1 g/dL (12.0-16.0); IMMATURE GRAN # 0.01 x10^3u/L (0.00-0.03); IMMATURE GRAN % 0.2 % (0.00-0.4); Lymphocyte (Absolute #) 0.84 x10^3/uL (1.0-4.6); Lymphocytes % 18.5 % (24.0-44.0); Mean Corpuscular Hemoglobin 19.6 pg (26-32); Mean Corpuscular Hgb Concent. 27.9 g/dL (32-36); Mean Platelet Volume 9.5 fL (7.5-11.0); Monocyte (Absolute #) 0.63 x10^3/uL (0.0-1.3); Monocytes % 13.9 % (0.0-12.0); Neutrophil % 56.2 % (36.0-66.0); Platelet Count 155 x10^3/uL (150-450); Red Blood Count 4.14 x10^6/uL (4.1-5.4); Red Cell Distribution Width 22.3 % (11.5-14.0); White Blood Count 4.5 x10^3/uL (4.0-10.5)
[2022-08-16 05:41] LABS: ALBUMIN 3.3 g/dL (3.5-5.0); ALKALINE PHOSPHATASE 48 U/L (38-126); ANION GAP 6.9 MEQ/L (5-15); BLOOD UREA NITROGEN 6 mg/dL (7-17); CHLORIDE 104 mmol/L (98-107); Calcium 8.7 mg/dL (8.4-10.2); Carbon Dioxide 31 mmol/L (22-30); Creatinine 1 0.52 mg/dL (0.52-1.04); EST GLOMERULAR FILTRATION RATE > 60.0 ML/MIN; Glucose 119 mg/dL (74-106); LIPASE 1028 U/L (23-300); Potassium 3.8 mmol/L (3.5-5.1); SGOT/AST 26 U/L (14-36); SGPT/ALT 15 U/L (0-35); SODIUM 138 mmol/L (137-145); Total Protein 6.2 g/dL (6.3-8.2)
[2022-08-16 06:17] LABS: Slide Review 1 YES
--- NOTE | 2022-08-16 08:00 | PCM.DS ---
Discharge Summary Date of Admission: 08/12/22 09:55 Admitting Physician: SUE REYES MD Primary Care Provider: MARIMAR LEA NP Allergies Allergies No Known Drug Allergies Allergy (Verified 07/08/22 18:47) Hospital Summary - Hospital Course Hospital Course: patient admitted with anemia and epigastric pain, mild pancreatitis. hx gastric bypass and hiatal hernia, sees GI in [place]. she was NPO pain and symptoms improved. has elevations of lipase in spite of improved clinical condition. advised bland diet, no fat and fluids and [facility] - Vitals & Intake/Output Vital Signs: Vital Signs Temperature 97.1 F 08/16/22 04:00 Pulse Rate 65 08/16/22 04:00 Respiratory Rate 20 08/16/22 04:00 Blood Pressure 156/82 08/16/22 04:00 O2 Sat by Pulse Oximetry 95 08/16/22 07:44 Intake & Output: Intake & Output 08/13/22 08/14/22 08/15/22 08/16/22 11:59 11:59 11:59 11:59 Intake Total 5422 2503 2262 2987 Balance 5422 2503 2262 2987 Weight 69.8 kg - Lab Result Diagrams: 08/16/22 04:50 08/16/22 04:50 Lab Results-Last 24 Hrs: Lab Results-Last 24 Hours 08/16/22 08/16/22 08/16/22 Range/Units 04:50 04:50 04:50 WBC 4.5 (4.0-10.5) x10^3/uL RBC 4.14 (4.1-5.4) x10^6/uL Hgb 8.1 L (12.0-16.0) g/dL Hct 29.0 L (35-47) % MCV 70.0 L (78-100) fL MCH 19.6 L (26-32) pg MCHC 27.9 L (32-36) g/dL RDW 22.3 H (11.5-14.0) % Plt Count 155 (150-450) x10^3/uL MPV 9.5 (7.5-11.0) fL Gran % 56.2 (36.0-66.0) % Immature Gran % (Auto) 0.2 (0.00-0.4) % Nucleat RBC Rel Count 0.0 (0.00-0.1) % Eos # (Auto) 0.45 (0-0.5) x10^3/uL Immature Gran # (Auto) 0.01 (0.00-0.03) x10^3u/L Absolute Lymphs (auto) 0.84 L (1.0-4.6) x10^3/uL Absolute Monos (auto) 0.63 (0.0-1.3) x10^3/uL Absolute Nucleated RBC 0.00 (0.00-0.01) x10^3u/L Lymphocytes % 18.5 L (24.0-44.0) % Monocytes % 13.9 H (0.0-12.0) % Eosinophils % 9.9 H (0.00-5.0) % Basophils % 1.3 (0.0-0.4) % Absolute Granulocytes 2.54 (1.4-6.9) x10^3/uL Basophils # 0.06 (0-0.4) x10^3/uL Sodium 138 (137-145) mmol/L Potassium 3.8 (3.5-5.1) mmol/L Chloride 104 (98-107) mmol/L Carbon Dioxide 31 H (22-30) mmol/L Anion Gap 6.9 (5-15) MEQ/L BUN 6 L (7-17) mg/dL Creatinine 0.52 (0.52-1.04) mg/dL Estimated GFR > 60.0 ML/MIN Glucose 119 H (74-106) mg/dL Calcium 8.7 (8.4-10.2) mg/dL Magnesium 1.8 (1.6-2.3) mg/dL Total Bilirubin 0.30 (0.2-1.3) mg/dL AST 26 (14-36) U/L ALT 15 (0-35) U/L Alkaline Phosphatase 48 (38-126) U/L Serum Total Protein 6.2 L (6.3-8.2) g/dL Albumin 3.3 L (3.5-5.0) g/dL Lipase 1028 H (23-300) U/L Slides for Path Review YES Micro Results-Entire Visit: Microbiology 08/08/22 23:49 Urine Culture - Final Clean Catch Midstream <10K NORMAL SKIN CATHLEEN PROBABLE SKIN CONTAMINANT - Radiology Exams Ordered Rad Exams-Entire Visit: Radiology Procedures Category Date Time Status ABDOMEN AND PELVIS W/0 CONTRAS [CT] Urgent Exams 08/14/22 08:54 Completed - Procedures and Test Procedures and Tests throughout Hospitalization: Therapy Orders & Screens 08/09/22 22:26 Oxygen Nasal Cannula 2 lpm Comment: Diagnosis: Pancreatitis; abdominal pain Discharge Exam General Appearance: no apparent distress Neurologic Exam: alert, oriented x 3 Respiratory Exam: normal breath sounds, lungs clear, No respiratory distress Cardiovascular Exam: regular rate/rhythm, normal heart sounds Gastrointestinal/Abdomen Exam: soft, No tenderness Extremity Exam: normal inspection, normal range of motion Skin Exam: normal color, warm, dry Final Diagnosis/Problem List - Final Discharge Diagnosis/Problem (1) Pancreatitis Current Visit: Yes Status: Acute Assessment & Plan: persistent enzyme elevation, no complication on CT scan x 2 Code(s): K85.90 - ACUTE PANCREATITIS WITHOUT NECROSIS OR INFECTION, UNSP (2) Anemia Current Visit: No Status: Acute Assessment & Plan: chronic, stable after 2 units packed rbcs Code(s): D64.9 - ANEMIA, UNSPECIFIED - Discharge Disposition: Home, Self-Care Condition: Stable Prescriptions: New Hydrocodone/Acetaminophen [Hydrocodone-Acetamin 7.5-325] 1 each PO Q6H PRN PRN #28 tablet MDD 4 PRN Reason: Pain Ondansetron ODT 4 MG [Zofran Odt 4 mg] 4 mg PO Q6HPRN PRN #30 tab PRN Reason: Nausea Ferrous Sulfate 325 mg [Feosol 325 mg] 325 mg PO DAILY #30 tablet Continue Citalopram Hydrobromide [Citalopram HBr] 10 mg PO DAILY Sucralfate 1000 mg/10 ml [Carafate SUSPENSION 1000 MG/10 ML] 10 ml PO ACHS PANTOPRAZOLE 40 mg Tablet [Protonix 40MG Tablet] 40 mg PO QPM Additional Instructions: take a bland, fat free diet and drink plenty of fluids. call to f/u with your GI specialist [facility] after discharge. Follow up with: VENU,MARIMAR A., [employer] [Primary Care Provider] - Follow up/PCP as directed
[2022-08-16] MEDS: Carafate SUSPENSION 1000 MG/10 ML PO SCH ×2 (08:05→11:35)
[2022-08-16] MEDS: ceLEXa 20 MG PO SCH (08:22)
[2022-08-16] MEDS: MAG-OX 400 PO SCH (08:23)
[2022-08-16] MEDS: PROTONIX 40 MG IV IV SCH (08:24)
[2022-08-16 12:08] VITALS: BP 189/84; PULSE 70; O2SAT 99
== END 2022-08-16 14:39 | disposition home or self-care (01) | DRG 439 ==
LOC: ED 23:11 → MED SURG 08-09 04:48 → OBSVTOIN 08-12 09:55
PROVIDERS: ADMIT Internal Medicine; ATTEND Family Medicine
DX: K85.90 Acute pancreatitis without necrosis or infection, unspecified (principal); N39.0 Urinary tract infection, site not specified; D64.9 Anemia, unspecified; F10.21 Alcohol dependence, in remission; K27.9 Peptic ulcer, site unspecified, unspecified as acute or chronic, without hemorrhage or perforation; R10.13 Epigastric pain; K44.9 Diaphragmatic hernia without obstruction or gangrene; Z79.899 Other long term (current) drug therapy; Z20.828 Contact with and (suspected) exposure to other viral communicable diseases; Z72.0 Tobacco use; Z86.2 Personal history of diseases of the blood and blood-forming organs and certain disorders involving the immune mechanism
CPT/HCPCS: 0241U; 36000; 36415; 36430; 74176; 80053; 81015; 82150; 83690; 83735; 84132; 84484; 85014; 85018; 85025; 85027; 86850; 86900; 86901; 86922; 87086; 93268; 94760; 94762; 96374; 96375; 96376; 99285; J0696; J1170; J1642; J2270; J2405; P9016; A9270-GY; G0378

== ENCOUNTER 2022-08-26 21:06 | Inpatient (IN) | payer BC, OTHER ==
--- NOTE | 2022-08-26 22:45 | ERPHSYRPT ---
- History of Present Illness Time Seen by Provider: 08/26/22 22:45 Historian: patient Exam Limitations: no limitations Physician History: 52-year-old female presents to the emergency room with a 3-day history of gastric pain that radiates to her back. Describes the pain is a 10 out of 10 sharp, burning pain that is constant. Pain is worse with food and activity. Nothing improves the pain. He has a history of chronic pancreatitis for which she sees a GI specialist in [place] Dr. Andino at [place]. Patient reports that she came to the ER today because the pain worsened and she developed intractable nausea vomiting and some diarrhea. She denies fever, c hills. Timing/Duration: day(s) (3), worse Activities at Onset: rest Quality: burning, sharpness Abdominal Pain Onset Location: epigastric Pain Radiation: back Severity of Pain-Max: severe Severity of Pain-Current: severe Modifying Factors: Improves With: nothing. Worsens With: eating, movement, palpation, vomiting, walking Associated Symptoms: back, diarrhea, loss of appetite, nausea, vomiting, No fever/chills, No neck pain, No rash, No shortness of breath Previous symptoms: same symptoms as today Allergies/Adverse Reactions: No Known Drug Allergies Allergy (Verified 08/26/22 22:39) Home Medications: Citalopram Hydrobromide [Citalopram HBr] 10 mg PO DAILY 05/22/22 [History] Sucralfate 1000 mg/10 ml [Carafate SUSPENSION 1000 MG/10 ML] 10 ml PO ACHS 05/22/22 [History] PANTOPRAZOLE 40 mg Tablet [Protonix 40MG Tablet] 40 mg PO QPM 08/09/22 [History] Hx Tetanus, Diphtheria Vaccination/Date Given: Yes (3 years ago) Hx Influenza Vaccination/Date Given: No Hx Pneumococcal Vaccination/Date Given: Yes Travel Risk - Vaccine Status Have you recieved a Covid-19 vaccination: No - Review of Systems Constitutional: No Symptoms Eyes: No Symptoms Ears, Nose, & Throat: No Symptoms Respiratory: No Symptoms Cardiac: No Symptoms Abdominal/Gastrointestinal: Abdominal Pain (epigastric), Nausea, Vomiting, Diarrhea, Appetite Changes, No Hematemesis, No Hematochezia, No Melena Genitourinary Symptoms: No Symptoms Musculoskeletal: No Symptoms Skin: No Symptoms Neurological: No Symptoms Psychological: No Symptoms Endocrine: No Symptoms Hematologic/Lymphatic: No Symptoms Immunological/Allergic: No Symptoms All Other Systems: Reviewed and Negative - Past Medical History Pertinent Past Medical History: Yes Neurological History: No Pertinent History ENT History: No Pertinent History Cardiac History: No Pertinent History Respiratory History: No Pertinent History Endocrine Medical History: No Pertinent History Musculoskeletal History: Fractures GI Medical History: Diverticulitis, GERD, Hernia, Pancreatitis, Ulcer, Other History: No Pertinent History Psycho-Social History: Anxiety, Bipolar, Depression, Other Female Reproductive Disorders: No Pertinent History Other Medical History: aplastic anemia ,area noted on esophagus, hep c carrier; ETOH abuse and drug abuse - Past Surgical History Past Surgical History: Yes Neuro Surgical History: No Pertinent History Cardiac: No Pertinent History Respiratory: No Pertinent History Gastrointestinal: Cholecystectomy, Other Genitourinary: No Pertinent History Musculoskeletal: Orthopedic Surgery, Other Female Surgical History: Hysterectomy, Section, Tubal Ligation Other Surgical History: left knee surgery, gastric bypass silvia en y in 2009, carpal tunnel surgery - Social History Smoking Status: Current every day smoker How long have you smoked: 6mos Exposure to second hand smoke: No Drug Use: none Patient Lives Alone: Yes - Nursing Vital Signs Nursing Vital Signs: Initial Vital Signs Temperature 99.1 F 08/26/22 22:41 Pulse Rate 85 08/26/22 22:41 Respiratory Rate 20 08/26/22 22:41 O2 Sat by Pulse Oximetry 86 L 08/26/22 22:41 Pain Scale Pain Intensity 4 - Physical Exam General Appearance: moderate distress Eye Exam: eyes nml inspection Ears, Nose, Throat Exam: normal ENT inspection Neck Exam: normal inspection Respiratory Exam: chest tenderness, airway intact, No respiratory distress Cardiovascular Exam: regular rate/rhythm, capillary refill <2 sec Gastrointestinal/Abdomen Exam: soft, normal bowel sounds, tenderness (epigastric), guarding, No distention, No mass, No ecchymosis, No rebound Back Exam: normal inspection, normal range of motion, No CVA tenderness, No vertebral tenderness Extremity Exam: normal inspection, normal range of motion, No swelling, No tenderness Neurologic Exam: alert, oriented x 3, cooperative Skin Exam: normal color, warm, dry SpO2 Interpretation: normal O2 Delivery: Room Air - Course Nursing assessment & vital signs reviewed: Yes EKG Interpreted by Me: RATE (77), Sinus Rhythm, NORMAL AXIS, NORMAL INTERVALS, NORMAL QRS, NORMAL ST-T - CT Exams Abdomen/Pelvis CT Interpretation: Tele-radiologist Report, Other (Changes of gastric bypass surgery. Otherwise, unremarkable study) Ordered Tests: Active Orders 24 hr Category Date Time Status EKG-ER Only STAT Care 08/26/22 23:04 Active IV Insertion STAT Care 08/26/22 23:04 Active NPO (ED) STAT Care 08/26/22 23:04 Active Telemetry q4h Care 08/27/22 00:55 Active ABDOMEN AND PELVIS W/0 CONTRAS [CT] Stat Exams 08/26/22 23:05 Completed CBC W DIFF Stat Lab 08/26/22 23:04 Completed CMP Stat Lab 08/26/22 23:04 Completed LDH-LACTATE DEHYDROGENASE Stat Lab 08/26/22 23:04 Completed LIPASE Stat Lab 08/26/22 23:04 Completed Lactic Acid Stat Lab 08/26/22 23:58 Completed TROPONIN Q4H Lab 08/26/22 23:15 Completed TROPONIN Q4H Lab 08/27/22 03:15 Ordered TROPONIN Q4H Lab 08/27/22 07:15 Ordered UA W/RFX UR CULTURE Stat Lab 08/26/22 23:09 Completed Transfer Order Routine Transfer 08/27/22 Ordered Medication Summary Generic Name Dose Route Start Last Admin Trade Name Freq PRN Reason Stop Dose Admin Potassium Chloride 20 meq in 100 mls @ 50 mls/hr 08/27/22 01:00 08/27/22 0 1:07 Potassium Chloride 20 Meq In Water 100ml IV 08/27/22 04:59 50 mls/hr Q2H NEELIMA Administration Discontinued Medications Generic Name Dose Route Start Last Admin Trade Name Freq PRN Reason Stop Dose Admin Hydromorphone HCl 2 mg 08/26/22 23:04 08/27/22 00:09 Hydromorphone 1 Mg/1ml Inj IV 08/26/22 23:05 2 mg STAT ONE Administration Hydromorphone HCl Confirm 08/27/22 00:06 Hydromorphone 1 Mg/1ml Inj Administered 08/27/22 00:07 Dose 2 mg .ROUTE .STK-MED ONE Sodium Chloride 1,000 mls @ 999 mls/hr 08/26/22 23:04 08/27/22 01:27 Sodium Chloride 0.9% 1000 Ml IV 08/27/22 00:04 Infused .Q1H1M STA Infusion Sodium Chloride Confirm 08/27/22 00:06 Sodium Chloride 0.9% 1000 Ml Administered 08/27/22 00:07 Dose 1,000 mls @ ud .ROUTE .STK-MED ONE Labetalol HCl 20 mg 08/27/22 00:58 08/27/22 01:07 Labetalol Hcl 20 Mg/4 Ml Disp.Syringe IV 08/27/22 00:59 20 mg STAT ONE Administration Labetalol HCl Confirm 08/27/22 01:04 Labetalol Hcl 20 Mg/4 Ml Disp.Syringe Administered 08/27/22 01:05 Dose 20 mg IV .STK-MED ONE Ondansetron HCl 4 mg 08/26/22 23:04 08/27/22 00:09 Ondansetron Hcl 4 Mg/2 Ml Vial IV 08/26/22 23:05 4 mg STAT ONE Administration Ondansetron HCl Confirm 08/27/22 00:05 Ondansetron Hcl 4 Mg/2 Ml Vial Administered 08/27/22 00:06 Dose 4 mg .ROUTE .STK-PAS-[employer] ONE Lab/Rad Data: Laboratory Result Diagrams 08/26/22 23:04 08/26/22 23:04 Laboratory Results 08/26/22 08/26/22 08/26/22 Range/Units 23:58 23:15 23:09 WBC (4.0-10.5) x10^3/uL RBC (4.1-5.4) x10^6/uL Hgb (12.0-16.0) g/dL Hct (35-47) % MCV (78-100) fL MCH (26-32) pg MCHC (32-36) g/dL RDW (11.5-14.0) % Plt Count (150-450) x10^3/uL MPV (7.5-11.0) fL Gran % (36.0-66.0) % Immature Gran % (Auto) (0.00-0.4) % Nucleat RBC Rel Count (0.00-0.1) % Eos # (Auto) (0-0.5) x10^3/uL Immature Gran # (Auto) (0.00-0.03) x10^3u/L Absolute Lymphs (auto) (1.0-4.6) x10^3/uL Absolute Monos (auto) (0.0-1.3) x10^3/uL Absolute Nucleated RBC (0.00-0.01) x10^3u/L Lymphocytes % (24.0-44.0) % Monocytes % (0.0-12.0) % Eosinophils % (0.00-5.0) % Basophils % (0.0-0.4) % Absolute Granulocytes (1.4-6.9) x10^3/uL Basophils # (0-0.4) x10^3/uL Sodium (137-145) mmol/L Potassium (3.5-5.1) mmol/L Chloride (98-107) mmol/L Carbon Dioxide (22-30) mmol/L Anion Gap (5-15) MEQ/L BUN (7-17) mg/dL Creatinine (0.52-1.04) mg/dL Estimated GFR ML/MIN Glucose (74-106) mg/dL Lactic Acid 0.9 (0.4-2.0) Calcium (8.4-10.2) mg/dL Total Bilirubin (0.2-1.3) mg/dL AST (14-36) U/L ALT (0-35) U/L Alkaline Phosphatase (38-126) U/L Lactate Dehydrogenase (120-246) U/L Troponin I < 0.012 (0.000-0.034) ng/mL Serum Total Protein (6.3-8.2) g/dL Albumin (3.5-5.0) g/dL Lipase (23-300) U/L Urine Color Yellow (Yellow) Urine Appearance Clear (Clear) Urine pH 6.5 (4.6-8.0) Ur Specific Roscoe <=1.005 (1.005-1.030) Urine Protein Negative (Negative) Urine Glucose (UA) Negative (Negative) mg/dL Urine Ketones Negative (Negative) Urine Blood Negative (Negative) Urine Nitrite Negative (Negative) Urine Bilirubin Negative (Negative) Urine Urobilinogen 0.2 (0.2) mg/dL Ur Leukocyte Esterase Negative (Negative) U Hyaline Cast (Auto) NONE SEEN (0-2) /LPF Urine Microscopic RBC 0-2 (0-5) /HPF Urine Microscopic WBC 0-2 (0-5) /HPF Ur Epithelial Cells None Seen (None Seen) /HPF Urine Bacteria None Seen (None Seen) /HPF Urine Culture Reflexed NO (NO) Slides for Path Review 08/26/22 08/26/22 Range/Units 23:04 23:04 WBC 8.2 (4.0-10.5) x10^3/uL RBC 4.95 (4.1-5.4) x10^6/uL Hgb 9.7 L (12.0-16.0) g/dL Hct 33.3 L (35-47) % MCV 67.3 L (78-100) fL MCH 19.6 L (26-32) pg MCHC 29.1 L (32-36) g/dL RDW 22.3 H (11.5-14.0) % Plt Count 679 H (150-450) x10^3/uL MPV 8.1 (7.5-11.0) fL Gran % 57.5 (36.0-66.0) % Immature Gran % (Auto) 0.2 (0.00-0.4) % Nucleat RBC Rel Count 0.0 (0.00-0.1) % Eos # (Auto) 0.61 H (0-0.5) x10^3/uL Immature Gran # (Auto) 0.02 (0.00-0.03) x10^3u/L Absolute Lymphs (auto) 1.93 (1.0-4.6) x10^3/uL Absolute Monos (auto) 0.74 (0.0-1.3) x10^3/uL Absolute Nucleated RBC 0.00 (0.00-0.01) x10^3u/L Lymphocytes % 23.5 L (24.0-44.0) % Monocytes % 9.0 (0.0-12.0) % Eosinophils % 7.4 H (0.00-5.0) % Basophils % 2.4 (0.0-0.4) % Absolute Granulocytes 4.72 (1.4-6.9) x10^3/uL Basophils # 0.20 (0-0.4) x10^3/uL Sodium 141 (137-145) mmol/L Potassium 3.2 L (3.5-5.1) mmol/L Chloride 107 (98-107) mmol/L Carbon Dioxide 21 L (22-30) mmol/L Anion Gap 16.2 H (5-15) MEQ/L BUN 7 (7-17) mg/dL Creatinine 0.52 (0.52-1.04) mg/dL Estimated GFR > 60.0 ML/MIN Glucose 97 (74-106) mg/dL Lactic Acid (0.4-2.0) Calcium 9.3 (8.4-10.2) mg/dL Total Bilirubin 0.40 (0.2-1.3) mg/dL AST 35 (14-36) U/L ALT 20 (0-35) U/L Alkaline Phosphatase 75 (38-126) U/L Lactate Dehydrogenase 207 (120-246) U/L Troponin I (0.000-0.034) ng/mL Serum Total Protein 7.7 (6.3-8.2) g/dL Albumin 4.4 (3.5-5.0) g/dL Lipase 1388 H (23-300) U/L Urine Color (Yellow) Urine Appearance (Clear) Urine pH (4.6-8.0) Ur Specific Roscoe (1.005-1.030) Urine Protein (Negative) Urine Glucose (UA) (Negative) mg/dL Urine Ketones (Negative) Urine Blood (Negative) Urine Nitrite (Negative) Urine Bilirubin (Negative) Urine Urobilinogen (0.2) mg/dL Ur Leukocyte Esterase (Negative) U Hyaline Cast (Auto) (0-2) /LPF Urine Microscopic RBC (0-5) /HPF Urine Microscopic WBC (0-5) /HPF Ur Epithelial Cells (None Seen) /HPF Urine Bacteria (None Seen) /HPF Urine Culture Reflexed (NO) Slides for Path Review YES - Progress Progress: improved Progress Note: Initial lab evaluation showed anemia with a hemoglobin of 9.6. CMP showed a potassium of 3.2 so 40 mill equivalents of potassium chloride was given via IV piggyback. Her lipase came back elevated at 1388. Her pain did improve with 2 mg of Dilaudid that were given to her. Her nausea improved with 4 mg of Zofran. Her CT scan of the abdomen pelvis were negative. Dr. Antoine agreed to accept patient for inpatient observation for pain control until acute exacerbation of pancreatitis is resolved. Patient will remain n.p.o. at this time and will have a Dilaudid [employer] while admitted. Discussed with : Amos Will see patient in: hospital (observation) Counseled pt/family regarding: lab results, diagnosis, need for follow-up, rad results Medical Desision Making - Discussion of managment Care discussed with:: on-call "doc" Reviewed:: Test results Agreed on:: Treatment plan, place in obs Will see patient: in hospital - Diagnostic Testing Diagnostic test were ordered, analyzed, and reviewed by me: Yes Radiological Interpretation: Reviewed by me, Teleradiologist Report - Risk of complications The pt has a mod risk of morbidity or mortality based on: Need for prescription drug management The pt has a high risk of morbidity or mortality based on: Decision regarding hospitilization or escalation of hosp level of care - Departure Departure Disposition: Observation Clinical Impression: Acute on chronic pancreatitis, Hypokalemia, History of Silvia-en-Y gastric bypass, Hypertensive urgency, Anemia Condition: Stable Critical Care Time: No Referrals: MARIMAR LEA NP [Primary Care Provider] - Follow up/PCP as directed Instructions: Chronic Pancreatitis (DC)
[2022-08-26] MEDS ORDERED: Zofran 4 MG/2 ML VIAL IV ONE (23:04)
[2022-08-26] MEDS ORDERED: Sodium Chloride 0.9% 1000 ML 1,000 ML IV STA (23:04)
[2022-08-26] MEDS ORDERED: Hydromorphone 1 mg/ml Injection IV ONE (23:04)
[2022-08-26 23:18] LABS: Appearance Clear (Clear); Bacteria None Seen /HPF (None Seen); Bilirubin Negative (Negative); Blood Negative (Negative); Epithelial Cells None Seen /HPF (None Seen); Glucose, Urine Negative (Negative); Hyaline Casts NONE SEEN /LPF (0-2); Ketones Negative (Negative); Leukocyte Esterase Negative (Negative); Nitrite Negative (Negative); Ph 6.5 (4.6-8.0); Protein,Urine Dip Negative (Negative); RBC 0-2 /HPF (0-5); Specific Gravity <=1.005 (1.005-1.030); Urobilinogen 0.2 mg/dL (0.2); WBC 0-2 /HPF (0-5)
[2022-08-26 23:39] LABS: ADD URINE CULTURE? NO (NO)
[2022-08-27] MEDS ORDERED: Zofran 4 MG/2 ML VIAL ONE (00:05)
[2022-08-27 00:06] LABS: Absolute Neutrophil Ct (ANC) 4.72 x10^3/uL (1.4-6.9); BASOPHIL % 2.4 % (0.0-0.4); Eosinophil % 7.4 % (0.00-5.0); Eosinophil (Absolute #) 0.61 x10^3/uL (0-0.5); Hematocrit 33.3 % (35-47); Hemoglobin 9.7 g/dL (12.0-16.0); IMMATURE GRAN # 0.02 x10^3u/L (0.00-0.03); IMMATURE GRAN % 0.2 % (0.00-0.4); Lymphocyte (Absolute #) 1.93 x10^3/uL (1.0-4.6); Lymphocytes % 23.5 % (24.0-44.0); Mean Cell Volume 67.3 fL (78-100); Mean Corpuscular Hemoglobin 19.6 pg (26-32); Mean Corpuscular Hgb Concent. 29.1 g/dL (32-36); Mean Platelet Volume 8.1 fL (7.5-11.0); Monocyte (Absolute #) 0.74 x10^3/uL (0.0-1.3); Neutrophil % 57.5 % (36.0-66.0); Platelet Count 679 x10^3/uL (150-450); Red Blood Count 4.95 x10^6/uL (4.1-5.4); Red Cell Distribution Width 22.3 % (11.5-14.0); White Blood Count 8.2 x10^3/uL (4.0-10.5)
[2022-08-27] MEDS ORDERED: Hydromorphone 1 mg/ml Injection ONE (00:06)
[2022-08-27] MEDS ORDERED: Sodium Chloride 0.9% 1000 ML 1,000 ML ONE (00:06)
[2022-08-27 00:27] LABS: ALBUMIN 4.4 g/dL (3.5-5.0); ALKALINE PHOSPHATASE 75 U/L (38-126); BLOOD UREA NITROGEN 7 mg/dL (7-17); CHLORIDE 107 mmol/L (98-107); Calcium 9.3 mg/dL (8.4-10.2); Carbon Dioxide 21 mmol/L (22-30); Creatinine 1 0.52 mg/dL (0.52-1.04); EST GLOMERULAR FILTRATION RATE > 60.0 ML/MIN; Glucose 97 mg/dL (74-106); LDH-LACTATE DEHYDROGENASE 207 U/L (120-246); LIPASE 1388 U/L (23-300); Potassium 3.2 mmol/L (3.5-5.1); SGOT/AST 35 U/L (14-36); SGPT/ALT 20 U/L (0-35); SODIUM 141 mmol/L (137-145); Total Protein 7.7 g/dL (6.3-8.2)
[2022-08-27 00:32] LABS: Slide Review 1 YES
[2022-08-27 00:38] LABS: ANION GAP 16.2 MEQ/L (5-15)
[2022-08-27] MEDS ORDERED: TRANDATE 20 MG/4 ML SYRINGE IV ONE ×2 (00:58→01:04)
[2022-08-27] MEDS: POTASSIUM CHLORIDE 20 mEq IN WATER 100ML 20 MEQ/100 ML BAG IV SCH ×2 (01:07→04:27)
--- NOTE | 2022-08-27 01:35 | XRAY ---
CLINICAL HISTORY:Epigastric pain; COMPARISON:08/14/2022; TECHNIQUES:CT scan of the abdomen and pelvis was performed without IV contrast. Coronal and sagittal reconstructive images were also obtained; FINDINGS: The liver measures 17 cm in CC dimension. Area of focal fat infiltration along the falciform ligament. No diffuse parenchymal abnormality. The portal vein, intrahepatic biliary radicals, and bile ducts are normal. The spleen, pancreas, and adrenal glands are unremarkable. The kidneys are normal in size and shape. The right extrarenal pelvis is seen, No calculi or hydronephrosis. The gallbladder is surgically absent. Surgical batsheva are noted in the gall bladder fossa. Evidence of gastric bypass surgery. Small and large bowel loops are unremarkable. There is no evidence of significant enlargement of the mesenteric or retroperitoneal lymph nodes. The urinary bladder is unremarkable. The rectosigmoid colon is unremarkable. The uterus is surgically absent. The vaginal stump is unremarkable. No adnexal mass or cyst is seen. The pelvic vasculature is unremarkable. No evidence of pelvic lymphadenopathy. Scan through the lower chest is clear. Mild degenerative changes were seen in the visualized skeleton. IMPRESSION: Changes of gastric bypass surgery. Otherwise, unremarkable study. Electronically Signed by: Alena Ro MD. (08/27/2022 00:28:43 ROOF SHINGLER)
[2022-08-27] MEDS ORDERED: HYDROMORPHONE 30 MG/30 ML-NS PCA IV PRN (01:59)
[2022-08-27] MEDS ORDERED: Sodium Chloride 0.9% W/ 20 mEq KCl/LITER 1,000 ML IV SCH (01:59)
[2022-08-27 03:53] LABS: Hematocrit 31.3 % (35-47); Hemoglobin 8.9 g/dL (12.0-16.0); Mean Cell Volume 68.2 fL (78-100); Mean Corpuscular Hemoglobin 19.4 pg (26-32); Mean Corpuscular Hgb Concent. 28.4 g/dL (32-36); Mean Platelet Volume 8.1 fL (7.5-11.0); Platelet Count 606 x10^3/uL (150-450); Red Blood Count 4.59 x10^6/uL (4.1-5.4); White Blood Count 8.2 x10^3/uL (4.0-10.5)
[2022-08-27] MEDS: Zofran 4 MG/2 ML VIAL IV PRN ×4 (04:26→20:26)
[2022-08-27 04:32] LABS: BLOOD UREA NITROGEN 6 mg/dL (7-17); CHLORIDE 110 mmol/L (98-107); Calcium 8.3 mg/dL (8.4-10.2); Carbon Dioxide 18 mmol/L (22-30); Creatinine 1 0.49 mg/dL (0.52-1.04); EST GLOMERULAR FILTRATION RATE > 60.0 ML/MIN; Glucose 103 mg/dL (74-106); Potassium 3.1 mmol/L (3.5-5.1); SODIUM 141 mmol/L (137-145)
[2022-08-27 05:21] LABS: ANISOCYTOSIS 1+; BAND 1 % (0.0-2.0); Eosinophil 2 % (0.00-3.0); Hypochromia 2+; Lymphocytes 20 % (24-44); Monocyte 4 % (0.0-12.0); Neutrophils 73 % (36.0-66.0); Platelet Estimate INCREASED (NORMAL); Total Cells Counted 100
--- NOTE | 2022-08-27 08:17 | PCM.HP ---
History of Present Illness - Chief Complaint Chief Complaint: PANCREATITIS History of Present Illness: is a 52 year old female with no local physician who continues to return to [facility] when ill, she presented with epigastric pain and vomiting, she has recurrent pancreatitis, sees GI in [place] but hasn't addressed her pancreatitis with him since last visit for unknown reason. - Review of Systems Constitutional: No Fever, No Chills Respiratory: No Cough, No Short Of Breath Cardiac: No Chest Pain, No Edema, No Syncope Abdominal/Gastrointestinal: Abdominal Pain, Nausea, Vomiting, Diarrhea Genitourinary Symptoms: No Dysuria All Other Systems: Reviewed and Negative Medications & Allergies Home Medications: Home Medication List Citalopram Hydrobromide [Citalopram HBr] 10 mg PO DAILY 05/22/22 [History Confirmed 08/26/22] Sucralfate 1000 mg/10 ml [Carafate SUSPENSION 1000 MG/10 ML] 10 ml PO ACHS 05/22/22 [History Confirmed 08/26/22] PANTOPRAZOLE 40 mg Tablet [Protonix 40MG Tablet] 40 mg PO QPM 08/09/22 [History Confirmed 08/26/22] Ferrous Sulfate 325 mg [Feosol 325 mg] 325 mg PO DAILY #30 tablet 08/16/22 [Rx Confirmed 08/26/22] Allergies/Adverse Reactions: Allergies Allergy/AdvReac Type Severity Reaction Status Date / Time No Known Drug Allergies Allergy Verified 08/26/22 22:39 - Past Medical History Past Medical History: Yes Neurological History: No Pertinent History ENT History: No Pertinent History Cardiac History: No Pertinent History Respiratory History: No Pertinent History Endocrine Medical History: No Pertinent History Musculoskelatal History: No Pertinent History GI Medical History: GERD, Gallbladder Disease, Hernia, Pancreatitis, Other History: No Pertinent History Pyscho-Social History: Anxiety, Attention Deficit Disorder, Depression Reproductive Disorders: No Pertinent History Comment: aplastic anemia ,area noted on esophagus, hep c carrier; ETOH abuse and drug abuse - Female History Are you now?: No - Past Surgical History Past Surgical History: Yes Neuro Surgical History: No Pertinent History Cardiac History: No Pertinent History Respiratory Surgery: No Pertinent History GI Surgical History: Cholecystectomy Genitourinary Surgical Hx: No Pertinent History Musculskeletal Surgical Hx: Orthopedic Surgery Female Surgical History: Hysterectomy Other Surgical History: left knee surgery, gastric bypass campbell en y in 2010, carpal tunnel surgery - Social History Smoking Status: Never smoker How long have you smoked: 6mos Exposure to second hand smoke: No Alcohol: None Drug Use: none - Physical Exam Vital Signs: Vital Signs - 24 hr Temp Pulse Resp BP BP Pulse Ox 08/27/22 07:31 97.7 F 79 19 164/85 99 08/27/22 07:00 18 100 08/27/22 06:16 18 100 08/27/22 02:37 97.3 F 79 16 167/81 08/27/22 02:16 13 97 08/27/22 01:30 81 19 156/109 96 08/27/22 01:00 89 23 175/92 100 08/27/22 00:11 98 H 12 200/100 08/27/22 00:00 82 16 200/100 100 08/26/22 23:21 89 20 188/142 100 08/26/22 22:41 99.1 F 85 20 86 L General Appearance: no apparent distress, alert Neurologic Exam: alert, oriented x 3 Respiratory Exam: normal breath sounds, lungs clear, No respiratory distress Gastrointestinal/Abdomen Exam: soft, tenderness (epigastric), No guarding, No rebound Extremity Exam: normal inspection, normal range of motion, pelvis stable Skin Exam: normal color, warm, dry, No rash Results - Labs Lab/Micro Results: Lab Results-Last 24 Hours 08/26/22 08/26/22 08/26/22 Range/Units 23:04 23:04 23:09 WBC 8.2 (4.0-10.5) x10^3/uL RBC 4.95 (4.1-5.4) x10^6/uL Hgb 9.7 L (12.0-16.0) g/dL Hct 33.3 L (35-47) % MCV 67.3 L (78-100) fL MCH 19.6 L (26-32) pg MCHC 29.1 L (32-36) g/dL RDW 22.3 H (11.5-14.0) % Plt Count 679 H (150-450) x10^3/uL MPV 8.1 (7.5-11.0) fL Gran % 57.5 (36.0-66.0) % Immature Gran % (Auto) 0.2 (0.00-0.4) % Nucleat RBC Rel Count 0.0 (0.00-0.1) % Eos # (Auto) 0.61 H (0-0.5) x10^3/uL Immature Gran # (Auto) 0.02 (0.00-0.03) x10^3u/L Absolute Lymphs (auto) 1.93 (1.0-4.6) x10^3/uL Absolute Monos (auto) 0.74 (0.0-1.3) x10^3/uL Absolute Nucleated RBC 0.00 (0.00-0.01) x10^3u/L Lymphocytes % 23.5 L (24.0-44.0) % Monocytes % 9.0 (0.0-12.0) % Eosinophils % 7.4 H (0.00-5.0) % Basophils % 2.4 (0.0-0.4) % Absolute Granulocytes 4.72 (1.4-6.9) x10^3/uL Segmented Neutrophils (36.0-66.0) % Band Neutrophils (0.0-2.0) % Lymphocytes (Manual) (24-44) % Monocytes (Manual) (0.0-12.0) % Eosinophils (Manual) (0.00-3.0) % Basophils # 0.20 (0-0.4) x10^3/uL Hypochromia Platelet Estimate (NORMAL) RBC Morphology Anisocytosis Sodium 141 (137-145) mmol/L Potassium 3.2 L (3.5-5.1) mmol/L Chloride 107 (98-107) mmol/L Carbon Dioxide 21 L (22-30) mmol/L Anion Gap 16.2 H (5-15) MEQ/L BUN 7 (7-17) mg/dL Creatinine 0.52 (0.52-1.04) mg/dL Estimated GFR > 60.0 ML/MIN Glucose 97 (74-106) mg/dL Lactic Acid (0.4-2.0) Calcium 9.3 (8.4-10.2) mg/dL Magnesium (1.6-2.3) mg/dL Total Bilirubin 0.40 (0.2-1.3) mg/dL AST 35 (14-36) U/L ALT 20 (0-35) U/L Alkaline Phosphatase 75 (38-126) U/L Lactate Dehydrogenase 207 (120-246) U/L Troponin I (0.000-0.034) ng/mL Serum Total Protein 7.7 (6.3-8.2) g/dL Albumin 4.4 (3.5-5.0) g/dL Lipase 1388 H (23-300) U/L Urine Color Yellow (Yellow) Urine Appearance Clear (Clear) Urine pH 6.5 (4.6-8.0) Ur Specific [place] <=1.005 (1.005-1.030) Urine Protein Negative (Negative) Urine Glucose (UA) Negative (Negative) mg/dL Urine Ketones Negative (Negative) Urine Blood Negative (Negative) Urine Nitrite Negative (Negative) Urine Bilirubin Negative (Negative) Urine Urobilinogen 0.2 (0.2) mg/dL Ur Leukocyte Esterase Negative (Negative) U Hyaline Cast (Auto) NONE SEEN (0-2) /LPF Urine Microscopic RBC 0-2 (0-5) /HPF Urine Microscopic WBC 0-2 (0-5) /HPF Ur Epithelial Cells None Seen (None Seen) /HPF Urine Bacteria None Seen (None Seen) /HPF Urine Culture Reflexed NO (NO) Slides for Path Review YES 08/26/22 08/26/22 08/27/22 Range/Units 23:15 23:58 03:44 WBC (4.0-10.5) x10^3/uL RBC (4.1-5.4) x10^6/uL Hgb (12.0-16.0) g/dL Hct (35-47) % MCV (78-100) fL MCH (26-32) pg MCHC (32-36) g/dL RDW (11.5-14.0) % Plt Count (150-450) x10^3/uL MPV (7.5-11.0) fL Gran % (36.0-66.0) % Immature Gran % (Auto) (0.00-0.4) % Nucleat RBC Rel Count (0.00-0.1) % Eos # (Auto) (0-0.5) x10^3/uL Immature Gran # (Auto) (0.00-0.03) x10^3u/L Absolute Lymphs (auto) (1.0-4.6) x10^3/uL Absolute Monos (auto) (0.0-1.3) x10^3/uL Absolute Nucleated RBC (0.00-0.01) x10^3u/L Lymphocytes % (24.0-44.0) % Monocytes % (0.0-12.0) % Eosinophils % (0.00-5.0) % Basophils % (0.0-0.4) % Absolute Granulocytes (1.4-6.9) x10^3/uL Segmented Neutrophils (36.0-66.0) % Band Neutrophils (0.0-2.0) % Lymphocytes (Manual) (24-44) % Monocytes (Manual) (0.0-12.0) % Eosinophils (Manual) (0.00-3.0) % Basophils # (0-0.4) x10^3/uL Hypochromia Platelet Estimate (NORMAL) RBC Morphology Anisocytosis Sodium (137-145) mmol/L Potassium (3.5-5.1) mmol/L Chloride (98-107) mmol/L Carbon Dioxide (22-30) mmol/L Anion Gap (5-15) MEQ/L BUN (7-17) mg/dL Creatinine (0.52-1.04) mg/dL Estimated GFR ML/MIN Glucose (74-106) mg/dL Lactic Acid 0.9 (0.4-2.0) Calcium (8.4-10.2) mg/dL Magnesium (1.6-2.3) mg/dL Total Bilirubin (0.2-1.3) mg/dL AST (14-36) U/L ALT (0-35) U/L Alkaline Phosphatase (38-126) U/L Lactate Dehydrogenase (120-246) U/L Troponin I < 0.012 < 0.012 (0.000-0.034) ng/mL Serum Total Protein (6.3-8.2) g/dL Albumin (3.5-5.0) g/dL Lipase (23-300) U/L Urine Color (Yellow) Urine Appearance (Clear) Urine pH (4.6-8.0) Ur Specific [place] (1.005-1.030) Urine Protein (Negative) Urine Glucose (UA) (Negative) mg/dL Urine Ketones (Negative) Urine Blood (Negative) Urine Nitrite (Negative) Urine Bilirubin (Negative) Urine Urobilinogen (0.2) mg/dL Ur Leukocyte Esterase (Negative) U Hyaline Cast (Auto) (0-2) /LPF Urine Microscopic RBC (0-5) /HPF Urine Microscopic WBC (0-5) /HPF Ur Epithelial Cells (None Seen) /HPF Urine Bacteria (None Seen) /HPF Urine Culture Reflexed (NO) Slides for Path Review 08/27/22 08/27/22 08/27/22 Range/Units 03:44 03:44 06:50 WBC 8.2 (4.0-10.5) x10^3/uL RBC 4.59 (4.1-5.4) x10^6/uL Hgb 8.9 L (12.0-16.0) g/dL Hct 31.3 L (35-47) % MCV 68.2 L (78-100) fL MCH 19.4 L (26-32) pg MCHC 28.4 L (32-36) g/dL RDW 22.0 H (11.5-14.0) % Plt Count 606 H (150-450) x10^3/uL MPV 8.1 (7.5-11.0) fL Gran % (36.0-66.0) % Immature Gran % (Auto) (0.00-0.4) % Nucleat RBC Rel Count (0.00-0.1) % Eos # (Auto) (0-0.5) x10^3/uL Immature Gran # (Auto) (0.00-0.03) x10^3u/L Absolute Lymphs (auto) (1.0-4.6) x10^3/uL Absolute Monos (auto) (0.0-1.3) x10^3/uL Absolute Nucleated RBC (0.00-0.01) x10^3u/L Lymphocytes % (24.0-44.0) % Monocytes % (0.0-12.0) % Eosinophils % (0.00-5.0) % Basophils % (0.0-0.4) % Absolute Granulocytes (1.4-6.9) x10^3/uL Segmented Neutrophils 73 H (36.0-66.0) % Band Neutrophils 1 (0.0-2.0) % Lymphocytes (Manual) 20 L (24-44) % Monocytes (Manual) 4 (0.0-12.0) % Eosinophils (Manual) 2 (0.00-3.0) % Basophils # (0-0.4) x10^3/uL Hypochromia 2+ Platelet Estimate INCREASED (NORMAL) RBC Morphology ABNORMAL Anisocytosis 1+ Sodium 141 (137-145) mmol/L Potassium 3.1 L (3.5-5.1) mmol/L Chloride 110 H (98-107) mmol/L Carbon Dioxide 18 L (22-30) mmol/L Anion Gap 16.0 H (5-15) MEQ/L BUN 6 L (7-17) mg/dL Creatinine 0.49 L (0.52-1.04) mg/dL Estimated GFR > 60.0 ML/MIN Glucose 103 (74-106) mg/dL Lactic Acid (0.4-2.0) Calcium 8.3 L (8.4-10.2) mg/dL Magnesium 1.6 (1.6-2.3) mg/dL Total Bilirubin (0.2-1.3) mg/dL AST (14-36) U/L ALT (0-35) U/L Alkaline Phosphatase (38-126) U/L Lactate Dehydrogenase (120-246) U/L Troponin I (0.000-0.034) ng/mL Serum Total Protein (6.3-8.2) g/dL Albumin (3.5-5.0) g/dL Lipase (23-300) U/L Urine Color (Yellow) Urine Appearance (Clear) Urine pH (4.6-8.0) Ur Specific [place] (1.005-1.030) Urine Protein (Negative) Urine Glucose (UA) (Negative) mg/dL Urine Ketones (Negative) Urine Blood (Negative) Urine Nitrite (Negative) Urine Bilirubin (Negative) Urine Urobilinogen (0.2) mg/dL Ur Leukocyte Esterase (Negative) U Hyaline Cast (Auto) (0-2) /LPF Urine Microscopic RBC (0-5) /HPF Urine Microscopic WBC (0-5) /HPF Ur Epithelial Cells (None Seen) /HPF Urine Bacteria (None Seen) /HPF Urine Culture Reflexed (NO) Slides for Path Review 08/27/22 Range/Units 07:21 WBC (4.0-10.5) x10^3/uL RBC (4.1-5.4) x10^6/uL Hgb (12.0-16.0) g/dL Hct (35-47) % MCV (78-100) fL MCH (26-32) pg MCHC (32-36) g/dL RDW (11.5-14.0) % Plt Count (150-450) x10^3/uL MPV (7.5-11.0) fL Gran % (36.0-66.0) % Immature Gran % (Auto) (0.00-0.4) % Nucleat RBC Rel Count (0.00-0.1) % Eos # (Auto) (0-0.5) x10^3/uL Immature Gran # (Auto) (0.00-0.03) x10^3u/L Absolute Lymphs (auto) (1.0-4.6) x10^3/uL Absolute Monos (auto) (0.0-1.3) x10^3/uL Absolute Nucleated RBC (0.00-0.01) x10^3u/L Lymphocytes % (24.0-44.0) % Monocytes % (0.0-12.0) % Eosinophils % (0.00-5.0) % Basophils % (0.0-0.4) % Absolute Granulocytes (1.4-6.9) x10^3/uL Segmented Neutrophils (36.0-66.0) % Band Neutrophils (0.0-2.0) % Lymphocytes (Manual) (24-44) % Monocytes (Manual) (0.0-12.0) % Eosinophils (Manual) (0.00-3.0) % Basophils # (0-0.4) x10^3/uL Hypochromia Platelet Estimate (NORMAL) RBC Morphology Anisocytosis Sodium (137-145) mmol/L Potassium (3.5-5.1) mmol/L Chloride (98-107) mmol/L Carbon Dioxide (22-30) mmol/L Anion Gap (5-15) MEQ/L BUN (7-17) mg/dL Creatinine (0.52-1.04) mg/dL Estimated GFR ML/MIN Glucose (74-106) mg/dL Lactic Acid (0.4-2.0) Calcium (8.4-10.2) mg/dL Magnesium (1.6-2.3) mg/dL Total Bilirubin (0.2-1.3) mg/dL AST (14-36) U/L ALT (0-35) U/L Alkaline Phosphatase (38-126) U/L Lactate Dehydrogenase (120-246) U/L Troponin I < 0.012 (0.000-0.034) ng/mL Serum Total Protein (6.3-8.2) g/dL Albumin (3.5-5.0) g/dL Lipase (23-300) U/L Urine Color (Yellow) Urine Appearance (Clear) Urine pH (4.6-8.0) Ur Specific [place] (1.005-1.030) Urine Protein (Negative) Urine Glucose (UA) (Negative) mg/dL Urine Ketones (Negative) Urine Blood (Negative) Urine Nitrite (Negative) Urine Bilirubin (Negative) Urine Urobilinogen (0.2) mg/dL Ur Leukocyte Esterase (Negative) U Hyaline Cast (Auto) (0-2) /LPF Urine Microscopic RBC (0-5) /HPF Urine Microscopic WBC (0-5) /HPF Ur Epithelial Cells (None Seen) /HPF Urine Bacteria (None Seen) /HPF Urine Culture Reflexed (NO) Slides for Path Review - Radiology Impressions Radiology Exams & Impressions: Radiology Procedures Category Date Time Status ABDOMEN AND PELVIS W/0 CONTRAS [CT] Stat Exams 08/26/22 23:05 Completed Assessment/Plan (1) Acute on chronic pancreatitis Current Visit: Yes Status: Acute Assessment & Plan: npo, fluids. itching from dilaudid EQUINE BREEDER, will change to morphine Code(s): K85.90 - ACUTE PANCREATITIS WITHOUT NECROSIS OR INFECTION, UNSP; K86.1 - OTHER CHRONIC PANCREATITIS (2) History of Campbell-en-Y gastric bypass Current Visit: Yes Status: Chronic Code(s): Z98.84 - BARIATRIC SURGERY STATUS (3) Chronic anemia Current Visit: No Status: Chronic Code(s): D64.9 - ANEMIA, UNSPECIFIED
[2022-08-27] MEDS ORDERED: APRESOLINE 20 MG/ML INJ IV PRN (08:19)
[2022-08-27] MEDS: Morphine PCA 1 MG/ML IV PRN ×2 (08:28→17:43)
[2022-08-27] MEDS: Sodium Chloride 0.9% W/ 20 mEq KCl/LITER 1,000 ML IV SCH ×2 (08:41→17:52)
[2022-08-27] MEDS: ENOXAPARIN SODIUM SQ SCH (08:43)
[2022-08-27] MEDS: BENADRYL 50 MG/ML IV PRN ×2 (08:44→17:52)
[2022-08-27] MEDS: NORVASC 5 MG PO SCH (08:51)
[2022-08-27] MEDS: ceLEXa 20 MG PO SCH (08:52)
[2022-08-27] MEDS ORDERED: CITALOPRAM HYDROBROMIDE 30 MG PO SCH (10:00)
[2022-08-28] MEDS: Zofran 4 MG/2 ML VIAL IV PRN ×3 (02:44→20:22)
[2022-08-28] MEDS: Sodium Chloride 0.9% W/ 20 mEq KCl/LITER 1,000 ML IV SCH ×2 (03:30→14:10)
[2022-08-28] MEDS: Morphine PCA 1 MG/ML IV PRN ×2 (04:46→18:02)
[2022-08-28] MEDS: BENADRYL 50 MG/ML IV PRN ×2 (08:21→21:54)
[2022-08-28 09:32] LABS: BASOPHIL % 2.1 % (0.0-0.4); Basophil (Absolute #) 0.12 x10^3/uL (0-0.4); Eosinophil % 11.7 % (0.00-5.0); Eosinophil (Absolute #) 0.68 x10^3/uL (0-0.5); Hematocrit 28.2 % (35-47); Hemoglobin 7.9 g/dL (12.0-16.0); IMMATURE GRAN # 0.02 x10^3u/L (0.00-0.03); IMMATURE GRAN % 0.3 % (0.00-0.4); Lymphocyte (Absolute #) 1.15 x10^3/uL (1.0-4.6); Lymphocytes % 19.7 % (24.0-44.0); Mean Cell Volume 69.8 fL (78-100); Mean Corpuscular Hemoglobin 19.6 pg (26-32); Monocyte (Absolute #) 0.56 x10^3/uL (0.0-1.3); Monocytes % 9.6 % (0.0-12.0); Neutrophil % 56.6 % (36.0-66.0); Platelet Count 476 x10^3/uL (150-450); Red Blood Count 4.04 x10^6/uL (4.1-5.4); Red Cell Distribution Width 21.5 % (11.5-14.0); White Blood Count 5.8 x10^3/uL (4.0-10.5)
[2022-08-28 09:45] LABS: ALBUMIN 3.6 g/dL (3.5-5.0); ALKALINE PHOSPHATASE 55 U/L (38-126); ANION GAP 12.2 MEQ/L (5-15); BLOOD UREA NITROGEN 3 mg/dL (7-17); CHLORIDE 106 mmol/L (98-107); Calcium 7.8 mg/dL (8.4-10.2); Carbon Dioxide 22 mmol/L (22-30); Creatinine 1 0.41 mg/dL (0.52-1.04); EST GLOMERULAR FILTRATION RATE > 60.0 ML/MIN; Glucose 94 mg/dL (74-106); LIPASE 574 U/L (23-300); Potassium 3.5 mmol/L (3.5-5.1); SGOT/AST 33 U/L (14-36); SGPT/ALT 18 U/L (0-35); SODIUM 137 mmol/L (137-145); Total Protein 6.5 g/dL (6.3-8.2)
[2022-08-28] MEDS: NORVASC 5 MG PO SCH (10:58)
[2022-08-28] MEDS: ENOXAPARIN SODIUM SQ SCH (10:58)
[2022-08-28] MEDS: ceLEXa 20 MG PO SCH (10:58)
[2022-08-28 11:38] LABS: Slide Review 1 YES
--- NOTE | 2022-08-28 12:54 | PCM.NOTE ---
Date and Time: 08/28/22 1248 Subjective Assessment: Her abd pain is now 8/10 (was >10/10 at admission). She was in the hospital 2 weeks ago and doesn't think her pancreatitis fully resolved from that admission. She did apparently contact her specialist (Raghu Andino, at [facility]). - Review of Systems Constitutional: No Fever Abdominal/Gastrointestinal: Abdominal Pain Objective Exam General Appearance: no apparent distress, alert Neurologic Exam: oriented x 3, cooperative Skin Exam: normal color, warm, dry, No rash Eye Exam: eyes nml inspection Ears, Nose, Throat Exam: moist mucous membranes Neck Exam: normal inspection, non-tender, No lymphadenopathy, No subcutaneous emphysema, No midline tenderness, No thyromegaly Respiratory Exam: normal breath sounds, lungs clear, No crackles/rales, No rhonchi, No wheezing Cardiovascular Exam: regular rate/rhythm, normal heart sounds, No murmur Gastrointestinal/Abdomen Exam: soft, tenderness (superior abd (epigatrum, RUQ, LUQ)), No normal bowel sounds (hypoactive but present) Extremity Exam: normal inspection, No pedal edema, No swelling Back Exam: normal inspection, No rash OBJECTIVE DATA Vital Signs: Vital Signs - 24 hr Temp Pulse Resp BP Pulse Ox 08/28/22 11:32 97.6 F 60 18 164/82 96 08/28/22 07:10 99 08/28/22 06:51 97.6 F 73 16 178/80 99 08/28/22 03:47 98.1 F 70 18 144/84 96 08/27/22 23:44 97.3 F 77 18 133/89 99 08/27/22 20:00 97.1 F 80 18 185/96 97 08/27/22 17:43 18 08/27/22 16:28 18 99 08/27/22 16:00 18 08/27/22 15:45 97.9 F 79 16 169/78 99 Pain Assessment - Last Documented Pain Intensity 8 Pain Scale Used 0-10 Pain Scale Intake and Output: Intake & Output 08/26/22 08/27/22 08/28/22 08/29/22 11:59 11:59 11:59 11:59 Intake Total 0 3235 Output Total 3600 Balance 0 -365 Weight 68.7 kg Lab Results: Lab Results-Last 24 Hours 08/28/22 08/28/22 Range/Units 09:25 09:25 WBC 5.8 (4.0-10.5) x10^3/uL RBC 4.04 L (4.1-5.4) x10^6/uL Hgb 7.9 L (12.0-16.0) g/dL Hct 28.2 L (35-47) % MCV 69.8 L (78-100) fL MCH 19.6 L (26-32) pg MCHC 28.0 L (32-36) g/dL RDW 21.5 H (11.5-14.0) % Plt Count 476 H (150-450) x10^3/uL MPV 8.0 (7.5-11.0) fL Gran % 56.6 (36.0-66.0) % Immature Gran % (Auto) 0.3 (0.00-0.4) % Nucleat RBC Rel Count 0.0 (0.00-0.1) % Eos # (Auto) 0.68 H (0-0.5) x10^3/uL Immature Gran # (Auto) 0.02 (0.00-0.03) x10^3u/L Absolute Lymphs (auto) 1.15 (1.0-4.6) x10^3/uL Absolute Monos (auto) 0.56 (0.0-1.3) x10^3/uL Absolute Nucleated RBC 0.00 (0.00-0.01) x10^3u/L Lymphocytes % 19.7 L (24.0-44.0) % Monocytes % 9.6 (0.0-12.0) % Eosinophils % 11.7 H (0.00-5.0) % Basophils % 2.1 (0.0-0.4) % Absolute Granulocytes 3.30 (1.4-6.9) x10^3/uL Basophils # 0.12 (0-0.4) x10^3/uL Sodium 137 (137-145) mmol/L Potassium 3.5 (3.5-5.1) mmol/L Chloride 106 (98-107) mmol/L Carbon Dioxide 22 (22-30) mmol/L Anion Gap 12.2 (5-15) MEQ/L BUN 3 L (7-17) mg/dL Creatinine 0.41 L (0.52-1.04) mg/dL Estimated GFR > 60.0 ML/MIN Glucose 94 (74-106) mg/dL Calcium 7.8 L (8.4-10.2) mg/dL Total Bilirubin 0.30 (0.2-1.3) mg/dL AST 33 (14-36) U/L ALT 18 (0-35) U/L Alkaline Phosphatase 55 (38-126) U/L Serum Total Protein 6.5 (6.3-8.2) g/dL Albumin 3.6 (3.5-5.0) g/dL Lipase 574 H (23-300) U/L Slides for Path Review YES Radiology Exams: Radiology Procedures Category Date Time Status ABDOMEN AND PELVIS W/0 CONTRAS [CT] Stat Exams 08/26/22 23:05 Completed Multi-Disciplinary Progress Notes: Multi-Disciplinary Progress Notes 08/28/22 09:38 Case Management Note by Alva Gong NO CHANGE IN DC PLANS AT THIS TIME Initialized on 08/28/22 09:38 - END OF NOTE Assessment/Plan (1) Acute on chronic pancreatitis Current Visit: Yes Status: Acute Assessment & Plan: Some improvement - will start on CLD. Lipase down to 574 today (was 1388 at admission). I believe she is waiting to hear from her GI specialist. Code(s): K85.90 - ACUTE PANCREATITIS WITHOUT NECROSIS OR INFECTION, UNSP; K86.1 - OTHER CHRONIC PANCREATITIS (2) History of Campbell-en-Y gastric bypass Current Visit: Yes Status: Chronic Code(s): Z98.84 - BARIATRIC SURGERY STATUS (3) Microcytic anemia Current Visit: Yes Status: Acute Code(s): D50.9 - IRON DEFICIENCY ANEMIA, UNSPECIFIED
[2022-08-29] MEDS: Sodium Chloride 0.9% W/ 20 mEq KCl/LITER 1,000 ML IV SCH (00:20)
[2022-08-29] MEDS: Zofran 4 MG/2 ML VIAL IV PRN ×3 (02:20→19:41)
[2022-08-29 04:30] LABS: Absolute Neutrophil Ct (ANC) 3.65 x10^3/uL (1.4-6.9); Basophil (Absolute #) 0.13 x10^3/uL (0-0.4); Eosinophil % 10.5 % (0.00-5.0); Hemoglobin 8.9 g/dL (12.0-16.0); IMMATURE GRAN # 0.02 x10^3u/L (0.00-0.03); IMMATURE GRAN % 0.3 % (0.00-0.4); Lymphocyte (Absolute #) 1.37 x10^3/uL (1.0-4.6); Lymphocytes % 20.6 % (24.0-44.0); Mean Cell Volume 70.6 fL (78-100); Mean Corpuscular Hemoglobin 19.6 pg (26-32); Mean Corpuscular Hgb Concent. 27.8 g/dL (32-36); Mean Platelet Volume 8.1 fL (7.5-11.0); Monocyte (Absolute #) 0.78 x10^3/uL (0.0-1.3); Monocytes % 11.7 % (0.0-12.0); Neutrophil % 54.9 % (36.0-66.0); Platelet Count 514 x10^3/uL (150-450); Red Blood Count 4.53 x10^6/uL (4.1-5.4); White Blood Count 6.7 x10^3/uL (4.0-10.5)
[2022-08-29 04:43] LABS: ALKALINE PHOSPHATASE 52 U/L (38-126); ANION GAP 14.4 MEQ/L (5-15); BLOOD UREA NITROGEN 5 mg/dL (7-17); CHLORIDE 104 mmol/L (98-107); Calcium 8.7 mg/dL (8.4-10.2); Carbon Dioxide 23 mmol/L (22-30); EST GLOMERULAR FILTRATION RATE > 60.0 ML/MIN; Glucose 99 mg/dL (74-106); LIPASE 423 U/L (23-300); Potassium 5.5 mmol/L (3.5-5.1); SGOT/AST 32 U/L (14-36); SGPT/ALT 18 U/L (0-35); SODIUM 136 mmol/L (137-145); Total Protein 7.1 g/dL (6.3-8.2)
[2022-08-29] MEDS: Sodium Chloride 0.9% 1000 ML 1,000 ML IV SCH (05:21)
[2022-08-29] MEDS: Morphine PCA 1 MG/ML IV PRN ×2 (07:02→17:21)
[2022-08-29 07:23] LABS: Slide Review 1 YES
[2022-08-29] MEDS: ENOXAPARIN SODIUM SQ SCH (09:12)
[2022-08-29] MEDS: NORVASC 5 MG PO SCH (09:12)
[2022-08-29] MEDS: ceLEXa 20 MG PO SCH (09:12)
--- NOTE | 2022-08-29 09:15 | PCM.NOTE ---
Date and Time: 08/29/22913 Subjective Assessment: patient tolerating clears, states she still has pain but her exam is benign. she wants to eat, I won't advance her diet until lipase normalizes since she was readmitted Objective Exam General Appearance: no apparent distress Neurologic Exam: alert, oriented x 3 Respiratory Exam: normal breath sounds Cardiovascular Exam: regular rate/rhythm, normal heart sounds Gastrointestinal/Abdomen Exam: soft, No tenderness, No distention, No guarding, No rebound Extremity Exam: normal inspection, normal range of motion OBJECTIVE DATA Vital Signs: Vital Signs - 24 hr Temp Pulse Resp BP Pulse Ox 08/29/22 08:33 98 08/29/22 08:00 18 96 08/29/22 07:21 97.1 F 85 16 132/96 98 08/29/22 07:02 18 97 08/29/22 04:00 16 98 08/29/22 03:53 97.5 F 86 16 116/80 98 08/29/22 01:43 16 97 08/29/22 00:00 16 08/28/22 23:56 16 08/28/22 23:41 97.1 F 62 16 136/70 97 08/28/22 20:46 17 100 08/28/22 20:00 17 100 08/28/22 19:20 97.8 F 82 17 135/76 100 08/28/22 18:59 18 98 08/28/22 18:02 18 98 08/28/22 16:28 98 08/28/22 16:00 97.6 F 77 18 121/82 96 08/28/22 11:32 97.6 F 60 18 164/82 96 Pain Assessment - Last Documented Pain Intensity 8 Pain Scale Used 0-10 Pain Scale Intake and Output: Intake & Output 08/26/22 08/27/22 08/28/22 08/29/22 11:59 11:59 11:59 11:59 Intake Total 0 3235 5626 Output Total 3600 6000 Balance 0 -365 -374 Weight 68.7 kg Lab Results: Lab Results-Last 24 Hours 08/28/22 08/28/22 08/29/22 Range/Units 09:25 09:25 04:23 WBC 5.8 6.7 (4.0-10.5) x10^3/uL RBC 4.04 L 4.53 (4.1-5.4) x10^6/uL Hgb 7.9 L 8.9 L (12.0-16.0) g/dL Hct 28.2 L 32.0 L (35-47) % MCV 69.8 L 70.6 L (78-100) fL MCH 19.6 L 19.6 L (26-32) pg MCHC 28.0 L 27.8 L (32-36) g/dL RDW 21.5 H 22.0 H (11.5-14.0) % Plt Count 476 H 514 H (150-450) x10^3/uL MPV 8.0 8.1 (7.5-11.0) fL Gran % 56.6 54.9 (36.0-66.0) % Immature Gran % (Auto) 0.3 0.3 (0.00-0.4) % Nucleat RBC Rel Count 0.0 0.0 (0.00-0.1) % Eos # (Auto) 0.68 H 0.70 H (0-0.5) x10^3/uL Immature Gran # (Auto) 0.02 0.02 (0.00-0.03) x10^3u/L Absolute Lymphs (auto) 1.15 1.37 (1.0-4.6) x10^3/uL Absolute Monos (auto) 0.56 0.78 (0.0-1.3) x10^3/uL Absolute Nucleated RBC 0.00 0.00 (0.00-0.01) x10^3u/L Lymphocytes % 19.7 L 20.6 L (24.0-44.0) % Monocytes % 9.6 11.7 (0.0-12.0) % Eosinophils % 11.7 H 10.5 H (0.00-5.0) % Basophils % 2.1 2.0 (0.0-0.4) % Absolute Granulocytes 3.30 3.65 (1.4-6.9) x10^3/uL Basophils # 0.12 0.13 (0-0.4) x10^3/uL Sodium 137 (137-145) mmol/L Potassium 3.5 (3.5-5.1) mmol/L Chloride 106 (98-107) mmol/L Carbon Dioxide 22 (22-30) mmol/L Anion Gap 12.2 (5-15) MEQ/L BUN 3 L (7-17) mg/dL Creatinine 0.41 L (0.52-1.04) mg/dL Estimated GFR > 60.0 ML/MIN Glucose 94 (74-106) mg/dL Calcium 7.8 L (8.4-10.2) mg/dL Total Bilirubin 0.30 (0.2-1.3) mg/dL AST 33 (14-36) U/L ALT 18 (0-35) U/L Alkaline Phosphatase 55 (38-126) U/L Serum Total Protein 6.5 (6.3-8.2) g/dL Albumin 3.6 (3.5-5.0) g/dL Lipase 574 H (23-300) U/L Slides for Path Review YES YES 08/29/22 Range/Units 04:23 WBC (4.0-10.5) x10^3/uL RBC (4.1-5.4) x10^6/uL Hgb (12.0-16.0) g/dL Hct (35-47) % MCV (78-100) fL MCH (26-32) pg MCHC (32-36) g/dL RDW (11.5-14.0) % Plt Count (150-450) x10^3/uL MPV (7.5-11.0) fL Gran % (36.0-66.0) % Immature Gran % (Auto) (0.00-0.4) % Nucleat RBC Rel Count (0.00-0.1) % Eos # (Auto) (0-0.5) x10^3/uL Immature Gran # (Auto) (0.00-0.03) x10^3u/L Absolute Lymphs (auto) (1.0-4.6) x10^3/uL Absolute Monos (auto) (0.0-1.3) x10^3/uL Absolute Nucleated RBC (0.00-0.01) x10^3u/L Lymphocytes % (24.0-44.0) % Monocytes % (0.0-12.0) % Eosinophils % (0.00-5.0) % Basophils % (0.0-0.4) % Absolute Granulocytes (1.4-6.9) x10^3/uL Basophils # (0-0.4) x10^3/uL Sodium 136 L (137-145) mmol/L Potassium 5.5 H D (3.5-5.1) mmol/L Chloride 104 (98-107) mmol/L Carbon Dioxide 23 (22-30) mmol/L Anion Gap 14.4 (5-15) MEQ/L BUN 5 L (7-17) mg/dL Creatinine 0.50 L (0.52-1.04) mg/dL Estimated GFR > 60.0 ML/MIN Glucose 99 (74-106) mg/dL Calcium 8.7 (8.4-10.2) mg/dL Total Bilirubin 0.30 (0.2-1.3) mg/dL AST 32 (14-36) U/L ALT 18 (0-35) U/L Alkaline Phosphatase 52 (38-126) U/L Serum Total Protein 7.1 (6.3-8.2) g/dL Albumin 4.0 (3.5-5.0) g/dL Lipase 423 H (23-300) U/L Slides for Path Review Multi-Disciplinary Progress Notes: Multi-Disciplinary Progress Notes 08/29/22 08:51 Case Management Note by Alva Gong S/W PATIENT SHE CONTINUES TO DENY ANY NEW NEEDS AT TIME OF DC. SHE PLANS TO RETURN HOME TO HER PLF AT TIME OF DC Initialized on 08/29/22 08:51 - END OF NOTE 08/28/22 09:38 Case Management Note by Alva Gong NO CHANGE IN DC PLANS AT THIS TIME Initialized on 08/28/22 09:38 - END OF NOTE Assessment/Plan (1) Acute on chronic pancreatitis Current Visit: Yes Status: Acute Assessment & Plan: enzymes improving, repeat tomorrow. continue clears Code(s): K85.90 - ACUTE PANCREATITIS WITHOUT NECROSIS OR INFECTION, UNSP; K86.1 - OTHER CHRONIC PANCREATITIS (2) History of Campbell-en-Y gastric bypass Current Visit: Yes Status: Chronic Code(s): Z98.84 - BARIATRIC SURGERY STATUS (3) Chronic anemia Current Visit: No Status: Chronic Code(s): D64.9 - ANEMIA, UNSPECIFIED
[2022-08-29] MEDS: BENADRYL 50 MG/ML IV PRN ×2 (12:46→19:41)
[2022-08-30] MEDS: BENADRYL 50 MG/ML IV PRN ×4 (03:05→21:35)
[2022-08-30] MEDS: Zofran 4 MG/2 ML VIAL IV PRN ×4 (03:05→21:35)
[2022-08-30 05:17] LABS: Hematocrit 35.7 % (35-47); Hemoglobin 9.9 g/dL (12.0-16.0); Mean Cell Volume 70.6 fL (78-100); Mean Corpuscular Hemoglobin 19.6 pg (26-32); Mean Corpuscular Hgb Concent. 27.7 g/dL (32-36); Mean Platelet Volume 8.4 fL (7.5-11.0); Platelet Count 427 x10^3/uL (150-450); Red Blood Count 5.06 x10^6/uL (4.1-5.4); Red Cell Distribution Width 22.2 % (11.5-14.0); White Blood Count 4.2 x10^3/uL (4.0-10.5)
[2022-08-30 05:38] LABS: ALBUMIN 3.1 g/dL (3.5-5.0); ALKALINE PHOSPHATASE 33 U/L (38-126); ANION GAP 11.5 MEQ/L (5-15); BLOOD UREA NITROGEN 4 mg/dL (7-17); CHLORIDE 106 mmol/L (98-107); Carbon Dioxide 21 mmol/L (22-30); Creatinine 1 0.41 mg/dL (0.52-1.04); EST GLOMERULAR FILTRATION RATE > 60.0 ML/MIN; Glucose 91 mg/dL (74-106); LIPASE 362 U/L (23-300); SGOT/AST 40 U/L (14-36); SGPT/ALT 16 U/L (0-35); SODIUM 135 mmol/L (137-145); Total Protein 5.7 g/dL (6.3-8.2)
[2022-08-30] MEDS: Sodium Chloride 0.9% 1000 ML 1,000 ML IV SCH (05:46)
[2022-08-30] MEDS: Morphine PCA 1 MG/ML IV PRN ×4 (06:11→23:51)
[2022-08-30 06:16] LABS: Calcium 7.4 mg/dL (8.4-10.2)
--- NOTE | 2022-08-30 08:53 | PCM.NOTE ---
Date and Time: 08/30/22 0852 Subjective Assessment: patient is feeling better, still has some pain and requiring morphine pump but she is ready to eat Objective Exam General Appearance: no apparent distress Neurologic Exam: alert, oriented x 3 Respiratory Exam: normal breath sounds Cardiovascular Exam: regular rate/rhythm, normal heart sounds Gastrointestinal/Abdomen Exam: soft, tenderness (mild epigastric), No mass OBJECTIVE DATA Vital Signs: Vital Signs - 24 hr Temp Pulse Resp BP Pulse Ox 08/30/22 08:00 16 93 L 08/30/22 07:22 98 08/30/22 07:19 19 92 L 08/30/22 06:49 96.6 F 65 19 116/55 98 08/30/22 06:11 18 95 08/30/22 04:00 18 95 08/30/22 03:45 97.7 F 71 18 153/62 95 08/29/22 23:58 16 08/29/22 23:57 18 100 08/29/22 23:37 97.8 F 77 16 119/65 100 08/29/22 20:00 15 97 08/29/22 19:41 97.1 F 77 18 134/72 97 08/29/22 19:30 99 08/29/22 18:46 18 94 L 08/29/22 17:21 18 90 L 08/29/22 16:00 16 100 08/29/22 15:52 96.6 F 72 16 134/63 96 08/29/22 12:00 16 97 08/29/22 11:11 97.1 F 64 16 136/66 94 L Pain Assessment - Last Documented Pain Intensity 8 Pain Scale Used 0-10 Pain Scale Intake and Output: Intake & Output 08/27/22 08/28/22 08/29/22 08/30/22 11:59 11:59 11:59 11:59 Intake Total 0 3235 5626 4041 Output Total 3600 6000 3000 Balance 0 -365 -374 1041 Weight 68.7 kg Lab Results: Lab Results-Last 24 Hours 08/30/22 08/30/22 Range/Units 04:02 04:02 WBC 4.2 (4.0-10.5) x10^3/uL RBC 5.06 (4.1-5.4) x10^6/uL Hgb 9.9 L (12.0-16.0) g/dL Hct 35.7 (35-47) % MCV 70.6 L (78-100) fL MCH 19.6 L (26-32) pg MCHC 27.7 L (32-36) g/dL RDW 22.2 H (11.5-14.0) % Plt Count 427 (150-450) x10^3/uL MPV 8.4 (7.5-11.0) fL Sodium 135 L (137-145) mmol/L Potassium 4.0 D (3.5-5.1) mmol/L Chloride 106 (98-107) mmol/L Carbon Dioxide 21 L (22-30) mmol/L Anion Gap 11.5 (5-15) MEQ/L BUN 4 L (7-17) mg/dL Creatinine 0.41 L (0.52-1.04) mg/dL Estimated GFR > 60.0 ML/MIN Glucose 91 (74-106) mg/dL Calcium 7.4 L (8.4-10.2) mg/dL Total Bilirubin 0.40 (0.2-1.3) mg/dL AST 40 H (14-36) U/L ALT 16 (0-35) U/L Alkaline Phosphatase 33 L (38-126) U/L Serum Total Protein 5.7 L (6.3-8.2) g/dL Albumin 3.1 L (3.5-5.0) g/dL Lipase 362 H (23-300) U/L Assessment/Plan (1) Acute on chronic pancreatitis Current Visit: Yes Status: Acute Assessment & Plan: lipase is nearly normalized, will not advance diet until normal due to recent readmission, explained to patient if enzymes normal in the am can advance to bland diet Code(s): K85.90 - ACUTE PANCREATITIS WITHOUT NECROSIS OR INFECTION, UNSP; K86.1 - OTHER CHRONIC PANCREATITIS (2) History of Campbell-en-Y gastric bypass Current Visit: Yes Status: Chronic Code(s): Z98.84 - BARIATRIC SURGERY S TATUS (3) Chronic anemia Current Visit: No Status: Chronic Code(s): D64.9 - ANEMIA, UNSPECIFIED
[2022-08-30 08:55] LABS: Slide Review 1 YES
[2022-08-30] MEDS: ceLEXa 20 MG PO SCH (09:11)
[2022-08-30] MEDS: ENOXAPARIN SODIUM SQ SCH (09:12)
[2022-08-30] MEDS: NORVASC 5 MG PO SCH (09:12)
[2022-08-31] MEDS: Sodium Chloride 0.9% 1000 ML 1,000 ML IV SCH (04:52)
[2022-08-31] MEDS: Zofran 4 MG/2 ML VIAL IV PRN (04:52)
[2022-08-31] MEDS: BENADRYL 50 MG/ML IV PRN (04:52)
[2022-08-31 05:54] LABS: Absolute Neutrophil Ct (ANC) 3.59 x10^3/uL (1.4-6.9); BASOPHIL % 1.7 % (0.0-0.4); Basophil (Absolute #) 0.11 x10^3/uL (0-0.4); Eosinophil % 7.6 % (0.00-5.0); Eosinophil (Absolute #) 0.49 x10^3/uL (0-0.5); Hematocrit 33.8 % (35-47); Hemoglobin 9.1 g/dL (12.0-16.0); IMMATURE GRAN # 0.02 x10^3u/L (0.00-0.03); IMMATURE GRAN % 0.3 % (0.00-0.4); Lymphocyte (Absolute #) 1.26 x10^3/uL (1.0-4.6); Lymphocytes % 19.6 % (24.0-44.0); Mean Cell Volume 70.3 fL (78-100); Mean Corpuscular Hemoglobin 18.9 pg (26-32); Mean Corpuscular Hgb Concent. 26.9 g/dL (32-36); Mean Platelet Volume 8.2 fL (7.5-11.0); Monocyte (Absolute #) 0.97 x10^3/uL (0.0-1.3); Monocytes % 15.1 % (0.0-12.0); Neutrophil % 55.7 % (36.0-66.0); Platelet Count 473 x10^3/uL (150-450); Red Blood Count 4.81 x10^6/uL (4.1-5.4); Red Cell Distribution Width 21.8 % (11.5-14.0); White Blood Count 6.4 x10^3/uL (4.0-10.5)
[2022-08-31 06:16] LABS: ALBUMIN 3.8 g/dL (3.5-5.0); ALKALINE PHOSPHATASE 54 U/L (38-126); ANION GAP 12.5 MEQ/L (5-15); BLOOD UREA NITROGEN 8 mg/dL (7-17); CHLORIDE 100 mmol/L (98-107); Calcium 8.6 mg/dL (8.4-10.2); Carbon Dioxide 28 mmol/L (22-30); Creatinine 1 0.66 mg/dL (0.52-1.04); EST GLOMERULAR FILTRATION RATE > 60.0 ML/MIN; Glucose 98 mg/dL (74-106); LIPASE 592 U/L (23-300); Potassium 5.4 mmol/L (3.5-5.1); SGOT/AST 28 U/L (14-36); SGPT/ALT 17 U/L (0-35); SODIUM 135 mmol/L (137-145)
[2022-08-31 07:21] LABS: Slide Review 1 YES
[2022-08-31 08:20] VITALS: BP 93/59; PULSE 76; O2SAT 93
--- NOTE | 2022-08-31 08:33 | PCM.DS ---
Discharge Summary Date of Admission: 08/28/22 12:48 Admitting Physician: HANNAH DUNN Primary Care Provider: MARIMAR LEA NP Allergies Allergies No Known Drug Allergies Allergy (Verified 08/26/22 22:39) Hospital Summary - Hospital Course Hospital Course: patient admitted with epigastric pain and nausea, elevated lipase. kept NPO then on clears, enzymes nearly normalized then bumped minimally but her pain is resolved and clinically she looks great today. will advance to bland diet, if tolerates can go home but needs to see her GI as outpatient, instructed on bland low fat diet, mostly clear liquids at home. - Vitals & Intake/Output Vital Signs: Vital Signs Temperature 96.8 F 08/31/22 08:00 Pulse Rate 76 08/31/22 08:00 Respiratory Rate 17 08/31/22 08:00 Blood Pressure 93/59 08/31/22 08:00 O2 Sat by Pulse Oximetry 93 L 08/31/22 08:00 Intake & Output: Intake & Output 08/28/22 08/29/22 08/30/22 08/31/22 11:59 11:59 11:59 11:59 Intake Total 3235 5626 4101 3713 Output Total 3600 6000 3000 Balance -365 -374 1101 3713 Weight 68.7 kg - Lab Result Diagrams: 08/31/22 05:26 08/31/22 05:26 Lab Results-Last 24 Hrs: Lab Results-Last 24 Hours 08/30/22 08/31/22 08/31/22 Range/Units 04:02 05:26 05:26 WBC 6.4 (4.0-10.5) x10^3/uL RBC 4.81 (4.1-5.4) x10^6/uL Hgb 9.1 L (12.0-16.0) g/dL Hct 33.8 L (35-47) % MCV 70.3 L (78-100) fL MCH 18.9 L (26-32) pg MCHC 26.9 L (32-36) g/dL RDW 21.8 H (11.5-14.0) % Plt Count 473 H (150-450) x10^3/uL MPV 8.2 (7.5-11.0) fL Gran % 55.7 (36.0-66.0) % Immature Gran % (Auto) 0.3 (0.00-0.4) % Nucleat RBC Rel Count 0.0 (0.00-0.1) % Eos # (Auto) 0.49 (0-0.5) x10^3/uL Immature Gran # (Auto) 0.02 (0.00-0.03) x10^3u/L Absolute Lymphs (auto) 1.26 (1.0-4.6) x10^3/uL Absolute Monos (auto) 0.97 (0.0-1.3) x10^3/uL Absolute Nucleated RBC 0.00 (0.00-0.01) x10^3u/L Lymphocytes % 19.6 L (24.0-44.0) % Monocytes % 15.1 H (0.0-12.0) % Eosinophils % 7.6 H (0.00-5.0) % Basophils % 1.7 (0.0-0.4) % Absolute Granulocytes 3.59 (1.4-6.9) x10^3/uL Basophils # 0.11 (0-0.4) x10^3/uL Sodium 135 L (137-145) mmol/L Potassium 5.4 H D (3.5-5.1) mmol/L Chloride 100 (98-107) mmol/L Carbon Dioxide 28 (22-30) mmol/L Anion Gap 12.5 (5-15) MEQ/L BUN 8 (7-17) mg/dL Creatinine 0.66 (0.52-1.04) mg/dL Estimated GFR > 60.0 ML/MIN Glucose 98 (74-106) mg/dL Calcium 8.6 D (8.4-10.2) mg/dL Total Bilirubin 0.30 (0.2-1.3) mg/dL AST 28 (14-36) U/L ALT 17 (0-35) U/L Alkaline Phosphatase 54 (38-126) U/L Serum Total Protein 7.0 (6.3-8.2) g/dL Albumin 3.8 (3.5-5.0) g/dL Lipase 592 H (23-300) U/L Slides for Path Review YES YES Discharge Exam General Appearance: no apparent distress Neurologic Exam: alert, oriented x 3 Respiratory Exam: normal breath sounds, lungs clear, No respiratory distress Cardiovascular Exam: regular rate/rhythm, normal heart sounds Gastrointestinal/Abdomen Exam: soft, No tenderness Back Exam: normal inspection, normal range of motion, No CVA tenderness, No vertebral tenderness Extremity Exam: normal inspection, normal range of motion Final Diagnosis/Problem List - Final Discharge Diagnosis/Problem (1) Acute on chronic pancreatitis Current Visit: Yes Status: Acute Assessment & Plan: improving clinically, enzymes improved. I strongly suspect she is eating without staff knowing it, apparently a friend brought a cheeseburger last night but staff discovered it and didn't let Jonelle have it, she denies this but there is no other clinical explanation. In any event she is better clinically Code(s): K85.90 - ACUTE PANCREATITIS WITHOUT NECROSIS OR INFECTION, UNSP; K86.1 - OTHER CHRONIC PANCREATITIS (2) History of Campbell-en-Y gastric bypass Current Visit: Yes Status: Chronic Code(s): Z98.84 - BARIATRIC SURGERY STATUS (3) Chronic anemia Current Visit: No Status: Chronic Code(s): D64.9 - ANEMIA, UNSPECIFIED - Discharge Disposition: Home, Self-Care Condition: Stable Prescriptions: New Hydrocodone/Acetaminophen [Hydrocodone-Acetamin 7.5-325] 1 each PO Q6H PRN PRN #28 tablet MDD 4 PRN Reason: Pain Amlodipine Besylate 5 mg [Norvasc 5 mg] 5 mg PO QAM #30 tablet Ondansetron ODT 4 MG [Zofran Odt 4 mg] 4 mg PO Q6HPRN PRN #30 tab PRN Reason: Nausea Continue Citalopram Hydrobromide [Citalopram HBr] 10 mg PO DAILY Sucralfate 1000 mg/10 ml [Carafate SUSPENSION 1000 MG/10 ML] 10 ml PO ACHS PANTOPRAZOLE 40 mg Tablet [Protonix 40MG Tablet] 40 mg PO QPM Ferrous Sulfate 325 mg [Feosol 325 mg] 325 mg PO DAILY #30 tablet Follow up with: MARIMAR LEA NP [Primary Care Provider] -
[2022-08-31] MEDS: ceLEXa 20 MG PO SCH (09:56)
[2022-08-31] MEDS: NORVASC 5 MG PO SCH (09:56)
[2022-08-31] MEDS: ENOXAPARIN SODIUM SQ SCH (09:57)
== END 2022-08-31 11:06 | disposition home or self-care (01) | DRG 440 ==
LOC: ED 21:06 → MED SURG 08-27 01:56 → OBSVTOIN 08-28 12:48
PROVIDERS: ADMIT Family Medicine; ATTEND Family Medicine
DX: K85.90 Acute pancreatitis without necrosis or infection, unspecified (principal); Z98.84 Bariatric surgery status; D64.9 Anemia, unspecified; Z79.899 Other long term (current) drug therapy; Z20.828 Contact with and (suspected) exposure to other viral communicable diseases
CPT/HCPCS: 36000; 36415; 74176; 80048; 80053; 81001; 83605; 83615; 83690; 83735; 84132; 84484; 85025; 93005; 93268; 94762; 96374; 99285; J1170; J1200; J1642; J1650; J2270; J2405; J3480; A9270-GY; G0378